=== PATIENT | female | born 1950 | race Caucasian/White ===

== ENCOUNTER 2019-08-14 10:44 | Emergency (ER) | payer MEDICARE ==
[2019-08-14 10:58] VITALS: RESP 18
--- NOTE | 2019-08-14 11:15 | ED ---
Extremity Problem HPI - General Chief complaint: Extremity Problem,Nontraumatic Stated complaint: Toe infection Time Seen by Provider: 08/14/19 11:00 Source: patient Mode of arrival: wheelchair Limitations: no limitations - History of Present Illness Initial comments: Patient is a 69-year-old female with chronic kidney failure and type 2 diabetes a presenting to emergency Department with a chief complaint of toe infection. Patient reports she has had a diabetic ulcer on her left third toe for several months which she had treated by a black top paver operator. Patient reports she would get occasional flareups over the toe which the black top paver operator was able to treat with antibiotics. Patient is scheduled to have partial removals and so and currently is undergoing medical clearance testing. Patient reports she has developed difficulty walking over the last 3 days. Patient denies any pain from the region. Her daughter, who does the dressings at home, states there has been improvement in the appearance of the toe. Patient denies any night sweats, fevers or chills. Patient denies increased foul odor from the toe. - Related Data Allergies Allergy/AdvReac Type Severity Reaction Status Date / Time No Known Allergies Allergy Verified 08/14/19 10:58 Review of Systems ROS Statement: Those systems with pertinent positive or pertinent negative responses have been documented in the HPI. ROS Other: All systems not noted in ROS Statement are negative. Past Medical History Past Medical History: CVA/TIA, Diabetes Mellitus, Hyperlipidemia, Hypertension, Thyroid Disorder Additional Past Medical History / Comment(s): chronic toe infection, stage 4 renal failure History of Any Multi-Drug Resistant Organisms: None Reported Past Surgical History: Section Past Psychological History: No Psychological Hx Reported Smoking Status: Never smoker Past Alcohol Use History: None Reported Past Drug Use History: None Reported General Exam Limitations: no limitations General appearance: alert, in no apparent distress Head exam: Present: atraumatic, normocephalic, normal inspection Eye exam: Present: normal appearance Pupils: Present: normal accommodation ENT exam: Present: normal exam, normal oropharynx, mucous membranes moist Neck exam: Present: normal inspection, full ROM Respiratory exam: Present: normal lung sounds bilaterally Cardiovascular Exam: Present: regular rate, normal rhythm, normal heart sounds Extremities exam: Present: full ROM, normal capillary refill. Absent: normal inspection (Left middle toe diabetic ulcer in the plantar aspect. Dried Betadine wrapped. No cellulitic changes noted. No drainage), tenderness, other (No foul smell. +2 dorsalis pedis and posterior tibialis) Back exam: Present: normal inspection, full ROM Neurological exam: Present: alert, oriented X3 Psychiatric exam: Present: normal affect, normal mood Skin exam: Present: warm, intact, normal color Course Vital Signs 08/14/19 10:53 Temperature 98.4 F Pulse Rate 67 Respiratory 18 Rate Blood Pressure 192/83 O2 Sat by Pulse 99 Oximetry Medical Decision Making - Medical Decision Making Patient is 69-year-old female with chronic kidney failure and type 2 diabetes presenting to emergency Department with a chief complaint of toe infection. Physical examination is indicative of a slightly erythematous toe that has been improving according to the daughter. The region is dry with no drainage on the diabetic ulcer which is located on the plantar aspect of the middle toe. Patient has no tenderness in the region. Patient has been complaining of difficulty walking. Patient is scheduled for partial limitation of toe and is currently undergoing medical clearance testing. Patient was concerned for possible infection. CBC shows no white blood count. Lactate is negative. Blood cultures obtained. CMP shows poor kidney function however that is the baseline according to the patient. X-rays indicative of vascular desiccation. Patient states that she does not want to have her toe amputated and is requesting a referral for new black top paver operator. No cellulitic changes noted at this time that would indicate an infection. Patient has no fevers or chills. Afebrile. Patient advised to follow-up with a black top paver operator. I gave the patient contact information for another black top paver operator. Strict return parameters were thoroughly discussed the patient was understanding and agreeable. Case discussed physician. - Lab Data Result diagrams: 08/14/19 11:51 08/14/19 11:51 Lab Results 08/14/19 08/14/19 08/14/19 Range/Units 11:51 11:51 11:51 WBC 4.1 (3.8-10.6) k/uL RBC 3.63 L (3.80-5.40) m/uL Hgb 10.1 L (11.4-16.0) gm/dL Hct 29.7 L (34.0-46.0) % MCV 81.7 (80.0-100.0) fL MCH 28.0 (25.0-35.0) pg MCHC 34.2 (31.0-37.0) g/dL RDW 13.9 (11.5-15.5) % Plt Count 238 (150-450) k/uL Poikilocytosis Slight Sodium 140 (137-145) mmol/L Potassium 4.6 (3.5-5.1) mmol/L Chloride 110 H (98-107) mmol/L Carbon Dioxide 23 (22-30) mmol/L Anion Gap 7 mmol/L BUN 33 H (7-17) mg/dL Creatinine 3.26 H (0.52-1.04) mg/dL Est GFR (CKD-EPI)AfAm 16 (>60 ml/min/1.73 sqM) Est GFR (CKD-EPI)NonAf 14 (>60 ml/min/1.73 sqM) Glucose 145 H (74-99) mg/dL Plasma Lactic Acid Freddy <0.5 L (0.7-2.0) mmol/L Calcium 8.9 (8.4-10.2) mg/dL Total Bilirubin 0.4 (0.2-1.3) mg/dL AST 17 (14-36) U/L ALT 16 (9-52) U/L Alkaline Phosphatase 85 (38-126) U/L Total Protein 7.0 (6.3-8.2) g/dL Albumin 3.4 L (3.5-5.0) g/dL Disposition Clinical Impression: Diabetic ulcer of toe associated with diabetes mellitus due to underlying condition Disposition: HOME SELF-CARE Condition: Stable Instructions (If sedation given, give patient instructions): Foot Care for People with Diabetes (ED) Additional Instructions: Please follow up with a black top paver operator. Please return to emergency department if symptoms worsen. Is patient prescribed a controlled substance at d/c from ED?: No Referrals: Kel Mayen MD [Primary Care Provider] - 1-2 days Time of Disposition: 12:45
--- NOTE | 2019-08-14 11:50 | XR ---
EXAMINATION TYPE: XR foot complete LT DATE OF EXAM: 08/14/2019 CLINICAL HISTORY: pain TECHNIQUE: Frontal, lateral and oblique images of the left foot are obtained. COMPARISON: None. FINDINGS: There is no acute fracture/dislocation evident. The joint spaces appear within normal britton its. Vascular desiccation is noted. IMPRESSION: There is no acute fracture or dislocation. ICD 10 NO FRACTURE, INITIAL EVALUATION
[2019-08-14 12:02] LABS: HCT 29.7 % (34.0-46.0); HGB 10.1 gm/dL (11.4-16.0); MCHC 34.2 g/dL (31.0-37.0); MCV 81.7 fL (80.0-100.0); Platelet Count 238 k/uL (150-450); Poikilocytosis Slight; RBC 3.63 m/uL (3.80-5.40); RDW 13.9 % (11.5-15.5); WBC 4.1 k/uL (3.8-10.6)
[2019-08-14 12:12] LABS: Albumin 3.4 g/dL (3.5-5.0); Calcium 8.9 mg/dL (8.4-10.2); Potassium 4.6 mmol/L (3.5-5.1); Total Bilirubin 0.4 mg/dL (0.2-1.3)
[2019-08-14 13:06] VITALS: BP 127/97; PULSE 64; TEMP 97.2
== END 2019-08-14 13:05 | disposition home or self-care (01) ==
LOC: EC 10:44
DX: E08.622 Diabetes mellitus due to underlying condition with other skin ulcer (principal); L98.499 Non-pressure chronic ulcer of skin of other sites with unspecified severity; I12.9 Hypertensive chronic kidney disease with stage 1 through stage 4 chronic kidney disease, or unspecified chronic kidney disease; E08.22 Diabetes mellitus due to underlying condition with diabetic chronic kidney disease; N18.4 Chronic kidney disease, stage 4 (severe)
CPT/HCPCS: 36415; 80053; 83605; 85027; 99283

== ENCOUNTER 2020-03-26 11:00 | Day surgery (SDC) | payer MEDICARE ==
[2020-03-24 13:40] VITALS: BMI 29.2
[~2020-03-26 11:00] MED LIST: DEXAMETHASONE SOD PHOSPHATE 10 MG/ML 1 ML VIAL IV ONE; LACTATED RINGERS 1,000 ML IV SCH; LIDOCAINE 1% (10MG/ML) FOR IV START INTRADERMA PRN; METOCLOPRAMIDE 5 MG/ML 2 ML VIAL IVP PRN; MORPHINE SULFATE 2 MG/ML SYRINGE IV PRN
[2020-03-26 11:13] LABS: Glucose,Whole Blood 147 mg/dL (75-99)
[2020-03-26] MEDS: ONDANSETRON 4 MG/2 ML VIAL IVP ONE ×2 (11:15→14:39)
[2020-03-26] MEDS ORDERED: MIDAZOLAM 2 MG/2 ML VIAL IV ONE ×2 (11:15)
[2020-03-26] MEDS ORDERED: ONDANSETRON 4 MG/2 ML VIAL ONE (11:18)
[2020-03-26] MEDS ORDERED: LIDOCAINE 1% INJ 10MG/ML (20 ML MDV) SQ ONE ×2 (11:33)
[2020-03-26] MEDS ORDERED: BUPIVACAINE (PF) 0.5% 30 ML VIAL SQ ONE ×2 (11:33)
[2020-03-26] MEDS ORDERED: LIDOCAINE 1% INJ 10MG/ML (20 ML MDV) ONE (11:41)
[2020-03-26] MEDS ORDERED: fentaNYL (PF) 50 MCG/ML 2 ML AMP ONE (11:41)
[2020-03-26] MEDS ORDERED: PHENYLEPHRINE-0.9% NACL SYG 1 MG/10 ML SYRINGE ONE (11:41)
[2020-03-26] MEDS ORDERED: ROPIVACAINE 5 MG/ML 30 ML VIAL ONE (11:41)
[2020-03-26] MEDS ORDERED: PROPOFOL 10 MG/ML 20 ML VIAL IV ONE (11:41)
[2020-03-26 11:49] LABS: Basophils % (A) 1 %; Eosinophils # (A) 0.2 k/uL (0-0.7); Eosinophils % (A) 5 %; HCT 33.1 % (34.0-46.0); HGB 10.8 gm/dL (11.4-16.0); Lymphocytes # (A) 0.9 k/uL (1.0-4.8); Lymphocytes % (A) 22 %; MCH 27.9 pg (25.0-35.0); MCHC 32.7 g/dL (31.0-37.0); MCV 85.4 fL (80.0-100.0); Mean Platelet Volume 7.6; Monocytes # (A) 0.2 k/uL (0-1.0); Monocytes % (A) 6 %; Neutrophils # (A) 2.7 k/uL (1.3-7.7); Neutrophils % (A) 65 %; Platelet Count 183 k/uL (150-450); RBC 3.87 m/uL (3.80-5.40); RDW 14.8 % (11.5-15.5); WBC 4.1 k/uL (3.8-10.6)
[2020-03-26 12:01] LABS: Calcium 8.9 mg/dL (8.4-10.2); Potassium 4.3 mmol/L (3.5-5.1)
--- NOTE | 2020-03-26 12:12 | P.ANPRN ---
Procedure Note - Anesthesia - Nerve Block Performed Left Supraclavicular Time Out Performed: Yes Date of Procedure: 03/26/20 Procedure Start Time: 11:36 Procedure Stop Time: 11:49 Location of Patient: PreOp Indication: Acute Post-Operative Pain, Requested by Surgeon (Dr Ruano) Sedation Type: Sedate with meaningful contact maintained Preparation: Sterile Prep Position: Supine Catheter: None Needle Types: Pajunk Needle Gauge: Other (see comment) (22g) Ultrasound used to visualize needle placement: Yes Ultrasound used to observe medication spread: Yes Injectate: 0.5% Ropivacaine (see comment for volume) (20cc) Blood Aspirated: No Pain Paresthesia on Injection Noted: No Resistance on Injection: Normal Image Stored and Saved: Yes Events: Uneventful and Well Tolerated
[2020-03-26] MEDS ORDERED: HEPARIN SODIUM,PORCINE 2,000 UNIT in SODIUM CHLORIDE 0.9% 500 ML 500 ML IRRIGATION ONE (12:14)
[2020-03-26] MEDS ORDERED: ceFAZolin 2 GM in SODIUM CHLORIDE 0.9% 500 ML 500 ML IRRIGATION ONE (12:14)
[2020-03-26] MEDS ORDERED: SODIUM CHLORIDE 0.9% 1,000 ML IV ONE (13:18)
[2020-03-26] MEDS ORDERED: THROMBIN (BOVINE) 5,000 UNIT VIAL TOPICAL ONE (13:40)
[2020-03-26] MEDS ORDERED: GELATIN SPONGE,ABSORB (LARGE) 1 EACH SPONGE TOPICAL ONE (13:40)
[2020-03-26 14:13] VITALS: TEMP 97
[2020-03-26 14:20] LABS: Glucose,Whole Blood 153 mg/dL (75-99)
--- NOTE | 2020-03-26 14:22 | P.OP ---
Date of Procedure: 03/26/20 Description of Procedure: Preoperative diagnosis: Chronic kidney disease, anticipated need for dialysis Postoperative diagnosis: Same Procedure: [Left upper extremity loop forearm graft] Surgeon: Bethany Ruano D.O. Anesthesia: Regional block with LMA EBL: [15 mL] IV fluids: [See operative records] Urine output: [Not measured] Drains: [None] Complications: [None immediately apparent] Condition: [Stable to PACU] Operative indication and findings: [The patient is a 69-year-old female with chronic kidney disease and an anticipated need for hemodialysis in the future. Requests by nephrology were made for a [facility] access site. Upon imaging in the office the patient was found to have small size veins with the left upper extremity basilic vein being marginally close therefore at this point a loop forearm graft was the intervention discussed and planned. The patient presents today for this. All questions are answered. Risks and benefits were discussed. At the time of the procedure, the median cubital vein was very small in size. The basilic vein was very close to the brachial therefore the anastomosis was from the brachial artery to the basilic vein] Procedure in detail: [The patient was taken to the operative suite and placed in supine position. The left upper extremity is prepped and draped in usual sterile fashion. A preprocedure timeout was performed, all parties were in agreement. The outcomes utilized in the brachial artery was identified. A transverse incision was made just distal to the antecubital fossa and carried down to the level of the brachial artery. It was dissected free circumferentially and proximal and distal Vesseloops were placed. Attention was then turned towards the venous outflow. There was no adequate size vessel at the median cubital space. The ultrasound was used and the basilic vein was identified. It seemed to be adequate in size therefore didn't was dissected free. It was dissected free circumvented proximal and distally and vessel loops were placed. The 4 x 7 propatent graft was then tunneled through a counter incision in the forearm and a subcutaneous tissues. The patient was then heparinized. Flow was occluded through the artery. An arteriotomy was performed and anastomosis to the graft was performed with 6-0 Prolene. The graft was then flushed and the anastomosis was tied. Flows T resumed through the brachial artery. Is a palpable pulse proximally and distally to the anastomosis. At the level of the risks are multiphasic signals at previous. Attention was then turned towards the venous anastomosis. Flow was occluded through the vein and a venotomy was performed. Anastomosis created with 6-0 Prolene. Prior to completion of the anastomosis the graft was flushed as well as the veins themselves. An acidosis completed and the flow was reinstituted. There remained a palpable pulse proximal and distal to the brachial anastomosis as well as multiphasic signals at the wrist. There was actually a thrill in the basilic vein also. Thrombin Gelfoam was used for hemostasis. The incision sites were copiously irrigated the subcutaneous tissues were approximately with 3-0 Vicryl in interrupted fashion and the skin was reapproximated with running 4-0 Monocryl. Skin glue was placed. The patient was allowed awaken from anesthesia and transferred to PACU in stable condition having tolerated the procedure well.] Plan - Discharge Summary Discharge Rx Participant: No New Discharge Prescriptions: New HYDROcodone/APAP 5-325MG [[place] 5-325] 1 tab PO Q6HR PRN 3 Days #12 tab PRN Reason: Pain No Action Allopurinol (Unk. Dose) 1 tab PO DAILY Calcitrol (Unkn.Dose) 1 tab PO DAILY Aspirin 325 mg PO DAILY Atorvastatin [Lipitor] 20 mg PO DAILY Cholecalciferol [Vitamin D3 (25 Mcg = 1000 Iu)] 5,000 unit PO Q7D Ferrous Sulfate [Feosol] 325 mg PO DAILY Levothyroxine Sodium [Synthroid] 125 mcg PO DAILY Metoprolol Tartrate [Lopressor] 50 mg PO BID NIFEdipine [Procardia XL] 30 mg PO BID sitaGLIPtin [Januvia] 50 mg PO DAILY Sodium Bicarbonate Tab 2 tab PO BID Discharge Medication List Allopurinol (Unk. Dose) 1 tab PO DAILY 03/24/20 [History] Aspirin 325 mg PO DAILY 03/24/20 [History] Atorvastatin [Lipitor] 20 mg PO DAILY 03/24/20 [History] Calcitrol (Unkn.Dose) 1 tab PO DAILY 03/24/20 [History] Cholecalciferol [Vitamin D3 (25 Mcg = 1000 Iu)] 5,000 unit PO Q7D 03/24/20 [History] Ferrous Sulfate [Feosol] 325 mg PO DAILY 03/24/20 [History] Levothyroxine Sodium [Synthroid] 125 mcg PO DAILY 03/24/20 [History] Metoprolol Tartrate [Lopressor] 50 mg PO BID 03/24/20 [History] NIFEdipine [Procardia XL] 30 mg PO BID 03/24/20 [History] Sodium Bicarbonate Tab 2 tab PO BID 03/24/20 [History] sitaGLIPtin [Januvia] 50 mg PO DAILY 03/24/20 [History] HYDROcodone/APAP 5-325MG [[place] 5-325] 1 tab PO Q6HR PRN 3 Days #12 tab 03/26/20 [Rx]
[2020-03-26 15:13] VITALS: RESP 20
[2020-03-26 15:41] VITALS: BP 152/69; PULSE 69
== END 2020-03-26 16:21 | disposition home or self-care (01) ==
LOC: OR 11:00
PROVIDERS: ATTEND Surgery
DX: I12.0 Hypertensive chronic kidney disease with stage 5 chronic kidney disease or end stage renal disease (principal); E11.22 Type 2 diabetes mellitus with diabetic chronic kidney disease; N18.5 Chronic kidney disease, stage 5; E78.5 Hyperlipidemia, unspecified; E03.9 Hypothyroidism, unspecified; I35.0 Nonrheumatic aortic (valve) stenosis; E61.1 Iron deficiency; E78.00 Pure hypercholesterolemia, unspecified; Z86.73 Personal history of transient ischemic attack (TIA), and cerebral infarction without residual deficits; E55.9 Vitamin D deficiency, unspecified; M10.9 Gout, unspecified; Z82.49 Family history of ischemic heart disease and other diseases of the circulatory system; Z83.3 Family history of diabetes mellitus; Z97.2 Presence of dental prosthetic device (complete) (partial); Z98.890 Other specified postprocedural states; Z79.84 Long term (current) use of oral hypoglycemic drugs; Z79.82 Long term (current) use of aspirin; Z79.890 Hormone replacement therapy; Z79.899 Other long term (current) drug therapy
CPT/HCPCS: 64415; 76942; 80048; 85025; 36821; J2250; J1644; J1100; J0690; J2405; J2001; J3010; J2795; J2370; J2704

== ENCOUNTER → 2020-06-11 | Outpatient (CLI) | payer MEDICARE ==
[2020-06-11 12:39] LABS: Basophils % (A) 1 %; Eosinophils # (A) 0.2 k/uL (0-0.7); Eosinophils % (A) 4 %; HCT 35.9 % (34.0-46.0); HGB 11.1 gm/dL (11.4-16.0); Lymphocytes # (A) 0.7 k/uL (1.0-4.8); Lymphocytes % (A) 18 %; MCH 27.3 pg (25.0-35.0); MCHC 30.9 g/dL (31.0-37.0); MCV 88.3 fL (80.0-100.0); Monocytes # (A) 0.3 k/uL (0-1.0); Monocytes % (A) 7 %; Neutrophils # (A) 2.7 k/uL (1.3-7.7); Neutrophils % (A) 69 %; Platelet Count 166 k/uL (150-450); RBC 4.06 m/uL (3.80-5.40); RDW 15.7 % (11.5-15.5); WBC 3.9 k/uL (3.8-10.6)
[2020-06-11 12:45] LABS: Appearance,Urine Cloudy (Clear); Bacteria,Urine Rare /hpf; Bilirubin,Urine Negative (Negative); Blood,Urine Small (Negative); Budding Yeast,Urine Occasional /hpf; Color,Urine Yellow; Glucose,Urine (UA) 2+ (Negative); Hyaline Casts,Urine 1 /lpf (0-2); Ketones,Urine Negative (Negative); Leukocyte Esterase,Urine Small (Negative); Mucus,Urine Rare /hpf; Nitrite,Urine Negative (Negative); Protein,Urine 3+ (Negative); RBC,Urine 11 /hpf (0-5); Specific Gravity,Urine 1.017 (1.001-1.035); Squamous Epithelial Cell,Urine 19 /hpf (0-4); Urobilinogen,Urine <2.0 mg/dL (<2.0); WBC,Urine 31 /hpf (0-5)
[2020-06-11 21:47] LABS: % Iron Saturation 36.63 (12.00-45.00); African American GFR (CKD) 15.3 (60.0-200.0); Albumin 3.8 g/dL (3.80-4.90); Albumin/Globulin Ratio 1.65 (1.60-3.17); Anion Gap 8.3 mmol/L (4.00-12.00); BUN/Creat Ratio 13.24 Ratio (12.00-20.00); Carbon Dioxide 22.7 mmol/L (21.6-31.8); Globulin 2.3 g/dL (1.6-3.3); Magnesium 2.2 mg/dL (1.5-2.4); Non-African American GFR(CKD) 13.2 (60.0-200.0); Phosphorus 4.2 mg/dL (2.4-5.1); Potassium 4.4 mmol/L (3.5-5.5); Total Bilirubin 0.3 mg/dL (0.2-1.2); Total Protein 6.1 g/dL (6.2-8.2); Uric Acid 6.4 mg/dL (2.9-7.7)
[2020-06-11 22:16] LABS: Ferritin 637.9 ng/mL (10.0-291.0)
== END | disposition home or self-care (01) ==
LOC: LABWHC1 11:32
PROVIDERS: ATTEND Nurse Practitioner Family
DX: N18.4 Chronic kidney disease, stage 4 (severe) (principal); D63.1 Anemia in chronic kidney disease; N39.0 Urinary tract infection, site not specified; R80.9 Proteinuria, unspecified; N25.81 Secondary hyperparathyroidism of renal origin; E55.9 Vitamin D deficiency, unspecified; M10.9 Gout, unspecified
CPT/HCPCS: 36415; 80053; 81001; 82570; 82728; 83540; 83550; 83735; 83970; 84100; 84156; 84550; 85025; 87086

== ENCOUNTER → 2020-07-27 | Outpatient (CLI) | payer MEDICARE ==
[2020-07-27 14:20] LABS: HCT 38.5 % (34.0-46.0); HGB 12.4 gm/dL (11.4-16.0); MCH 28.7 pg (25.0-35.0); MCHC 32.2 g/dL (31.0-37.0); Mean Platelet Volume 8.3; Platelet Count 180 k/uL (150-450); RBC 4.33 m/uL (3.80-5.40); RDW 14.3 % (11.5-15.5); WBC 4.6 k/uL (3.8-10.6)
[2020-07-27 14:27] LABS: Appearance,Urine Cloudy (Clear); Bacteria,Urine Many /hpf; Bilirubin,Urine Negative (Negative); Blood,Urine Trace (Negative); Color,Urine Light Yellow; Glucose,Urine (UA) 1+ (Negative); Hyaline Casts,Urine 1 /lpf (0-2); Ketones,Urine Negative (Negative); Leukocyte Esterase,Urine Negative (Negative); Mucus,Urine Rare /hpf; Nitrite,Urine Negative (Negative); Protein,Urine 2+ (Negative); RBC,Urine <1 /hpf (0-5); Specific Gravity,Urine 1.009 (1.001-1.035); Squamous Epithelial Cell,Urine 17 /hpf (0-4); Urobilinogen,Urine <2.0 mg/dL (<2.0); WBC,Urine 2 /hpf (0-5)
[2020-07-27 22:56] LABS: % Iron Saturation 30.37 (12.00-45.00); African American GFR (CKD) 12.9 (60.0-200.0); Albumin 3.9 g/dL (3.80-4.90); Albumin/Globulin Ratio 1.44 (1.60-3.17); Anion Gap 8.8 mmol/L (4.00-12.00); BUN/Creat Ratio 10.77 Ratio (12.00-20.00); Carbon Dioxide 25.2 mmol/L (21.6-31.8); Globulin 2.7 g/dL (1.6-3.3); Magnesium 2.3 mg/dL (1.5-2.4); Non-African American GFR(CKD) 11.2 (60.0-200.0); Phosphorus 4.9 mg/dL (2.4-5.1); Total Bilirubin 0.3 mg/dL (0.2-1.2); Total Protein 6.6 g/dL (6.2-8.2)
[2020-07-27 23:27] LABS: Ferritin 460.1 ng/mL (10.0-291.0)
== END | disposition home or self-care (01) ==
LOC: LABWHC1 12:22
PROVIDERS: ATTEND Internal Medicine
DX: N18.4 Chronic kidney disease, stage 4 (severe) (principal); D63.1 Anemia in chronic kidney disease; N39.0 Urinary tract infection, site not specified; N25.81 Secondary hyperparathyroidism of renal origin; E55.9 Vitamin D deficiency, unspecified; M10.9 Gout, unspecified
CPT/HCPCS: 36415; 80053; 81001; 82306; 82728; 83540; 83550; 83735; 83970; 84100; 84550; 85027

== ENCOUNTER → 2020-09-06 | Outpatient (CLI) | payer MEDICARE ==
[2020-09-06 15:17] LABS: Appearance,Urine Cloudy (Clear); Bacteria,Urine Rare /hpf; Bilirubin,Urine Negative (Negative); Blood,Urine Small (Negative); Color,Urine Light Yellow; Glucose,Urine (UA) 2+ (Negative); Hyaline Casts,Urine 11 /lpf (0-2); Ketones,Urine Negative (Negative); Leukocyte Esterase,Urine Negative (Negative); Mucus,Urine Rare /hpf; Nitrite,Urine Negative (Negative); PH, Urine 6.5 (5.0-8.0); Protein,Urine 3+ (Negative); RBC,Urine 1 /hpf (0-5); Specific Gravity,Urine 1.015 (1.001-1.035); Squamous Epithelial Cell,Urine 14 /hpf (0-4); Urobilinogen,Urine <2.0 mg/dL (<2.0); WBC,Urine 3 /hpf (0-5)
[2020-09-06 15:32] LABS: Basophils # (A) 0.1 k/uL (0-0.2); Basophils % (A) 1 %; Eosinophils # (A) 0.2 k/uL (0-0.7); Eosinophils % (A) 5 %; HCT 36.8 % (34.0-46.0); HGB 12.2 gm/dL (11.4-16.0); Lymphocytes # (A) 0.9 k/uL (1.0-4.8); Lymphocytes % (A) 25 %; MCH 29.6 pg (25.0-35.0); MCHC 33.2 g/dL (31.0-37.0); MCV 89.2 fL (80.0-100.0); Mean Platelet Volume 8.1; Monocytes # (A) 0.3 k/uL (0-1.0); Monocytes % (A) 8 %; Neutrophils # (A) 2.2 k/uL (1.3-7.7); Neutrophils % (A) 59 %; Platelet Count 154 k/uL (150-450); RBC 4.12 m/uL (3.80-5.40); WBC 3.8 k/uL (3.8-10.6)
[2020-09-07 02:28] LABS: % Iron Saturation 38.27 (12.00-45.00); African American GFR (CKD) 13.3 (60.0-200.0); Albumin/Globulin Ratio 1.48 (1.60-3.17); Anion Gap 7.9 mmol/L (4.00-12.00); BUN/Creat Ratio 9.74 Ratio (12.00-20.00); Calcium 9.3 mg/dL (8.7-10.3); Carbon Dioxide 26.1 mmol/L (21.6-31.8); Globulin 2.7 g/dL (1.6-3.3); Magnesium 2.3 mg/dL (1.5-2.4); Non-African American GFR(CKD) 11.4 (60.0-200.0); Phosphorus 4.3 mg/dL (2.4-5.1); Potassium 4.6 mmol/L (3.5-5.5); Total Bilirubin 0.3 mg/dL (0.2-1.2); Total Protein 6.7 g/dL (6.2-8.2); Uric Acid 5.7 mg/dL (2.9-7.7)
[2020-09-07 04:00] LABS: Ferritin 449.6 ng/mL (10.0-291.0)
== END | disposition home or self-care (01) ==
LOC: LABWHC1 14:19
PROVIDERS: ATTEND Nurse Practitioner Family
DX: N18.4 Chronic kidney disease, stage 4 (severe) (principal); D63.1 Anemia in chronic kidney disease; N39.0 Urinary tract infection, site not specified; E21.3 Hyperparathyroidism, unspecified; E55.9 Vitamin D deficiency, unspecified; M10.9 Gout, unspecified
CPT/HCPCS: 36415; 80053; 81001; 82306; 82728; 83540; 83550; 83735; 83970; 84100; 84550; 85025

== ENCOUNTER → 2020-10-08 | Outpatient (CLI) | payer MEDICARE ==
[2020-10-08 16:52] LABS: HCT 36.7 % (34.0-46.0); MCHC 32.8 g/dL (31.0-37.0); MCV 91.3 fL (80.0-100.0); Mean Platelet Volume 8.7; Platelet Count 141 k/uL (150-450); RBC 4.02 m/uL (3.80-5.40); WBC 3.7 k/uL (3.8-10.6)
[2020-10-08 19:03] LABS: Appearance,Urine Clear (Clear); Bilirubin,Urine Negative (Negative); Blood,Urine Small (Negative); Color,Urine Yellow; Glucose,Urine (UA) 2+ (Negative); Ketones,Urine Negative (Negative); Leukocyte Esterase,Urine Negative (Negative); Nitrite,Urine Negative (Negative); Protein,Urine 3+ (Negative); RBC,Urine <1 /hpf (0-5); Specific Gravity,Urine 1.019 (1.001-1.035); Squamous Epithelial Cell,Urine <1 /hpf (0-4); Urobilinogen,Urine <2.0 mg/dL (<2.0); WBC,Urine <1 /hpf (0-5)
[2020-10-09 02:36] LABS: % Iron Saturation 37.5 (12.00-45.00); African American GFR (CKD) 13.7 (60.0-200.0); Albumin 4.1 g/dL (3.80-4.90); Albumin/Globulin Ratio 1.41 (1.60-3.17); Anion Gap 9.4 mmol/L (4.00-12.00); BUN/Creat Ratio 13.24 Ratio (12.00-20.00); Carbon Dioxide 24.6 mmol/L (21.6-31.8); Globulin 2.9 g/dL (1.6-3.3); Magnesium 2.3 mg/dL (1.5-2.4); Non-African American GFR(CKD) 11.8 (60.0-200.0); Phosphorus 4.1 mg/dL (2.4-5.1); Potassium 4.6 mmol/L (3.5-5.5); Total Bilirubin 0.3 mg/dL (0.2-1.2); Uric Acid 5.7 mg/dL (2.9-7.7)
[2020-10-09 02:57] LABS: Ferritin 438.2 ng/mL (10.0-291.0)
== END | disposition home or self-care (01) ==
LOC: LABWHC1 15:08
PROVIDERS: ATTEND Nurse Practitioner Family
DX: N18.4 Chronic kidney disease, stage 4 (severe) (principal); D64.9 Anemia, unspecified; N39.0 Urinary tract infection, site not specified; N25.81 Secondary hyperparathyroidism of renal origin; E55.9 Vitamin D deficiency, unspecified; M10.9 Gout, unspecified
CPT/HCPCS: 36415; 80053; 81001; 82306; 82728; 83540; 83550; 83735; 83970; 84100; 84550; 85027

== ENCOUNTER → 2020-11-24 | Outpatient (CLI) | payer MEDICARE ==
[2020-11-24 12:27] LABS: Appearance,Urine Cloudy (Clear); Bacteria,Urine Occasional /hpf; Bilirubin,Urine Negative (Negative); Blood,Urine Small (Negative); Color,Urine Yellow; Glucose,Urine (UA) 1+ (Negative); Hyaline Casts,Urine 4 /lpf (0-2); Ketones,Urine Negative (Negative); Leukocyte Esterase,Urine Small (Negative); Mucus,Urine Rare /hpf; Nitrite,Urine Negative (Negative); PH, Urine 6.5 (5.0-8.0); Protein,Urine 3+ (Negative); RBC,Urine 1 /hpf (0-5); Specific Gravity,Urine 1.017 (1.001-1.035); Squamous Epithelial Cell,Urine 19 /hpf (0-4); Urobilinogen,Urine <2.0 mg/dL (<2.0); WBC,Urine 12 /hpf (0-5)
[2020-11-24 19:19] LABS: HCT 37.4 % (37.2-46.3); HGB 11.5 g/dL (12.0-15.0); MCH 29.5 pg (27.0-32.0); MCHC 30.7 g/dL (32.0-37.0); MCV 95.9 fL (80.0-97.0); Mean Platelet Volume 10.9 fL (9.5-12.2); Platelet Count 172 X 10*3/uL (140-440); RDW 14.2 % (11.5-14.5); WBC 5.22 X 10*3/uL (4.50-10.00)
[2020-11-24 21:04] LABS: % Iron Saturation 33.81 (12.00-45.00)
[2020-11-24 21:05] LABS: African American GFR (CKD) 11.4 (60.0-200.0); Albumin 4.2 g/dL (3.80-4.90); Albumin/Globulin Ratio 1.56 (1.60-3.17); Anion Gap 10.4 mmol/L (4.00-12.00); BUN/Creat Ratio 9.3 Ratio (12.00-20.00); Carbon Dioxide 23.6 mmol/L (21.6-31.8); Globulin 2.7 g/dL (1.6-3.3); Magnesium 2.4 mg/dL (1.5-2.4); Non-African American GFR(CKD) 9.8 (60.0-200.0); Phosphorus 4.7 mg/dL (2.4-5.1); Potassium 4.4 mmol/L (3.5-5.5); Total Bilirubin 0.3 mg/dL (0.2-1.2); Total Protein 6.9 g/dL (6.2-8.2); Uric Acid 5.3 mg/dL (2.9-7.7)
[2020-11-24 21:36] LABS: Ferritin 308.9 ng/mL (10.0-291.0)
== END | disposition home or self-care (01) ==
LOC: LABWHC1 11:09
PROVIDERS: ATTEND Internal Medicine
DX: E55.9 Vitamin D deficiency, unspecified (principal); D63.1 Anemia in chronic kidney disease; N18.4 Chronic kidney disease, stage 4 (severe); N39.0 Urinary tract infection, site not specified; N25.81 Secondary hyperparathyroidism of renal origin; M10.9 Gout, unspecified
CPT/HCPCS: 36415; 80053; 81001; 82306; 82728; 83540; 83550; 83735; 83970; 84100; 84550; 85027

== ENCOUNTER → 2021-01-03 | Outpatient (CLI) | payer MEDICARE ==
[2021-01-03 23:45] LABS: HCT 36.3 % (37.2-46.3); HGB 11.4 g/dL (12.0-15.0); MCH 29.7 pg (27.0-32.0); MCHC 31.4 g/dL (32.0-37.0); MCV 94.5 fL (80.0-97.0); Mean Platelet Volume 10.9 fL (9.5-12.2); Platelet Count 160 X 10*3/uL (140-440); RBC 3.84 X 10*6/uL (4.10-5.20); WBC 3.83 X 10*3/uL (4.50-10.00)
[2021-01-04 13:35] LABS: % Iron Saturation 26.32 (12.00-45.00); African American GFR (CKD) 11.4 (60.0-200.0); Albumin 4.3 g/dL (3.80-4.90); Albumin/Globulin Ratio 1.65 (1.60-3.17); Anion Gap 12.8 mmol/L (4.00-12.00); BUN/Creat Ratio 10.23 Ratio (12.00-20.00); Calcium 9.3 mg/dL (8.7-10.3); Carbon Dioxide 21.2 mmol/L (21.6-31.8); Globulin 2.6 g/dL (1.6-3.3); Magnesium 2.2 mg/dL (1.5-2.4); Non-African American GFR(CKD) 9.8 (60.0-200.0); Phosphorus 5.3 mg/dL (2.4-5.1); Potassium 4.1 mmol/L (3.5-5.5); Total Bilirubin 0.2 mg/dL (0.2-1.2); Total Protein 6.9 g/dL (6.2-8.2); Uric Acid 4.8 mg/dL (2.9-7.7)
[2021-01-04 13:38] LABS: Ferritin 370.8 ng/mL (10.0-291.0)
== END | disposition home or self-care (01) ==
LOC: LABWHC1 16:00
PROVIDERS: ATTEND Nurse Practitioner Family
DX: N18.4 Chronic kidney disease, stage 4 (severe) (principal)
CPT/HCPCS: 36415; 80053; 82306; 82728; 83540; 83550; 83735; 83970; 84100; 84550; 85027

== ENCOUNTER 2021-01-12 11:37 | Emergency (ER) | payer MEDICARE ==
[2021-01-12 12:01] VITALS: TEMP 97.3
[2021-01-12] MEDS ORDERED: SODIUM CHLORIDE 0.9% 500 ML 500 ML IV ONE (12:27)
--- NOTE | 2021-01-12 12:29 | ED ---
General Adult HPI - General Chief complaint: Fall Stated complaint: fall Time Seen by Provider: 01/12/21 12:00 Source: patient, family, RN notes reviewed, old records reviewed Mode of arrival: wheelchair Limitations: physical limitation - History of Present Illness Initial comments: This is a 70-year-old female who presents to the emergency department c omplaining of having passed out today. Patient states she got up to go to the front door and she was lightheaded and then no one was at the front torso she went to the bathroom and next thing she remembers is being on the floor. Patient states she did not hit her head she has no headache no head pain patient denies any neck pain or neck injury. Patient denies any extremity injury. Patient states that she doesn't appear to occur anything from the fall she just still occasionally feeling lightheaded per patient denies any recent fever chills or cough per patient denies chest pain patient difficulty breathing shortest breath per patient denies abdominal pain patient denies nausea vomiting diarrhea. Patient states she does have black stools but she's not sure if she takes any iron because she has been anemic before so is a possibility. - Related Data Home Medications Medication Instructions Recorded Confirmed Aspirin 325 mg PO DAILY 03/24/20 01/12/21 Ferrous Sulfate [Feosol] 325 mg PO BID 03/24/20 01/12/21 Levothyroxine Sodium [Synthroid] 125 mcg PO DAILY 03/24/20 01/12/21 Sodium Bicarbonate Tab 1,300 tab PO DAILY 03/24/20 01/12/21 sitaGLIPtin [Januvia] 50 mg PO DAILY 03/24/20 01/12/21 Allopurinol [Zyloprim] 100 mg PO DAILY 01/12/21 01/12/21 Atorvastatin Calcium [Lipitor] 10 mg PO HS 01/12/21 01/12/21 Cholecalciferol (Vitamin D3) 125 mcg PO Q14D 01/12/21 01/12/21 [Vitamin D3 (5000 Iu)] Magnesium Oxide [Magox 400] 400 mg PO Q48H 01/12/21 01/12/21 Metoprolol Tartrate [Lopressor] 100 mg PO BID 01/12/21 01/12/21 NIFEdipine [Procardia XL] 60 mg PO BID 01/12/21 01/12/21 Pioglitazone [Actos] 15 mg PO DAILY 01/12/21 01/12/21 calcitrioL [Calcitriol] 0.5 mcg PO MOWEFR 01/12/21 01/12/21 Allergies Allergy/AdvReac Type Severity Reaction Status Date / Time No Known Allergies Allergy Verified 01/12/21 13:10 Review of Systems ROS Statement: Those systems with pertinent positive or pertinent negative responses have been documented in the HPI. ROS Other: All systems not noted in ROS Statement are negative. Past Medical History Past Medical History: Chest Pain / Angina, CVA/TIA, Diabetes Mellitus, Hyperlipidemia, Hypertension, Memory Impairment, Renal Disease, Thyroid Disorder Additional Past Medical History / Comment(s): chronic toe infection, stage 4 renal failure,diabetic retinopathy, gout, mild aortic stenosis, neuropathy torsten feet, rt sided weakness since CVA History of Any Multi-Drug Resistant Organisms: None Reported Past Surgical History: Section Additional Past Surgical History / Comment(s): lt arm dialysis graft Past Anesthesia/Blood Transfusion Reactions: No Reported Reaction Past Psychological History: No Psychological Hx Reported Smoking Status: Never smoker Past Alcohol Use History: None Reported Past Drug Use History: None Reported - Past Family History Mother Family Medical History: No Reported History General Exam - General Exam Comments Initial Comments: GENERAL: Patient is well-developed and well-nourished. Patient is nontoxic and well- hydrated and is in mild distress. ENT: Neck is soft and supple. No significant lymphadenopathy is noted. Oropharynx is clear. Moist mucous membranes. Neck has full range of motion without eliciting any pain. EYES: The sclera were anicteric and conjunctiva were pink and moist. Extraocular movements were intact and pupils were equal round and reactive to light. Eyelids were unremarkable. PULMONARY: Unlabored respirations. Good breath sounds bilaterally. No audible rales rhonchi or wheezing was noted. CARDIOVASCULAR: There is a regular rate and rhythm without any murmurs gallops or rubs. ABDOMEN: Soft and nontender with normal bowel sounds. SKIN: Skin is pale NEUROLOGIC: Patient is alert and oriented x3. Cranial nerves II through XII are grossly intact. Motor and sensory are also intact. Normal speech, volume and content. Symmetrical smile. MUSCULOSKELETAL: Normal extremities with adequate strength and full range of motion. No lower extremity swelling or edema. No calf tenderness. LYMPHATICS: No significant lymphadenopathy is noted PSYCHIATRIC: Normal psychiatric evaluation. Limitations: physical limitation Course Vital Signs 01/12/21 01/12/21 01/12/21 11:57 12:58 13:00 Temperature 97.3 F L Pulse Rate 59 L 64 65 Respiratory 20 11 L 17 Rate Blood Pressure 124/71 136/73 O2 Sat by Pulse 99 100 98 Oximetry 01/12/21 01/12/21 01/12/21 13:10 13:20 13:30 Temperature Pulse Rate 63 64 62 Respiratory 9 L 0 L 5 L Rate Blood Pressure 138/67 138/67 138/67 O2 Sat by Pulse 98 97 98 Oximetry 01/12/21 01/12/21 01/12/21 13:40 14:00 15:00 Temperature Pulse Rate 64 61 62 Respiratory 8 L 16 16 Rate Blood Pressure 146/66 142/68 148/66 O2 Sat by Pulse 98 96 96 Oximetry 01/12/21 01/12/21 16:00 17:01 Temperature Pulse Rate 67 66 Respiratory 16 16 Rate Blood Pressure 143/60 145/67 O2 Sat by Pulse 96 97 Oximetry Medical Decision Making - Medical Decision Making EKG shows normal sinus rhythm at 65 bpm FL interval 246 QRS is 66 Q-T intervals 450 QTC is 468. Patient's EKG shows no ST segment elevation or depression. CT of the brain shows no acute abnormality. Chest shows no acute abnormality. I will back into the room patient had no complaints we try to get a hold of family but there was no response. Patient states she does not want to stay in the hospital the patient be discharged home. - Lab Data Result diagrams: 01/12/21 13:22 01/12/21 13:22 Lab Results 01/12/21 01/12/21 01/12/21 Range/Units 13:08 13:22 13:22 WBC 5.2 (3.8-10.6) k/uL RBC 3.68 L (3.80-5.40) m/uL Hgb 10.9 L (11.4-16.0) gm/dL Hct 33.1 L (34.0-46.0) % MCV 89.9 (80.0-100.0) fL MCH 29.7 (25.0-35.0) pg MCHC 33.0 (31.0-37.0) g/dL RDW 14.6 (11.5-15.5) % Plt Count 154 (150-450) k/uL MPV 8.1 Neutrophils % 63 % Lymphocytes % 23 % Monocytes % 7 % Eosinophils % 4 % Basophils % 1 % Neutrophils # 3.3 (1.3-7.7) k/uL Lymphocytes # 1.2 (1.0-4.8) k/uL Monocytes # 0.4 (0-1.0) k/uL Eosinophils # 0.2 (0-0.7) k/uL Basophils # 0.0 (0-0.2) k/uL PT 9.7 (9.0-12.0) sec INR 0.9 (<1.2) APTT 22.4 (22.0-30.0) sec Sodium (137-145) mmol/L Potassium (3.5-5.1) mmol/L Chloride (98-107) mmol/L Carbon Dioxide (22-30) mmol/L Anion Gap mmol/L BUN (7-17) mg/dL Creatinine (0.52-1.04) mg/dL Est GFR (CKD-EPI)AfAm (>60 ml/min/1.73 sqM) Est GFR (CKD-EPI)NonAf (>60 ml/min/1.73 sqM) Glucose (74-99) mg/dL Calcium (8.4-10.2) mg/dL Magnesium (1.6-2.3) mg/dL Total Bilirubin (0.2-1.3) mg/dL AST (14-36) U/L ALT (4-34) U/L Alkaline Phosphatase (38-126) U/L Troponin I (0.000-0.034) ng/mL Total Protein (6.3-8.2) g/dL Albumin (3.5-5.0) g/dL Urine Color Urine Appearance (Clear) Urine pH (5.0-8.0) Ur Specific Lueders (1.001-1.035) Urine Protein (Negative) Urine Glucose (UA) (Negative) Urine Ketones (Negative) Urine Blood (Negative) Urine Nitrite (Negative) Urine Bilirubin (Negative) Urine Urobilinogen (<2.0) mg/dL Ur Leukocyte Esterase (Negative) Urine WBC (0-5) /hpf Ur Squamous Epith Cells (0-4) /hpf Urine Bacteria (None) /hpf Urine Mucus (None) /hpf Blood Type A Positive Blood Type Confirm Blood Type Recheck No Previous Record Bld Type Recheck Status CABO Indicated Antibody Screen NEGATIVE Spec Expiration Date 01/15/2021 - 230701/12/21 01/12/21 01/12/21 Range/Units 13:22 13:22 13:36 WBC (3.8-10.6) k/uL RBC (3.80-5.40) m/uL Hgb (11.4-16.0) gm/dL Hct (34.0-46.0) % MCV (80.0-100.0) fL MCH (25.0-35.0) pg MCHC (31.0-37.0) g/dL RDW (11.5-15.5) % Plt Count (150-450) k/uL MPV Neutrophils % % Lymphocytes % % Monocytes % % Eosinophils % % Basophils % % Neutrophils # (1.3-7.7) k/uL Lymphocytes # (1.0-4.8) k/uL Monocytes # (0-1.0) k/uL Eosinophils # (0-0.7) k/uL Basophils # (0-0.2) k/uL PT (9.0-12.0) sec INR (<1.2) APTT (22.0-30.0) sec Sodium 138 (137-145) mmol/L Potassium 4.4 (3.5-5.1) mmol/L Chloride 104 (98-107) mmol/L Carbon Dioxide 26 (22-30) mmol/L Anion Gap 8 mmol/L BUN 46 H (7-17) mg/dL Creatinine 4.68 H (0.52-1.04) mg/dL Est GFR (CKD-EPI)AfAm 10 (>60 ml/min/1.73 sqM) Est GFR (CKD-EPI)NonAf 9 (>60 ml/min/1.73 sqM) Glucose 122 H (74-99) mg/dL Calcium 9.1 (8.4-10.2) mg/dL Magnesium 2.4 H (1.6-2.3) mg/dL Total Bilirubin 0.3 (0.2-1.3) mg/dL AST 22 (14-36) U/L ALT 10 (4-34) U/L Alkaline Phosphatase 62 (38-126) U/L Troponin I <0.012 (0.000-0.034) ng/mL Total Protein 6.6 (6.3-8.2) g/dL Albumin 3.7 (3.5-5.0) g/dL Urine Color Urine Appearance (Clear) Urine pH (5.0-8.0) Ur Specific Lueders (1.001-1.035) Urine Protein (Negative) Urine Glucose (UA) (Negative) Urine Ketones (Negative) Urine Blood (Negative) Urine Nitrite (Negative) Urine Bilirubin (Negative) Urine Urobilinogen (<2.0) mg/dL Ur Leukocyte Esterase (Negative) Urine WBC (0-5) /hpf Ur Squamous Epith Cells (0-4) /hpf Urine Bacteria (None) /hpf Urine Mucus (None) /hpf Blood Type Blood Type Confirm A Positive Blood Type Recheck Bld Type Recheck Status Antibody Screen Spec Expiration Date 01/12/21 Range/Units 15:20 WBC (3.8-10.6) k/uL RBC (3.80-5.40) m/uL Hgb (11.4-16.0) gm/dL Hct (34.0-46.0) % MCV (80.0-100.0) fL MCH (25.0-35.0) pg MCHC (31.0-37.0) g/dL RDW (11.5-15.5) % Plt Count (150-450) k/uL MPV Neutrophils % % Lymphocytes % % Monocytes % % Eosinophils % % Basophils % % Neutrophils # (1.3-7.7) k/uL Lymphocytes # (1.0-4.8) k/uL Monocytes # (0-1.0) k/uL Eosinophils # (0-0.7) k/uL Basophils # (0-0.2) k/uL PT (9.0-12.0) sec INR (<1.2) APTT (22.0-30.0) sec Sodium (137-145) mmol/L Potassium (3.5-5.1) mmol/L Chloride (98-107) mmol/L Carbon Dioxide (22-30) mmol/L Anion Gap mmol/L BUN (7-17) mg/dL Creatinine (0.52-1.04) mg/dL Est GFR (CKD-EPI)AfAm (>60 ml/min/1.73 sqM) Est GFR (CKD-EPI)NonAf (>60 ml/min/1.73 sqM) Glucose (74-99) mg/dL Calcium (8.4-10.2) mg/dL Magnesium (1.6-2.3) mg/dL Total Bilirubin (0.2-1.3) mg/dL AST (14-36) U/L ALT (4-34) U/L Alkaline Phosphatase (38-126) U/L Troponin I (0.000-0.034) ng/mL Total Protein (6.3-8.2) g/dL Albumin (3.5-5.0) g/dL Urine Color Light Yellow Urine Appearance Cloudy H (Clear) Urine pH 7.0 (5.0-8.0) Ur Specific Lueders 1.005 (1.001-1.035) Urine Protein 3+ H (Negative) Urine Glucose (UA) 1+ H (Negative) Urine Ketones Negative (Negative) Urine Blood Small H (Negative) Urine Nitrite Negative (Negative) Urine Bilirubin Negative (Negative) Urine Urobilinogen <2.0 (<2.0) mg/dL Ur Leukocyte Esterase Small H (Negative) Urine WBC 12 H (0-5) /hpf Ur Squamous Epith Cells 6 H (0-4) /hpf Urine Bacteria Occasional H (None) /hpf Urine Mucus Rare H (None) /hpf Blood Type Blood Type Confirm Blood Type Recheck Bld Type Recheck Status Antibody Screen Spec Expiration Date Disposition Clinical Impression: Syncope and collapse Disposition: HOME SELF-CARE Condition: Good Instructions (If sedation given, give patient instructions): Fall Prevention for Older Adults (ED), Syncope (ED) Is patient prescribed a controlled substance at d/c from ED?: No Referrals: Kel Mayen MD [Primary Care Provider] - 1-2 days Time of Disposition: 17:29
[2021-01-12 13:35] LABS: Basophils % (A) 1 %; Eosinophils # (A) 0.2 k/uL (0-0.7); Eosinophils % (A) 4 %; HCT 33.1 % (34.0-46.0); HGB 10.9 gm/dL (11.4-16.0); Lymphocytes # (A) 1.2 k/uL (1.0-4.8); Lymphocytes % (A) 23 %; MCH 29.7 pg (25.0-35.0); MCV 89.9 fL (80.0-100.0); Mean Platelet Volume 8.1; Monocytes # (A) 0.4 k/uL (0-1.0); Monocytes % (A) 7 %; Neutrophils # (A) 3.3 k/uL (1.3-7.7); Neutrophils % (A) 63 %; Platelet Count 154 k/uL (150-450); RBC 3.68 m/uL (3.80-5.40); RDW 14.6 % (11.5-15.5); WBC 5.2 k/uL (3.8-10.6)
[2021-01-12 13:49] LABS: INR 0.9 (<1.2); Partial Thromboplastin Time 22.4 sec (22.0-30.0); Prothrombin Time 9.7 sec (9.0-12.0)
[2021-01-12 13:52] LABS: Albumin 3.7 g/dL (3.5-5.0); Calcium 9.1 mg/dL (8.4-10.2); Magnesium 2.4 mg/dL (1.6-2.3); Potassium 4.4 mmol/L (3.5-5.1); Total Bilirubin 0.3 mg/dL (0.2-1.3); Total Protein 6.6 g/dL (6.3-8.2)
--- NOTE | 2021-01-12 14:08 | XR ---
EXAMINATION TYPE: XR chest 2V DATE OF EXAM: 01/12/2021 COMPARISON: None INDICATION: Chest pain, fall TECHNIQUE: Frontal and lateral views of the chest are obtained. FINDINGS: The heart size is normal. The pulmonary vasculature is normal. The lungs are clear. No displaced fractures are evident. No pneumothorax is evident. IMPRESSION: 1. No acute pulmonary process.
--- NOTE | 2021-01-12 15:23 | CT ---
EXAMINATION TYPE: CT brain wo con DATE OF EXAM: 01/12/2021 COMPARISON: None HISTORY: Hallucinations, altered mental status CT DLP: 1088.4 mGycm Automated exposure control for dose reduction was used. Helical imaging through the brain. FINDINGS: There is cortical atrophy present. Some scattered calcification present within the cerebellar hemisph eres is noted bilaterally. Low-attenuation present within the periventricular white matter is noted. Calvarium is intact. Symmetric basal ganglia calcifications are present. IMPRESSION: AGE-RELATED CHANGES OF ATROPHY AND CHRONIC SMALL VESSEL ISCHEMIA.
[2021-01-12 15:46] LABS: Appearance,Urine Cloudy (Clear); Bacteria,Urine Occasional /hpf; Bilirubin,Urine Negative (Negative); Blood,Urine Small (Negative); Color,Urine Light Yellow; Glucose,Urine (UA) 1+ (Negative); Ketones,Urine Negative (Negative); Leukocyte Esterase,Urine Small (Negative); Mucus,Urine Rare /hpf; Nitrite,Urine Negative (Negative); Protein,Urine 3+ (Negative); Specific Gravity,Urine 1.005 (1.001-1.035); Squamous Epithelial Cell,Urine 6 /hpf (0-4); Urobilinogen,Urine <2.0 mg/dL (<2.0); WBC,Urine 12 /hpf (0-5)
[2021-01-12] MEDS ORDERED: cefTRIAXone IN SWFI 1,000 MG/10 ML SYRINGE IVP STA (16:41)
[2021-01-12 16:59] VITALS: RESP 16
[2021-01-12 19:27] VITALS: BP 156/69; PULSE 64
== END 2021-01-12 19:20 | disposition home or self-care (01) ==
LOC: EC 11:37
DX: R55 Syncope and collapse (principal); I12.9 Hypertensive chronic kidney disease with stage 1 through stage 4 chronic kidney disease, or unspecified chronic kidney disease; E11.22 Type 2 diabetes mellitus with diabetic chronic kidney disease; E11.8 Type 2 diabetes mellitus with unspecified complications; N18.4 Chronic kidney disease, stage 4 (severe); E78.5 Hyperlipidemia, unspecified; Z86.73 Personal history of transient ischemic attack (TIA), and cerebral infarction without residual deficits
CPT/HCPCS: 36415; 93005; 86900; 86901; 80053; 83735; 84484; 85025; 85610; 85730; 86850; 81001; 87086; 71046; 70450; 99285; 96374; J0696

== ENCOUNTER → 2021-01-13 | Outpatient (CLI) | payer MEDICARE ==
[2021-01-13 22:56] LABS: Hepatitis A Antibody IgM Non-Reactive (Non-Reactive); Hepatitis B Core IgM Non-Reactive (Non-Reactive); Hepatitis B Surface AB- Quant 3.5 mIU/mL; Hepatitis B Surface Antibody Non-Reactive (Non-Reactive); Hepatitis B Surface Antigen Non-Reactive (Non-Reactive); Hepatitis C IgG Antibody Non-Reactive (Non-Reactive)
== END | disposition home or self-care (01) ==
LOC: LABWHC1 12:32
PROVIDERS: ATTEND Nurse Practitioner Family
DX: N18.4 Chronic kidney disease, stage 4 (severe) (principal)
CPT/HCPCS: 36415; 80074; 86706

== ENCOUNTER 2021-05-01 11:10 | Inpatient (IN) | payer MEDICARE, OTHER ==
[2021-05-01] MEDS ORDERED: SODIUM CHLORIDE 0.9% 500 ML 500 ML IV STA (11:41)
[2021-05-01 11:45] LABS: Glucose,Whole Blood 84 mg/dL (75-99)
[2021-05-01 12:13] LABS: Basophils % (A) 1 %; Eosinophils # (A) 0.1 k/uL (0-0.7); Eosinophils % (A) 2 %; HCT 31.8 % (34.0-46.0); HGB 11.2 gm/dL (11.4-16.0); Lymphocytes # (A) 1.1 k/uL (1.0-4.8); Lymphocytes % (A) 23 %; MCH 31.7 pg (25.0-35.0); MCHC 35.3 g/dL (31.0-37.0); MCV 89.8 fL (80.0-100.0); Mean Platelet Volume 8.1; Monocytes # (A) 0.4 k/uL (0-1.0); Monocytes % (A) 8 %; Neutrophils # (A) 3.1 k/uL (1.3-7.7); Neutrophils % (A) 67 %; Platelet Count 145 k/uL (150-450); RBC 3.53 m/uL (3.80-5.40); RDW 13.2 % (11.5-15.5); WBC 4.7 k/uL (3.8-10.6)
[2021-05-01 12:24] LABS: Albumin 3.9 g/dL (3.5-5.0); Calcium 9.5 mg/dL (8.4-10.2); INR 0.9 (<1.2); Partial Thromboplastin Time 22.2 sec (22.0-30.0); Potassium 3.5 mmol/L (3.5-5.1); Prothrombin Time 10.1 sec (9.0-12.0); Total Bilirubin 0.4 mg/dL (0.2-1.3); Total Protein 6.7 g/dL (6.3-8.2)
--- NOTE | 2021-05-01 12:26 | CT ---
EXAMINATION TYPE: CT brain wo con for TPA DATE OF EXAM: 05/01/2021 COMPARISON: 01/12/2021 HISTORY: Trauma. Pain. Fell off her porch yesterday, face first CT DLP: 1180.4 mGycm Automated exposure control for dose reduction was used. FINDINGS: There is cortical atrophy present. Some scattered calcification present within the cerebellar hemisph eres is noted bilaterally. Low-attenuation present within the periventricular white matter is noted. Calvarium is intact. Symmetric basal ganglia calcifications are present. IMPRESSION: DEGENERATIVE NONSPECIFIC WHITE MATTER CHANGES MOST TYPICAL REMOTE ISCHEMIA.
--- NOTE | 2021-05-01 12:26 | ED ---
General Adult HPI - General Chief complaint: Weakness Stated complaint: Falls Time Seen by Provider: 05/01/21 11:20 Source: patient, RN notes reviewed, old records reviewed Mode of arrival: wheelchair Limitations: no limitations - History of Present Illness Initial comments: This is a 70-year-old female who presents emergency Department complaining of o verall weakness for months but she believes that there is some left-sided leg weakness for the last couple of days and yesterday she was walking up some steps and fell patient states she did hit her head on the area of the right lateral orbit. Patient denies any headache patient denies any loss of consciousness. Patient denies any neck pain. Patient denies any numbness. Patient does state that the left leg is been weak and it makes more difficult to walk and it is been this way for at least 2 or 3 days. Patient denies any recent fever chills or cough per patient denies any near syncopal episode. Patient denies any chest pain difficulty breathing shortness of breath per patient denies any abdominal pain patient denies nausea vomiting diarrhea. - Related Data Home Medications Medication Instructions Recorded Confirmed Aspirin 325 mg PO DAILY 03/24/20 05/01/21 Ferrous Sulfate [Feosol] 325 mg PO BID 03/24/20 05/01/21 Levothyroxine Sodium [Synthroid] 125 mcg PO DAILY 03/24/20 05/01/21 Sodium Bicarbonate Tab 1,300 tab PO DAILY 03/24/20 05/01/21 sitaGLIPtin [Januvia] 50 mg PO DAILY 03/24/20 05/01/21 Allopurinol [Zyloprim] 100 mg PO DAILY 01/12/21 05/01/21 Atorvastatin Calcium [Lipitor] 10 mg PO HS 01/12/21 05/01/21 Cholecalciferol (Vitamin D3) 125 mcg PO Q14D 01/12/21 05/01/21 [Vitamin D3 (5000 Iu)] Magnesium Oxide [Magox 400] 400 mg PO Q48H 01/12/21 05/01/21 Metoprolol Tartrate [Lopressor] 100 mg PO BID 01/12/21 05/01/21 NIFEdipine [Procardia XL] 60 mg PO BID 01/12/21 05/01/21 Pioglitazone [Actos] 15 mg PO DAILY 01/12/21 05/01/21 calcitrioL [Calcitriol] 0.5 mcg PO MOWEFR 01/12/21 05/01/21 Silver Sulfadiazine 1 applic TOPICAL DAILY 05/01/21 05/01/21 Vit B Complx C/Folic Acid/Zinc 1 tab PO MOWEFR 05/01/21 05/01/21 [Renaplex Tablet] Allergies Allergy/AdvReac Type Severity Reaction Status Date / Time No Known Allergies Allergy Verified 05/01/21 12:42 Review of Systems ROS Statement: Those systems with pertinent positive or pertinent negative responses have been documented in the HPI. ROS Other: All systems not noted in ROS Statement are negative. Past Medical History Past Medical History: Chest Pain / Angina, CVA/TIA, Diabetes Mellitus, Hyperlipidemia, Hypertension, Memory Impairment, Renal Disease, Thyroid Disorder Additional Past Medical History / Comment(s): chronic toe infection, stage 4 renal failure,diabetic retinopathy, gout, mild aortic stenosis, neuropathy torsten feet, rt sided weakness since CVA , dialysis History of Any Multi-Drug Resistant Organisms: None Reported Past Surgical History: Section Additional Past Surgical History / Comment(s): lt arm dialysis graft Past Anesthesia/Blood Transfusion Reactions: No Reported Reaction Past Psychological History: No Psychological Hx Reported Smoking Status: Never smoker Past Alcohol Use History: None Reported Past Drug Use History: None Reported - Past Family History Mother Family Medical History: No Reported History General Exam - General Exam Comments Initial Comments: GENERAL: Patient is well-developed and well-nourished. Patient is nontoxic and well- hydrated and is in no acute distress. ENT: Neck is soft and supple. No significant lymphadenopathy is noted. Oropharynx is clear. Moist mucous membranes. Neck has full range of motion without eliciting any pain. EYES: The sclera were anicteric and conjunctiva were pink and moist. Extraocular movements were intact and pupils were equal round and reactive to light. Eyelids were unremarkable. PULMONARY: Unlabored respirations. Good breath sounds bilaterally. No audible rales rhonchi or wheezing was noted. CARDIOVASCULAR: There is a regular rate and rhythm without any murmurs gallops or rubs. ABDOMEN: Soft and nontender with normal bowel sounds. SKIN: Skin is clear with no lesions or rashes and otherwise unremarkable. NEUROLOGIC: Patient is alert and oriented x3. Cranial nerves II through XII are grossly intact. Motor and sensory are also intact. Normal speech, volume and content. Symmetrical smile. I had the patient ambulate and she seems to more difficulty bringing the left leg for than the right. Patient states that's exactly how it feels to her as well. MUSCULOSKELETAL: Normal extremities with adequate strength and full range of motion. No lower extremity swelling or edema. No calf tenderness. LYMPHATICS: No significant lymphadenopathy is noted PSYCHIATRIC: Normal psychiatric evaluation. Limitations: no limitations Course Vital Signs 05/01/21 05/01/21 05/01/21 11:19 11:46 12:00 Temperature 98.2 F 97.8 F 98.1 F Pulse Rate 57 L 56 L 64 Respiratory 16 16 18 Rate Blood Pressure 125/60 127/54 O2 Sat by Pulse 100 100 99 Oximetry 05/01/21 13:00 Temperature Pulse Rate 68 Respiratory 20 Rate Blood Pressure 125/54 O2 Sat by Pulse 98 Oximetry Medical Decision Making - Medical Decision Making EKG shows sinus bradycardia 50 bpm [place] interval 232 QRS is 80 QT interval 464 QTC is 450 patient's EKG shows no ST segment elevation or depression. CT head shows no acute abnormality Chest x-ray shows no acute abnormality. I spoke with Dr. Montoya he agreed to admit the patient admitted the patient remaining orders. - Lab Data Result diagrams: 05/01/21 12:04 05/01/21 12:04 Lab Results 05/01/21 05/01/21 05/01/21 Range/Units 11:43 12:04 12:04 WBC 4.7 (3.8-10.6) k/uL RBC 3.53 L (3.80-5.40) m/uL Hgb 11.2 L (11.4-16.0) gm/dL Hct 31.8 L (34.0-46.0) % MCV 89.8 (80.0-100.0) fL MCH 31.7 (25.0-35.0) pg MCHC 35.3 (31.0-37.0) g/dL RDW 13.2 (11.5-15.5) % Plt Count 145 L (150-450) k/uL MPV 8.1 Neutrophils % 67 % Lymphocytes % 23 % Monocytes % 8 % Eosinophils % 2 % Basophils % 1 % Neutrophils # 3.1 (1.3-7.7) k/uL Lymphocytes # 1.1 (1.0-4.8) k/uL Monocytes # 0.4 (0-1.0) k/uL Eosinophils # 0.1 (0-0.7) k/uL Basophils # 0.0 (0-0.2) k/uL PT 10.1 (9.0-12.0) sec INR 0.9 (<1.2) APTT 22.2 (22.0-30.0) sec Sodium (137-145) mmol/L Potassium (3.5-5.1) mmol/L Chloride (98-107) mmol/L Carbon Dioxide (22-30) mmol/L Anion Gap mmol/L BUN (7-17) mg/dL Creatinine (0.52-1.04) mg/dL Est GFR (CKD-EPI)AfAm (>60 ml/min/1.73 sqM) Est GFR (CKD-EPI)NonAf (>60 ml/min/1.73 sqM) Glucose (74-99) mg/dL POC Glucose (mg/dL) 84 (75-99) mg/dL POC Glu Animal Keeper Head ID Kaleb Strong Calcium (8.4-10.2) mg/dL Total Bilirubin (0.2-1.3) mg/dL AST (14-36) U/L ALT (4-34) U/L Alkaline Phosphatase (38-126) U/L Troponin I (0.000-0.034) ng/mL Total Protein (6.3-8.2) g/dL Albumin (3.5-5.0) g/dL 05/01/21 05/01/21 Range/Units 12:04 12:04 WBC (3.8-10.6) k/uL RBC (3.80-5.40) m/uL Hgb (11.4-16.0) gm/dL Hct (34.0-46.0) % MCV (80.0-100.0) fL MCH (25.0-35.0) pg MCHC (31.0-37.0) g/dL RDW (11.5-15.5) % Plt Count (150-450) k/uL MPV Neutrophils % % Lymphocytes % % Monocytes % % Eosinophils % % Basophils % % Neutrophils # (1.3-7.7) k/uL Lymphocytes # (1.0-4.8) k/uL Monocytes # (0-1.0) k/uL Eosinophils # (0-0.7) k/uL Basophils # (0-0.2) k/uL PT (9.0-12.0) sec INR (<1.2) APTT (22.0-30.0) sec Sodium 140 (137-145) mmol/L Potassium 3.5 (3.5-5.1) mmol/L Chloride 99 (98-107) mmol/L Carbon Dioxide 33 H (22-30) mmol/L Anion Gap 8 mmol/L BUN 24 H (7-17) mg/dL Creatinine 3.87 H (0.52-1.04) mg/dL Est GFR (CKD-EPI)AfAm 13 (>60 ml/min/1.73 sqM) Est GFR (CKD-EPI)NonAf 11 (>60 ml/min/1.73 sqM) Glucose 103 H (74-99) mg/dL POC Glucose (mg/dL) (75-99) mg/dL POC Glu Animal Keeper Head ID Calcium 9.5 (8.4-10.2) mg/dL Total Bilirubin 0.4 (0.2-1.3) mg/dL AST 28 (14-36) U/L ALT 14 (4-34) U/L Alkaline Phosphatase 75 (38-126) U/L Troponin I <0.012 (0.000-0.034) ng/mL Total Protein 6.7 (6.3-8.2) g/dL Albumin 3.9 (3.5-5.0) g/dL Disposition Clinical Impression: CVA (cerebral vascular accident) Disposition: ADMITTED IP TO THIS HOSP Referrals: Mehul Mayen MD [Primary Care Provider] - 1-2 days Time of Disposition: 14:07
--- NOTE | 2021-05-01 12:29 | CT ---
EXAMINATION TYPE: CT orbits wo con DATE OF EXAM: 05/01/2021 COMPARISON: None HISTORY: Pain CT DLP: 110.4 mGycm Automated exposure control for dose reduction was used. FINDINGS: Osseous structures are intact with no acute displaced fracture. Intracranial structures are symmetric. Intraorbital structures including the globes are intact and sy mmetric. Slight nasal septal deviation. Visualized parotid glands normal. Nasopharynx and oropharynx symmetric . IMPRESSION: NO ACUTE FRACTURE.
--- NOTE | 2021-05-01 14:06 | XR ---
EXAMINATION TYPE: XR chest 2V DATE OF EXAM: 05/01/2021 COMPARISON: 01/12/2021 TECHNIQUE: PA and lateral views submitted. HISTORY: Altered mental status FINDINGS: The lungs are clear and there is no pneumothorax, pleural effusion, or focal pneumonia. Hypertrophi c and degenerative change of the spine. Mild hyperinflation. IMPRESSION: 1. No acute process.
[2021-05-01] MEDS ORDERED: ASPIRIN 325 MG TAB PO STA (14:07)
[2021-05-01] MEDS ORDERED: ACETAMINOPHEN TAB 325 MG TAB PO PRN (15:29)
[2021-05-01] MEDS ORDERED: NALOXONE 0.4 MG/ML 1 ML VIAL IV PRN (15:29)
[2021-05-01] MEDS ORDERED: CHOLECALCIFEROL 25 MCG (1000 IU) TABLET PO SCH (16:00)
[2021-05-01] MEDS ORDERED: MAGNESIUM OXIDE 400 MG TAB PO SCH (16:00)
[2021-05-01 16:09] LABS: Glucose,Whole Blood 111 mg/dL (75-99)
[2021-05-01 16:21] LABS: Appearance,Urine Clear (Clear); Bilirubin,Urine Negative (Negative); Blood,Urine Negative (Negative); Color,Urine Light Yellow; Glucose,Urine (UA) Negative (Negative); Ketones,Urine Negative (Negative); Leukocyte Esterase,Urine Negative (Negative); Nitrite,Urine Negative (Negative); Protein,Urine 2+ (Negative); RBC,Urine <1 /hpf (0-5); Specific Gravity,Urine 1.006 (1.001-1.035); Squamous Epithelial Cell,Urine 2 /hpf (0-4); Urobilinogen,Urine <2.0 mg/dL (<2.0); WBC,Urine <1 /hpf (0-5)
--- NOTE | 2021-05-01 16:31 | P.HPIM ---
History of Present Illness H&P Date: 05/01/21 Chief Complaint: Syncope 70 year old woman with history of ESRD on iHD via RUE AVF, gout, HTN, HLD, DM, Hx of CVA/TIA presented after syncopal episode. She says that she felt like her legs gave out, specifically her left side, and that she fell down the stairs, hit her hand and her face. This is the 3rd or 4th episode in the last 2 months. Patient came to the ER at the request of her daughter who was concerned about increasing frequency of falls. Patient says that prior to the fall, she did not experience palps, sweats, dizziness, chest pain, dyspnea. She denies fevers, chills, nausea, vomiting, cough, abd pain, constipation, diarrhea, numbness of extremities. In the ER, she was noted to be afebrile, HDS. Lab work is at her baseline abnormalities and includes a Hgb of 11.2 and Cr of 3.9. EKG shows sinus carmen to 58. CTH shows degenerative non-specific white matter changes c/w remote ischemia. CT Orbits did not demonstrate a fracture. Review of Systems All Systems reviewed and pertinent positives and negatives noted in HPI, all other symptoms are negative Past Medical History Past Medical History: Chest Pain / Angina, CVA/TIA, Diabetes Mellitus, Hyperlipidemia, Hypertension, Memory Impairment, Renal Disease, Thyroid Disorder Additional Past Medical History / Comment(s): chronic toe infection, stage 4 renal failure,diabetic retinopathy, gout, mild aortic stenosis, neuropathy torsten feet, rt sided weakness since CVA , dialysis History of Any Multi-Drug Resistant Organisms: None Reported Past Surgical History: Section Additional Past Surgical History / Comment(s): lt arm dialysis graft Past Anesthesia/Blood Transfusion Reactions: No Reported Reaction Past Psychological History: No Psychological Hx Reported Smoking Status: Never smoker Past Alcohol Use History: None Reported Past Drug Use History: None Reported - Past Family History Mother Family Medical History: No Reported History Medications and Allergies Home Medications Medication Instructions Recorded Confirmed Type Aspirin 325 mg PO DAILY 03/24/20 05/01/21 History Ferrous Sulfate [Feosol] 325 mg PO BID 03/24/20 05/01/21 History Levothyroxine Sodium [Synthroid] 125 mcg PO DAILY 03/24/20 05/01/21 History Sodium Bicarbonate Tab 1,300 tab PO DAILY 03/24/20 05/01/21 History sitaGLIPtin [Januvia] 50 mg PO DAILY 03/24/20 05/01/21 History Allopurinol [Zyloprim] 100 mg PO DAILY 01/12/21 05/01/21 History Atorvastatin Calcium [Lipitor] 10 mg PO HS 01/12/21 05/01/21 History Cholecalciferol (Vitamin D3) 125 mcg PO Q14D 01/12/21 05/01/21 History [Vitamin D3 (5000 Iu)] Magnesium Oxide [Magox 400] 400 mg PO Q48H 01/12/21 05/01/21 History Metoprolol Tartrate [Lopressor] 100 mg PO BID 01/12/21 05/01/21 History NIFEdipine [Procardia XL] 60 mg PO BID 01/12/21 05/01/21 History Pioglitazone [Actos] 15 mg PO DAILY 01/12/21 05/01/21 History calcitrioL [Calcitriol] 0.5 mcg PO MOWEFR 01/12/21 05/01/21 History Silver Sulfadiazine 1 applic TOPICAL DAILY 05/01/21 05/01/21 History Vit B Complx C/Folic Acid/Zinc 1 tab PO MOWEFR 05/01/21 05/01/21 History [Renaplex Tablet] Allergies Allergy/AdvReac Type Severity Reaction Status Date / Time No Known Allergies Allergy Verified 05/01/21 12:42 Physical Exam Osteopathic Statement: *. No significant issues noted on an osteopathic structural exam other than those noted in the History and Physical/Consult. Vitals: Vital Signs Temp Pulse Pulse Resp BP BP Pulse Ox 05/01/21 15:13 97.8 F 66 16 138/61 99 05/01/21 14:00 98.2 F 65 18 147/69 99 05/01/21 13:00 68 20 125/54 98 05/01/21 12:00 98.1 F 64 18 127/54 99 05/01/21 11:46 97.8 F 56 L 16 100 05/01/21 11:19 98.2 F 57 L 16 125/60 100 Intake and Output 05/01/21 05/01/21 05/01/21 06:59 14:59 22:59 Other: Weight 63.049 kg Gen: awake, alert HEENT: normocephalic, atraumatic, good hearing acuity, moist mucous membranes Resp: good air exchange, breathing comfortably with no accessory muscle use, CTAB without wheezes or crackles CVS: good distal perfusion x 4, RRR, no murmurs GI: soft, NTTP, ND : no SPT, no CVAT, lim catheter not present MSK: no pitting edema, no clubbing Neuro: Left upper extremity pronator drift, 4+ out of 5 hand finisher fine diamond dies weakness on the left side, 4+ out of 5 dorsiflexion and plantar flexion in the left lower extremity, CN II-XII are intact, no sensory deficits Psych: cooperative, euthymic mood Results CBC & Chem 7: 05/01/21 12:04 05/01/21 12:04 Labs: Abnormal Lab Results - Last 24 Hours (Table) 05/01/21 05/01/21 05/01/21 Range/Units 12:04 12:04 16:06 RBC 3.53 L (3.80-5.40) m/uL Hgb 11.2 L (11.4-16.0) gm/dL Hct 31.8 L (34.0-46.0) % Plt Count 145 L (150-450) k/uL Carbon Dioxide 33 H (22-30) mmol/L BUN 24 H (7-17) mg/dL Creatinine 3.87 H (0.52-1.04) mg/dL Glucose 103 H (74-99) mg/dL POC Glucose (mg/dL) 111 H (75-99) mg/dL Assessment and Plan Assessment: Syncope Left-sided weakness History of CVA/TIA -Admit to inpatient, telemetry -Neurology consult -MRI of the brain -Echocardiogram -Carotid Doppler -Aspirin, atorvastatin -TSH, A1c, lipid panel -Neurochecks -Orthostatics twice a day End-stage renal disease Hypertension Hyperlipidemia Diabetes type 2 Hypothyroidism Gout without flare -Nephrology consult for dialysis -Continue home antihypertensive medications -Nifedipine 60 mg twice a day -Metoprolol 100 mg twice a day -Continue home statin as above -Hold home glucose medications -AC/HS sugar checks -Low-dose sliding scale insulin -Continue home levothyroxine -Continue home allopurinol Patient is a full code DVT prophylaxis with heparin 3 times a day
[2021-05-01] MEDS: INSULIN ASPART (NovoLOG) 100 UNIT/ML VIAL SQ SCH (16:55)
[2021-05-01] MEDS: HEPARIN SODIUM,PORCINE/PF 5,000 UNIT/0.5 ML SYRINGE SQ SCH ×2 (16:59→22:52)
--- NOTE | 2021-05-01 19:11 | US ---
EXAMINATION TYPE: US carotid duplex BILAT DATE OF EXAM: 05/01/2021 COMPARISON: NONE CLINICAL HISTORY: CVA. Patient passed out EXAM MEASUREMENTS: RIGHT: Peak Systolic Velocity (PSV) cm/sec ----- Right CCA: 83.2 ----- Right ICA: 118 ----- Right ECA: 106 ICA/CCA ratio: 1.4 RIGHT: End Diastole cm/sec ----- Right CCA: 12.3 ----- Right ICA: 22.7 ----- Right ECA: 0.0 LEFT: Peak Systolic Velocity (PSV) cm/sec ----- Left CCA: 89.6 ----- Left ICA: 118 ----- Left ECA: 100 ICA/CCA ratio: 1.2 LEFT: End Diastole cm/sec ----- Left CCA: 14.9 ----- Left ICA: 20.5 ----- Left ECA: 0.0 VERTEBRALS (direction of flow): Right Vertebral: Antegrade Left Vertebral: Antegrade Rhythm: Normal Moderate amount of plaque visualized bilateral bulbs. No elevated velocities, no significant stenosis IMPRESSION: Moderate atherosclerotic plaque of the bilateral carotid bulbs without hemodynamically s ignificant stenosis. NASCET criteria was used in interpretation of this exam? Criteria for Assigning % of Stenosis / Diameter reduction (Estimation based on the indirect measurements of the internal carotid artery velocities (ICA PSV). 1. Normal (no stenosis)=ICA PSV < 125 cm/s: ratio < 2.0: ICA EDV<40 cm/s. 2. Less than 50% stenosis=ICA PSV < 125 cm/s: ratio < 2.0: ICA EDV<40 cm/s. 3. 50 to 69% stenosis=ICA PSV of 125 to 230 cm/s: ration 2.0 ? 4.0: ICA EDV 40-100 cm/s. 4. Greater than 70% stenosis to near occlusion= ICA PSV > 230 cm/s: ratio > 4.0: ICA EDV > 100 cm/s. 5. Near occlusion= ICA PSV velocities may be low or undetectable: variable ratio and ICA EDV. 6. Total occlusion=unable to detect flow.
[2021-05-01] MEDS: METOPROLOL TARTRATE 50 MG TAB PO SCH (20:15)
[2021-05-01] MEDS: FERROUS SULFATE 325 MG TAB PO SCH (20:15)
[2021-05-01] MEDS ORDERED: ATORVASTATIN 10 MG TAB PO SCH (21:00)
[2021-05-01 21:04] LABS: Glucose,Whole Blood 125 mg/dL (75-99)
[2021-05-02 06:32] LABS: Glucose,Whole Blood 89 mg/dL (75-99)
[2021-05-02] MEDS: INSULIN ASPART (NovoLOG) 100 UNIT/ML VIAL SQ SCH ×3 (06:32→18:25)
[2021-05-02] MEDS: LEVOTHYROXINE 125 MCG TAB PO SCH (06:35)
[2021-05-02 07:59] LABS: Basophils % (A) 1 %; Eosinophils # (A) 0.1 k/uL (0-0.7); Eosinophils % (A) 3 %; HCT 30.7 % (34.0-46.0); HGB 10.6 gm/dL (11.4-16.0); Lymphocytes # (A) 0.9 k/uL (1.0-4.8); Lymphocytes % (A) 32 %; MCH 31.3 pg (25.0-35.0); MCHC 34.5 g/dL (31.0-37.0); MCV 90.8 fL (80.0-100.0); Mean Platelet Volume 8.7; Monocytes # (A) 0.2 k/uL (0-1.0); Monocytes % (A) 6 %; Neutrophils # (A) 1.5 k/uL (1.3-7.7); Neutrophils % (A) 57 %; Platelet Count 122 k/uL (150-450); RBC 3.39 m/uL (3.80-5.40); RDW 13.1 % (11.5-15.5); WBC 2.7 k/uL (3.8-10.6)
[2021-05-02 08:19] LABS: African American GFR (CKD) 10 (>60 ml/min/1.73 sqM); Anion Gap 6 mmol/L; Blood Urea Nitrogen 28 mg/dL (7-17); Calcium 9.1 mg/dL (8.4-10.2); Carbon Dioxide 30 mmol/L (22-30); Chloride 103 mmol/L (98-107); Glucose 92 mg/dL (74-99); Magnesium 2.4 mg/dL (1.6-2.3); Non-African American GFR(CKD) 9 (>60 ml/min/1.73 sqM); Potassium 3.5 mmol/L (3.5-5.1); Sodium 139 mmol/L (137-145)
[2021-05-02] MEDS: FERROUS SULFATE 325 MG TAB PO SCH ×2 (08:53→20:24)
[2021-05-02] MEDS: METOPROLOL TARTRATE 50 MG TAB PO SCH ×2 (08:53→20:23)
[2021-05-02] MEDS: HEPARIN SODIUM,PORCINE/PF 5,000 UNIT/0.5 ML SYRINGE SQ SCH ×3 (08:54→22:53)
[2021-05-02] MEDS: allopurinoL 100 MG TAB PO SCH (08:54)
[2021-05-02] MEDS: ASPIRIN 81 MG PO SCH (08:54)
[2021-05-02] MEDS ORDERED: SODIUM BICARBONATE TAB 650 MG TAB PO SCH (09:00)
[2021-05-02] MEDS ORDERED: FOLIC ACID-VIT B COMPLEX-VIT C 1 CAP PO SCH (09:00)
[2021-05-02] MEDS ORDERED: ASPIRIN 325 MG TAB PO SCH (09:00)
--- NOTE | 2021-05-02 09:18 | P.NPCON ---
History of Present Illness - Reason for Consult end stage renal disease - History of Present Illness Reason for consultation: End-stage renal disease History of present illness: Patient is a 70-year-old female seen in renal consultation for end-stage renal disease. She is maintained on hemodialysis on Sunday schedule via left upper extremity AV fistula. Patient presented to the hospital due to fall and possibly syncopal episode. Patient doesn't quite remember why she is in the hospital. She fell down the stairs been dictated her face and head on the floor. She's been having frequent episodes of falls recently. Hemodynamically she stable. No fever or chills. No vomiting or diarrhea. No chest pain or shortness of breath. Head and orbit CT revealed no evidence of acute fracture. Carotid ultrasound revealed moderate atherosclerotic plaque of the bilateral carotid bulbs. MRI of the brain is pending. Vital signs are stable. General: The patient appeared well nourished and normally developed. HEENT: Head exam is unremarkable. Neck is without jugular venous distension. LUNGS: Breath sounds decreased. HEART: Rate and Rhythm are regular. ABDOMEN: Soft, no distention. EXTREMITITES: No edema. Past Medical History Past Medical History: Chest Pain / Angina, CVA/TIA, Diabetes Mellitus, Hyperlipidemia, Hypertension, Memory Impairment, Renal Disease, Thyroid Disorder Additional Past Medical History / Comment(s): chronic toe infection, stage 4 renal failure,diabetic retinopathy, gout, mild aortic stenosis, neuropathy torsten feet, rt sided weakness since CVA , dialysis History of Any Multi-Drug Resistant Organisms: None Reported Past Surgical History: Section Additional Past Surgical History / Comment(s): lt arm dialysis graft Past Anesthesia/Blood Transfusion Reactions: No Reported Reaction Past Psychological History: No Psychological Hx Reported Smoking Status: Never smoker Past Alcohol Use History: None Reported Past Drug Use History: None Reported - Past Family History Mother Family Medical History: No Reported History Medications and Allergies Home Medications Medication Instructions Recorded Confirmed Type Aspirin 325 mg PO DAILY 03/24/20 05/01/21 History Ferrous Sulfate [Feosol] 325 mg PO BID 03/24/20 05/01/21 History Levothyroxine Sodium [Synthroid] 125 mcg PO DAILY 03/24/20 05/01/21 History Sodium Bicarbonate Tab 1,300 tab PO DAILY 03/24/20 05/01/21 History sitaGLIPtin [Januvia] 50 mg PO DAILY 03/24/20 05/01/21 History Allopurinol [Zyloprim] 100 mg PO DAILY 01/12/21 05/01/21 History Atorvastatin Calcium [Lipitor] 10 mg PO HS 01/12/21 05/01/21 History Cholecalciferol (Vitamin D3) 125 mcg PO Q14D 01/12/21 05/01/21 History [Vitamin D3 (5000 Iu)] Magnesium Oxide [Magox 400] 400 mg PO Q48H 01/12/21 05/01/21 History Metoprolol Tartrate [Lopressor] 100 mg PO BID 01/12/21 05/01/21 History NIFEdipine [Procardia XL] 60 mg PO BID 01/12/21 05/01/21 History Pioglitazone [Actos] 15 mg PO DAILY 01/12/21 05/01/21 History calcitrioL [Calcitriol] 0.5 mcg PO MOWEFR 01/12/21 05/01/21 History Silver Sulfadiazine 1 applic TOPICAL DAILY 05/01/21 05/01/21 History Vit B Complx C/Folic Acid/Zinc 1 tab PO MOWEFR 05/01/21 05/01/21 History [Renaplex Tablet] Allergies Allergy/AdvReac Type Severity Reaction Status Date / Time No Known Allergies Allergy Verified 05/01/21 12:42 Physical Exam Vitals: Vital Signs Temp Pulse Pulse Resp BP BP Pulse Ox 05/02/21 08:13 98 05/02/21 08:00 97.7 F 75 16 124/81 96 05/02/21 03:42 98.1 F 65 16 106/53 96 05/02/21 00:00 98.4 F 75 16 122/57 96 05/01/21 20:00 97.9 F 71 18 136/65 97 05/01/21 18:24 100 05/01/21 17:00 64 16 141/62 98 05/01/21 15:15 64 16 05/01/21 15:13 97.8 F 66 16 138/61 99 05/01/21 14:00 98.2 F 65 18 147/69 99 05/01/21 13:00 68 20 125/54 98 05/01/21 12:00 98.1 F 64 18 127/54 99 05/01/21 11:46 97.8 F 56 L 16 100 05/01/21 11:19 98.2 F 57 L 16 125/60 100 Intake and Output 05/01/21 05/02/21 05/02/21 22:59 06:59 14:59 Intake Total 480 240 Output Total 0 300 Balance 480 -60 Intake: Oral 480 240 Output: Urine 0 300 Other: Voiding Method Toilet Toilet Toilet # Voids 1 1 Weight 63.049 kg 64 kg Results - Lab Results Most recent lab results Calcium 9.1 mg/dL (8.4-10.2) 05/02/21 07:18 Magnesium 2.4 mg/dL (1.6-2.3) H 05/02/21 07:18 05/02/21 07:18 05/02/21 07:18 Assessment and Plan Plan: Assessment: 1. End-stage renal disease maintained on hemodialysis on Sunday schedule. 2. Status post fall. No acute fracture. 3. Hypertension with chronic kidney disease. Stable. 4. Chronic kidney disease mineral bone disease maintained on calcitriol. 5. Diabetes mellitus. Plan: Hemodialysis today. Follow-up echocardiogram. Discontinue oral bicarb. Will discuss with neurology if MRI can be done without contrast due to risk of NSF or if CT with IV contrast can be done instead. If MRI with IV contrast is absolutely necessary, patient will undergo hemodialysis today after the MRI and again the next 2 days. Thank you for the consultation I will continue to follow the patient with you during her hospital stay.
[2021-05-02 09:28] LABS: T4, Free (Free Thyroxine) 3.22 ng/dL (0.78-2.19)
--- NOTE | 2021-05-02 11:13 | MR ---
EXAMINATION TYPE: MR brain wo con DATE OF EXAM: 05/02/2021 COMPARISON: 05/01/2021 HISTORY: Patient having hallucinations, CVA TECHNIQUE: T1-weighted sagittal, T2, FLAIR, and diffusion axial, and T2 coronal coronal views of the brain are submitted. FINDINGS: There is no evidence of acute ischemia. There is mild generalized degenerative change. There are conf luent and numerous focal areas of abnormal signal seen scattered throughout the white matter which is nonspecific but most typical remote ischemic white matter change. Focal areas of abnormal signal involving the cerebellum, inferior margin of the charles and bilateral th alamus suggestive of remote infarct. Craniocervical junction maintained. Sella turcica has a normal appearance. Nasal septal deviation noted. Artifact obscures the anterior margin of the right orbit. Otherwise Orb its are symmetric. Changes of mild chronic sinusitis and left mastoiditis. IMPRESSION: 1. No acute intracranial process. 2. Degenerative and remote ischemic change as discussed above.
[2021-05-02 11:58] LABS: Glucose,Whole Blood 86 mg/dL (75-99)
--- NOTE | 2021-05-02 12:37 | ECHOF ---
Referral Reason:CVA MEASUREMENTS -------- HEIGHT: 157.5 cm WEIGHT: 64.0 kg BP: 106/53 RVIDd: 2.6 cm (< 3.3) IVSd: 1.2 cm (0.6 - 1.1) LVIDd: 3.7 cm (3.9 - 5.3) LVPWd: 1.1 cm (0.6 - 1.1) IVSs: 1.5 cm LVIDs: 2.4 cm LVPWs: 1.6 cm LA Diam: 3.4 cm (2.7 - 3.8) LAESV Index (A-L): 23.16 ml/m Ao Diam: 3.1 cm (2.0 - 3.7) AV Cusp: 1.3 cm (1.5 - 2.6) MV EXCURSION: 9.870 mm (> 18.000) MV EF SLOPE: 35 mm/s (70 - 150) EPSS: 0.9 cm MV E Warren: 1.28 m/s MV DecT: 256 ms MV A Warren: 1.52 m/s MV E/A Ratio: 0.84 AV maxP.08 mmHg AV meanP.00 mmHg RAP: 5.00 mmHg RVSP: 31.74 mmHg FINDINGS -------- Sinus rhythm. This was a technically adequate study. The left ventricular size is normal. There is borderline concentric left ventricular hypertrophy. Overall left ventricular systolic function is normal with, an EF between 55 - 60 %. The right ventricle is normal in size. Normal LA size by volume 22+/-6 ml/m2. The right atrial size is normal. Interatrial and interventricular septum intact. There is mild aortic valve sclerosis. There is mild aortic stenosis present. Peak/mean gradient a cross the Aortic Valve is 28.08mmHg / 16.00mmHg. Moderate mitral annular calcification present. Mild mitral regurgitation is present. The tricuspid valve appears structurally normal. Mild tricuspid regurgitation present. Right vent ricular systolic pressure is normal at < 35 mmHg. Trace/mild (physiologic) pulmonic regurgitation. The aortic root size is normal. Normal inferior vena cava with normal inspiratory collapse consistent with estimated right atrial pre ssure of 5 mmHg. There is no pericardial effusion. CONCLUSIONS -------- 1. There is borderline concentric left ventricular hypertrophy. 2. Overall left ventricular systolic function is normal with, an EF between 55 - 60 %. 3. Normal LA size by volume 22+/-6 ml/m2. 4. There is mild aortic valve sclerosis. 5. There is mild aortic stenosis present. 6. Peak/mean gradient across the Aortic Valve is 28.08mmHg / 16.00mmHg. 7. Mild mitral regurgitation is present. 8. Mild tricuspid regurgitation present. 9. Trace/mild (physiologic) pulmonic regurgitation. 10. There is no pericardial effusion. COSMETICS SUPERVISOR: Miguelina Smith RDCS
--- NOTE | 2021-05-02 13:48 | P.PN ---
Subjective Progress Note Date: 05/02/21 No new complaints today. MRI was negative for new stroke. Echo shows appropriate, EF, no WMA. Objective - Vital Signs Vital signs: Vital Signs Temp 97.5 F L 05/02/21 12:00 Pulse 64 05/02/21 12:00 Resp 16 05/02/21 12:00 BP 140/64 05/02/21 12:00 Pulse Ox 96 05/02/21 12:00 Intake & Output 05/01/21 05/02/21 05/02/21 18:59 06:59 18:59 Intake Total 240 480 Output Total 300 Balance 240 180 Weight 63.049 kg 64 kg Intake: Oral 240 480 Output: Urine 300 Other: Voiding Method Toilet Toilet # Voids 1 1 - Exam Gen: awake, alert HEENT: normocephalic, atraumatic, good hearing acuity, moist mucous membranes Resp: good air exchange, breathing comfortably with no accessory muscle use, CTAB without wheezes or crackles CVS: good distal perfusion x 4, RRR, no murmurs GI: soft, NTTP, ND : no SPT, no CVAT, lim catheter not present MSK: no pitting edema, no clubbing Neuro: Left upper extremity pronator drift, 4+ out of 5 hand sap hana architect weakness on the left side, 4+ out of 5 dorsiflexion and plantar flexion in the left lower extremity, CN II-XII are intact, no sensory deficits Psych: cooperative, euthymic mood - Labs CBC & Chem 7: 05/02/21 07:18 05/02/21 07:18 Labs: Abnormal Lab Results - Last 24 Hours (Table) 05/01/21 05/01/21 05/01/21 Range/Units 15:59 16:06 20:34 WBC (3.8-10.6) k/uL RBC (3.80-5.40) m/uL Hgb (11.4-16.0) gm/dL Hct (34.0-46.0) % Plt Count (150-450) k/uL Lymphocytes # (1.0-4.8) k/uL BUN (7-17) mg/dL Creatinine (0.52-1.04) mg/dL POC Glucose (mg/dL) 111 H 125 H (75-99) mg/dL Magnesium (1.6-2.3) mg/dL TSH (0.465-4.680) mIU/L Free T4 (0.78-2.19) ng/dL Urine Protein 2+ H (Negative) 05/02/21 05/02/21 Range/Units 07:18 07:18 WBC 2.7 L (3.8-10.6) k/uL RBC 3.39 L (3.80-5.40) m/uL Hgb 10.6 L (11.4-16.0) gm/dL Hct 30.7 L (34.0-46.0) % Plt Count 122 L (150-450) k/uL Lymphocytes # 0.9 L (1.0-4.8) k/uL BUN 28 H (7-17) mg/dL Creatinine 4.62 H (0.52-1.04) mg/dL POC Glucose (mg/dL) (75-99) mg/dL Magnesium 2.4 H (1.6-2.3) mg/dL TSH <0.015 L (0.465-4.680) mIU/L Free T4 3.22 H (0.78-2.19) ng/dL Urine Protein (Negative) Assessment and Plan Assessment: Syncope Left-sided weakness History of CVA/TIA -Admit to inpatient, telemetry -Neurology consult -MRI of the brain = no acute stroke -Echocardiogram = preserved EF, no WMA -Carotid Doppler = no HDS stenosis -Aspirin, atorvastatin -TSH, A1c, lipid panel -Neurochecks -Orthostatics twice a day End-stage renal disease Hypertension Hyperlipidemia Diabetes type 2 Hypothyroidism Gout without flare -Nephrology consult for dialysis -Continue home antihypertensive medications -Nifedipine 60 mg twice a day -Metoprolol 100 mg twice a day -Continue home statin as above -Hold home glucose medications -AC/HS sugar checks -Low-dose sliding scale insulin -Continue home levothyroxine -Continue home allopurinol Patient is a full code DVT prophylaxis with heparin 3 times a day
[2021-05-02 16:15] LABS: Cholesterol 143 mg/dL (0-200)
[2021-05-02 16:36] LABS: Hemoglobin A1C 4.8 % (4.0-6.0)
[2021-05-02 17:16] LABS: Glucose,Whole Blood 118 mg/dL (75-99)
[2021-05-02 18:15] LABS: Hepatitis B Surface AB- Quant <3.5 mIU/mL; Hepatitis B Surface Antibody Non-Reactive (Non-Reactive); Hepatitis B Surface Antigen Non-Reactive (Non-Reactive)
[2021-05-02 20:15] LABS: Glucose,Whole Blood 111 mg/dL (75-99)
--- NOTE | 2021-05-02 20:32 | P.CNNES ---
History of Present Illness Consult date: 05/02/21 Requesting physician: Sai Morales Reason for Consult: CVA History of Present Illness: This is a 70-year-old woman with medical history of remote "ministroke", peripheral neuropathy, diabetes mellitus, hypertension, end-stage renal disease on hemodialysis, hyperlipidemia who presented to the emergency department on 05/01/2021 after a fall. Patient stated she was at home yesterday and going up the stairs and her both legs were weak and as result she turn around and legs gave out and she fell down the stairs. She said that that she landed on her face. She denies of any loss of consciousness associated with this. Denied of any focal weakness as in feeling one leg is weaker than the other. She denies off any numbness. She denies of any lower back pain or bowel incontinence. She feels her strength is back to baseline. She denies of any headache, any weakness upper examining, any numbness or tingling in the upper or lower extremity, difficulty getting her words out or swallowing. She denies of any history of seizure. She stated that the she uses a walker but that she's not consistent on using it. Currently she denies of any headache. She denies of any fever. She denies of any dizziness. She notified the primary team that she had one leg was weaker another but the upon asking her she denied that. Of note patient stated that she had a mini stroke 1968 and that she was told she had a mini stroke but she does not remember what transpired and it was a happened around the time she got upset when the a lot of family member was at. Some of the patient's home medication consist of aspirin 81mg daily, Lipitor 10 mg daily at bedtime, nifedipine 60 mg 1 tablet twice a day, metoprolol 100 mg tablet twice a day, Synthroid, vitamin B complex, allopurinol, magnesium oxide, Januvia, Actos, Some of the workup in the hospital consisted of: Initial vital signs was blood pressure of 125/60, heart rate of 57, respiratory of 16, temperature of 98.2 Fahrenheit oral and pulse ox of 100% room air. CT of the head is reported as degenerative nonspecific white matter changes most typical remote ischemia. CT of the orbit is reported as no acute fracture. Carotid duplex is reported as moderate atherosclerotic plaque of the bilateral carotid bulbs without hemodynamic significant stenosis. Patient initial CBC with differential is the platelet is 1 45,000 and the repeat is 122 which is a low hemoglobin of 11.2 and hematocrit is 31.8 which is also low otherwise wbc is 4.7K (normal). Patient chemistry panel as the creatinine is 3.87 repeated 4.62 and it's elevated but she has known history of end-stage renal disease on dialysis. Initial serum glucose is 103 which is just above normal but that seems unremarkable otherwise the rest of the chemistry panel are unremarkable. AST is 28 and ALT of 14 which is considered within normal limits. Calcium is 9.5 which is considered within normal limits. Magnesium is 2.4 which is slightly elevated TSH is 0.015 which is low and the free T4 is 3.22 which is elevated Review of Systems Review of system: The 12 point system was reviewed and apparent positive and negative per HPI. Past Medical History Past Medical History: Chest Pain / Angina, CVA/TIA, Diabetes Mellitus, Hyperlipidemia, Hypertension, Memory Impairment, Renal Disease, Thyroid Disorder Additional Past Medical History / Comment(s): chronic toe infection, stage 4 r enal failure,diabetic retinopathy, gout, mild aortic stenosis, neuropathy torsten feet, rt sided weakness since CVA , dialysis History of Any Multi-Drug Resistant Organisms: None Reported Past Surgical History: Section Additional Past Surgical History / Comment(s): lt arm dialysis graft Past Anesthesia/Blood Transfusion Reactions: No Reported Reaction Past Psychological History: No Psychological Hx Reported Smoking Status: Never smoker Past Alcohol Use History: None Reported Past Drug Use History: None Reported - Past Family History Mother Family Medical History: No Reported History Medications and Allergies Home Medications Medication Instructions Recorded Confirmed Type Aspirin 325 mg PO DAILY 03/24/20 05/01/21 History Ferrous Sulfate [Feosol] 325 mg PO BID 03/24/20 05/01/21 History Levothyroxine Sodium [Synthroid] 125 mcg PO DAILY 03/24/20 05/01/21 History Sodium Bicarbonate Tab 1,300 tab PO DAILY 03/24/20 05/01/21 History sitaGLIPtin [Januvia] 50 mg PO DAILY 03/24/20 05/01/21 History Allopurinol [Zyloprim] 100 mg PO DAILY 01/12/21 05/01/21 History Atorvastatin Calcium [Lipitor] 10 mg PO HS 01/12/21 05/01/21 History Cholecalciferol (Vitamin D3) 125 mcg PO Q14D 01/12/21 05/01/21 History [Vitamin D3 (5000 Iu)] Magnesium Oxide [Magox 400] 400 mg PO Q48H 01/12/21 05/01/21 History Metoprolol Tartrate [Lopressor] 100 mg PO BID 01/12/21 05/01/21 History NIFEdipine [Procardia XL] 60 mg PO BID 01/12/21 05/01/21 History Pioglitazone [Actos] 15 mg PO DAILY 01/12/21 05/01/21 History calcitrioL [Calcitriol] 0.5 mcg PO MOWEFR 01/12/21 05/01/21 History Silver Sulfadiazine 1 applic TOPICAL DAILY 05/01/21 05/01/21 History Vit B Complx C/Folic Acid/Zinc 1 tab PO MOWEFR 05/01/21 05/01/21 History [Renaplex Tablet] Allergies Allergy/AdvReac Type Severity Reaction Status Date / Time No Known Allergies Allergy Verified 05/01/21 12:42 Physical Examination - Vital Signs Vital Signs: Vital Signs Temp Pulse Pulse Resp BP BP Pulse Ox 05/02/21 08:13 98 05/02/21 08:00 97.7 F 75 16 124/81 96 05/02/21 03:42 98.1 F 65 16 106/53 96 05/02/21 00:00 98.4 F 75 16 122/57 96 05/01/21 20:00 97.9 F 71 18 136/65 97 05/01/21 18:24 100 05/01/21 17:00 64 16 141/62 98 05/01/21 15:15 64 16 05/01/21 15:13 97.8 F 66 16 138/61 99 05/01/21 14:00 98.2 F 65 18 147/69 99 05/01/21 13:00 68 20 125/54 98 05/01/21 12:00 98.1 F 64 18 127/54 99 05/01/21 11:46 97.8 F 56 L 16 100 05/01/21 11:19 98.2 F 57 L 16 125/60 100 Intake and Output 05/01/21 05/02/21 05/02/21 22:59 06:59 14:59 Intake Total 480 240 Output Total 0 300 Balance 480 -60 Intake: Oral 480 240 Output: Urine 0 300 Other: Voiding Method Toilet Toilet Toilet # Voids 1 1 Weight 63.049 kg 64 kg GENERAL: The patient is lying in bed and is not in acute distress. Currently getting dialysis. CHEST: The heart rate is regular rate rhythm. No murmurs to auscultation. No carotid bruit bilaterally. LUNG: Clear to auscultation bilaterally no wheezing noted throughout. Not labored breathing. ABDOMEN/GI: Bowel sounds present in all 4 quadrants. No tenderness to palpation throughout. NEUROLOGICAL: Higher mental function: The patient is awake, alert, oriented to self, place and time. Patient is following commands. No aphasia and no neglect. Cranial nerves: The pupils are round, equal and reactive to light and accommodation. Visual ariza are full to confrontation throughout. Extraocular movement is intact no nystagmus is noted. Facial sensation is normal to touch throughout. The facial strength is normal throughout. Hearing is normal bilaterally to hand rub. Tongue is midline and moved [id number] without any difficulty. No dysarthria is noted. Shoulder shrug is normal bilaterally. Motor: Gait is deferred. The strength is 5 over 5 throughout. Normal tone and bulk. Cerebellum: Normal finger to nose heel to nevarez bilaterally. Sensation: Sensation is normal to touch throughout. Reflexes (right/left): 2+ throughout and lowers are 1-2+. Plantars are mute bilaterally. Results - Laboratory Findings CBC and BMP: 05/02/21 07:18 05/02/21 07:18 Abnormal Lab Findings: Abnormal Labs 05/01/21 05/01/21 05/01/21 12:04 12:04 15:59 WBC RBC 3.53 L Hgb 11.2 L Hct 31.8 L Plt Count 145 L Lymphocytes # Carbon Dioxide 33 H BUN 24 H Creatinine 3.87 H Glucose 103 H POC Glucose (mg/dL) Magnesium TSH Free T4 Urine Protein 2+ H 05/01/21 05/01/21 05/02/21 16:06 20:34 07:18 WBC RBC Hgb Hct Plt Count Lymphocytes # Carbon Dioxide BUN 28 H Creatinine 4.62 H Glucose POC Glucose (mg/dL) 111 H 125 H Magnesium 2.4 H TSH <0.015 L Free T4 3.22 H Urine Protein 05/02/21 07:18 WBC 2.7 L RBC 3.39 L Hgb 10.6 L Hct 30.7 L Plt Count 122 L Lymphocytes # 0.9 L Carbon Dioxide BUN Creatinine Glucose POC Glucose (mg/dL) Magnesium TSH Free T4 Urine Protein Assessment and Plan Assessment: Transient episode of lower extremity weakness. Unsure exactly reason (denies of focal weakness, lower back pain, bowel incontinence or other neurological deficits). Possibly TIA. History of stroke (on MRI Brain has remote infarct in cerebellum, inferior margin of the charles and bilateral thalamus suggestive of remote infarct) History of diabetes mellitus Diabetic peripheral neuropathy End-stage renal disease on dialysis History of hypertension Plan: * In the ED she received ASA 325mg once. She is currently on ASA 81mg daily (home dose). I will not start the patient on dual antiplatelets at this time because of history of falls which increases the risk of a bleed. If she continues to have followed recommend stopping aspirin and that placing the patient on Plavix She is also on Lipitor 10mg qhs and I increased it to 40mg qhs for secondary stroke prophylaxis. * The primary team ordered MRI Brain w/ and w/o but cannot get w/ since has ESRD. So i changed it to MRI Brain w/o. It is reported as no acute intracranial process. Degenerative and remote ischemic changes as described above. It is reported focal area of abnormal signal involving the cerebellum, inferior margin of the charles and bilateral thalamus suggestive of remote infarct. * 2D echo: Was reported as overall left ventricle systolic function is normal with ejection fraction 55-60%. Normal left atrial size. * Lipid panel, HbA1c are ordered by primary team and are pending. * PT, OT and CLINICAL QUALITY ASSURANCE ASSOCIATE are consulted. * Placed on Q4 hours neuro-checks and cardiac monitoring. * Ordered Vitamin B12 levels and folate level especially because of falls to see if component of neuropathy due to vitamin deficiency. * Will defer the rest of medical management to the primary team. * The patient was notified that she needs to use a walker more on a consistent basis to avoid any further falls. * Recommend getting MRI of the lumbar spine and that can be done as an outpatient. * Also upon discharge the patient needs to follow-up with a neurologist within 1-2 weeks. The plan is discussed with the patient's nurse. Thank you for the consultation. Herminio Bass MD Neuro-Hospitalist Time with Patient: Greater than 30
[2021-05-02] MEDS ORDERED: ATORVASTATIN 40 MG TAB PO SCH (21:00)
[2021-05-03 00:21] VITALS: RESP 16
[2021-05-03 06:12] LABS: Glucose,Whole Blood 89 mg/dL (75-99)
[2021-05-03] MEDS: INSULIN ASPART (NovoLOG) 100 UNIT/ML VIAL SQ SCH ×2 (06:18→11:49)
[2021-05-03] MEDS: LEVOTHYROXINE 125 MCG TAB PO SCH (06:23)
[2021-05-03] MEDS: FERROUS SULFATE 325 MG TAB PO SCH (08:39)
[2021-05-03] MEDS: ASPIRIN 81 MG PO SCH (08:39)
[2021-05-03] MEDS: METOPROLOL TARTRATE 50 MG TAB PO SCH (08:39)
[2021-05-03] MEDS: allopurinoL 100 MG TAB PO SCH (08:40)
[2021-05-03] MEDS: HEPARIN SODIUM,PORCINE/PF 5,000 UNIT/0.5 ML SYRINGE SQ SCH (08:40)
--- NOTE | 2021-05-03 08:49 | P.PN ---
Subjective Patient is seen in follow-up for end-stage renal disease. No problems with dialysis yesterday. Awake and alert. Wants to go home. No active complaints. Vital signs are stable. General: The patient appeared well nourished and normally developed. HEENT: Head exam is unremarkable. Neck is without jugular venous distension. LUNGS: Breath sounds decreased. HEART: Rate and Rhythm are regular. ABDOMEN: Soft, no distention. EXTREMITITES: No edema. Objective - Vital Signs Vital signs: Vital Signs Temp 98 F 05/03/21 03:37 Pulse 66 05/03/21 03:37 Resp 16 05/03/21 03:37 BP 124/59 05/03/21 03:37 Pulse Ox 98 05/03/21 07:53 Intake & Output 05/02/21 05/03/21 05/03/21 18:59 06:59 18:59 Intake Total 240 540 240 Output Total 1300 200 Balance -1060 340 240 Weight 62.4 kg Intake: Oral 240 540 240 Output: Urine 200 Hemodialysis 1000 Other 300 Other: Voiding Method Toilet Toilet # Voids 1 - Labs CBC & Chem 7: 05/02/21 07:18 05/02/21 07:18 Labs: Abnormal Lab Results - Last 24 Hours (Table) 05/02/21 05/02/21 05/02/21 Range/Units 07:18 16:49 20:13 BUN 28 H (7-17) mg/dL Creatinine 4.62 H (0.52-1.04) mg/dL POC Glucose (mg/dL) 118 H 111 H (75-99) mg/dL Magnesium 2.4 H (1.6-2.3) mg/dL TSH <0.015 L (0.465-4.680) mIU/L Free T4 3.22 H (0.78-2.19) ng/dL Assessment and Plan Plan: Assessment: 1. End-stage renal disease maintained on hemodialysis on Sunday schedule. 2. Status post fall. No acute fracture. 3. Hypertension with chronic kidney disease. Stable. 4. Chronic kidney disease mineral bone disease maintained on calcitriol. 5. Diabetes mellitus. Plan: Hemodialysis tomorrow. Stable for discharge home from nephrology standpoint.
[2021-05-03 10:53] VITALS: BP 140/62; TEMP 97.7
[2021-05-03 11:38] LABS: Glucose,Whole Blood 101 mg/dL (75-99)
--- NOTE | 2021-05-03 13:40 | P.DS ---
Providers Date of admission: 05/01/21 14:07 Expected date of discharge: 05/03/21 Attending physician: Alexandra Montoya MD Consults: 05/01/21 14:08 Consult Physician Routine Consulting Provider: Feliberto Liz Consult Reason/Comments: CVA Do you want consulting provider notified?: Yes 05/01/21 16:18 Consult Physician Routine Consulting Provider: Brittney Dutton Consult Reason/Comments: ESRD Do you want consulting provider notified?: Yes, Notify in am Primary care physician: [place] [facility] Course: Syncope Left-sided weakness History of CVA/TIA -Admitted to inpatient, telemetry. Neurology consulted and recommended MRI of the brain, which did not demonstrate stroke. She also had echo which showed preserved EF, no WMA, no thrombus. Carotid Doppler did not demonstrate HDS stenosis. Patient was treated with ASA, Atorvastatin. PT/OT consulted and determined patient was safe for home with home PT/OT. Given patients multiple falls in recent months, she was discharged on holter monitor, despite having had no events on telemetry. End-stage renal disease Hypertension Hyperlipidemia Diabetes type 2 Hypothyroidism with Iatrogenic Hyperthyroidism Gout without flare -Nephrology consult for dialysis; patient rec'd once in house. -Continue home antihypertensive medications -Nifedipine 60 mg twice a day -Metoprolol 100 mg twice a day -Continued home statin as above -Hold home glucose medications were resumed with no changes -Home levothyroxine was downtitrated to 100mcg given elevated FT4 and low TSH. -Continued home allopurinol I spent 32 minutes coordinating this complex discharge. Assessment: Gen: awake, alert HEENT: normocephalic, atraumatic, good hearing acuity, moist mucous membranes Resp: good air exchange, breathing comfortably with no accessory muscle use, CTAB without wheezes or crackles CVS: good distal perfusion x 4, RRR, no murmurs GI: soft, NTTP, ND : no SPT, no CVAT, lim catheter not present MSK: no pitting edema, no clubbing Neuro: Left upper extremity pronator drift, 4+ out of 5 hand emu farmer weakness on the left side, 4+ out of 5 dorsiflexion and plantar flexion in the left lower extremity, CN II-XII are intact, no sensory deficits Psych: cooperative, euthymic mood Patient Condition at Discharge: Good Plan - Discharge Summary New Discharge Prescriptions: New Aspirin 81 mg PO DAILY chew Levothyroxine Sodium [Synthroid] 100 mcg PO DAILY@0630 #30 tab Continue Ferrous Sulfate [Iron (65 MG Elemental)] 325 mg PO BID sitaGLIPtin [Januvia] 50 mg PO DAILY Sodium Bicarbonate Tab 1,300 tab PO DAILY Allopurinol [Zyloprim] 100 mg PO DAILY calcitrioL [Calcitriol] 0.5 mcg PO MOWEFR Metoprolol Tartrate [Lopressor] 100 mg PO BID Silver Sulfadiazine 1 applic TOPICAL DAILY Atorvastatin Calcium [Lipitor] 10 mg PO HS Magnesium Oxide [Magox 400] 400 mg PO Q48H NIFEdipine [Procardia XL] 60 mg PO BID Pioglitazone [Actos] 15 mg PO DAILY Cholecalciferol (Vitamin D3) [Vitamin D3 (5000 Iu)] 125 mcg PO Q14D Vit B Complx C/Folic Acid/Zinc [Renaplex Tablet] 1 tab PO MOWEFR Discontinued Aspirin 325 mg PO DAILY Levothyroxine Sodium [Synthroid] 125 mcg PO DAILY Discharge Medication List Ferrous Sulfate [Iron (65 MG Elemental)] 325 mg PO BID 03/24/20 [History] Sodium Bicarbonate Tab 1,300 tab PO DAILY 03/24/20 [History] sitaGLIPtin [Januvia] 50 mg PO DAILY 03/24/20 [History] Allopurinol [Zyloprim] 100 mg PO DAILY 01/12/21 [History] Atorvastatin Calcium [Lipitor] 10 mg PO HS 01/12/21 [History] Cholecalciferol (Vitamin D3) [Vitamin D3 (5000 Iu)] 125 mcg PO Q14D 01/12/21 [History] Magnesium Oxide [Magox 400] 400 mg PO Q48H 01/12/21 [History] Metoprolol Tartrate [Lopressor] 100 mg PO BID 01/12/21 [History] NIFEdipine [Procardia XL] 60 mg PO BID 01/12/21 [History] Pioglitazone [Actos] 15 mg PO DAILY 01/12/21 [History] calcitrioL [Calcitriol] 0.5 mcg PO MOWEFR 01/12/21 [History] Silver Sulfadiazine 1 applic TOPICAL DAILY 05/01/21 [History] Vit B Complx C/Folic Acid/Zinc [Renaplex Tablet] 1 tab PO MOWEFR 05/01/21 [History] Aspirin 81 mg PO DAILY chew 05/03/21 [Rx] Levothyroxine Sodium [Synthroid] 100 mcg PO DAILY@0630 #30 tab 05/03/21 [Rx] Follow up Appointment(s)/Referral(s): Mehul Mayen MD [Primary Care Provider] - 1-2 days [facility], [NON-STAFF] - Discharge Disposition: HOME WITH HOME HEALTH SERVICES
[2021-05-03 16:05] VITALS: PULSE 60
[2021-05-04] MEDS ORDERED: LEVOTHYROXINE 100 MCG TAB PO SCH (06:30)
== END 2021-05-03 16:10 | disposition home health service (06) | DRG 312 ==
LOC: EC 11:10 → 2SICU 13:20 → UNDOADMIN 13:20 → 3SCARD 14:07
PROVIDERS: ADMIT Internal Medicine; ATTEND Internal Medicine
PROC: 5A1D70Z Performance of Urinary Filtration, Intermittent, Less than 6 Hours Per Day (ICD-10-PCS; principal; 2021-05-02)
DX: R55 Syncope and collapse (principal); N18.6 End stage renal disease; I12.0 Hypertensive chronic kidney disease with stage 5 chronic kidney disease or end stage renal disease; E11.22 Type 2 diabetes mellitus with diabetic chronic kidney disease; E11.42 Type 2 diabetes mellitus with diabetic polyneuropathy; E11.319 Type 2 diabetes mellitus with unspecified diabetic retinopathy without macular edema; Z99.2 Dependence on renal dialysis; E83.9 Disorder of mineral metabolism, unspecified; E78.5 Hyperlipidemia, unspecified; I65.23 Occlusion and stenosis of bilateral carotid arteries; I35.0 Nonrheumatic aortic (valve) stenosis; E03.9 Hypothyroidism, unspecified; M10.9 Gout, unspecified; R53.1 Weakness; R00.1 Bradycardia, unspecified; R29.6 Repeated falls; W10.9XXA Fall (on) (from) unspecified stairs and steps, initial encounter; Z79.82 Long term (current) use of aspirin; Z79.890 Hormone replacement therapy; Z79.84 Long term (current) use of oral hypoglycemic drugs; Z79.899 Other long term (current) drug therapy; Z86.73 Personal history of transient ischemic attack (TIA), and cerebral infarction without residual deficits
CPT/HCPCS: 36415; 70450; 70480; 70551; 71046; 80048; 80053; 80061; 81001; 82607; 82746; 82747; 83036; 83735; 84439; 84443; 84484; 85025; 85610; 85730; 86706; 87340; 90935; 93005; 93270; 93306; 93880; 94760; 96360; 99285

== ENCOUNTER 2021-06-30 10:17 | Day surgery (SDC) | payer MEDICARE, OTHER ==
[2021-06-29 10:13] VITALS: BMI 25.4
[~2021-06-30 10:17] MED LIST changes: -DEXAMETHASONE SOD PHOSPHATE 10 MG/ML 1 ML VIAL IV ONE; -LACTATED RINGERS 1,000 ML IV SCH; -LIDOCAINE 1% (10MG/ML) FOR IV START INTRADERMA PRN; -METOCLOPRAMIDE 5 MG/ML 2 ML VIAL IVP PRN; -MORPHINE SULFATE 2 MG/ML SYRINGE IV PRN; +SODIUM CHLORIDE 0.9% 1,000 ML in EMPTY BAG 1 BAG IV ONE
[2021-06-30] MEDS ORDERED: SODIUM CHLORIDE 0.9% 1,000 ML IV ONE (10:33)
[2021-06-30 10:40] VITALS: RESP 16; TEMP 98
[2021-06-30 10:44] LABS: Glucose,Whole Blood 94 mg/dL (75-99)
[2021-06-30 10:54] LABS: Basophils % (A) 1 %; Eosinophils # (A) 0.1 k/uL (0-0.7); Eosinophils % (A) 2 %; HCT 37.4 % (34.0-46.0); HGB 12.3 gm/dL (11.4-16.0); Lymphocytes # (A) 1.3 k/uL (1.0-4.8); Lymphocytes % (A) 20 %; MCH 30.9 pg (25.0-35.0); MCV 93.7 fL (80.0-100.0); Mean Platelet Volume 8.8; Monocytes # (A) 0.5 k/uL (0-1.0); Monocytes % (A) 7 %; Neutrophils # (A) 4.7 k/uL (1.3-7.7); Neutrophils % (A) 70 %; Platelet Count 172 k/uL (150-450); RBC 3.99 m/uL (3.80-5.40); RDW 14.2 % (11.5-15.5); WBC 6.8 k/uL (3.8-10.6)
[2021-06-30 11:15] LABS: Calcium 9.4 mg/dL (8.4-10.2); Potassium 3.7 mmol/L (3.5-5.1)
[2021-06-30] MEDS ORDERED: LIDOCAINE 1% INJ 10MG/ML (20 ML MDV) ONE (11:55)
[2021-06-30] MEDS ORDERED: LIDOCAINE 1% INJ 10MG/ML (20 ML MDV) SQ ONE (12:15)
[2021-06-30] MEDS ORDERED: IOPAMIDOL-370 100ML BTL INJ ONE (12:39)
--- NOTE | 2021-06-30 12:59 | P.OP ---
Date of Procedure: 06/30/21 Description of Procedure: Preoperative diagnosis: [ESRD, malfunctioning AV graft] Postoperative diagnosis: Same Procedure: [fistulagram, PTB venouplasty of venous outflow with 5x40 balloon] Surgeon: Bethany Ruano D.O. EBL: [10cc] IV fluids: [see records] Urine output: [Not measured] Drains: [none] Complications: [none immediately apparent] Condition: [sthable to recovery] Operative indication and findings: [Pt is a 70-year-old female with end-stage renal disease utilizing a left upper extremity] AV loopforearm graftit was noted that they were having difficulty with access and prolonged bleeding therefore it was recommended she undergo fistulogram. Risks and benefits were discussed. She seemingly understood and was willing to proceed as such Procedure in detail: []the patient was taken to the special suite and placed in supine position. The left upper extremity is prepped and draped in usual sterile fashion. A preprocedure timeout was performed, all parties were in agreement. The graft was grasped and using a micropuncture needle a 6-[place] sheath was placed under Seldinger technique. An inflow angiogram was performed showing no evidence of severe stenosis or flow limitations. Flow was then allowed through the graft itself showing some degree of stenosis of the distal outflow tract. Another 6-[place]an sheath was placed in the outflow portion a wire was utilized to cross the area of the anastomosis and a 5 x 40 balloon was utilized for a venoplasty in this area with significant improvement of the area of the stenosis. There is good palpable thrill and good augmentation of the graft. Using [id number] 3-0 Prolene sutures, the sheath removed andhemostasis was achieved. The patient was allowed to transfer to recovery having tolerated her procedure well Plan - Discharge Summary Discharge Rx Participant: No New Discharge Prescriptions: No Action RX: Ferrous Sulfate [Iron (65 MG Elemental)] 325 mg PO BID RX: sitaGLIPtin [Januvia] 50 mg PO DAILY RX: Sodium Bicarbonate Tab 1,300 tab PO DAILY RX: Allopurinol [Zyloprim] 100 mg PO DAILY RX: Metoprolol Tartrate [Lopressor] 100 mg PO BID RX: Aspirin 81 mg PO DAILY chew RX: Atorvastatin Calcium [Lipitor] 10 mg PO HS RX: Magnesium Oxide [Magox 400] 400 mg PO Q48H RX: NIFEdipine [Procardia XL] 60 mg PO BID RX: Pioglitazone [Actos] 15 mg PO DAILY RX: Cholecalciferol (Vitamin D3) [Vitamin D3 (5000 Iu)] 125 mcg PO Q14D RX: Vit B Complx C/Folic Acid/Zinc [Renaplex Tablet] 1 tab PO MOWEFR RX: Levothyroxine Sodium [Synthroid] 100 mcg PO DAILY@0630 #30 tab Discharge Medication List RX: Ferrous Sulfate [Iron (65 MG Elemental)] 325 mg PO BID 03/24/20 [History] RX: Sodium Bicarbonate Tab 1,300 tab PO DAILY 03/24/20 [History] RX: sitaGLIPtin [Januvia] 50 mg PO DAILY 03/24/20 [History] RX: Allopurinol [Zyloprim] 100 mg PO DAILY 01/12/21 [History] RX: Atorvastatin Calcium [Lipitor] 10 mg PO HS 01/12/21 [History] RX: Cholecalciferol (Vitamin D3) [Vitamin D3 (5000 Iu)] 125 mcg PO Q14D 01/12/21 [History] RX: Magnesium Oxide [Magox 400] 400 mg PO Q48H 01/12/21 [History] RX: Metoprolol Tartrate [Lopressor] 100 mg PO BID 01/12/21 [History] RX: NIFEdipine [Procardia XL] 60 mg PO BID 01/12/21 [History] RX: Pioglitazone [Actos] 15 mg PO DAILY 01/12/21 [History] RX: Vit B Complx C/Folic Acid/Zinc [Renaplex Tablet] 1 tab PO MOWEFR 05/01/21 [History] RX: Aspirin 81 mg PO DAILY chew 05/03/21 [Rx] RX: Levothyroxine Sodium [Synthroid] 100 mcg PO DAILY@0630 #30 tab 05/03/21 [Rx] Follow up Appointment(s)/Referral(s): Bethany Ruano DO [STAFF PHYSICIAN] - As Needed (Pt should have previously scheduled ultrasound in the next few months. This can be her followup appointment) Discharge Disposition: HOME SELF-CARE
--- NOTE | 2021-06-30 13:01 | IR ---
EXAMINATION TYPE: IR fistula/abscess/sinus tract DATE OF EXAM: 06/30/2021 COMPARISON: NONE HISTORY: Dialysis fistula increased resistance Fluoroscopy support supplied to the referring clinician. See dictated report from vascular surgery, 216 intraoperative images, 1.4 minutes fluoroscopy time supplied
[2021-06-30 14:01] VITALS: BP 158/65; PULSE 72
== END 2021-06-30 14:38 | disposition home or self-care (01) ==
LOC: CATHCVL 10:17
PROVIDERS: ATTEND Surgery
DX: I12.0 Hypertensive chronic kidney disease with stage 5 chronic kidney disease or end stage renal disease (principal); E11.22 Type 2 diabetes mellitus with diabetic chronic kidney disease; N18.6 End stage renal disease; Z99.2 Dependence on renal dialysis; E78.00 Pure hypercholesterolemia, unspecified; Z79.82 Long term (current) use of aspirin; Z79.84 Long term (current) use of oral hypoglycemic drugs
CPT/HCPCS: 36901; 76080; 80048; 85025; 87635; J2001; Q9967

== ENCOUNTER 2021-09-09 16:46 | Inpatient (IN) | payer MEDICARE, OTHER ==
[2021-09-09] MEDS ORDERED: NALOXONE 0.4 MG/ML 1 ML VIAL IV PRN (20:08)
--- NOTE | 2021-09-09 20:11 | ED ---
General Adult HPI - General Chief complaint: Recheck/Abnormal Lab/Rx Stated complaint: dialysis found blood clots in arm Time Seen by Provider: 09/09/21 19:07 Source: patient Mode of arrival: ambulatory Limitations: no limitations - History of Present Illness Initial comments: Dictation was produced using [employer] dictation software. please excuse any grammatical, word or spelling errors. Chief Complaint: 71-year-old female sent in by vascular surgeon for malfunctioning hemodialysis access History of Present Illness: 71-year-old female sent in bibasilar surgeon for malfunctioning hemodialysis axis. Patient went to dialysis today they tried to do dialysis but did not feel that the dialysis access was working. Dialysis staff contacted vascular surgeon and patient was redirected to the emergency department. Dr. Ruano requested patient be admitted for procedure tomorrow to diagnose malfunctioning hemodialysis access. Chart review shows that patient had the initial procedure on March 2020. Her dialysis access site needed for trouble shooting in June of this year. Patient is now since Sunday. States she last time she had full dialysis was Sunday. Dialysis was attempted today. She has no other complaints. The ROS documented in this emergency department record has been reviewed and confirmed by me. Those systems with pertinent positive or negative responses have been documented in the HPI. All other systems are other negative and/or noncontributory. PHYSICAL EXAM: General Impression: Alert and oriented x3, not in acute distress HEENT: Normocephalic atraumatic, extra-ocular movements intact, pupils equal and reactive to light bilaterally, mucous membranes moist. Cardiovascular: Heart regular rate and rhythm Chest: Able to complete full sentences, no retractions, no tachypnea Abdomen: abdomen soft, non-tender, non-distended, no organomegaly Musculoskeletal: Pulses present and equal in all extremities, no peripheral edema Motor: no focal deficits noted Neurological: CN II-XII grossly intact, no focal motor or sensory deficits noted Skin: Intact with no visualized rashes Psych: Normal affect and mood ED course: 71-year-old female presents to the emergency department for malfunctioning hemodialysis access site. Vital signs upon arrival are within acceptable limits. Patient is in no acute distress. Physical examination is benign. Patient will be admitted to [facility]. Vascular surgery and nephrology on consult. Laboratory evaluation obtained. CBC unremarkable. Coag panel is negative. Metabolic panel is within except limits. Patient is not hyperkalemic. She is not showing any signs of respiratory distress. EKG interpretation: Ventricular rate 75, normal sinus rhythm, AK interval 120, QRS 66, QTC 480. No AK prolongation, no QTC prolongation, no ST or T-wave changes noted. Overall, this EKG is unremarkable - Related Data Home Medications Medication Instructions Recorded Confirmed Ferrous Sulfate [Iron (65 MG 325 mg PO BID 03/24/20 06/30/21 Elemental)] Sodium Bicarbonate Tab 1,300 tab PO DAILY 03/24/20 06/29/21 sitaGLIPtin [Januvia] 50 mg PO DAILY 03/24/20 06/30/21 Allopurinol [Zyloprim] 100 mg PO DAILY 01/12/21 06/30/21 Atorvastatin Calcium [Lipitor] 10 mg PO HS 01/12/21 06/30/21 Cholecalciferol (Vitamin D3) 125 mcg PO Q14D 01/12/21 06/29/21 [Vitamin D3 (5000 Iu)] Magnesium Oxide [Magox 400] 400 mg PO Q48H 01/12/21 06/30/21 Metoprolol Tartrate [Lopressor] 100 mg PO BID 01/12/21 06/30/21 NIFEdipine [Procardia XL] 60 mg PO BID 01/12/21 06/30/21 Pioglitazone [Actos] 15 mg PO DAILY 01/12/21 06/30/21 Vit B Complx C/Folic Acid/Zinc 1 tab PO MOWEFR 05/01/21 06/30/21 [Renaplex Tablet] Previous Rx's Medication Instructions Recorded Aspirin 81 mg PO DAILY chew 05/03/21 Levothyroxine Sodium [Synthroid] 100 mcg PO DAILY@0630 #30 tab 05/03/21 Allergies Allergy/AdvReac Type Severity Reaction Status Date / Time No Known Allergies Allergy Verified 09/09/21 17:41 Review of Systems ROS Statement: Those systems with pertinent positive or pertinent negative responses have been documented in the HPI. ROS Other: All systems not noted in ROS Statement are negative. Past Medical History Past Medical History: Chest Pain / Angina, CVA/TIA, Diabetes Mellitus, Hyperlip idemia, Hypertension, Memory Impairment, Renal Disease, Thyroid Disorder Additional Past Medical History / Comment(s): Chronic toe infection, Stage 4 Renal Failure, Diabetic Retinopathy, Gout, mild aortic stenosis, neuropathy bilateral feet, right sided weakness since CVA, dialysis MOWEFR. History of Any Multi-Drug Resistant Organisms: None Reported Past Surgical History: Section Additional Past Surgical History / Comment(s): Left arm dialysis graft. Past Anesthesia/Blood Transfusion Reactions: No Reported Reaction Past Psychological History: No Psychological Hx Reported Smoking Status: Never smoker Past Alcohol Use History: None Reported Past Drug Use History: None Reported - Past Family History Mother Family Medical History: No Reported History General Exam Limitations: no limitations Course Vital Signs 09/09/21 17:41 Temperature 98.4 F Pulse Rate 85 Respiratory 20 Rate Blood Pressure 188/96 O2 Sat by Pulse 100 Oximetry Medical Decision Making - Lab Data Result diagrams: 09/09/21 19:48 09/09/21 19:48 Lab Results 09/09/21 09/09/21 09/09/21 Range/Units 19:48 19:48 19:48 WBC 3.6 L (3.8-10.6) k/uL RBC 4.03 (3.80-5.40) m/uL Hgb 12.7 (11.4-16.0) gm/dL Hct 39.4 (34.0-46.0) % MCV 97.8 (80.0-100.0) fL MCH 31.6 (25.0-35.0) pg MCHC 32.3 (31.0-37.0) g/dL RDW 14.8 (11.5-15.5) % Plt Count 193 (150-450) k/uL MPV 7.9 Neutrophils % 60 % Lymphocytes % 25 % Monocytes % 7 % Eosinophils % 4 % Basophils % 1 % Neutrophils # 2.2 (1.3-7.7) k/uL Lymphocytes # 0.9 L (1.0-4.8) k/uL Monocytes # 0.3 (0-1.0) k/uL Eosinophils # 0.2 (0-0.7) k/uL Basophils # 0.0 (0-0.2) k/uL PT 9.7 (9.0-12.0) sec INR 0.9 (<1.2) APTT 22.8 (22.0-30.0) sec Sodium 140 (137-145) mmol/L Potassium 3.8 (3.5-5.1) mmol/L Chloride 98 (98-107) mmol/L Carbon Dioxide 27 (22-30) mmol/L Anion Gap 15 mmol/L BUN 37 H (7-17) mg/dL Creatinine 6.72 H (0.52-1.04) mg/dL Est GFR (CKD-EPI)AfAm 7 (>60 ml/min/1.73 sqM) Est GFR (CKD-EPI)NonAf 6 (>60 ml/min/1.73 sqM) Glucose 90 (74-99) mg/dL Calcium 9.9 (8.4-10.2) mg/dL Magnesium 2.8 H (1.6-2.3) mg/dL Disposition Clinical Impression: Dialysis complication Disposition: ADMITTED IP TO THIS HOSP Condition: Fair
[2021-09-09] MEDS ORDERED: SODIUM CHLORIDE 0.9% 1,000 ML IV SCH (20:15)
[2021-09-09 20:34] LABS: Basophils % (A) 1 %; Eosinophils # (A) 0.2 k/uL (0-0.7); Eosinophils % (A) 4 %; HCT 39.4 % (34.0-46.0); HGB 12.7 gm/dL (11.4-16.0); Lymphocytes # (A) 0.9 k/uL (1.0-4.8); Lymphocytes % (A) 25 %; MCH 31.6 pg (25.0-35.0); MCHC 32.3 g/dL (31.0-37.0); MCV 97.8 fL (80.0-100.0); Mean Platelet Volume 7.9; Monocytes # (A) 0.3 k/uL (0-1.0); Monocytes % (A) 7 %; Neutrophils # (A) 2.2 k/uL (1.3-7.7); Neutrophils % (A) 60 %; Platelet Count 193 k/uL (150-450); RBC 4.03 m/uL (3.80-5.40); RDW 14.8 % (11.5-15.5); WBC 3.6 k/uL (3.8-10.6)
[2021-09-09 20:35] LABS: Calcium 9.9 mg/dL (8.4-10.2); Magnesium 2.8 mg/dL (1.6-2.3); Potassium 3.8 mmol/L (3.5-5.1)
[2021-09-09 20:40] LABS: INR 0.9 (<1.2); Partial Thromboplastin Time 22.8 sec (22.0-30.0); Prothrombin Time 9.7 sec (9.0-12.0)
[2021-09-09 23:07] VITALS: RESP 16
--- NOTE | 2021-09-10 00:19 | P.HPIM ---
History of Present Illness H&P Date: 09/09/21 The patient is a 71 yo F with a PMH of ESRD and hemodialysis via left AV fistula, type II DM, hypertension, hyperlipidemia, hypothyroidism was sent to the emergency room from her dialysis center for malfunctioning graft. The patient went in for routine dialysis session today and the technicians were unable to access the site and contacted the patient's vascular surgeon Dr. Ruano, who subsequently advised the patient to come to the emergency room. The patient initially had her AV fistula placed in 03/2020 and previously had a malfunction in 06/2021 as per the chart review. The patient notes that she feels well and denied any active complaints at the time of interview. She denied arm pain, fever, chills. Denied chest discomfort, shortness of breath, nausea, vomiting, abdominal pain, diarrhea. Denied headaches, weakness, numbness, tingling. Laboratory evaluation was reviewed. EKG revealed normal sinus rhythm at 75 bpm with a prolonged QTc of 480 ms. Review of systems: Pertinent positives and negatives as discussed in HPI, a complete review of systems was performed and all other systems are negative. Physical examination: General: non toxic, no distress, appears at stated age, normal weight Derm: no unusual rashes/lesions no unusual ecchymoses, warm, dry Head: atraumatic, normocephalic, symmetric Eyes: EOMI, no lid lag, anicteric sclera, pupils equal round reactive to light ENT: Nose and ears atraumatic, no thrush, no pharyngeal erythema Neck: No thyromegaly, no cervical lymphadenopathy, trachea midline, supple Mouth: no lip lesion, mucus membranes moist Cardiovascular: S1S2 reg, no murmur, positive posterior tibial pulse bilateral, no edema, capillary refill less than 2 seconds Lungs: CTA bilateral, no rhonchi, no rales , no accessory muscle use Abdominal: soft, nontender to palpation, no guarding, no appreciable organomegaly, normal bowel sounds, left forearm fistula with no palpable thrill Ext: no gross muscle atrophy, muscle strength 5 out of 5 in all 4 extremities grossly, no contractures, Neuro: CN II-XI grossly intact, light touch intact all 4 extremities, finger to nose within normal limits, Psych: Alert, oriented, appropriate affect Assessment/plan Malfunctioning left AV fistula -Vascular surgery and nephrology consulted Leukopenia -No signs of active infection at this time -Monitor for now Chronic conditions: Type 2 DM, hypertension, hyperlipidemia, hypothyroidism -Continue with home meds DVT prophylaxis -Heparin subq The patient is admitted with an anticipated less than 2 midnight stay for evaluation of malfunctioning AV fistula CODE STATUS: Full code Discussed with: Patient Anticipated discharge date: in am Anticipated discharge place: Home Past Medical History Past Medical History: Chest Pain / Angina, CVA/TIA, Diabetes Mellitus, Hyperlipidemia, Hypertension, Memory Impairment, Renal Disease, Thyroid Disorder Additional Past Medical History / Comment(s): Chronic toe infection, Stage 4 Renal Failure, Diabetic Retinopathy, Gout, mild aortic stenosis, neuropathy bilateral feet, right sided weakness since CVA, dialysis MOWEFR. History of Any Multi-Drug Resistant Organisms: None Reported Past Surgical History: Section Additional Past Surgical History / Comment(s): Left arm dialysis graft. Past Anesthesia/Blood Transfusion Reactions: No Reported Reaction Past Psychological History: No Psychological Hx Reported Smoking Status: Never smoker Past Alcohol Use History: None Reported Past Drug Use History: None Reported - Past Family History Mother Family Medical History: Hyperlipidemia Medications and Allergies Home Medications Medication Instructions Recorded Confirmed Type Ferrous Sulfate [Iron (65 MG 325 mg PO DIRECTED 03/24/20 09/09/21 History Elemental)] sitaGLIPtin [Januvia] 50 mg PO DAILY 03/24/20 09/09/21 History Allopurinol [Zyloprim] 100 mg PO DAILY 01/12/21 09/09/21 History Atorvastatin Calcium [Lipitor] 10 mg PO HS 01/12/21 09/09/21 History Magnesium Oxide [Magox 400] 400 mg PO Q48H 01/12/21 09/09/21 History Metoprolol Tartrate [Lopressor] 100 mg PO BID 01/12/21 09/09/21 History NIFEdipine [Procardia XL] 60 mg PO BID 01/12/21 09/09/21 History Pioglitazone [Actos] 15 mg PO DAILY 01/12/21 09/09/21 History Vit B Complx C/Folic Acid/Zinc 1 tab PO MOWEFR 05/01/21 09/09/21 History [Renaplex Tablet] Aspirin 81 mg PO DAILY chew 05/03/21 09/09/21 Rx Calcitriol (Unknown Strength) 1 dose PO DIRECTED 09/09/21 09/09/21 History Ergocalciferol [Vitamin D2 (1250 1,250 mcg PO Q14D 09/09/21 09/09/21 History Mcg = 12985 Iu)] Levothyroxine Sodium [Synthroid] 88 mcg PO DAILY 09/09/21 09/09/21 History Allergies Allergy/AdvReac Type Severity Reaction Status Date / Time No Known Allergies Allergy Verified 09/09/21 20:53 Physical Exam Vitals: Vital Signs Temp Pulse Resp BP Pulse Ox 09/09/21 17:41 98.4 F 85 20 188/96 100 Intake and Output 09/09/21 09/09/21 09/09/21 06:59 14:59 22:59 Other: Weight 63.503 kg Results CBC & Chem 7: 09/09/21 19:48 09/09/21 19:48 Labs: Abnormal Lab Results - Last 24 Hours (Table) 09/09/21 09/09/21 Range/Units 19:48 19:48 WBC 3.6 L (3.8-10.6) k/uL Lymphocytes # 0.9 L (1.0-4.8) k/uL BUN 37 H (7-17) mg/dL Creatinine 6.72 H (0.52-1.04) mg/dL Magnesium 2.8 H (1.6-2.3) mg/dL
[2021-09-10] MEDS: LEVOTHYROXINE 88 MCG TAB PO SCH ×2 (05:59→07:48)
[2021-09-10] MEDS: INSULIN ASPART (NovoLOG) 100 UNIT/ML VIAL SQ SCH ×3 (07:36→17:41)
[2021-09-10] MEDS: HEPARIN SODIUM,PORCINE/PF 5,000 UNIT/0.5 ML SYRINGE SQ SCH ×2 (07:47→16:05)
[2021-09-10 07:50] LABS: Glucose,Whole Blood 82 mg/dL (75-99)
[2021-09-10] MEDS ORDERED: METOPROLOL TARTRATE 50 MG TAB PO SCH (09:00)
[2021-09-10] MEDS ORDERED: allopurinoL 100 MG TAB PO SCH (09:00)
[2021-09-10] MEDS ORDERED: ASPIRIN 81 MG PO SCH (09:00)
[2021-09-10] MEDS ORDERED: IV FLUID CONTINUATION 1,000 ML IV ONE (10:55)
[2021-09-10] MEDS: MIDAZOLAM 2 MG/2 ML VIAL IV ONE ×2 (11:32→12:40)
[2021-09-10] MEDS: fentaNYL (PF) 50 MCG/ML 5 ML AMP IV ONE ×2 (11:32→12:42)
[2021-09-10] MEDS ORDERED: LIDOCAINE 1% INJ 10MG/ML (20 ML MDV) SQ ONE (11:38)
--- NOTE | 2021-09-10 12:11 | P.PN ---
Subjective Progress Note Date: 09/10/21 No new complaints at this time, pending thrombectomy in the AV fistula, then dialysis. Objective - Vital Signs Vital signs: Vital Signs Temp 98.8 F 09/10/21 07:00 Pulse 66 09/10/21 07:00 Resp 16 09/10/21 08:00 BP 124/66 09/10/21 07:00 Pulse Ox 96 09/10/21 07:00 Intake & Output 09/09/21 09/10/21 09/10/21 18:59 06:59 18:59 Weight 63.503 kg 63.503 kg Other: Voiding Method Toilet Toilet # Voids 3 - Exam Gen: awake, alert HEENT: normocephalic, atraumatic, good hearing acuity, moist mucous membranes Resp: good air exchange, breathing comfortably with no accessory muscle use CVS: good distal perfusion x 4, GI: soft, NTTP, ND : no SPT, no CVAT, lim catheter not present MSK: no pitting edema, no clubbing Neuro: non-focal, moving all extremities Psych: cooperative, euthymic mood - Labs CBC & Chem 7: 09/09/21 19:48 09/09/21 19:48 Labs: Abnormal Lab Results - Last 24 Hours (Table) 09/09/21 09/09/21 Range/Units 19:48 19:48 WBC 3.6 L (3.8-10.6) k/uL Lymphocytes # 0.9 L (1.0-4.8) k/uL BUN 37 H (7-17) mg/dL Creatinine 6.72 H (0.52-1.04) mg/dL Magnesium 2.8 H (1.6-2.3) mg/dL Assessment and Plan Assessment: Malfunctioning left AV fistula -Vascular surgery and nephrology consulted Leukopenia -No signs of active infection at this time -Monitor for now Chronic conditions: Type 2 DM, hypertension, hyperlipidemia, hypothyroidism -Continue with home meds DVT prophylaxis -Heparin subq CODE STATUS: Full code Discussed with: Patient Anticipated discharge date: in am Anticipated discharge place: Home
[2021-09-10] MEDS ORDERED: IOPAMIDOL-250 100ML BTL INTRAARTER ONE (13:20)
--- NOTE | 2021-09-10 13:35 | P.GSCN ---
History of Present Illness Consult date: 09/10/21 History of present illness: Fernanda is a 71 year old female who presented from the dialysis center with a thrombosed graft. She says it has been functioning well without issues that she is aware of. Last interventions was in june with a balloon venoplasty. She denies any issues otherwise. Her labs last night were found to be in satisfactory condition at night emergent dialysis. She is here today for thrombectomy official gram Past Medical History Past Medical History: Chest Pain / Angina, CVA/TIA, Diabetes Mellitus, Hyperlipidemia, Hypertension, Memory Impairment, Renal Disease, Thyroid Disorder Additional Past Medical History / Comment(s): Chronic toe infection, Stage 4 Renal Failure, Diabetic Retinopathy, Gout, mild aortic stenosis, neuropathy bilateral feet, right sided weakness since CVA, dialysis MOWEFR. History of Any Multi-Drug Resistant Organisms: None Reported Past Surgical History: Section Additional Past Surgical History / Comment(s): Left arm dialysis graft. Past Anesthesia/Blood Transfusion Reactions: No Reported Reaction Past Psychological History: No Psychological Hx Reported Smoking Status: Never smoker Past Alcohol Use History: None Reported Past Drug Use History: None Reported - Past Family History Mother Family Medical History: Hyperlipidemia Medications and Allergies Home Medications Medication Instructions Recorded Confirmed Type RX: sitaGLIPtin [Januvia] 50 mg PO DAILY 03/24/20 09/09/21 History RX: Allopurinol [Zyloprim] 100 mg PO DAILY 01/12/21 09/09/21 History RX: Atorvastatin Calcium [Lipitor] 10 mg PO HS 01/12/21 09/09/21 History RX: Magnesium Oxide [Magox 400] 400 mg PO Q48H 01/12/21 09/09/21 History RX: Metoprolol Tartrate [Lopressor] 100 mg PO BID 01/12/21 09/09/21 History RX: NIFEdipine [Procardia XL] 60 mg PO BID 01/12/21 09/09/21 History RX: Pioglitazone [Actos] 15 mg PO DAILY 01/12/21 09/09/21 History RX: Vit B Complx C/Folic Acid/Zinc 1 tab PO MOWEFR 05/01/21 09/09/21 History [Renaplex Tablet] RX: Aspirin 81 mg PO DAILY chew 05/03/21 09/09/21 Rx Ergocalciferol [Vitamin D2 (1250 1,250 mcg PO Q14D 09/09/21 09/09/21 History Mcg = 33452 Iu)] RX: Levothyroxine Sodium 88 mcg PO DAILY 09/09/21 09/09/21 History [Synthroid] Allergies Allergy/AdvReac Type Severity Reaction Status Date / Time No Known Allergies Allergy Verified 09/09/21 20:53 Surgical - Exam Vital Signs Temp Pulse Resp BP Pulse Ox 98.4 F 85 20 188/96 100 09/09/21 17:41 09/09/21 17:41 09/09/21 17:41 09/09/21 17:41 09/09/21 17:41 Gen. is a pleasant cooperative female in no acute distress. Heart appears re gular at this time. Lungs are clear bilaterally. Abdomen is soft. Left upper extremity graft is thrombosed. Results - Labs 09/09/21 19:48 09/09/21 19:48 Abnormal Lab Results - Last 24 Hours (Table) 09/09/21 09/09/21 Range/Units 19:48 19:48 WBC 3.6 L (3.8-10.6) k/uL Lymphocytes # 0.9 L (1.0-4.8) k/uL BUN 37 H (7-17) mg/dL Creatinine 6.72 H (0.52-1.04) mg/dL Magnesium 2.8 H (1.6-2.3) mg/dL Diabetes panel 09/09/21 Range/Units 19:48 Sodium 140 (137-145) mmol/L Potassium 3.8 (3.5-5.1) mmol/L Chloride 98 (98-107) mmol/L Carbon Dioxide 27 (22-30) mmol/L BUN 37 H (7-17) mg/dL Creatinine 6.72 H (0.52-1.04) mg/dL Glucose 90 (74-99) mg/dL Calcium 9.9 (8.4-10.2) mg/dL Calcium panel 09/09/21 Range/Units 19:48 Calcium 9.9 (8.4-10.2) mg/dL Pituitary panel 09/09/21 Range/Units 19:48 Sodium 140 (137-145) mmol/L Potassium 3.8 (3.5-5.1) mmol/L Chloride 98 (98-107) mmol/L Carbon Dioxide 27 (22-30) mmol/L BUN 37 H (7-17) mg/dL Creatinine 6.72 H (0.52-1.04) mg/dL Glucose 90 (74-99) mg/dL Calcium 9.9 (8.4-10.2) mg/dL Adrenal panel 09/09/21 Range/Units 19:48 Sodium 140 (137-145) mmol/L Potassium 3.8 (3.5-5.1) mmol/L Chloride 98 (98-107) mmol/L Carbon Dioxide 27 (22-30) mmol/L BUN 37 H (7-17) mg/dL Creatinine 6.72 H (0.52-1.04) mg/dL Glucose 90 (74-99) mg/dL Calcium 9.9 (8.4-10.2) mg/dL Assessment and Plan Assessment: Thrombosed left upper extremity AV graft Plan: Plan for open thrombectomy and fistulogram
[2021-09-10 13:39] LABS: Glucose,Whole Blood 64 mg/dL (75-99)
--- NOTE | 2021-09-10 13:42 | P.OP ---
Date of Procedure: 09/10/21 Description of Procedure: Preoperative diagnosis: Thrombosed left upper extremity AV graft Postoperative diagnosis: Same, venous outflow stenosis, small vessels Procedure: [#1 open thrombectomy left upper extremity loop forearm graft #2 fistulogram #3 percutaneous transluminal balloon venoplasty 5 x 40, 6 x 80 loop AV graft, outflow vein #4 moderate conscious sedation 110 minutes] Surgeon: Bethany Ruano D.O. EBL: [75 mL] IV fluids: [See records] Urine output: [Not measured] Drains: [None] Complications: [None immediately apparent] Condition: [Stable to recovery] Operative indication and findings: [Patient is a 71-year-old female who presented with a thrombosed left upper extremity loop forearm graft. She presents today for intervention. Risks and benefits were discussed. She seemingly understood and was willing to proceed as such.] Procedure in detail: [The patient was taken to the radiology suite and placed in supine position. The left upper extremity was prepped and draped in usual sterile fashion. A preprocedure timeout was performed, all parties were in agreement. The apex of the graft was anesthetized and using a scalpel the skin was incised. Dissection was carried down to the level of graft and it was encircled. An arteriotomy was performed and a Liz catheter was passed in the lateral direction. This revealed significant thrombus burden and resolution after multiple passes with bright red pulsatile inflow. This was heparinized. This was then turned towards the other direction and the catheter was passed. There was obviously an area of stenosis therefore a sheath was placed guidewire was placed across lesion. A fistula gram was performed showing stenosis at the level of the anastomosis. A 5 x 40 balloon was inflated this area with good waist resolution. Given her still pulsatile flow at the inflow the graftotomy was sutured closed. At that time there was a good inflow however no great outflow therefore another fistula gram was performed via the separate puncture site more proximally. A 6-[place] sheath was placed and an image was obtained showing residual thrombus therefore the 6 x 80 was balloon again at the outflow anastomosis and tract of the basilic vein. That time a counter sheath was placed towards inflow and again further ballooning was performed. This caused resolution of flow. There is pulsatility throughout the graft all the way through at this point. The sheaths were both removed and sutured with interrupted [id number] sutures of 3-0 Prolene. Hemostasis at the incision site was achieved with thrombin and Gelfoam. The deep dermal tissues were reapproximated with interrupted sutures of 3-0 Vicryl. The skin was reapproximated with running 4-0 Monocryl. Glue and dressings were placed. She was transferred to recovery in stable condition having tolerated her procedure well Plan will be for the patient to undergo dialysis today via the newly opened loop forearm graft. If this is successful she may be discharged home with plans for follow-up in the next few weeks for evaluation with ultrasound. She seemingly understands and is willing to proceed as such.]
[2021-09-10 14:22] LABS: Glucose,Whole Blood 69 mg/dL (75-99)
--- NOTE | 2021-09-10 15:02 | IR ---
EXAMINATION TYPE: IR fistula/abscess/sinus tract DATE OF EXAM: 09/10/2021 COMPARISON: NONE HISTORY: Thrombectomy Fluoroscopy support supplied to the referring clinician. See dictated report from vascular surgery, 612 intraoperative images, 5.9 minutes fluoroscopy time supplied
[2021-09-10 17:33] LABS: Glucose,Whole Blood 111 mg/dL (75-99)
[2021-09-10 18:59] VITALS: BP 135/60; PULSE 58; TEMP 98.5
[2021-09-10] MEDS ORDERED: ATORVASTATIN 10 MG TAB PO SCH (21:00)
--- NOTE | 2021-09-11 14:40 | P.DS ---
Providers Date of admission: 09/10/21 13:04 Expected date of discharge: 09/10/21 Attending physician: Mojgan Arriaza MD Consults: 09/09/21 19:13 Consult Physician Routine Consulting Provider: Bethany Ruano Consult Reason/Comments: occluded HD graft Do you want consulting provider notified?: Already Contacted 09/09/21 20:09 Consult Physician Routine Consulting Provider: Too Richards Consult Reason/Comments: HD Do you want consulting provider notified?: Yes Primary care physician: [facility] Course: Malfunctioning left AV fistula -Vascular surgery and nephrology consulted, vascular surgery removed the thrombosis in the fistula, the nephrology had dialysis session. Following the dialysis session, patient was discharged home with routine follow-up. Patient Condition at Discharge: Good Plan - Discharge Summary Discharge Rx Participant: No New Discharge Prescriptions: Continue sitaGLIPtin [Januvia] 50 mg PO DAILY Allopurinol [Zyloprim] 100 mg PO DAILY Metoprolol Tartrate [Lopressor] 100 mg PO BID Aspirin 81 mg PO DAILY chew Levothyroxine Sodium [Synthroid] 88 mcg PO DAILY Atorvastatin Calcium [Lipitor] 10 mg PO HS Magnesium Oxide [Magox 400] 400 mg PO Q48H NIFEdipine [Procardia XL] 60 mg PO BID Pioglitazone [Actos] 15 mg PO DAILY Vit B Complx C/Folic Acid/Zinc [Renaplex Tablet] 1 tab PO MOWEFR Ergocalciferol [Vitamin D2 (1250 Mcg = 04545 Iu)] 1,250 mcg PO Q14D Discharge Medication List sitaGLIPtin [Januvia] 50 mg PO DAILY 03/24/20 [History] Allopurinol [Zyloprim] 100 mg PO DAILY 01/12/21 [History] Atorvastatin Calcium [Lipitor] 10 mg PO HS 01/12/21 [History] Magnesium Oxide [Magox 400] 400 mg PO Q48H 01/12/21 [History] Metoprolol Tartrate [Lopressor] 100 mg PO BID 01/12/21 [History] NIFEdipine [Procardia XL] 60 mg PO BID 01/12/21 [History] Pioglitazone [Actos] 15 mg PO DAILY 01/12/21 [History] Vit B Complx C/Folic Acid/Zinc [Renaplex Tablet] 1 tab PO MOWEFR 05/01/21 [History] Aspirin 81 mg PO DAILY chew 05/03/21 [Rx] Ergocalciferol [Vitamin D2 (1250 Mcg = 59490 Iu)] 1,250 mcg PO Q14D 09/09/21 [History] Levothyroxine Sodium [Synthroid] 88 mcg PO DAILY 09/09/21 [History] Follow up Appointment(s)/Referral(s): Mehul Mayen MD [Primary Care Provider] - 1-2 days Bethany Ruano DO [STAFF PHYSICIAN] - 2 Weeks Activity/Diet/Wound Care/Special Instructions: Keep dressing and sutures left arm clean and dry Report for Hemodialysis Sunday as usual
== END 2021-09-10 20:00 | disposition home or self-care (01) | DRG 252 ==
LOC: EC 16:46 → 6NMEDSUR 20:08 → OBSVTOIN 09-10 13:04
PROVIDERS: ADMIT Internal Medicine; ATTEND Internal Medicine
PROC: B51W1ZZ Fluoroscopy of Dialysis Shunt/Fistula using Low Osmolar Contrast (ICD-10-PCS; 2021-09-10)
PROC: 5A1D70Z Performance of Urinary Filtration, Intermittent, Less than 6 Hours Per Day (ICD-10-PCS; 2021-09-10)
PROC: 03CY0ZZ Extirpation of Matter from Upper Artery, Open Approach (ICD-10-PCS; principal; 2021-09-10 11:00)
PROC: 057C0ZZ Dilation of Left Basilic Vein, Open Approach (ICD-10-PCS; principal; 2021-09-10 11:00)
DX: T82.868A Thrombosis due to vascular prosthetic devices, implants and grafts, initial encounter (principal); N18.6 End stage renal disease; T82.510A Breakdown (mechanical) of surgically created arteriovenous fistula, initial encounter; I12.0 Hypertensive chronic kidney disease with stage 5 chronic kidney disease or end stage renal disease; I69.351 Hemiplegia and hemiparesis following cerebral infarction affecting right dominant side; E78.5 Hyperlipidemia, unspecified; E11.319 Type 2 diabetes mellitus with unspecified diabetic retinopathy without macular edema; E03.9 Hypothyroidism, unspecified; Y71.2 Prosthetic and other implants, materials and accessory cardiovascular devices associated with adverse incidents; Z79.82 Long term (current) use of aspirin; Z79.84 Long term (current) use of oral hypoglycemic drugs; Z79.890 Hormone replacement therapy; Z79.899 Other long term (current) drug therapy; Z99.2 Dependence on renal dialysis; M10.9 Gout, unspecified; E11.22 Type 2 diabetes mellitus with diabetic chronic kidney disease; D72.819 Decreased white blood cell count, unspecified
CPT/HCPCS: 36415; 80048; 83735; 85025; 85610; 85730; 86850; 86900; 86901; 90935; 93005; 99284

== ENCOUNTER 2021-12-15 15:43 | Observation (INO) | payer MEDICARE, OTHER ==
--- NOTE | 2021-12-15 16:54 | ED ---
General Adult HPI - General Chief complaint: Extremity Problem,Nontraumatic Stated complaint: Needs ultrasound, sent by Dr Ruano Time Seen by Provider: 12/15/21 16:26 Source: patient Mode of arrival: ambulatory Limitations: no limitations - History of Present Illness Initial comments: Dictation was produced using [employer] dictation software. please excuse any grammatical, word or spelling errors. Chief Complaint: 71-year-old female presents to the emergency department for malfunction of her dialysis access History of Present Illness: Patient is a 71-year-old female she gets hemodialysis Sunday. Patient was told yesterday that her dialysis access was not working. She went and saw basilar surgeon where she spoke with one of the vascular surgery staff who told her to come to the emergency room to be evaluated. She has had complications with her AV graft in the past. To her left forearm. Other complaints at this time. The ROS documented in this emergency department record has been reviewed and confirmed by me. Those systems with pertinent positive or negative responses have been documented in the HPI. All other systems are other negative and/or noncontributory. PHYSICAL EXAM: General Impression: Alert and oriented x3, not in acute distress HEENT: Normocephalic atraumatic, extra-ocular movements intact, pupils equal and reactive to light bilaterally, mucous membranes moist. Cardiovascular: Heart regular rate and rhythm Chest: Able to complete full sentences, no retractions, no tachypnea Abdomen: abdomen soft, non-tender, non-distended, no organomegaly Musculoskeletal: Pulses present and equal in all extremities, no peripheral edema Motor: no focal deficits noted Neurological: CN II-XII grossly intact, no focal motor or sensory deficits noted Left arm: No palpable thrill or audible bruit to her dialysis access of her left forearm Skin: Intact with no visualized rashes Psych: Normal affect and mood ED course: 71-year-old female presents to the emergency department for malfunctioning left forearm AV graft. Vital signs upon arrival are within acceptable limits. Patient missed dialysis yesterday. Relation obtained. CBC, coag panel, metabolic panel was obtained found to be wi thin acceptable limits. Creatinine is 8.79 likely due to patient not getting dialysis any signs of fluid overload. Potassium is low. Patient be admitted to [facility] with consultation to vascular surgery and nephrology. Patient admitted to [facility]. EKG interpretation: Ventricular rate 63, sinus rhythm, CT interval 45, care is 89, QTc 454. No CT prolongation, no QTC prolongation, no ST or T-wave changes noted. Overall, this EKG is unremarkable - Related Data Home Medications Medication Instructions Recorded Confirmed sitaGLIPtin [Januvia] 50 mg PO DAILY 03/24/20 09/09/21 Allopurinol [Zyloprim] 100 mg PO DAILY 01/12/21 09/09/21 Metoprolol Tartrate [Lopressor] 100 mg PO BID 01/12/21 09/09/21 NIFEdipine [Procardia XL] 60 mg PO BID 01/12/21 09/09/21 Pioglitazone [Actos] 15 mg PO DAILY 01/12/21 09/09/21 Vit B Complx C/Folic Acid/Zinc 1 tab PO MOWEFR 05/01/21 09/09/21 [Renaplex Tablet] Levothyroxine Sodium [Synthroid] 88 mcg PO DAILY 09/09/21 09/09/21 Lidocaine-Prilocaine Cream [Emla 1 applic TOPICAL DIRECTED PRN 12/15/21 12/15/21 Cream 2.5%/2.5%] Sevelamer [Renvela] 800 mg PO BID-W/MEALS 12/15/21 12/15/21 Allergies Allergy/AdvReac Type Severity Reaction Status Date / Time No Known Allergies Allergy Verified 12/15/21 18:32 Review of Systems ROS Statement: Those systems with pertinent positive or pertinent negative responses have been documented in the HPI. ROS Other: All systems not noted in ROS Statement are negative. Past Medical History Past Medical History: Chest Pain / Angina, CVA/TIA, Diabetes Mellitus, Hyperlipidemia, Hypertension, Memory Impairment, Renal Disease, Thyroid Disorder Additional Past Medical History / Comment(s): Chronic toe infection, Stage 4 Renal Failure, Diabetic Retinopathy, Gout, mild aortic stenosis, neuropathy bilateral feet, right sided weakness since CVA, dialysis MOWEFR. History of Any Multi-Drug Resistant Organisms: None Reported Past Surgical History: Section Additional Past Surgical History / Comment(s): Left arm dialysis graft. Past Anesthesia/Blood Transfusion Reactions: No Reported Reaction Past Psychological History: No Psychological Hx Reported Smoking Status: Never smoker Past Alcohol Use History: None Reported Past Drug Use History: None Reported - Past Family History Mother Family Medical History: Hyperlipidemia General Exam Limitations: no limitations Course Vital Signs 12/15/21 15:51 Temperature 98 F Pulse Rate 63 Respiratory 16 Rate Blood Pressure 154/64 O2 Sat by Pulse 100 Oximetry Medical Decision Making - Lab Data Result diagrams: 12/15/21 16:56 12/15/21 16:56 Lab Results 12/15/21 12/15/21 12/15/21 Range/Units 16:56 16:56 16:56 WBC 4.6 (3.8-10.6) k/uL RBC 3.43 L (3.80-5.40) m/uL Hgb 10.8 L (11.4-16.0) gm/dL Hct 32.1 L (34.0-46.0) % MCV 93.6 (80.0-100.0) fL MCH 31.4 (25.0-35.0) pg MCHC 33.5 (31.0-37.0) g/dL RDW 15.4 (11.5-15.5) % Plt Count 185 (150-450) k/uL MPV 8.1 Neutrophils % 70 % Lymphocytes % 19 % Monocytes % 6 % Eosinophils % 3 % Basophils % 1 % Neutrophils # 3.2 (1.3-7.7) k/uL Lymphocytes # 0.9 L (1.0-4.8) k/uL Monocytes # 0.3 (0-1.0) k/uL Eosinophils # 0.2 (0-0.7) k/uL Basophils # 0.0 (0-0.2) k/uL PT 10.0 (9.0-12.0) sec INR 0.9 (<1.2) APTT 22.3 (22.0-30.0) sec Sodium 137 (137-145) mmol/L Potassium 3.6 (3.5-5.1) mmol/L Chloride 96 L (98-107) mmol/L Carbon Dioxide 30 (22-30) mmol/L Anion Gap 11 mmol/L BUN 37 H (7-17) mg/dL Creatinine 8.79 H* (0.52-1.04) mg/dL Est GFR (CKD-EPI)AfAm 5 (>60 ml/min/1.73 sqM) Est GFR (CKD-EPI)NonAf 4 (>60 ml/min/1.73 sqM) Glucose 96 (74-99) mg/dL Calcium 8.6 (8.4-10.2) mg/dL Disposition Clinical Impression: AV graft malfunction Disposition: ADMITTED IP TO THIS HOSP Condition: Fair Referrals: Kel Mayen MD [Primary Care Provider] - 1-2 days
[2021-12-15 17:04] LABS: Basophils % (A) 1 %; Eosinophils # (A) 0.2 k/uL (0-0.7); Eosinophils % (A) 3 %; HCT 32.1 % (34.0-46.0); HGB 10.8 gm/dL (11.4-16.0); Lymphocytes # (A) 0.9 k/uL (1.0-4.8); Lymphocytes % (A) 19 %; MCH 31.4 pg (25.0-35.0); MCHC 33.5 g/dL (31.0-37.0); MCV 93.6 fL (80.0-100.0); Mean Platelet Volume 8.1; Monocytes # (A) 0.3 k/uL (0-1.0); Monocytes % (A) 6 %; Neutrophils # (A) 3.2 k/uL (1.3-7.7); Neutrophils % (A) 70 %; Platelet Count 185 k/uL (150-450); RBC 3.43 m/uL (3.80-5.40); RDW 15.4 % (11.5-15.5); WBC 4.6 k/uL (3.8-10.6)
[2021-12-15 17:16] LABS: Calcium 8.6 mg/dL (8.4-10.2); Potassium 3.6 mmol/L (3.5-5.1)
[2021-12-15 17:18] LABS: INR 0.9 (<1.2); Partial Thromboplastin Time 22.3 sec (22.0-30.0)
[2021-12-15] MEDS ORDERED: NALOXONE 0.4 MG/ML 1 ML VIAL IV PRN (18:33)
--- NOTE | 2021-12-15 18:44 | P.PN ---
Progress Note - Text Progress Note Date: 12/15/21 Called for evaluation of patients thrombosed loop graft. patient had dialysis Sunday and attempted Sunday but were unable to complete dialysis. Patient underwent ultrasound in the office which demonstrated thrombosed graft. Labs reviewed. Await Nephrology evaluation for urgency of need for dialysis and if no need for emergent dialysis will board for open thrombectomy tomorrow or Sunday.
--- NOTE | 2021-12-15 20:58 | P.HPIM ---
History of Present Illness H&P Date: 12/15/21 Chief Complaint: occluded LUE forearm graft 71 year old female with ESRD on HD MWF through a LUE forearm graft patient had full session on SundayDecember 12, however, the graft did not work on Sunday , so she missed that session , and today she had some testing done and US showed occlusion of the graft. patient never had this problem before, she had the graft over a month ago. she denies any trouble breathing, chest pain , fever, chills, nausea or vomiting, denies any GI symptoms . vascular surgery was notified , and planning on thrombectomy tomorrow or Sunday patient reports upper respiratory symptoms of 1-2 days duration , she is having sore throat and raspy voice. no cough , no SOB, no fever, no chills, no muscle aches, no runny nose or congestion Review of Systems Pertinent positives as noted in HPI. All other systems were reviewed and are negative Past Medical History Past Medical History: Chest Pain / Angina, CVA/TIA, Diabetes Mellitus, Hyperlipidemia, Hypertension, Memory Impairment, Renal Disease, Thyroid Disorder Additional Past Medical History / Comment(s): Chronic toe infection, Stage 4 Renal Failure, Diabetic Retinopathy, Gout, mild aortic stenosis, neuropathy bilateral feet, right sided weakness since CVA, dialysis MOWEFR. History of Any Multi-Drug Resistant Organisms: None Reported Past Surgical History: Section Additional Past Surgical History / Comment(s): Left arm dialysis graft. Past Anesthesia/Blood Transfusion Reactions: No Reported Reaction Past Psychological History: No Psychological Hx Reported Smoking Status: Never smoker Past Alcohol Use History: None Reported Past Drug Use History: None Reported - Past Family History Mother Family Medical History: Hyperlipidemia Medications and Allergies Home Medications Medication Instructions Recorded Confirmed Type sitaGLIPtin [Januvia] 50 mg PO DAILY 03/24/20 12/15/21 History Allopurinol [Zyloprim] 100 mg PO DAILY 01/12/21 12/15/21 History Metoprolol Tartrate [Lopressor] 100 mg PO BID@1000,2200 01/12/21 12/15/21 History NIFEdipine [Procardia XL] 60 mg PO BID 01/12/21 12/15/21 History Pioglitazone [Actos] 15 mg PO DAILY 01/12/21 12/15/21 History Vit B Complx C/Folic Acid/Zinc 1 tab PO MOWEFR 05/01/21 12/15/21 History [Renaplex Tablet] Levothyroxine Sodium [Synthroid] 88 mcg PO DAILY 09/09/21 12/15/21 History Aspirin EC [Ecotrin Low Dose] 81 mg PO DAILY 12/15/21 12/15/21 History Atorvastatin [Lipitor] 10 mg PO HS 12/15/21 12/15/21 History Ergocalciferol (Vitamin D2) 1,250 mcg PO Q14D 12/15/21 12/15/21 History [Drisdol (50,000 Iu)] Ferrous Sulfate [Feosol] 325 mg PO DIRECTED 12/15/21 12/15/21 History Magnesium Oxide 400 mg PO Q48H 12/15/21 12/15/21 History Sevelamer [Renvela] 800 mg PO BID-W/MEALS 12/15/21 12/15/21 History Allergies Allergy/AdvReac Type Severity Reaction Status Date / Time No Known Allergies Allergy Verified 12/15/21 18:32 Physical Exam Vitals: Vital Signs Temp Pulse Resp BP Pulse Ox 12/15/21 15:51 98 F 63 16 154/64 100 Intake and Output 12/15/21 12/15/21 12/15/21 06:59 14:59 22:59 Other: Weight 63.049 kg Constitutional: No acute distress, conversant, pleasant Eyes: Anicteric sclerae, moist conjunctiva, Pupils equal round reactive to light ENMT: NC/AT Oropharynx clear, no erythema, or exudates Neck: Supple, no masses, or JVD No carotid bruits No thyromegaly Lungs: Clear to auscultation Clear to percussion Normal respiratory effort, no accessory muscle use Cardiovascular: Heart regular in rate and rhythm, systolic murmurs, no gallops, or rubs No peripheral edema Abdominal: Soft Nontender, no guarding, rebound or rigidity Abdomen moving with respiration Normoactive bowel sounds No hepatomegaly, No splenomegaly No palpable mass No abdominal wall hernia noted Skin: left forearm graft area, looks clean intact and dry , no skin changes, no warmth to the touch, no palpable thrill Extremities: No digital cyanosis No clubbing Pedal pulses intact and symmetrical Radial pulses intact and symmetrical No calf tenderness Psychiatric: Alert and oriented to person, place and time Appropriate affect fair judgement Neuro Muscles Strength -4/5 in all 4 extremities right side weaker than left Sensation to light touch grossly present throughout Cranial nerves II-XII grossly intact No focal sensory deficits Lymphatics: no palpable cervical or supraclavicular , or inguinal lymph nodes Results CBC & Chem 7: 12/15/21 16:56 12/15/21 16:56 Labs: Abnormal Lab Results - Last 24 Hours (Table) 12/15/21 12/15/21 Range/Units 16:56 16:56 RBC 3.43 L (3.80-5.40) m/uL Hgb 10.8 L (11.4-16.0) gm/dL Hct 32.1 L (34.0-46.0) % Lymphocytes # 0.9 L (1.0-4.8) k/uL Chloride 96 L (98-107) mmol/L BUN 37 H (7-17) mg/dL Creatinine 8.79 H* (0.52-1.04) mg/dL Assessment and Plan Assessment: thrombosed left forearm graft vascular surgery recommendations ESRD on HD follow up with nephrology recommendations chronic conditions chronic anemia of chronic disease. stable , denies any bleeding , continue to monitor hypertension , controlled, continue home BP meds DM ,insulin sliding scale URI symptoms symptomatic control check COVID full code DVT PPX heparin sc tid anticipated length of stay < 2 midnights
[2021-12-15] MEDS ORDERED: BENZOCAINE/MENTHOL LOZENG 1 EACH LOZENGE MUCOUS MEM PRN (21:03)
[2021-12-15] MEDS: ATORVASTATIN 10 MG TAB PO SCH (21:40)
[2021-12-15] MEDS: METOPROLOL TARTRATE 50 MG TAB PO SCH (21:41)
[2021-12-16] MEDS: HEPARIN SODIUM,PORCINE/PF 5,000 UNIT/0.5 ML SYRINGE SQ SCH ×3 (00:12→16:52)
[2021-12-16] MEDS: LEVOTHYROXINE 88 MCG TAB PO SCH ×2 (05:51→09:01)
--- NOTE | 2021-12-16 07:35 | P.GSCN ---
History of Present Illness Consult date: 12/16/21 Reason for Consult: Malfunctioning AV graft Requesting physician: Dominique Delgado History of present illness: This is a 71-year-old female with a history of end-stage renal disease on hemodialysis, diabetes mellitus, CVA, hypertension, memory impairment and thyroid disease who presented to the emergency department for nonfunctioning AV graft. Apparently the patient underwent hemodialysis on Sunday and when she was at dialysis on Sunday and they were unable to palpate thrill and no audible bruit. he presents to the emergency room for further evaluation of AV graft. Awaiting recommendations from nephrology if patient is need of dialysis today. She denies any shortness of breath or chest pain. No pain in her left arm. Admitting blood work WBC 4.6 hemoglobin 10.8, platelet count 185,000 INR 0.9 sodium 137 potassium 3.6 BUN 37 creatinine 8.79 Past Medical History Past Medical History: Chest Pain / Angina, CVA/TIA, Diabetes Mellitus, Dialysis, Hyperlipidemia, Hypertension, Memory Impairment, Renal Disease, Thyroid Disorder Additional Past Medical History / Comment(s): Chronic toe infection, Stage 4 Renal Failure, Diabetic Retinopathy, Gout, mild aortic stenosis, neuropathy bilateral feet, left sided weakness since CVA, dialysis MOWEFR. History of Any Multi-Drug Resistant Organisms: None Reported Past Surgical History: Section Additional Past Surgical History / Comment(s): Left arm dialysis graft. Past Anesthesia/Blood Transfusion Reactions: No Reported Reaction Past Psychological History: No Psychological Hx Reported Smoking Status: Former smoker Past Alcohol Use History: None Reported Past Drug Use History: None Reported - Past Family History Mother Family Medical History: Hyperlipidemia Medications and Allergies Home Medications Medication Instructions Recorded Confirmed Type sitaGLIPtin [Januvia] 50 mg PO DAILY 03/24/20 12/15/21 History Allopurinol [Zyloprim] 100 mg PO DAILY 01/12/21 12/15/21 History Metoprolol Tartrate [Lopressor] 100 mg PO BID@1000,2200 01/12/21 12/15/21 History NIFEdipine [Procardia XL] 60 mg PO BID 01/12/21 12/15/21 History Pioglitazone [Actos] 15 mg PO DAILY 01/12/21 12/15/21 History Vit B Complx C/Folic Acid/Zinc 1 tab PO MOWEFR 05/01/21 12/15/21 History [Renaplex Tablet] Levothyroxine Sodium [Synthroid] 88 mcg PO DAILY 09/09/21 12/15/21 History Aspirin EC [Ecotrin Low Dose] 81 mg PO DAILY 12/15/21 12/15/21 History Atorvastatin [Lipitor] 10 mg PO HS 12/15/21 12/15/21 History Ergocalciferol (Vitamin D2) 1,250 mcg PO Q14D 12/15/21 12/15/21 History [Drisdol (50,000 Iu)] Ferrous Sulfate [Feosol] 325 mg PO DIRECTED 12/15/21 12/15/21 History Magnesium Oxide 400 mg PO Q48H 12/15/21 12/15/21 History Sevelamer [Renvela] 800 mg PO BID-W/MEALS 12/15/21 12/15/21 History Allergies Allergy/AdvReac Type Severity Reaction Status Date / Time No Known Allergies Allergy Verified 12/15/21 18:32 Surgical - Exam Vital Signs Temp Pulse Resp BP Pulse Ox 98 F 63 16 154/64 100 12/15/21 15:51 12/15/21 15:51 12/15/21 15:51 12/15/21 15:51 12/15/21 15:51 General appearance: The patient is alert, oriented, appears in no acute distress. HET: Head is normocephalic and atraumatic. Neck: Supple without lymphadenopathy. Trachea midline. Heart: S1 S2. Regular rate and rhythm. Lungs: Clear to auscultation bilaterally. Abdomen: Soft, nontender, nondistended. Extremities: Normal skin color and turgor. Left upper extremity with loop graft in forearm with nonpalpable thrill and no audible bruit. Palpable +2 radial pulse bilaterally Neurological: No focal deficits. Strength and sensation are grossly intact. Results - Labs 12/15/21 16:56 12/16/21 10:07 Abnormal Lab Results - Last 24 Hours (Table) 12/15/21 12/15/21 Range/Units 16:56 16:56 RBC 3.43 L (3.80-5.40) m/uL Hgb 10.8 L (11.4-16.0) gm/dL Hct 32.1 L (34.0-46.0) % Lymphocytes # 0.9 L (1.0-4.8) k/uL Chloride 96 L (98-107) mmol/L BUN 37 H (7-17) mg/dL Creatinine 8.79 H* (0.52-1.04) mg/dL Diabetes panel 12/15/21 Range/Units 16:56 Sodium 137 (137-145) mmol/L Potassium 3.6 (3.5-5.1) mmol/L Chloride 96 L (98-107) mmol/L Carbon Dioxide 30 (22-30) mmol/L BUN 37 H (7-17) mg/dL Creatinine 8.79 H* (0.52-1.04) mg/dL Glucose 96 (74-99) mg/dL Calcium 8.6 (8.4-10.2) mg/dL Calcium panel 12/15/21 Range/Units 16:56 Calcium 8.6 (8.4-10.2) mg/dL Pituitary panel 12/15/21 Range/Units 16:56 Sodium 137 (137-145) mmol/L Potassium 3.6 (3.5-5.1) mmol/L Chloride 96 L (98-107) mmol/L Carbon Dioxide 30 (22-30) mmol/L BUN 37 H (7-17) mg/dL Creatinine 8.79 H* (0.52-1.04) mg/dL Glucose 96 (74-99) mg/dL Calcium 8.6 (8.4-10.2) mg/dL Adrenal panel 12/15/21 Range/Units 16:56 Sodium 137 (137-145) mmol/L Potassium 3.6 (3.5-5.1) mmol/L Chloride 96 L (98-107) mmol/L Carbon Dioxide 30 (22-30) mmol/L BUN 37 H (7-17) mg/dL Creatinine 8.79 H* (0.52-1.04) mg/dL Glucose 96 (74-99) mg/dL Calcium 8.6 (8.4-10.2) mg/dL Assessment and Plan Assessment: 1. End-stage renal disease on hemodialysis 2. Malfunctioning AV graft Plan: 1. Repeat BMP 2. Hold morning dose of heparin 3. Await recommendations from nephrology 4. We'll plan on open thrombectomy timing based on recommendations from nephrology 5. Repeat potassium 4.3, patient scheduled for left upper extremity graft open thrombectomy with possible balloon angioplasty, possible stenting Thank you for this consultation, we will continue to follow. The impression and plan of care has been dictated as directed. Dr Wall I performed a history and examination of this patient, discussed the same with the dictator. I agree with the dictator's note ,documented as a scribe. Any additional findings or plans will be noted.
[2021-12-16 08:08] LABS: Glucose,Whole Blood 80 mg/dL (75-99)
--- NOTE | 2021-12-16 08:11 | P.NPCON ---
History of Present Illness - Reason for Consult end stage renal disease - History of Present Illness Reason for consultation: End-stage renal disease History of present illness: Patient is a 71-year-old female seen in consultation for end-stage renal disease. She is maintained on hemodialysis on Sunday schedule. Patient states she went to hemodialysis yesterday and was sent to the hospital as it was no thrill present on the graft. She saw the vascular surgeon yesterday and was noted to have a thrombosed graft. She was advised to come to the hospital. She is scheduled to undergo thrombectomy either today or tomorrow. Patient says she has good urine output. No vomiting or diarrhea. No fever or chills. No chest pain or shortness of breath. No edema. Oral intake is good. Patient has no active complaints. Vital signs are stable. General: The patient appeared well nourished and normally developed. HEENT: Head exam is unremarkable. LUNGS: Breath sounds decreased. HEART: Rate and Rhythm are regular. ABDOMEN: Soft, no distention. EXTREMITITES: No edema. Past Medical History Past Medical History: Chest Pain / Angina, CVA/TIA, Diabetes Mellitus, Dialysis, Hyperlipidemia, Hypertension, Memory Impairment, Renal Disease, Thyroid Disorder Additional Past Medical History / Comment(s): Chronic toe infection, Stage 4 Renal Failure, Diabetic Retinopathy, Gout, mild aortic stenosis, neuropathy bilateral feet, left sided weakness since CVA, dialysis MOWEFR. History of Any Multi-Drug Resistant Organisms: None Reported Past Surgical History: Section Additional Past Surgical History / Comment(s): Left arm dialysis graft. Past Anesthesia/Blood Transfusion Reactions: No Reported Reaction Past Psychological History: No Psychological Hx Reported Smoking Status: Former smoker Past Alcohol Use History: None Reported Past Drug Use History: None Reported - Past Family History Mother Family Medical History: Hyperlipidemia Medications and Allergies Home Medications Medication Instructions Recorded Confirmed Type sitaGLIPtin [Januvia] 50 mg PO DAILY 03/24/20 12/15/21 History Allopurinol [Zyloprim] 100 mg PO DAILY 01/12/21 12/15/21 History Metoprolol Tartrate [Lopressor] 100 mg PO BID@1000,2200 01/12/21 12/15/21 History NIFEdipine [Procardia XL] 60 mg PO BID 01/12/21 12/15/21 History Pioglitazone [Actos] 15 mg PO DAILY 01/12/21 12/15/21 History Vit B Complx C/Folic Acid/Zinc 1 tab PO MOWEFR 05/01/21 12/15/21 History [Renaplex Tablet] Levothyroxine Sodium [Synthroid] 88 mcg PO DAILY 09/09/21 12/15/21 History Aspirin EC [Ecotrin Low Dose] 81 mg PO DAILY 12/15/21 12/15/21 History Atorvastatin [Lipitor] 10 mg PO HS 12/15/21 12/15/21 History Ergocalciferol (Vitamin D2) 1,250 mcg PO Q14D 12/15/21 12/15/21 History [Drisdol (50,000 Iu)] Ferrous Sulfate [Feosol] 325 mg PO DIRECTED 12/15/21 12/15/21 History Magnesium Oxide 400 mg PO Q48H 12/15/21 12/15/21 History Sevelamer [Renvela] 800 mg PO BID-W/MEALS 12/15/21 12/15/21 History Allergies Allergy/AdvReac Type Severity Reaction Status Date / Time No Known Allergies Allergy Verified 12/15/21 18:32 Physical Exam Vitals: Vital Signs Temp Pulse Pulse Resp BP BP Pulse Ox 12/16/21 02:00 60 17 12/16/21 00:26 98.1 F 60 17 146/80 98 12/15/21 23:38 18 12/15/21 21:53 80 18 143/76 95 12/15/21 15:51 98 F 63 16 154/64 100 Intake and Output 12/15/21 12/16/21 12/16/21 22:59 06:59 14:59 Intake Total 0 Balance 0 Intake: Oral 0 Other: Voiding Method Toilet # Voids 1 Weight 63.049 kg 63.049 kg Results - Lab Results Most recent lab results Calcium 8.6 mg/dL (8.4-10.2) 12/15/21 16:56 12/15/21 16:56 12/15/21 16:56 Assessment and Plan Plan: Assessment: 1. End-stage renal disease maintained on hemodialysis on Sunday schedule the AV graft. 2. Thrombosed AV graft. Vascular surgery following. 3. Hypertension with chronic kidney disease. Stable. 4. Chronic kidney disease mineral bone disease maintained on Renvela. 5. Diabetes mellitus. Plan: Check potassium level today. If normal, can wait till tomorrow for dialysis. Otherwise if vascular surgery can do to thrombectomy today, then I will dialyze her today. Thank you for the consultation. I will continue to follow the patient with you during her hospital stay.
[2021-12-16] MEDS ORDERED: PIOGLITAZONE 15 MG TAB PO SCH (09:00)
[2021-12-16] MEDS ORDERED: FERROUS SULFATE 325 MG TAB PO SCH ×2 (09:00→21:00)
[2021-12-16] MEDS ORDERED: LINAGLIPTIN 5 MG TABLET PO SCH (09:00)
[2021-12-16] MEDS: SEVELAMER 800 MG TAB PO SCH ×2 (09:01→18:37)
[2021-12-16] MEDS: allopurinoL 100 MG TAB PO SCH (09:04)
[2021-12-16] MEDS: MAGNESIUM OXIDE 400 MG TAB PO SCH (09:04)
[2021-12-16] MEDS: ASPIRIN 81 MG PO SCH (09:05)
[2021-12-16] MEDS: INSULIN ASPART (NovoLOG) 100 UNIT/ML VIAL SQ SCH ×4 (09:06→21:38)
[2021-12-16] MEDS: METOPROLOL TARTRATE 50 MG TAB PO SCH ×2 (10:10→21:31)
[2021-12-16 11:03] LABS: African American GFR (CKD) 5 (>60 ml/min/1.73 sqM); Anion Gap 13 mmol/L; Blood Urea Nitrogen 43 mg/dL (7-17); Calcium 8.8 mg/dL (8.4-10.2); Carbon Dioxide 25 mmol/L (22-30); Chloride 99 mmol/L (98-107); Glucose 98 mg/dL (74-99); Non-African American GFR(CKD) 4 (>60 ml/min/1.73 sqM); Sodium 137 mmol/L (137-145)
[2021-12-16 11:21] LABS: Potassium 4.3 mmol/L (3.5-5.1)
[2021-12-16 12:09] LABS: Glucose,Whole Blood 80 mg/dL (75-99)
--- NOTE | 2021-12-16 12:44 | P.PN ---
Subjective Progress Note Date: 12/16/21 Patient has no new complaints today. Thrombectomy of the AV fistula is pending, likely will take place tomorrow due to scheduling concerns today. Gen: awake, alert HEENT: normocephalic, atraumatic, good hearing acuity, moist mucous membranes Resp: good air exchange, breathing comfortably with no accessory muscle use CVS: good distal perfusion x 4, GI: soft, NTTP, ND : no SPT, no CVAT, lim catheter not present MSK: no pitting edema, no clubbing, AV fistula without thrill or bruit Neuro: non-focal, moving all extremities Psych: cooperative, euthymic mood Assessment/plan: Thrombosed left forearm graft vascular surgery recommendations ESRD on HD follow up with nephrology recommendations chronic conditions chronic anemia of chronic disease. stable , denies any bleeding , continue to monitor hypertension , controlled, continue home BP meds DM ,insulin sliding scale URI symptoms symptomatic control check COVID full code DVT PPX heparin sc tid anticipated length of stay < 2 midnights Objective - Vital Signs Vital signs: Vital Signs Temp 98.2 F 12/16/21 07:00 Pulse 55 L 12/16/21 07:00 Resp 16 12/16/21 09:21 BP 94/52 12/16/21 07:00 Pulse Ox 92 L 12/16/21 07:00 Intake & Output 12/15/21 12/16/21 12/16/21 18:59 06:59 18:59 Intake Total 0 60 Balance 0 60 Weight 63.049 kg 63.049 kg Intake: Oral 0 60 Other: Voiding Method Toilet Toilet # Voids 1 - Labs CBC & Chem 7: 12/15/21 16:56 12/16/21 10:07 Labs: Abnormal Lab Results - Last 24 Hours (Table) 12/15/21 12/15/21 12/16/21 Range/Units 16:56 16:56 10:07 RBC 3.43 L (3.80-5.40) m/uL Hgb 10.8 L (11.4-16.0) gm/dL Hct 32.1 L (34.0-46.0) % Lymphocytes # 0.9 L (1.0-4.8) k/uL Chloride 96 L (98-107) mmol/L BUN 37 H 43 H (7-17) mg/dL Creatinine 8.79 H* 9.15 H* (0.52-1.04) mg/dL
[2021-12-16 17:19] LABS: Glucose,Whole Blood 100 mg/dL (75-99)
[2021-12-16 19:13] LABS: Hepatitis B Surface Antibody Reactive (Nonreactive); Hepatitis B Surface Antigen Nonreactive (Nonreactive)
[2021-12-16] MEDS ORDERED: NON FORMULARY DRUG (Vit B Complx C/Folic Acid/Zinc [Renaplex Tablet] 1 EACH Tablet) PO SCH (20:42)
[2021-12-16 21:31] LABS: Glucose,Whole Blood 152 mg/dL (75-99)
[2021-12-16] MEDS: ATORVASTATIN 10 MG TAB PO SCH (21:31)
[2021-12-17] MEDS: HEPARIN SODIUM,PORCINE/PF 5,000 UNIT/0.5 ML SYRINGE SQ SCH ×4 (00:13→22:59)
[2021-12-17] MEDS: LEVOTHYROXINE 88 MCG TAB PO SCH (05:35)
[2021-12-17 07:31] LABS: Glucose,Whole Blood 81 mg/dL (75-99)
[2021-12-17] MEDS: INSULIN ASPART (NovoLOG) 100 UNIT/ML VIAL SQ SCH ×4 (07:41→21:00)
[2021-12-17] MEDS: SEVELAMER 800 MG TAB PO SCH ×2 (07:42→18:21)
[2021-12-17] MEDS: ASPIRIN 81 MG PO SCH (07:51)
[2021-12-17] MEDS: allopurinoL 100 MG TAB PO SCH (07:53)
[2021-12-17] MEDS: METOPROLOL TARTRATE 50 MG TAB PO SCH ×2 (11:49→23:30)
[2021-12-17 12:11] LABS: Glucose,Whole Blood 75 mg/dL (75-99)
[2021-12-17] MEDS ORDERED: PHENYLEPHRINE-0.9% NACL SYG 1,000 MCG/10 ML SYRINGE ONE (13:29)
[2021-12-17] MEDS ORDERED: ceFAZolin 1,000 MG VIAL IVPB ONE (13:29)
[2021-12-17] MEDS ORDERED: IOPAMIDOL-300 50ML BTL IV ONE (13:29)
[2021-12-17] MEDS ORDERED: LACTATED RINGERS 1,000 ML IV ONE (13:29)
[2021-12-17] MEDS ORDERED: HEPARIN SODIUM,PORCINE 10,000 UNIT in SODIUM CHLORIDE 0.9% 1,000 ML IRRIGATION ONE (13:29)
[2021-12-17] MEDS ORDERED: ceFAZolin 1,000 MG in SODIUM CHLORIDE 0.9% 1,000 ML IRRIGATION ONE (13:29)
[2021-12-17] MEDS ORDERED: PROPOFOL 10 MG/ML 20 ML VIAL IV ONE (13:29)
[2021-12-17] MEDS ORDERED: THROMBIN (RECOMBINANT) 5,000 UNIT VIAL TOPICAL ONE (13:29)
[2021-12-17] MEDS ORDERED: HEPARIN SODIUM,PORCINE 5,000 UNIT/ML 1 ML VIAL ONE (13:29)
[2021-12-17] MEDS ORDERED: LIDOCAINE 1% (PF) 10 MG/ML (30 ML SDV) SQ ONE (13:29)
[2021-12-17] MEDS ORDERED: fentaNYL (PF) 50 MCG/ML 2 ML AMP ONE (13:29)
[2021-12-17] MEDS ORDERED: ePHEDrine 50 MG/ML 1 ML VIAL ONE (13:29)
[2021-12-17] MEDS ORDERED: GELATIN SPONGE,ABSORB (SMALL) 1 EACH SPONGE TOPICAL ONE (13:29)
[2021-12-17] MEDS ORDERED: LIDOCAINE 1% INJ 10MG/ML (20 ML MDV) ONE (13:29)
[2021-12-17 15:30] LABS: Glucose,Whole Blood 81 mg/dL (75-99)
--- NOTE | 2021-12-17 15:43 | P.OP ---
Date of Procedure: 12/17/21 Preoperative Diagnosis: thrombosed left upper extremity loop forearm graft ESRD Postoperative Diagnosis: ESRD Thrombosed left upper extremity loop forearm graft Outflow anastomotic stenosis >80% Inflow anastomotic stenosis >90% Procedure(s) Performed: Open thrombectomy of the left upper extremity loop forearm graft Balloon angioplasty of the outflow and inflow stenosis Left upper extremity fistulagram Anesthesia: EMETERIO Surgeon: Paul Reynoso Estimated Blood Loss (ml): 20 Pathology: none sent Condition: stable Disposition: PACU Indications for Procedure: 71 year old female with history of ESRD on HD via left upper extremity loop forearm graft presents to the hospital secondary to thrombosed graft noted at hemodialysis. She underwent outpatient ultrasound demonstrating occluded graft and was sent to the hospital. She presents today for open thrombectomy and p ossible balloon angioplasty and stenting. Description of Procedure: After written informed consent was obtained the patient all risks benefits competitions were described the patient is brought to the operative suite and laid in a supine position with their left arm outstretched on an armboard. The area of the arm was prepped and draped in usual sterile fashion. Local a nesthetic was infused overlying the apex of the loop graft and a small vertical incision was created with a 15 blade scalpel and dissection was carried down electrocautery to the graft. The graft was then dissected free in a circumferential manner and controlled proximally and distally. Graftotomy was then completed with an 11 blade scalpel and extended with Pott Grewal scissors. Utilizing a 4 Liz thrombectomy was performed of the venous aspect of the graft with large amounts of thrombus removed. Multiple passes were performed with backbleeding noted to be minimal. A 10-Bulgarian sheath was then placed and venogram was obtained demonstrating significant stenosis of the outflow at the anastomosis greater than 70%. 035 Glidewire was then placed across this area and utilizing a 6 x 40 mm impact balloon balloon angioplasty was performed. Once completed good brisk outflow was noted with almost complete resolution of the stenosis. There was a residual 10% stenosis after the angioplasty. The area was then flushed with heparinized saline and attention was placed to the inflow. Utilizing a 4 and 5 Liz thrombectomy was performed of the inflow aspect of the graft to the anastomosis. It was difficult to place the Liz across the anastomosis due to the angle as well as stenosis. The 10-Bulgarian sheath was placed and retrograde angiogram was obtained demonstrating greater th an 90% stenosis of the inflow at the anastomosis. Guidewire was then placed across the lesion and utilizing a 5 x 40 mm balloon balloon angioplasty was performed. Good improvement of the inflow was noted with brisk flow to the hand after angioplasty. The area was injected with heparinized saline. All guidewires and catheters were removed sheath was removed and the graftotomy was closed with 6-0 Prolene suture in interrupted fashion. Prior to last sutures being placed the graft was de-aired. Last suture was placed and there was good pulsatile flow through the graft with good palpable thrill at the venous anastomosis. There was good augmentation and utilizing a Doppler a bruit was noted. The area was then irrigated and incision was then closed with 3-0 Vicryl suture and the skin was closed with glue. Patient tied procedure well had palpable radial pulse at the conclusion of the procedure as well as a palpable thrill in the edie. She was sent to her room for recovery and hemodialysis and then can be discharged per medicine.
--- NOTE | 2021-12-17 16:32 | P.PN ---
Subjective Progress Note Date: 12/17/21 Patient has no new complaints today. Thrombectomy of the AV fistula is completed, however, unfortunately dialysis cannot do a session until 9 PM later tonight due to scheduling, therefore, patient will be held overnight and discharged first thing in the morning. Gen: awake, alert HEENT: normocephalic, atraumatic, good hearing acuity, moist mucous membranes Resp: good air exchange, breathing comfortably with no accessory muscle use CVS: good distal perfusion x 4, GI: soft, NTTP, ND : no SPT, no CVAT, lim catheter not present MSK: no pitting edema, no clubbing, AV fistula without thrill or bruit Neuro: non-focal, moving all extremities Psych: cooperative, euthymic mood Assessment/plan: Thrombosed left forearm graft vascular surgery recommendations ESRD on HD follow up with nephrology recommendations chronic conditions chronic anemia of chronic disease. stable , denies any bleeding , continue to monitor hypertension , controlled, continue home BP meds DM ,insulin sliding scale URI symptoms symptomatic control check COVID full code DVT PPX heparin sc tid anticipated length of stay < 2 midnights Objective - Vital Signs Vital signs: Vital Signs Temp 96.8 F L 12/17/21 15:12 Pulse 67 12/17/21 15:58 Resp 17 12/17/21 15:58 BP 110/59 12/17/21 15:58 Pulse Ox 99 12/17/21 15:58 Intake & Output 12/16/21 12/17/21 12/17/21 18:59 06:59 18:59 Intake Total 278 0 222 Output Total 20 Balance 278 0 202 Intake: IV 222 Oral 278 0 Output: Estimated Blood Loss 20 Other: Voiding Method Toilet Toilet Toilet # Voids 1 1 - Labs CBC & Chem 7: 12/15/21 16:56 12/16/21 10:07 Labs: Abnormal Lab Results - Last 24 Hours (Table) 12/16/21 12/16/21 12/16/21 Range/Units 10:07 17:18 21:30 POC Glucose (mg/dL) 100 H 152 H (75-99) mg/dL Hep Bs Antibody Reactive A (Nonreactive)
--- NOTE | 2021-12-17 16:48 | FL ---
EXAMINATION TYPE: FL guidance operating room DATE OF EXAM: 12/17/2021 CLINICAL HISTORY: Failed dialysis. TECHNIQUE: Fluoroscopy. COMPARISON: None. FINDINGS: Fluoroscopic guidance was provided during left upper extremity fistulogram with thrombecto my procedure performed by Dr. Reynoso. A total of 5 minutes 37 seconds of fluoroscopic time was util ized during the procedure and 131 spot images was acquired. Please refer to procedure note for furthe r details as I was not present nor performed procedure. IMPRESSION: As Above.
[2021-12-17 17:14] LABS: Glucose,Whole Blood 65 mg/dL (75-99)
[2021-12-17 17:27] LABS: Glucose,Whole Blood 68 mg/dL (75-99)
[2021-12-17 17:46] LABS: Glucose,Whole Blood 73 mg/dL (75-99)
--- NOTE | 2021-12-17 17:48 | P.PN ---
Subjective Patient is seen for follow-up for end-stage renal disease. She has a did AV graft in the left forearm. Patient is scheduled for surgery for thrombectomy today. She is also scheduled for cystoscopy today. Patient is normally maintained on a Sunday schedule. No complaints of fever chills nausea vomiting or diarrhea. No shortness of breath. Potassium was 4.3 Objective - Vital Signs Vital signs: Vital Signs Temp 96.8 F L 12/17/21 15:12 Pulse 67 12/17/21 15:58 Resp 17 12/17/21 16:55 BP 110/59 12/17/21 15:58 Pulse Ox 99 12/17/21 15:58 Intake & Output 12/16/21 12/17/21 12/17/21 18:59 06:59 18:59 Intake Total 278 0 222 Output Total 20 Balance 278 0 202 Intake: IV 222 Oral 278 0 Output: Estimated Blood Loss 20 Other: Voiding Method Toilet Toilet Toilet # Voids 1 1 - Exam Patient is comfortable awake. Not in any acute distress. She appears euvolemic with no evidence of edema in the lower extremities. Abdomen is soft nontender. Left forearm AV graft with no bruit or thrill. No edema in the lower extremities [employer] exam grossly intact - Labs CBC & Chem 7: 12/15/21 16:56 12/16/21 10:07 Labs: Abnormal Lab Results - Last 24 Hours (Table) 12/16/21 12/16/21 12/17/21 Range/Units 10:07 21:30 17:08 POC Glucose (mg/dL) 152 H 65 L (75-99) mg/dL Hep Bs Antibody Reactive A (Nonreactive) 12/17/21 Range/Units 17:26 POC Glucose (mg/dL) 68 L (75-99) mg/dL Hep Bs Antibody (Nonreactive) Assessment and Plan Assessment: 1. ESRD, on HD . MWF 2. Thrombosed AVG 3. CKD mineral bone disorder 4. HTN with CKD Plan: HD today after intervention on AVG.
[2021-12-17 20:55] LABS: Glucose,Whole Blood 92 mg/dL (75-99)
[2021-12-17] MEDS: ATORVASTATIN 10 MG TAB PO SCH (22:59)
[2021-12-18] MEDS: LEVOTHYROXINE 88 MCG TAB PO SCH (06:20)
[2021-12-18 07:42] LABS: Glucose,Whole Blood 80 mg/dL (75-99)
[2021-12-18 08:02] VITALS: BP 107/61; RESP 18; TEMP 97.6
[2021-12-18] MEDS: SEVELAMER 800 MG TAB PO SCH (08:04)
[2021-12-18] MEDS: METOPROLOL TARTRATE 50 MG TAB PO SCH (08:04)
[2021-12-18] MEDS: HEPARIN SODIUM,PORCINE/PF 5,000 UNIT/0.5 ML SYRINGE SQ SCH (08:04)
[2021-12-18] MEDS: allopurinoL 100 MG TAB PO SCH (08:04)
[2021-12-18] MEDS: INSULIN ASPART (NovoLOG) 100 UNIT/ML VIAL SQ SCH (08:04)
[2021-12-18] MEDS: ASPIRIN 81 MG PO SCH (08:05)
[2021-12-18] MEDS: MAGNESIUM OXIDE 400 MG TAB PO SCH (08:05)
[2021-12-18 10:16] VITALS: PULSE 65
[2021-12-18 11:31] LABS: Glucose,Whole Blood 135 mg/dL (75-99)
--- NOTE | 2021-12-18 13:18 | P.DS ---
Providers Date of admission: 12/15/21 18:33 Expected date of discharge: 12/18/21 Attending physician: Dominique Delgado DO Consults: 12/15/21 17:21 Consult Physician Routine Consulting Provider: Paul Reynoso Consult Reason/Comments: av graft malfunction Do you want consulting provider notified?: Already Contacted 12/15/21 18:33 Consult Physician Routine Consulting Provider: Gene Gilbert Consult Reason/Comments: esrd Do you want consulting provider notified?: Yes Primary care physician: Kel Bruno [facility] Course: 71 year old female with ESRD on HD MWF through a LUE forearm graft who had a full session on SundayDecember 12, however, the graft did not work on Sunday, so she missed that session , and subsequently presented after an US showed occlusion of the graft. In the hospital, vascular surgery was notified , and performed thrombectomy on Sunday, and she had her dialysis session on Sunday night. Only other imaging was EKG which showed NSR without ischemia or peaked T waves. Thrombosed left forearm graft vascular surgery recommendations were followed. ESRD on HD Nephrology recommendations were followed. Chronic anemia of chronic disease. hypertension DM No changes to home medications URI symptomatic control checked COVID and it was negative Gen: awake, alert HEENT: normocephalic, atraumatic, good hearing acuity, moist mucous membranes Resp: good air exchange, breathing comfortably with no accessory muscle use CVS: good distal perfusion x 4, GI: soft, NTTP, ND : no SPT, no CVAT, lim catheter not present MSK: no pitting edema, no clubbing Neuro: non-focal, moving all extremities Psych: cooperative, euthymic mood Patient Condition at Discharge: Good Plan - Discharge Summary New Discharge Prescriptions: Continue sitaGLIPtin [Januvia] 50 mg PO DAILY Allopurinol [Zyloprim] 100 mg PO DAILY Metoprolol Tartrate [Lopressor] 100 mg PO BID@1000,2200 Levothyroxine Sodium [Synthroid] 88 mcg PO DAILY Sevelamer [Renvela] 800 mg PO BID-W/MEALS NIFEdipine [Procardia XL] 60 mg PO BID Pioglitazone [Actos] 15 mg PO DAILY Vit B Complx C/Folic Acid/Zinc [Renaplex Tablet] 1 tab PO MOWEFR Ferrous Sulfate [Iron (65 MG Elemental)] 325 mg PO DIRECTED Ergocalciferol (Vitamin D2) [Drisdol (50,000 Iu)] 1,250 mcg PO Q14D Atorvastatin [Lipitor] 10 mg PO HS Aspirin EC [Ecotrin Low Dose] 81 mg PO DAILY Magnesium Oxide 400 mg PO Q48H Discharge Medication List sitaGLIPtin [Januvia] 50 mg PO DAILY 03/24/20 [History] Allopurinol [Zyloprim] 100 mg PO DAILY 01/12/21 [History] Metoprolol Tartrate [Lopressor] 100 mg PO BID@1000,2200 01/12/21 [History] NIFEdipine [Procardia XL] 60 mg PO BID 01/12/21 [History] Pioglitazone [Actos] 15 mg PO DAILY 01/12/21 [History] Vit B Complx C/Folic Acid/Zinc [Renaplex Tablet] 1 tab PO MOWEFR 05/01/21 [History] Levothyroxine Sodium [Synthroid] 88 mcg PO DAILY 09/09/21 [History] Aspirin EC [Ecotrin Low Dose] 81 mg PO DAILY 12/15/21 [History] Atorvastatin [Lipitor] 10 mg PO HS 12/15/21 [History] Ergocalciferol (Vitamin D2) [Drisdol (50,000 Iu)] 1,250 mcg PO Q14D 12/15/21 [History] Ferrous Sulfate [Iron (65 MG Elemental)] 325 mg PO DIRECTED 12/15/21 [His tory] Magnesium Oxide 400 mg PO Q48H 12/15/21 [History] Sevelamer [Renvela] 800 mg PO BID-W/MEALS 12/15/21 [History] Follow up Appointment(s)/Referral(s): Kel Mayen MD [Primary Care Provider] - 1-2 days Patient Instructions/Handouts: Hemodialysis (DC) Activity/Diet/Wound Care/Special Instructions: activity limited until seen by Dr. Delgado as tolerated Dialysis Scheduled for Sunday
--- NOTE | 2021-12-18 14:10 | P.PN ---
Subjective Patient is seen for follow-up for end-stage renal disease. She has a did AV graft in the left forearm. Patient is s/p thrombectomy yesterday. S/p HD yesterday. Patient is normally maintained on a Sunday schedule. No complaints of fever chills nausea vomiting or diarrhea. No shortness of breath. Potassium was 4.3 Objective - Vital Signs Vital signs: Vital Signs Temp 97.6 F 12/18/21 07:00 Pulse 65 12/18/21 08:00 Resp 18 12/18/21 08:00 BP 107/61 12/18/21 07:00 Pulse Ox 97 12/18/21 07:00 Intake & Output 12/17/21 12/18/21 12/18/21 18:59 06:59 18:59 Intake Total 222 300 118 Output Total 20 2300 Balance -1999 118 Intake: IV 222 Oral 118 Hemodialysis 300 Output: Hemodialysis 2300 Estimated Blood Loss 20 Other: Voiding Method Toilet Toilet Toilet # Voids 2 - Exam Patient is comfortable awake. Not in any acute distress. She appears euvolemic with no evidence of edema in the lower extremities. Left forearm AV graft patent - Labs CBC & Chem 7: 12/15/21 16:56 12/16/21 10:07 Labs: Abnormal Lab Results - Last 24 Hours (Table) 12/17/21 12/17/21 12/17/21 Range/Units 17:08 17:26 17:44 POC Glucose (mg/dL) 65 L 68 L 73 L (75-99) mg/dL 12/18/21 Range/Units 11:30 POC Glucose (mg/dL) 135 H (75-99) mg/dL Assessment and Plan Assessment: 1. ESRD, on HD . MWF 2. Thrombosed AVG s/p thrombctomy yesterday. 3. CKD mineral bone disorder 4. HTN with CKD Plan: Next HD tomorrow as op.
[2021-12-22] MEDS ORDERED: ERGOCALCIFEROL 1,250 MCG (50,000 IU) CAPSULE PO SCH (09:00)
== END 2021-12-18 12:40 | disposition home or self-care (01) ==
LOC: EC 15:43 → 6NMEDSUR 18:33
PROVIDERS: ADMIT Internal Medicine; ATTEND Internal Medicine
DX: T82.868A Thrombosis due to vascular prosthetic devices, implants and grafts, initial encounter (principal); I12.0 Hypertensive chronic kidney disease with stage 5 chronic kidney disease or end stage renal disease; N18.6 End stage renal disease; E11.22 Type 2 diabetes mellitus with diabetic chronic kidney disease; E78.5 Hyperlipidemia, unspecified; R41.3 Other amnesia; E11.319 Type 2 diabetes mellitus with unspecified diabetic retinopathy without macular edema; E11.40 Type 2 diabetes mellitus with diabetic neuropathy, unspecified; I69.351 Hemiplegia and hemiparesis following cerebral infarction affecting right dominant side; D63.8 Anemia in other chronic diseases classified elsewhere; M10.9 Gout, unspecified; L08.9 Local infection of the skin and subcutaneous tissue, unspecified; J06.9 Acute upper respiratory infection, unspecified; M89.8X9 Other specified disorders of bone, unspecified site; Z20.822 Contact with and (suspected) exposure to COVID-19; Z99.2 Dependence on renal dialysis; E07.9 Disorder of thyroid, unspecified; Z87.891 Personal history of nicotine dependence; Z79.84 Long term (current) use of oral hypoglycemic drugs; Z79.899 Other long term (current) drug therapy; Z79.82 Long term (current) use of aspirin; Z79.890 Hormone replacement therapy; Y83.2 Surgical operation with anastomosis, bypass or graft as the cause of abnormal reaction of the patient, or of later complication, without mention of misadventure at the time of the procedure; Z83.438 Family history of other disorder of lipoprotein metabolism and other lipidemia
CPT/HCPCS: 36831; 36907; 96372; 99285; 36415; 93005; 80048 ×2; 85025; 85610; 85730; 86706; 87340; 87635; G0257 ×2; G0378 ×4; C1757 ×2; C1894; C1769 ×2; C1725; C2623; J1644 ×5; J0690; J2001 ×2; J3010; J2370; J2704; Q9967; 90935

== ENCOUNTER 2022-02-22 11:03 | Emergency (ER) | payer MEDICARE, OTHER ==
--- NOTE | 2022-02-22 12:16 | ED ---
General Adult HPI - General Chief complaint: Fall Stated complaint: Fall, cough Time Seen by Provider: 02/22/22 12:06 Source: patient, RN notes reviewed, old records reviewed Mode of arrival: ambulatory Limitations: no limitations - History of Present Illness Initial comments: 71 yo female is post fall with right lateral rib pain. Patient denies any head or neck trauma. Denies extremity injury. She states that her legs gave out causing her fall. She states this happens every once in a while. She denies loss consciousness. Denies anticoagulation. Denies central chest pain or abdominal pain. Patient is on hemodialysis and did miss her session today. - Related Data Home Medications Medication Instructions Recorded Confirmed sitaGLIPtin [Januvia] 50 mg PO DAILY 03/24/20 12/15/21 Allopurinol [Zyloprim] 100 mg PO DAILY 01/12/21 12/15/21 Metoprolol Tartrate [Lopressor] 100 mg PO BID@1000,2200 01/12/21 12/15/21 NIFEdipine [Procardia XL] 60 mg PO BID 01/12/21 12/15/21 Pioglitazone [Actos] 15 mg PO DAILY 01/12/21 12/15/21 Vit B Complx C/Folic Acid/Zinc 1 tab PO MOWEFR 05/01/21 12/15/21 [Renaplex Tablet] Levothyroxine Sodium [Synthroid] 88 mcg PO DAILY 09/09/21 12/15/21 Aspirin EC [Ecotrin Low Dose] 81 mg PO DAILY 12/15/21 12/15/21 Atorvastatin [Lipitor] 10 mg PO HS 12/15/21 12/15/21 Ergocalciferol (Vitamin D2) 1,250 mcg PO Q14D 12/15/21 12/15/21 [Drisdol (50,000 Iu)] Ferrous Sulfate [Iron (65 MG 325 mg PO DIRECTED 12/15/21 12/15/21 Elemental)] Magnesium Oxide 400 mg PO Q48H 12/15/21 12/15/21 Sevelamer [Renvela] 800 mg PO BID-W/MEALS 12/15/21 12/15/21 Allergies Allergy/AdvReac Type Severity Reaction Status Date / Time No Known Allergies Allergy Verified 02/22/22 11:56 Review of Systems ROS Statement: Those systems with pertinent positive or pertinent negative responses have been documented in the HPI. ROS Other: All systems not noted in ROS Statement are negative. Past Medical History Past Medical History: Chest Pain / Angina, CVA/TIA, Diabetes Mellitus, Dialysis, Hyperlipidemia, Hypertension, Memory Impairment, Renal Disease, Thyroid Disorder Additional Past Medical History / Comment(s): Chronic toe infection, Stage 4 Renal Failure, Diabetic Retinopathy, Gout, mild aortic stenosis, neuropathy bilateral feet, left sided weakness since CVA, dialysis MOWEFR. History of Any Multi-Drug Resistant Organisms: None Reported Past Surgical History: Section Additional Past Surgical History / Comment(s): Left arm dialysis graft. Past Anesthesia/Blood Transfusion Reactions: No Reported Reaction Past Psychological History: No Psychological Hx Reported Smoking Status: Former smoker Past Alcohol Use History: None Reported Past Drug Use History: None Reported - Past Family History Mother Family Medical History: Hyperlipidemia General Exam Limitations: no limitations General appearance: alert, in no apparent distress Head exam: Present: atraumatic, normocephalic Eye exam: Present: normal appearance, PERRL ENT exam: Present: normal exam Neck exam: Present: normal inspection. Absent: tenderness, meningismus Respiratory exam: Present: normal lung sounds bilaterally, chest wall tenderness (Right anterior lateral). Absent: respiratory distress, wheezes Cardiovascular Exam: Present: regular rate, normal rhythm GI/Abdominal exam: Present: soft. Absent: distended, tenderness, guarding Extremities exam: Present: normal inspection, normal capillary refill. Absent: pedal edema Neurological exam: Present: alert, oriented X3, CN II-XII intact. Absent: motor sensory deficit (Strength in the bilateral lower extremities is 5 out of 5, no ataxia) Psychiatric exam: Present: normal affect, normal mood Skin exam: Present: warm, dry, intact. Absent: cyanosis, diaphoretic Course Vital Signs 02/22/22 02/22/22 11:51 12:13 Temperature 99.3 F Pulse Rate 81 75 Respiratory 20 18 Rate Blood Pressure 95/55 107/72 O2 Sat by Pulse 97 95 Oximetry Medical Decision Making - Medical Decision Making 71-year-old female with fall, right-sided rib pain. X-ray performed negative for displaced rib fracture. No pneumothorax, no focal pneumonia or acute findings. Patient does not require pain medication and was quite comfortable on exam. I did discuss case with her daughter who had indicated that she does not use her walker as regularly as she should. I urged the patient to use her walker. She will follow-up with the primary care physician. She does not appear fluid overloaded at this time and should arrange for hemodialysis tomorrow. The daughter will assist with this. Disposition Clinical Impression: Fall, Contusion of ribs Disposition: HOME SELF-CARE Condition: Fair Instructions (If sedation given, give patient instructions): Fall Prevention for Older Adults (ED), Rib Contusion (ED) Is patient prescribed a controlled substance at d/c from ED?: No Referrals: Kel Mayen MD [Primary Care Provider] - 1-2 days Time of Disposition: 13:27
[2022-02-22 12:17] VITALS: RESP 18
--- NOTE | 2022-02-22 13:04 | XR ---
EXAMINATION TYPE: XR ribs RT w pa chest xray DATE OF EXAM: 02/22/2022 CLINICAL HISTORY: Chest and right-sided rib pain after fall injury. TECHNIQUE: Single frontal view of the chest is obtained. A frontal and oblique images right-sided rib s. COMPARISON: Chest x-ray May 01, 2021 FINDINGS: There is no suspicious focal air space opacity, pleural effusion, or pneumothorax seen. T he cardiac silhouette size is stable and within normal limits. The osseous structures are demineral ized. Dedicated images of the right-sided ribs show no acute displaced fractures. Overlying soft tissue is unremarkable. IMPRESSION: 1. Chronic changes without acute pulmonary process. 2. No acute displaced right-sided rib fractures.
[2022-02-22 14:51] VITALS: BP 150/65; PULSE 67; TEMP 98.1
== END 2022-02-22 15:08 | disposition home or self-care (01) ==
LOC: EC 11:03
DX: S20.20XA Contusion of thorax, unspecified, initial encounter (principal); E11.22 Type 2 diabetes mellitus with diabetic chronic kidney disease; E11.40 Type 2 diabetes mellitus with diabetic neuropathy, unspecified; E11.319 Type 2 diabetes mellitus with unspecified diabetic retinopathy without macular edema; I12.9 Hypertensive chronic kidney disease with stage 1 through stage 4 chronic kidney disease, or unspecified chronic kidney disease; N18.4 Chronic kidney disease, stage 4 (severe); E78.5 Hyperlipidemia, unspecified; M10.9 Gout, unspecified; E07.9 Disorder of thyroid, unspecified; Z99.2 Dependence on renal dialysis; Z86.73 Personal history of transient ischemic attack (TIA), and cerebral infarction without residual deficits; Z79.84 Long term (current) use of oral hypoglycemic drugs; Z79.82 Long term (current) use of aspirin; Z87.891 Personal history of nicotine dependence; Z79.890 Hormone replacement therapy; Z79.899 Other long term (current) drug therapy; W18.30XA Fall on same level, unspecified, initial encounter
CPT/HCPCS: 99284

== ENCOUNTER 2022-06-28 11:24 | Day surgery (SDC) | payer MEDICARE, OTHER ==
[2022-06-28 11:56] VITALS: RESP 18; TEMP 97.5
[2022-06-28 11:59] LABS: Glucose,Whole Blood 104 mg/dL (70-110)
[2022-06-28 12:07] LABS: Basophils % (A) 1 %; Eosinophils # (A) 0.2 k/uL (0-0.7); Eosinophils % (A) 4 %; HCT 34.7 % (34.0-46.0); HGB 11.1 gm/dL (11.4-16.0); Lymphocytes % (A) 25 %; MCH 30.6 pg (25.0-35.0); MCV 95.6 fL (80.0-100.0); Mean Platelet Volume 8.6; Monocytes # (A) 0.2 k/uL (0-1.0); Monocytes % (A) 6 %; Neutrophils # (A) 2.5 k/uL (1.3-7.7); Neutrophils % (A) 63 %; Platelet Count 151 k/uL (150-450); RBC 3.63 m/uL (3.80-5.40); RDW 14.9 % (11.5-15.5)
[2022-06-28 12:10] LABS: Calcium 9.3 mg/dL (8.4-10.2)
[2022-06-28] MEDS ORDERED: MIDAZOLAM 2 MG/2 ML VIAL IV ONE (12:59)
[2022-06-28] MEDS ORDERED: LIDOCAINE 1% INJ 10MG/ML (30 ML VIAL-PF) SQ ONE (12:59)
[2022-06-28] MEDS ORDERED: IOPAMIDOL-250 100ML BTL INTRAARTER ONE (13:26)
--- NOTE | 2022-06-28 13:38 | P.OP ---
Date of Procedure: 06/28/22 Description of Procedure: Preoperative diagnosis: [End-stage renal disease, abnormal ultrasound with high velocity anastomosis] Postoperative diagnosis: Same Procedure: [#1 left upper extremity fistulogram Percutaneous transluminal balloon venoplasty of venous anastomosis 25 minutes moderate conscious sedation] Surgeon: Bethany Ruano D.O. EBL: [Less than 10 mL] IV fluids: [Not measured] Urine output: [Not measured] Drains: [None] Complications: [None immediately apparent] Condition: [Stable to recovery] Operative indication and findings: [Patient is a 71-year-old female who recently underwent an ultrasound which showed high grade narrowing of her outflow anastomosis with elevated velocities. Since then she did have an open thrombectomy for graft occlusion. At that time there was note of a outflow stenosis that apparently was ballooned. This time she presents for repeat imaging. Risks and benefits were discussed. She seemingly understood and was willing to proceed.] Procedure in detail: [Patient was taken to the special suite and placed in supine position. Left upper extremity is prepped and draped in usual sterile fashion. A preprocedure timeout was performed, all parties were in agreement. Initially directed with the outflow, a micro-rectocele was used and Seldinger technique was used to place a 5-Portuguese sheath. A venogram performed showing outflow stenosis to the anastomosis at the basilic vein therefore wires were utilized to cross the area and a 6 x 40 balloon was insufflated. There was improvement of the anastomosis stenosis. There is also visualized area of narrowing at the apex of the graft which was angioplastied as well. A 5-Portuguese sheath was placed in the retrograde direction towards the arterial anastomosis. The balloon was insufflated to occlude outflow in that angiogram was performed. There did not appear to be any significant narrowing or areas of stenosis. Catheters and wires were then removed. Sutures of 4-0 nylon were placed and the sheaths were removed and pressure was held until hemostasis was adequate.] Patient tolerated procedure well. Plan - Discharge Summary New Discharge Prescriptions: No Action sitaGLIPtin [Januvia] 50 mg PO DAILY allopurinoL [Zyloprim] 100 mg PO DAILY Metoprolol Tartrate [Lopressor] 100 mg PO BID@1000,2200 Levothyroxine Sodium [Synthroid] 88 mcg PO DAILY Sevelamer [Renvela] 800 mg PO BID-W/MEALS NIFEdipine [Procardia XL] 60 mg PO BID Pioglitazone [Actos] 15 mg PO DAILY Vit B Complx C/Folic Acid/Zinc [Renaplex Tablet] 1 tab PO MOWEFR Ferrous Sulfate [Iron (65 MG Elemental)] 325 mg PO DIRECTED Ergocalciferol (Vitamin D2) [Drisdol (50,000 Iu)] 1,250 mcg PO Q14D Atorvastatin [Lipitor] 10 mg PO HS Aspirin EC [Ecotrin Low Dose] 81 mg PO DAILY Magnesium Oxide 400 mg PO Q48H Discharge Medication List sitaGLIPtin [Januvia] 50 mg PO DAILY 03/24/20 [History] Metoprolol Tartrate [Lopressor] 100 mg PO BID@1000,2200 01/12/21 [History] NIFEdipine [Procardia XL] 60 mg PO BID 01/12/21 [History] Pioglitazone [Actos] 15 mg PO DAILY 01/12/21 [History] allopurinoL [Zyloprim] 100 mg PO DAILY 01/12/21 [History] Vit B Complx C/Folic Acid/Zinc [Renaplex Tablet] 1 tab PO MOWEFR 05/01/21 [History] Levothyroxine Sodium [Synthroid] 88 mcg PO DAILY 09/09/21 [History] Aspirin EC [Ecotrin Low Dose] 81 mg PO DAILY 12/15/21 [History] Atorvastatin [Lipitor] 10 mg PO HS 12/15/21 [History] Ergocalciferol (Vitamin D2) [Drisdol (50,000 Iu)] 1,250 mcg PO Q14D 12/15/21 [History] Ferrous Sulfate [Iron (65 MG Elemental)] 325 mg PO DIRECTED 12/15/21 [History] Magnesium Oxide 400 mg PO Q48H 12/15/21 [History] Sevelamer [Renvela] 800 mg PO BID-W/MEALS 12/15/21 [History] Follow up Appointment(s)/Referral(s): Bethany Ruano DO [STAFF PHYSICIAN] - 4 Weeks Activity/Diet/Wound Care/Special Instructions: Resume regular medications. Resume regular diet. Resume regular activity. May remove sutures from arm at next dialysis session Discharge Disposition: HOME SELF-CARE
--- NOTE | 2022-06-28 13:47 | IR ---
EXAMINATION TYPE: IR fistula/abscess/sinus tract DATE OF EXAM: 06/28/2022 CLINICAL HISTORY: Failed dialysis. TECHNIQUE: Fluoroscopy. COMPARISON: None. FINDINGS: Fluoroscopic guidance was provided during upper extremity fistulogram procedure performed by Dr. Ruano. A total of 180 seconds of fluoroscopic time was utilized during the procedure and 183 spot images was acquired. Please refer to procedure note for further details. IMPRESSION: As Above.
[2022-06-28] MEDS ORDERED: METOPROLOL TARTRATE 50 MG TAB PO STA (13:52)
[2022-06-28 15:25] VITALS: BP 166/76; PULSE 74
== END 2022-06-28 15:57 | disposition home or self-care (01) ==
LOC: CATHCVL 11:24
PROVIDERS: ATTEND Surgery
DX: T82.590A Other mechanical complication of surgically created arteriovenous fistula, initial encounter (principal); I12.0 Hypertensive chronic kidney disease with stage 5 chronic kidney disease or end stage renal disease; E11.22 Type 2 diabetes mellitus with diabetic chronic kidney disease; N18.6 End stage renal disease; E78.5 Hyperlipidemia, unspecified; E03.9 Hypothyroidism, unspecified; E61.1 Iron deficiency; Z86.73 Personal history of transient ischemic attack (TIA), and cerebral infarction without residual deficits; E55.9 Vitamin D deficiency, unspecified; Z98.890 Other specified postprocedural states; Z82.49 Family history of ischemic heart disease and other diseases of the circulatory system; Z83.3 Family history of diabetes mellitus; Z79.84 Long term (current) use of oral hypoglycemic drugs; Z79.82 Long term (current) use of aspirin; Z79.890 Hormone replacement therapy; Z79.899 Other long term (current) drug therapy
CPT/HCPCS: 36902; 80048; 85025; C1894; C1769 ×4; C1725; J2250; J2001; Q9966

== ENCOUNTER 2022-12-19 07:38 | Observation (INO) | payer MEDICARE, OTHER ==
--- NOTE | 2022-12-19 07:56 | ED ---
General Adult HPI - General Chief complaint: Recheck/Abnormal Lab/Rx Stated complaint: Abn labs Time Seen by Provider: 12/19/22 07:49 Source: patient, RN notes reviewed Mode of arrival: ambulatory Limitations: no limitations - History of Present Illness Initial comments: Patient is a pleasant 72-year-old female presenting to the emergency department with concerns with having her labs checked. Patient was unable to have dialysis and there was concern for thrombosis in her graft. Patient was to have this removed in surgery today however she ate a small piece of orange. Patient was sent here to have labs checked. Patient feels fine and has no complaints. - Related Data Home Medications Medication Instructions Recorded Confirmed Metoprolol Tartrate [Lopressor] 100 mg PO BID@1000,2200 01/12/21 12/19/22 NIFEdipine [Procardia XL] 60 mg PO BID 01/12/21 12/19/22 allopurinoL [Zyloprim] 100 mg PO QAM 01/12/21 12/19/22 Vit B Complx C/Folic Acid/Zinc 1 tab PO DAILY 05/01/21 12/19/22 [Renaplex Tablet] Levothyroxine Sodium [Synthroid] 88 mcg PO QAM 09/09/21 12/19/22 Aspirin EC [Ecotrin Low Dose] 81 mg PO DAILY 12/15/21 12/19/22 Atorvastatin [Lipitor] 10 mg PO HS 12/15/21 12/19/22 Ergocalciferol (Vitamin D2) 1,250 mcg PO Q14D 12/15/21 12/19/22 [Drisdol (50,000 Iu)] Sevelamer [Renvela] 800 - 1,600 mg PO DIRECTED MDD 12/15/21 12/19/22 5 tablets Fluticasone Nasal [place] [Flonase 2 spr EA NOSTRIL DAILY 12/18/22 12/19/22 Nasal [place]] sitaGLIPtin [Januvia] 25 mg PO QAM 12/18/22 12/19/22 Allergies Allergy/AdvReac Type Severity Reaction Status Date / Time No Known Allergies Allergy Verified 12/19/22 08:27 Review of Systems ROS Statement: Those systems with pertinent positive or pertinent negative responses have been documented in the HPI. ROS Other: All systems not noted in ROS Statement are negative. Constitutional: Denies: fever Eyes: Denies: eye pain ENT: Denies: ear pain Respiratory: Denies: cough Cardiovascular: Denies: chest pain Endocrine: Denies: fatigue Gastrointestinal: Denies: abdominal pain Genitourinary: Denies: dysuria Musculoskeletal: Denies: back pain Skin: Denies: rash Neurological: Denies: weakness Past Medical History Past Medical History: Chest Pain / Angina, CVA/TIA, Diabetes Mellitus, Dialysis, Hyperlipidemia, Hypertension, Memory Impairment, Renal Disease, Thyroid Disorder Additional Past Medical History / Comment(s): HEMODIALYSIS, MWF. Chronic toe infection, Stage 4 Renal Failure, Diabetic Retinopathy, Gout, mild aortic stenosis, neuropathy bilateral feet, left sided weakness since CVA, dialysis MOWEFR. History of Any Multi-Drug Resistant Organisms: None Reported Past Surgical History: Section Additional Past Surgical History / Comment(s): Left arm dialysis graft. Past Anesthesia/Blood Transfusion Reactions: No Reported Reaction Past Psychological History: No Psychological Hx Reported Smoking Status: Former smoker Past Alcohol Use History: None Reported Past Drug Use History: None Reported - Past Family History Mother Family Medical History: Hyperlipidemia General Exam Limitations: no limitations General appearance: alert, in no apparent distress Head exam: Present: normocephalic Eye exam: Present: normal appearance Neck exam: Present: normal inspection Respiratory exam: Present: normal lung sounds bilaterally Cardiovascular Exam: Present: regular rate, normal rhythm GI/Abdominal exam: Present: soft. Absent: tenderness Extremities exam: Present: other (Forearm on the left :Dialysis graft without thrill) Neurological exam: Present: alert. Absent: motor sensory deficit Psychiatric exam: Present: normal affect, normal mood Skin exam: Present: normal color Course Vital Signs 12/19/22 12/19/22 07:41 10:32 Temperature 98 F Pulse Rate 56 L 65 Respiratory 18 Rate Blood Pressure 191/75 164/68 O2 Sat by Pulse 100 100 Oximetry EKG Findings - EKG Results: EKG: interpreted by ERMD, sinus rhythm, normal axis, normal QRS, normal ST/T EKG shows: bradycardia Medical Decision Making - Medical Decision Making Was pt. sent in by a medical professional or institution (, PA, CHILDREN'S MINISTRIES DIRECTOR, urgent care, hospital, or penitentiary...) When possible be specific @ -Patient was sent from operating room Did you speak to anyone other than the patient for history (EMS, parent, family, police, friend...)? What history was obtained from this source @ -No Did you review nursing and triage notes (agree or disagree)? Why? @ -I reviewed and agree with nursing and triage notes Were old charts reviewed (outside hosp., previous admission, EMS record, old EKG, old radiological studies, urgent care reports/EKG's, penitentiary records)? Report findings @ -No old charts were reviewed Differential Diagnosis (chest pain, altered mental status, abdominal pain women, abdominal pain men, vaginal bleeding, weakness, fever, dyspnea, syncope, headache, dizziness, GI bleed, back pain, seizure, CVA, palpatations, mental health)? @ -not applicable EKG interpreted by me (3pts min.). @ -As above X-rays interpreted by me (1pt min.). @ -None done CT interpreted by me (1pt min.). @ -None done U/S interpreted by me (1pt. min.). @ -None done What testing was considered but not performed or refused? (CT, X-rays, U/S, labs)? Why? @ -None What meds were considered but not given or refused? Why? @ -None Did you discuss the management of the patient with other professionals (professionals i.e. DrLui, PA, CHILDREN'S MINISTRIES DIRECTOR, lab, RT, psych nurse, director of social services, silk presser, teacher, air force senior officer, case finishing machine adjuster)? Give summary @ -Case was discussed with Dr. Ruano who will admit a nevarez. She did have her practitioner come and write orders] Was smoking cessation discussed for >3mins.? @ -No Was critical care preformed (if so, how long)? @ -No Were there social determinants of health that impacted care today? How? (Homelessness, low income, unemployed, alcoholism, drug addiction, transportation, low edu. Level, literacy, decrease access to med. care, senior living, rehab)? @ -No Was there de-escalation of care discussed even if they declined (Discuss DNR or withdrawal of care, Hospice)? DNR status @ -No What co-morbidities impacted this encounter? (DM, HTN, Smoking, COPD, CAD, Cancer, CVA, ARF, Chemo, Hep., AIDS, mental health diagnosis, sleep apnea, morbid obesity)? @ -None Was patient admitted / discharged? Hospital course, mention meds given and route, prescriptions, significant lab abnormalities, going to OR and other pertinent info. @ -[Patient will be admitted for him. After midnight for dialysis graft revision/thrombectomy Undiagnosed new problem with uncertain prognosis? @ -No Drug Therapy requiring intensive monitoring for toxicity (Heparin, Nitro, Insulin, Cardizem)? @ -No Were any procedures done? @ -No Diagnosis/symptom? @ -Dialysis graft thrombosis Acute, or Chronic, or Acute on Chronic? @ -Acute Uncomplicated (without systemic symptoms) or Complicated (systemic symptoms)? @ -default Side effects of treatment? @ -No Exacerbation, Progression, or Severe Exacerbation? @ -No Poses a threat to life or bodily function? How? (Chest pain, USA, CT, pneumonia, PE, COPD, DKA, ARF, appy, cholecystitis, CVA, Diverticulitis, Homicidal, Suicidal, threat to staff... and all critical care pts) @ -No - Lab Data Result diagrams: 12/19/22 08:47 12/19/22 08:47 Lab Results 12/19/22 12/19/22 12/19/22 Range/Units 08:47 08:47 08:47 WBC 3.7 L (3.8-10.6) k/uL RBC 3.12 L (3.80-5.40) m/uL Hgb 10.3 L (11.4-16.0) gm/dL Hct 30.0 L (34.0-46.0) % MCV 96.2 (80.0-100.0) fL MCH 33.0 (25.0-35.0) pg MCHC 34.3 (31.0-37.0) g/dL RDW 15.3 (11.5-15.5) % Plt Count 132 L (150-450) k/uL MPV 8.8 Neutrophils % 70 % Lymphocytes % 19 % Monocytes % 5 % Eosinophils % 4 % Basophils % 0 % Neutrophils # 2.6 (1.3-7.7) k/uL Lymphocytes # 0.7 L (1.0-4.8) k/uL Monocytes # 0.2 (0-1.0) k/uL Eosinophils # 0.2 (0-0.7) k/uL Basophils # 0.0 (0-0.2) k/uL PT 9.8 (9.0-12.0) sec INR 0.9 (<1.2) APTT 22.4 (22.0-30.0) sec Sodium 139 (137-145) mmol/L Potassium 5.4 H (3.5-5.1) mmol/L Chloride 106 (98-107) mmol/L Carbon Dioxide 20 L (22-30) mmol/L Anion Gap 13 mmol/L BUN 78 H (7-17) mg/dL Creatinine 10.34 H* (0.52-1.04) mg/dL Est GFR (CKD-EPI)AfAm 4 (>60 ml/min/1.73 sqM) Est GFR (CKD-EPI)NonAf 3 (>60 ml/min/1.73 sqM) Glucose 91 (74-99) mg/dL Calcium 9.2 (8.4-10.2) mg/dL Phosphorus 7.2 H (2.5-4.5) mg/dL Magnesium 2.6 H (1.6-2.3) mg/dL Total Bilirubin 0.5 (0.2-1.3) mg/dL AST 26 (14-36) U/L ALT 16 (4-34) U/L Alkaline Phosphatase 103 (38-126) U/L Total Protein 7.1 (6.3-8.2) g/dL Albumin 4.1 (3.5-5.0) g/dL Disposition Clinical Impression: Thrombosis of renal dialysis arteriovenous graft Disposition: ADMITTED IP TO THIS HOSP Is patient prescribed a controlled substance at d/c from ED?: No Referrals: Kel Mayen MD [Primary Care Provider] - 1-2 days Time of Disposition: 11:09
[2022-12-19 09:33] LABS: Basophils % (A) 0 %; Eosinophils # (A) 0.2 k/uL (0-0.7); Eosinophils % (A) 4 %; HGB 10.3 gm/dL (11.4-16.0); Lymphocytes # (A) 0.7 k/uL (1.0-4.8); Lymphocytes % (A) 19 %; MCHC 34.3 g/dL (31.0-37.0); MCV 96.2 fL (80.0-100.0); Mean Platelet Volume 8.8; Monocytes # (A) 0.2 k/uL (0-1.0); Monocytes % (A) 5 %; Neutrophils # (A) 2.6 k/uL (1.3-7.7); Neutrophils % (A) 70 %; Platelet Count 132 k/uL (150-450); RBC 3.12 m/uL (3.80-5.40); RDW 15.3 % (11.5-15.5); WBC 3.7 k/uL (3.8-10.6)
[2022-12-19 10:00] LABS: INR 0.9 (<1.2); Partial Thromboplastin Time 22.4 sec (22.0-30.0); Prothrombin Time 9.8 sec (9.0-12.0)
[2022-12-19 10:10] LABS: Albumin 4.1 g/dL (3.5-5.0); Calcium 9.2 mg/dL (8.4-10.2); Magnesium 2.6 mg/dL (1.6-2.3); Phosphorus 7.2 mg/dL (2.5-4.5); Potassium 5.4 mmol/L (3.5-5.1); Total Bilirubin 0.5 mg/dL (0.2-1.3); Total Protein 7.1 g/dL (6.3-8.2)
--- NOTE | 2022-12-19 11:43 | P.GSHP ---
History of Present Illness H&P Date: 12/19/22 Chief Complaint: Nonfunctioning fistula (72-year-old female with a history of end-stage renal disease requiring hemodialysis with nonfunctioning left fistula with Loop graft with history of previous graft occlusion. Patient has past medical history including CVA/TIA, diabetes mellitus, end-stage renal disease on dialysis, hyperlipidemia, hypertension, memory impairment and thyroid disorder. Patient gets hemodialysis on a Sunday schedule. Last dialysis treatment was on Sunday. Yesterday she went to dialysis but they were unable to access the fistula with treatment. Patient was scheduled for outpatient left upper extremity thrombectomy with possible tunneled catheter this morning however patient had eaten this morning and anesthesia canceled procedure. Plan is for admission to observation with scheduled tunneled dialysis catheter tomorrow, possible fistulogram. Patient currently denies any shortness of breath or chest pain, no abdominal pain, nausea vomiting. No pain in the left upper extremity. We'll consult with nephrology and primary medicine. Admitting labs WBC 3.7 hemoglobin 10.3 platelet count 132,000 INR 0.9 sodium 139 potassium 5.4 BUN 78 creatinine 10.34 glucose 91 calcium 9.2 phosphorus 7.2 magnesium 2.6 - Review of Systems Comment: A 14 point review systems was completed all pertinent positives and negatives as stated in the HPI. Past Medical History Past Medical History: Chest Pain / Angina, CVA/TIA, Diabetes Mellitus, Dialysis, Hyperlipidemia, Hypertension, Memory Impairment, Renal Disease, Thyroid Disorder Additional Past Medical History / Comment(s): HEMODIALYSIS, MWF. Chronic toe infection, Stage 4 Renal Failure, Diabetic Retinopathy, Gout, mild aortic stenosis, neuropathy bilateral feet, left sided weakness since CVA, dialysis MOWEFR. History of Any Multi-Drug Resistant Organisms: None Reported Past Surgical History: Section Additional Past Surgical History / Comment(s): Left arm dialysis graft. Past Anesthesia/Blood Transfusion Reactions: No Reported Reaction Past Psychological History: No Psychological Hx Reported Smoking Status: Former smoker Past Alcohol Use History: None Reported Past Drug Use History: None Reported - Past Family History Mother Family Medical History: Hyperlipidemia Medications and Allergies Home Medications Medication Instructions Recorded Confirmed Type Metoprolol Tartrate [Lopressor] 100 mg PO BID@1000,2200 01/12/21 12/19/22 History NIFEdipine [Procardia XL] 60 mg PO BID 01/12/21 12/19/22 History allopurinoL [Zyloprim] 100 mg PO QAM 01/12/21 12/19/22 History Vit B Complx C/Folic Acid/Zinc 1 tab PO DAILY 05/01/21 12/19/22 History [Renaplex Tablet] Levothyroxine Sodium [Synthroid] 88 mcg PO QAM 09/09/21 12/19/22 History Aspirin EC [Ecotrin Low Dose] 81 mg PO DAILY 12/15/21 12/19/22 History Atorvastatin [Lipitor] 10 mg PO HS 12/15/21 12/19/22 History Ergocalciferol (Vitamin D2) 1,250 mcg PO Q14D 12/15/21 12/19/22 History [Drisdol (50,000 Iu)] Sevelamer [Renvela] 800 - 1,600 mg PO DIRECTED MDD 12/15/21 12/19/22 History 5 tablets Fluticasone Nasal [place] [Flonase 2 spr EA NOSTRIL DAILY 12/18/22 12/19/22 History Nasal [place]] sitaGLIPtin [Januvia] 25 mg PO QAM 12/18/22 12/19/22 History Allergies Allergy/AdvReac Type Severity Reaction Status Date / Time No Known Allergies Allergy Verified 12/19/22 08:27 Surgical - Exam Vital Signs Temp Pulse Resp BP Pulse Ox 98 F 56 L 18 191/75 100 12/19/22 07:41 12/19/22 07:41 12/19/22 07:41 12/19/22 07:41 12/19/22 07:41 General appearance: The patient is alert, oriented, appears in no acute distress. HET: Head is normocephalic and atraumatic. Pupils are equal and reactive. Neck: Supple. Trachea midline. Heart: Regular. Lungs: Equal expansion, normal respiratory effort. Abdomen: Soft, nontender, nondistended. Extremities: Normal skin color and turgor. No cyanosis, rash, ulceration, clubbing, or edema. Left upper extremity loop graft with nonpalpable thrill and no audible bruit. Neurological: No focal deficits. Results - Labs 12/19/22 08:47 12/19/22 08:47 Assessment and Plan Assessment: 1. End-stage renal disease requiring dialysis 2. Nonfunctioning left upper extremity fistula, likely thrombosed graft 3. Diabetes mellitus 4. Hypertension 5. Hyperlipidemia 6. History of CVA Plan: 1. Admit patient to observation unit 2. Patient scheduled for tunneled dialysis catheter placement, possible fistulogram tomorrow morning 3. Consult nephrology for dialysis recommendations/orders 4. Consult medical team for medical management 5. Patient may have renal diet 6. Nothing by mouth after midnight Anticipate discharge in the next 24-48 hours. The impression and plan of care has been dictated as directed. I performed a history and examination of this patient, discussed the same with the dictator. I agree with the dictator's note ,documented as a scribe. Any additional findings or plans will be noted.
[2022-12-19] MEDS ORDERED: DEXTROSE 50% SYRINGE 50 ML IVP PRN ×2 (12:10)
--- NOTE | 2022-12-19 12:14 | P.CONS ---
History of Present Illness - Reason for Consult Consult date: 12/19/22 DM Requesting physician: Bethany Ruano - Chief Complaint unable to have HD - History of Present Illness Patient is a 72-year-old female with diabetes mellitus, end-stage renal disease on hemodialysis Sunday/Sunday/Sunday, hypertension, dyslipidemia, and multipl e other comorbid conditions who initially presented to the hospital for placement of dialysis catheter as they were unable to perform dialysis to possible clot in her graft on 12/18/22, however she had eaten and the procedure needed to be aborted. She was sent to the ER for laboratory analysis.. We were asked to consult for medical management. Patient seen and examined at bedside. Patient was supposed to have dialysis done on 12/18. There were unable but healthy a thrill or here bruit and the refore could not accept her for dialysis. She was then supposed to have a dialysis catheter placed however she had eaten breakfast. She denies any current lightheadedness, dizziness, chest pain, shortness of breath Patient reports that she has been hoarse for the last year. She has not seen anybody about this and thought it was due to "old age". She reports that she had a bad cough at the beginning of [place]. But then states it was 2 weeks ago and resolved. Vital signs reviewed General: nontoxic, no distress, appears at stated age Derm: warm, dry Eyes: EOMI, no lid lag, anicteric sclera, pupils equal round reactive to light ENT: Nose and ears atraumatic, no thrush, no pharyngeal erythema Cardiovascular: S1S2 irreg, no murmur, positive posterior tibial pulse bilateral, no edema, capillary refill less than 2 seconds Lungs: clear to auscultation bilateral, no rhonchi, no rales, no wheeze, no accessory muscle use Abdominal: soft, nontender to palpation, no guarding, no appreciable o rganomegaly, normal bowel sounds Ext: no gross muscle atrophy, no contractures Neuro: CN II-XII grossly intact, light touch intact all 4 extremities, finger to nose within normal limits, Psych: Alert, oriented, but seems to have struggles remembering, appropriate affect Assessment: Hyperkalemia, anion gap metabolic acidosis, hyperphosphatemia, hypermagnesemia Non functioning dialysis graft left arm ESRD on HD M/W/F Anemia of chronic renal disease, at baseline Thrombocytopenia- mild DM HTN HLD Imaging: EKG is reviewed by myself reveals normal sinus rhythm, normal access, normal intervals, and no significant ST-T wave changes Data Review: Vital signs on arrival showed hypertension with a blood pressure of 191/75 Laboratory analysis reviewed and white blood cell count 3.7 (at baseline), hemoglobin 10.3 (Baseline), platelets 132 (baseline 150), potassium 5.4, carbon dioxide 20, anion gap 13, BUN 78, creatinine 10.34 Plan: - Case discussed with vascular SEWING MACHINE TESTER and peterson is for HD cath placement tomorrow. - Consult nephrology for HD. - Lokalemia X 1, Calcium gluconate - Tele - resume home Januvia 25 mg daily, allopurinol 100 mg daily, Procardia 60 mg twice daily, metoprolol 100 mg twice daily, Synthroid 88 g daily, Lipitor 10 mg daily, aspirin 81 mg daily -Start sliding scale insulin -Nothing by mouth after midnight - check BMP in AM given hyperkalemia, repeat CBC in a.m. regarding thrombocytopenia Thank you for allowing us to participate in the care of this pleasant patient. Do not hesitate to contact us with questions. Someone can be reached from the [facility] hospitalist group all hours of the day at [phone] or via Quvium. This dictation was prepared using Linekong voice recognition software. Though every attempt is made to correct errors during during dictation some may still exist. Past Medical History Past Medical History: Chest Pain / Angina, CVA/TIA, Diabetes Mellitus, Dialysis, Hyperlipidemia, Hypertension, Memory Impairment, Renal Disease, Thyroid Disorder Additional Past Medical History / Comment(s): HEMODIALYSIS, MWF. Chronic toe infection, Stage 4 Renal Failure, Diabetic Retinopathy, Gout, mild aortic stenosis, neuropathy bilateral feet, left sided weakness since CVA, dialysis MOWEFR. History of Any Multi-Drug Resistant Organisms: None Reported Past Surgical History: Section Additional Past Surgical History / Comment(s): Left arm dialysis graft. Past Anesthesia/Blood Transfusion Reactions: No Reported Reaction Past Psychological History: No Psychological Hx Reported Smoking Status: Former smoker Past Alcohol Use History: None Reported Past Drug Use History: None Reported - Past Family History Mother Family Medical History: Hyperlipidemia Medications and Allergies Home Medications Medication Instructions Recorded Confirmed Type Metoprolol Tartrate [Lopressor] 100 mg PO BID@1000,2200 04/14/21 03/21/23 History NIFEdipine [Procardia XL] 60 mg PO BID 01/12/21 12/19/22 History allopurinoL [Zyloprim] 100 mg PO QAM 01/12/21 12/19/22 History Vit B Complx C/Folic Acid/Zinc 1 tab PO DAILY 05/01/21 12/19/22 History [Renaplex Tablet] Levothyroxine Sodium [Synthroid] 88 mcg PO QAM 09/09/21 12/19/22 History Aspirin EC [Ecotrin Low Dose] 81 mg PO DAILY 12/15/21 12/19/22 History Atorvastatin [Lipitor] 10 mg PO HS 12/15/21 12/19/22 History Ergocalciferol (Vitamin D2) 1,250 mcg PO Q14D 12/15/21 12/19/22 History [Drisdol (50,000 Iu)] Sevelamer [Renvela] 800 - 1,600 mg PO DIRECTED MDD 12/15/21 12/19/22 History 5 tablets Fluticasone Nasal [place] [Flonase 2 spr EA NOSTRIL DAILY 12/18/22 12/19/22 History Nasal [place]] sitaGLIPtin [Januvia] 25 mg PO QAM 12/18/22 12/19/22 History Allergies Allergy/AdvReac Type Severity Reaction Status Date / Time No Known Allergies Allergy Verified 12/19/22 08:27 Physical Exam Osteopathic Statement: *. No significant issues noted on an osteopathic structural exam other than those noted in the History and Physical/Consult. Vitals: Vital Signs Temp Pulse Resp BP Pulse Ox 12/19/22 10:32 65 164/68 100 12/19/22 07:41 98 F 56 L 18 191/75 100 Intake and Output 12/18/22 12/19/22 12/19/22 22:59 06:59 14:59 Other: Weight 62.142 kg Results CBC & Chem 7: 12/19/22 08:47 12/19/22 08:47 Labs: Abnormal Lab Results - Last 24 Hours (Table) 12/19/22 12/19/22 Range/Units 08:47 08:47 WBC 3.7 L (3.8-10.6) k/uL RBC 3.12 L (3.80-5.40) m/uL Hgb 10.3 L (11.4-16.0) gm/dL Hct 30.0 L (34.0-46.0) % Plt Count 132 L (150-450) k/uL Lymphocytes # 0.7 L (1.0-4.8) k/uL Potassium 5.4 H (3.5-5.1) mmol/L Carbon Dioxide 20 L (22-30) mmol/L BUN 78 H (7-17) mg/dL Creatinine 10.34 H* (0.52-1.04) mg/dL Phosphorus 7.2 H (2.5-4.5) mg/dL Magnesium 2.6 H (1.6-2.3) mg/dL
[2022-12-19] MEDS ORDERED: SODIUM ZIRCONIUM CYCLOSILICATE 10 GM PACKET PO ONE ×2 (12:30→17:49)
[2022-12-19] MEDS ORDERED: CALCIUM GLUCONATE IN NACL 1 GM in SALINE 1 100ML.BAG IVPB ONE ×2 (12:30→17:49)
[2022-12-19 13:48] LABS: Glucose,Whole Blood 127 mg/dL (70-110)
[2022-12-19] MEDS: INSULIN ASPART (NovoLOG) 100 UNIT/ML VIAL SQ SCH ×3 (13:54→22:14)
[2022-12-19] MEDS: allopurinoL 100 MG TAB PO SCH ×2 (13:55→13:58)
[2022-12-19] MEDS: LINAGLIPTIN 5 MG TABLET PO SCH (14:00)
[2022-12-19 17:35] LABS: African American GFR (CKD) 4 (>60 ml/min/1.73 sqM); Anion Gap 10 mmol/L; Blood Urea Nitrogen 79 mg/dL (7-17); Calcium 8.8 mg/dL (8.4-10.2); Carbon Dioxide 22 mmol/L (22-30); Chloride 107 mmol/L (98-107); Glucose 121 mg/dL (74-99); Non-African American GFR(CKD) 3 (>60 ml/min/1.73 sqM); Potassium 5.7 mmol/L (3.5-5.1); Sodium 139 mmol/L (137-145)
[2022-12-19] MEDS ORDERED: INSULIN REGULAR 100 UNIT/ML VIAL (IV) IV ONE (17:46)
[2022-12-19] MEDS ORDERED: DEXTROSE 50% SYRINGE 50 ML IVP STA (17:46)
[2022-12-19 17:55] LABS: Glucose,Whole Blood 118 mg/dL (70-110)
[2022-12-19 20:17] LABS: Glucose,Whole Blood 53 mg/dL (70-110)
[2022-12-19 20:17] LABS: Glucose,Whole Blood 57 mg/dL (70-110)
[2022-12-19 20:44] LABS: Glucose,Whole Blood 139 mg/dL (70-110)
[2022-12-19] MEDS ORDERED: ATORVASTATIN 10 MG TAB PO SCH (21:00)
[2022-12-19 21:16] LABS: African American GFR (CKD) 4 (>60 ml/min/1.73 sqM); Anion Gap 13 mmol/L; Blood Urea Nitrogen 78 mg/dL (7-17); Calcium 8.8 mg/dL (8.4-10.2); Carbon Dioxide 19 mmol/L (22-30); Chloride 106 mmol/L (98-107); Glucose 108 mg/dL (74-99); Non-African American GFR(CKD) 3 (>60 ml/min/1.73 sqM); Potassium 4.9 mmol/L (3.5-5.1); Sodium 138 mmol/L (137-145)
[2022-12-19] MEDS: METOPROLOL TARTRATE 50 MG TAB PO SCH (22:17)
[2022-12-20 05:55] LABS: Glucose,Whole Blood 93 mg/dL (70-110)
[2022-12-20] MEDS: INSULIN ASPART (NovoLOG) 100 UNIT/ML VIAL SQ SCH ×3 (05:55→17:36)
[2022-12-20] MEDS ORDERED: LEVOTHYROXINE 88 MCG TAB PO SCH (06:30)
[2022-12-20] MEDS ORDERED: IV FLUID CONTINUATION 1,000 ML IV ONE (07:30)
[2022-12-20] MEDS ORDERED: MIDAZOLAM 2 MG/2 ML VIAL IV ONE (07:41)
[2022-12-20] MEDS: LIDOCAINE 1% INJ 10MG/ML (20 ML MDV) SQ ONE ×2 (07:43→07:49)
[2022-12-20] MEDS ORDERED: HEPARIN SODIUM 1,000 UN/ML (10ML VL) MISCELLANE ONE (07:57)
[2022-12-20] MEDS ORDERED: TOPICAL SKIN ADHESIVE 1 EACH AMP TOPICAL ONE (08:02)
--- NOTE | 2022-12-20 08:10 | P.OP ---
Date of Procedure: 12/20/22 Description of Procedure: DATE OF PROCEDURE: 12/20/2021 PREOPERATIVE DIAGNOSIS: Need for dialysis, thrombosed left upper extremity loop forearm graft PROCEDURE: 1. Ultrasound-guided right internal jugular vein access. 2. Placement of a 19 cm tunneled dialysis catheter with fluoroscopic assistanc e. 3. Moderate conscious sedation times 22 minutes with direct monitoring of certified RN administration, direct hemodynamic monitoring PROCEDURE: The patient was brought to the [employer] placed in supine position. The bilateral necks were prepped and draped in usual sterile fashion. A preprocedure timeout was performed, all parties were in agreement. Using ultrasound the right internal jugular was identified it was patent and compressible. Permanent images were stored. The site overlying the vein was anesthetized with 1% lidocaine plain and an access needle was used to gain access to the internal jugular vein with return of dark venous, nonpulsatile blood. Seldinger technique was used and a micro-access sheath was placed. Attention was then turned towards the tunnel. The chest wall was anesthetized with 1% lidocaine plain. A small brooklynn and the skin was made and the previously flushed catheter was tunneled through the anticipated location. Using Seldinger technique and fluoroscopic assistance, the 35 Glidewire was placed and the tract was serially dilated under fluoroscopic imaging. The final tear-away sheath was left in place. The inner cannula and wire were removed. The catheter was placed in the tear-away sheath was removed in standard fashion. The catheter showed good positioning was final resting place in the cavoatrial junction. The catheter aspirated and flushed freely. The incision at the neck was reapproximated with interrupted sutures of 4-0 Vicryl. The catheter was sutured in place with 3-0 nylon. Dressings were placed. The patient was allowed to awaken from anesthesia and transferred to recovery in stable condition having tolerated the procedure well. A post procedure chest x-ray is pending
--- NOTE | 2022-12-20 08:31 | IR ---
EXAMINATION TYPE: IR cvc insert central tunneled DATE OF EXAM: 12/20/2022 COMPARISON: NONE HISTORY: Fluoroscopy time. Fluoroscopy was provided to the referring clinician.
[2022-12-20] MEDS ORDERED: FLUTICASONE 50MCG/SPRAY NASAL 16GM EA NOSTRIL SCH (09:00)
[2022-12-20] MEDS ORDERED: FOLIC ACID-VIT B COMPLEX-VIT C 1 CAP PO SCH (09:00)
[2022-12-20] MEDS ORDERED: ASPIRIN 81 MG PO SCH (09:00)
[2022-12-20 09:02] LABS: HCT 26.9 % (37.2-46.3); HGB 8.7 g/dL (12.0-15.0); MCH 31.3 pg (27.0-32.0); MCHC 32.3 g/dL (32.0-37.0); MCV 96.8 fL (80.0-97.0); Mean Platelet Volume 10.7 fL (9.5-12.2); NRBC Per 100 WBC 0 /100 WBCS (0.0-0.0); Platelet Count 126 X 10*3/uL (140-440); RBC 2.78 X 10*6/uL (4.10-5.20); RDW 14.8 % (11.5-14.5); WBC 5.06 X 10*3/uL (4.50-10.00)
[2022-12-20] MEDS: allopurinoL 100 MG TAB PO SCH (09:06)
[2022-12-20] MEDS: LINAGLIPTIN 5 MG TABLET PO SCH (09:06)
--- NOTE | 2022-12-20 09:07 | XR ---
EXAMINATION TYPE: XR chest 1V portable DATE OF EXAM: 12/20/2022 HISTORY: Shortness of breath. COMPARISON: 02/22/2022 TECHNIQUE: Single view of the chest is submitted. FINDINGS: Large bore right-sided central venous line with its distal tip overlying the SVC is noted. No evidenc e for pneumothorax. There is no evidence for focal infiltrate. The heart is stable. Hilar and mediastinal structures are within normal limits. Degenerative changes are seen of the dorsal spine. IMPRESSION: 1. Chronic changes without evidence for acute pulmonary disease.
--- NOTE | 2022-12-20 11:03 | P.DS ---
Providers Date of admission: 12/19/22 12:03 Expected date of discharge: 12/20/22 Attending physician: Bethany Ruano DO Consults: 12/19/22 10:10 Consult Physician Routine Consulting Provider: Dominique Delgado Consult Reason/Comments: Medical management Do you want consulting provider notified?: Yes Consult Physician Urgent Consulting Provider: Gene Gilbert Consult Reason/Comments: ESRD, dialysis Do you want consulting provider notified?: Yes Primary care physician: Kel Bruno [facility] Course: 72-year-old female with history of end-stage renal disease requiring hemodialysis who presented for outpatient dialysis on Sunday and was unable to access left upper extremity loop graft. Patient does have a previous history of graft occlusion. She was scheduled for outpatient left upper extremity thrombectomy with possible tunneled catheter placement yesterday, however patient had eaten the morning of surgery. Patient was admitted to the hospital for labs and underwent tunneled catheter placement this morning. Awaiting hemodialysis treatment today and then will be discharged to follow. Tunneled catheter placed right IJ, x-ray confirms location. Patient denies any pain at site, no shortness of breath or chest pain. Exam General appearance: The patient is alert, oriented, appears in no acute distress. HET: Head is normocephalic and atraumatic. Pupils are equal and reactive. Neck: Supple. Right IJ cath in place secured with dressing clean dry and intact. Heart: Regular. Lungs: Equal expansion, normal respiratory effort. Abdomen: Soft, nontender, nondistended. Extremities: Normal skin color and turgor. Left forearm loop graft without palpable thrill. Neurological: Alert and oriented 3. Assessment: 1. End-stage renal disease requiring dialysis 2. Thrombosed left upper extremity loop forearm graft 3. Diabetes mellitus 4. Hypertension 5. Hyperlipidemia 6. History of CVA Plan Patient is status post tunneled catheter placement. Patient is scheduled for hemodialysis today as ordered by nephrology, and plan is for discharge home once cleared by nephrology and medical team. The impression and plan of care has been dictated as directed. Dr. Ruano I performed a history and examination of this patient, discussed the same with the dictator. I agree with the dictator's note ,documented as a scribe. Any additional findings or plans will be noted. Procedures: PROCEDURE: 1. Ultrasound-guided right internal jugular vein access. 2. Placement of a 19 cm tunneled dialysis catheter with fluoroscopic assistance. 3. Moderate conscious sedation times 22 minutes with direct monitoring of certified RN administration, direct hemodynamic monitoring Patient Condition at Discharge: Stable Plan - Discharge Summary Discharge Rx Participant: No New Discharge Prescriptions: Continue allopurinoL [Zyloprim] 100 mg PO QAM Metoprolol Tartrate [Lopressor] 100 mg PO BID@1000,2200 Levothyroxine Sodium [Synthroid] 88 mcg PO QAM Sevelamer [Renvela] 800 - 1,600 mg PO DIRECTED MDD 5 tablets NIFEdipine [Procardia XL] 60 mg PO BID Vit B Complx C/Folic Acid/Zinc [Renaplex Tablet] 1 tab PO DAILY Ergocalciferol (Vitamin D2) [Drisdol (50,000 Iu)] 1,250 mcg PO Q14D Atorvastatin [Lipitor] 10 mg PO HS Aspirin EC [Ecotrin Low Dose] 81 mg PO DAILY sitaGLIPtin [Januvia] 25 mg PO QAM Fluticasone Nasal [place] [Flonase Nasal [place]] 2 spr EA NOSTRIL DAILY Discharge Medication List Metoprolol Tartrate [Lopressor] 100 mg PO BID@1000,2200 01/12/21 [History] NIFEdipine [Procardia XL] 60 mg PO BID 01/12/21 [History] allopurinoL [Zyloprim] 100 mg PO QAM 01/12/21 [History] Vit B Complx C/Folic Acid/Zinc [Renaplex Tablet] 1 tab PO DAILY 05/01/21 [History] Levothyroxine Sodium [Synthroid] 88 mcg PO QAM 09/09/21 [History] Aspirin EC [Ecotrin Low Dose] 81 mg PO DAILY 12/15/21 [History] Atorvastatin [Lipitor] 10 mg PO HS 12/15/21 [History] Ergocalciferol (Vitamin D2) [Drisdol (50,000 Iu)] 1,250 mcg PO Q14D 12/15/21 [History] Sevelamer [Renvela] 800 - 1,600 mg PO DIRECTED MDD 5 tablets 12/15/21 [History] Fluticasone Nasal [place] [Flonase Nasal [place]] 2 spr EA NOSTRIL DAILY 12/18/22 [History] sitaGLIPtin [Januvia] 25 mg PO QAM 12/18/22 [History] Follow up Appointment(s)/Referral(s): Kel Mayen MD [Primary Care Provider] - 1-2 days Bethany Ruano DO [STAFF PHYSICIAN] - 2 Weeks Patient Instructions/Handouts: Tunneled Central Lines (DC), Perma-cath Placement (DC) Activity/Diet/Wound Care/Special Instructions: May shower, no bathing, hot tubs or soaking. Monitor catheter site for bleeding, infection. Discharge Disposition: HOME SELF-CARE
[2022-12-20] MEDS: METOPROLOL TARTRATE 50 MG TAB PO SCH (11:15)
--- NOTE | 2022-12-20 11:34 | P.PN ---
Subjective Progress Note Date: 12/20/22 Patient is a 72-year-old female with diabetes mellitus, end-stage renal disease on hemodialysis Sunday/Sunday/Sunday, hypertension, dyslipidemia, and multiple other comorbid conditions who initially presented to the hospital for placement of dialysis catheter as they were unable to perform dialysis to possible clot in her graft on 12/18/22, however she had eaten and the procedure needed to be aborted. She was sent to the ER for laboratory analysis.. We were asked to consult for medical management. Patient seen and examined at bedside. Denies any chest pain, shortness of breat h. No pain at insertion site. She is agreeable to go home after hemodialysis. Vital signs reviewed General: nontoxic, no distress, appears at stated age Cardiovascular: S1S2 reg, no murmur, positive posterior tibial pulse bilateral, Lungs: CTA bilateral, no rhonchi, no rales , no accessory muscle use Neuro: CN II-XI grossly intact, no focal neuro deficits Psych: Alert, oriented, appropriate affect Resting in place over right chest wall Assessment: Hyperkalemia- resolved anion gap metabolic acidosis, hyperphosphatemia, hypermagnesemia Non functioning dialysis graft left arm ESRD on HD M/W/F Anemia of chronic renal disease, at baseline Thrombocytopenia- mild DM HTN HLD Imaging: None reviewed Data Review: Laboratory analysis reviewed, hemoglobin 8.7 (down slightly from 10.3) sees, platelets 126. Plan: -Patient is status post placement of right-sided hemodialysis catheter. She is doing well postop. She is medically optimized for discharge after she completes dialysis. - Agree with home medications resumed on discharge by admitting service. Thank you for allowing us to participate in the care of this pleasant patient. Do not hesitate to contact us with questions. Someone can be reached from the [facility] hospitalist group all hours of the day at [phone] or via CarZumer. This dictation was prepared using [employer] voice recognition software. Though every attempt is made to correct errors during during dictation some may still exist. Objective - Vital Signs Vital signs: Vital Signs Temp 97 F L 12/20/22 10:20 Pulse 63 12/20/22 11:20 Resp 18 12/20/22 11:20 BP 106/58 12/20/22 11:20 Pulse Ox 99 03/22/23 11:20 FiO2 Intake & Output 12/19/22 12/20/22 12/20/22 18:59 06:59 18:59 Intake Total 50 Balance 50 Weight 62.142 kg 62.142 kg Intake: IV 50 Other: # Voids 0 - Labs CBC & Chem 7: 12/20/22 06:44 12/19/22 20:47 Labs: Abnormal Lab Results - Last 24 Hours (Table) 12/19/22 12/19/22 12/19/22 Range/Units 13:46 16:58 17:53 RBC (4.10-5.20) X 10*6/uL Hgb (12.0-15.0) g/dL Hct (37.2-46.3) % RDW (11.5-14.5) % Plt Count (140-440) X 10*3/uL Potassium 5.7 H (3.5-5.1) mmol/L Carbon Dioxide (22-30) mmol/L BUN 79 H (7-17) mg/dL Creatinine 10.72 H* (0.52-1.04) mg/dL Glucose 121 H (74-99) mg/dL POC Glucose (mg/dL) 127 H 118 H (70-110) mg/dL 12/19/22 12/19/22 12/19/22 Range/Units 19:54 20:15 20:43 RBC (4.10-5.20) X 10*6/uL Hgb (12.0-15.0) g/dL Hct (37.2-46.3) % RDW (11.5-14.5) % Plt Count (140-440) X 10*3/uL Potassium (3.5-5.1) mmol/L Carbon Dioxide (22-30) mmol/L BUN (7-17) mg/dL Creatinine (0.52-1.04) mg/dL Glucose (74-99) mg/dL POC Glucose (mg/dL) 53 L 57 L 139 H (70-110) mg/dL 12/19/22 12/20/22 Range/Units 20:47 06:44 RBC 2.78 L (4.10-5.20) X 10*6/uL Hgb 8.7 L (12.0-15.0) g/dL Hct 26.9 L (37.2-46.3) % RDW 14.8 H (11.5-14.5) % Plt Count 126 L (140-440) X 10*3/uL Potassium (3.5-5.1) mmol/L Carbon Dioxide 19 L (22-30) mmol/L BUN 78 H (7-17) mg/dL Creatinine 10.61 H* (0.52-1.04) mg/dL Glucose 108 H (74-99) mg/dL POC Glucose (mg/dL) (70-110) mg/dL
[2022-12-20 11:49] LABS: Glucose,Whole Blood 172 mg/dL (70-110)
--- NOTE | 2022-12-20 15:04 | P.NPCON ---
History of Present Illness - Reason for Consult end stage renal disease - History of Present Illness reason for consultation: End-stage renal disease History of present illness: Patient is a 72-year-old female seen in renal consultation for end-stage renal disease. She is maintained on hemodialysis on Sunday schedule via left upper extremity AV graft. Patient went to hemodialysis and was noted to have clotted AV graft and underwent a permacath placement this morning. Patient denies chest pain or shortness of breath. Potassium was high yesterday and was medically treated. Normal last night. Hemodynamically stable. On room air. Denies chest pain or shortness of breath. Patient does have history of diabetes. No vomiting or diarrhea. No active complaints. Tolerating dialysis well. Vital signs are stable. General: No acute distress. HEENT: Head exam is unremarkable. LUNGS: No audible rhonchi or wheezes. HEART: Rate and Rhythm are regular. ABDOMEN: Nontender. EXTREMITITES: No edema. Past Medical History Past Medical History: Chest Pain / Angina, CVA/TIA, Diabetes Mellitus, Dialysis, Hyperlipidemia, Hypertension, Memory Impairment, Renal Disease, Thyroid Disorder Additional Past Medical History / Comment(s): HEMODIALYSIS, MWF. Chronic toe infection, Stage 4 Renal Failure, Diabetic Retinopathy, Gout, mild aortic stenosis, neuropathy bilateral feet, left sided weakness since CVA, dialysis MOWEFR. History of Any Multi-Drug Resistant Organisms: None Reported Past Surgical History: Section Additional Past Surgical History / Comment(s): Left arm dialysis graft. Past Anesthesia/Blood Transfusion Reactions: No Reported Reaction Past Psychological History: No Psychological Hx Reported Smoking Status: Former smoker Past Alcohol Use History: None Reported Past Drug Use History: None Reported - Past Family History Mother Family Medical History: Hyperlipidemia Medications and Allergies Home Medications Medication Instructions Recorded Confirmed Type Metoprolol Tartrate [Lopressor] 100 mg PO BID@1000,2200 01/12/21 12/19/22 History NIFEdipine [Procardia XL] 60 mg PO BID 01/12/21 12/19/22 History allopurinoL [Zyloprim] 100 mg PO QAM 01/12/21 12/19/22 History Vit B Complx C/Folic Acid/Zinc 1 tab PO DAILY 05/01/21 12/19/22 History [Renaplex Tablet] Levothyroxine Sodium [Synthroid] 88 mcg PO QAM 09/09/21 12/19/22 History Aspirin EC [Ecotrin Low Dose] 81 mg PO DAILY 12/15/21 12/19/22 History Atorvastatin [Lipitor] 10 mg PO HS 12/15/21 12/19/22 History Ergocalciferol (Vitamin D2) 1,250 mcg PO Q14D 12/15/21 12/19/22 History [Drisdol (50,000 Iu)] Sevelamer [Renvela] 800 - 1,600 mg PO DIRECTED MDD 12/15/21 12/19/22 History 5 tablets Fluticasone Nasal [place] [Flonase 2 spr EA NOSTRIL DAILY 12/18/22 12/19/22 History Nasal [place]] sitaGLIPtin [Januvia] 25 mg PO QAM 12/18/22 12/19/22 History Allergies Allergy/AdvReac Type Severity Reaction Status Date / Time No Known Allergies Allergy Verified 12/19/22 08:27 Physical Exam Vitals: Vital Signs Temp Pulse Pulse Pulse Resp BP BP 12/20/22 13:37 62 18 113/54 12/20/22 12:43 65 18 127/51 12/20/22 11:20 63 18 106/58 12/20/22 10:20 97 F L 70 18 90/49 12/20/22 09:52 63 18 102/45 12/20/22 09:25 58 L 18 108/65 12/20/22 09:00 63 18 109/45 12/20/22 08:42 58 L 18 136/64 12/20/22 07:00 97.4 F L 60 18 119/63 12/20/22 04:30 98.0 F 67 18 93/49 12/20/22 01:16 67 17 12/19/22 20:56 97.7 F 67 17 111/59 12/19/22 20:00 67 17 12/19/22 19:55 74 18 130/99 Pulse Ox 12/20/22 13:37 12/20/22 12:43 98 12/20/22 11:20 99 12/20/22 10:20 97 12/20/22 09:52 98 12/20/22 09:25 90 L 12/20/22 09:00 93 L 12/20/22 08:42 99 12/20/22 07:00 97 12/20/22 04:30 100 12/20/22 01:16 12/19/22 20:56 99 12/19/22 20:00 12/19/22 19:55 98 Intake and Output 12/19/22 12/20/22 12/20/22 22:59 06:59 14:59 Intake Total 170 Output Total 0 Balance 170 Intake: IV 50 Oral 120 Output: Urine 0 Other: # Voids 0 Weight 62.142 kg Results - Lab Results Most recent lab results Calcium 8.8 mg/dL (8.4-10.2) 12/19/22 20:47 Phosphorus 7.2 mg/dL (2.5-4.5) H 12/19/22 08:47 Magnesium 2.6 mg/dL (1.6-2.3) H 12/19/22 08:47 12/20/22 06:44 12/19/22 20:47 Assessment and Plan Plan: Assessment: 1. End-stage renal disease maintained on hemodialysis on Sunday schedule via permacath. 2. Thrombosed AV graft. 3. Diabetes mellitus. 4. Hypertension with chronic kidney disease. Controlled. 5. Metabolic acidosis secondary to chronic kidney disease. Expect improvement postdialysis. 6. Chronic kidney disease mineral bone disease maintained on Renvela outpatient. 7. Anemia of chronic kidney disease. Plan: Currently seen while undergoing hemodialysis. Next treatment tomorrow per her outpatient schedule. JOSE to be resumed at the dialysis unit. Plan for discharge after dialysis today. Thank you for the consultation. I will continue to follow the patient with you during her hospital stay.
[2022-12-20 15:35] VITALS: BP 104/54; PULSE 60; RESP 16; TEMP 98.3
[2022-12-20 16:56] LABS: African American GFR (CKD) 3.4 (60.0-200.0); Anion Gap 16.6 mmol/L (10.00-18.00); BUN/Creat Ratio 7.63 Ratio (12.00-20.00); Blood Urea Nitrogen 87.8 mg/dL (9.0-27.0); Calcium 8.7 mg/dL (8.7-10.3); Carbon Dioxide 16.2 mmol/L (20.0-27.5); Potassium 5.7 mmol/L (3.5-5.5)
[2022-12-20 17:29] LABS: Hepatitis B Surface Antibody Reactive (Nonreactive)
[2022-12-20 17:36] LABS: Glucose,Whole Blood 93 mg/dL (70-110)
== END 2022-12-20 18:09 | disposition home or self-care (01) ==
LOC: EC 07:38 → 6NMEDSUR 12:03
PROVIDERS: ADMIT Surgery; ATTEND Surgery
DX: T82.868A Thrombosis due to vascular prosthetic devices, implants and grafts, initial encounter (principal); I12.0 Hypertensive chronic kidney disease with stage 5 chronic kidney disease or end stage renal disease; N18.6 End stage renal disease; Z99.2 Dependence on renal dialysis; E11.22 Type 2 diabetes mellitus with diabetic chronic kidney disease; E11.40 Type 2 diabetes mellitus with diabetic neuropathy, unspecified; E11.319 Type 2 diabetes mellitus with unspecified diabetic retinopathy without macular edema; D69.6 Thrombocytopenia, unspecified; D63.1 Anemia in chronic kidney disease; E78.5 Hyperlipidemia, unspecified; R41.3 Other amnesia; E87.5 Hyperkalemia; E87.20 Acidosis, unspecified; E83.39 Other disorders of phosphorus metabolism; E83.41 Hypermagnesemia; E07.9 Disorder of thyroid, unspecified; M10.9 Gout, unspecified; I35.0 Nonrheumatic aortic (valve) stenosis; I69.354 Hemiplegia and hemiparesis following cerebral infarction affecting left non-dominant side; Z98.891 History of uterine scar from previous surgery; Z87.891 Personal history of nicotine dependence; Z83.438 Family history of other disorder of lipoprotein metabolism and other lipidemia; Z79.84 Long term (current) use of oral hypoglycemic drugs; Z79.82 Long term (current) use of aspirin; Z79.890 Hormone replacement therapy; Z79.899 Other long term (current) drug therapy
CPT/HCPCS: 99285; 36415; 93005; 36558; 76937; 77001; 80053; 80048 ×2; 83735; 84100; 85025; 85027; 85610; 85730; 86706; 87340; 83036; 71045; G0378 ×2; C1769; C1750; J2250; J2001; J1644; J0611; 90935

== ENCOUNTER → 2022-12-19 | Day surgery (SDC) | payer MEDICARE, OTHER ==
[~2022-12-19] MED LIST changes: +LACTATED RINGERS 1,000 ML IV SCH; -SODIUM CHLORIDE 0.9% 1,000 ML in EMPTY BAG 1 BAG IV ONE
== END ==
LOC: OR 06:03
PROVIDERS: ATTEND Surgery
DX: Z53.9 Procedure and treatment not carried out, unspecified reason (principal); N18.6 End stage renal disease

== ENCOUNTER 2023-03-02 07:15 | Day surgery (SDC) | payer MEDICARE, OTHER ==
[~2023-03-02 07:15] MED LIST changes: +DEXAMETHASONE SOD PHOSPHATE 4 MG/ML 1 ML VIAL IV ONE; +HYDROmorphone 0.5 MG/0.5 ML SYRINGE IVP PRN; -LACTATED RINGERS 1,000 ML IV SCH; +ONDANSETRON 4 MG/2 ML VIAL IVP ONE
[2023-03-02] MEDS ORDERED: SODIUM CHLORIDE 0.9% 500 ML 500 ML IV ONE (08:05)
[2023-03-02] MEDS: LACTATED RINGERS 1,000 ML IV SCH ×2 (08:05→08:31)
[2023-03-02 08:17] LABS: Glucose,Whole Blood 92 mg/dL (70-110)
[2023-03-02 08:24] VITALS: TEMP 97
[2023-03-02 08:26] LABS: Basophils % (A) 0 %; Eosinophils # (A) 0.1 k/uL (0-0.7); Eosinophils % (A) 3 %; HCT 36.4 % (34.0-46.0); HGB 11.9 gm/dL (11.4-16.0); Lymphocytes % (A) 23 %; MCH 29.9 pg (25.0-35.0); MCHC 32.7 g/dL (31.0-37.0); MCV 91.2 fL (80.0-100.0); Mean Platelet Volume 8.6; Monocytes # (A) 0.3 k/uL (0-1.0); Monocytes % (A) 6 %; Neutrophils # (A) 2.9 k/uL (1.3-7.7); Neutrophils % (A) 66 %; Platelet Count 168 k/uL (150-450); RBC 3.99 m/uL (3.80-5.40); RDW 14.6 % (11.5-15.5); WBC 4.4 k/uL (3.8-10.6)
[2023-03-02 08:39] LABS: Albumin 4.3 g/dL (3.5-5.0); Calcium 9.2 mg/dL (8.4-10.2); Total Bilirubin 0.6 mg/dL (0.2-1.3); Total Protein 7.6 g/dL (6.3-8.2)
[2023-03-02 08:47] LABS: Potassium 4.5 mmol/L (3.5-5.1)
[2023-03-02] MEDS ORDERED: MIDAZOLAM 2 MG/2 ML VIAL IVP ONE (08:56)
--- NOTE | 2023-03-02 09:34 | P.ANPRN ---
Procedure Note - Anesthesia - Nerve Block Performed Left Infraclavicular Single Time Out Performed: Yes ([id number]) Date of Procedure: 03/02/23 Procedure Start Time: 08:55 Procedure Stop Time: 09:05 Location of Patient: PreOp Indication: Analgesia (For intraop use), Dx/Pain Location (Left wrist), Requested by Surgeon Specifically requested for management of pain by DrLui: Bethany Ruano Sedation Type: Sedate with meaningful contact maintained Preparation: Sterile Prep Position: Supine Catheter: None Needle Types: Pajunk Needle Gauge: 21 Ultrasound used to visualize needle placement: Yes Ultrasound used to observe medication spread: Yes Injectate: 0.5% Ropivacaine (see comment for volume) (30 cc + 10cc of lidcaine 1% for T2 block) Narrative: Also 10cc of 1% lidcoaine ifiltrated for T2 block Blood Aspirated: No Pain Paresthesia on Injection Noted: No Resistance on Injection: Normal Image Stored and Saved: Yes Events: Uneventful and Well Tolerated
[2023-03-02] MEDS ORDERED: KETAMINE 10 MG/ML 20 ML VIAL ONE (09:44)
[2023-03-02] MEDS ORDERED: HEPARIN SODIUM,PORCINE 5,000 UNIT/ML 1 ML VIAL ONE (09:44)
[2023-03-02] MEDS ORDERED: PROPOFOL 10 MG/ML 20 ML VIAL IV ONE (09:44)
[2023-03-02] MEDS ORDERED: LIDOCAINE 1%-EPI 1:100,000 20 ML VIAL ONE (09:44)
[2023-03-02] MEDS ORDERED: fentaNYL (PF) 50 MCG/ML 2 ML AMP ONE (09:44)
[2023-03-02] MEDS ORDERED: MIDAZOLAM 2 MG/2 ML VIAL ONE (09:44)
[2023-03-02] MEDS ORDERED: ROPIVACAINE 5 MG/ML 30 ML VIAL ONE (09:44)
[2023-03-02] MEDS ORDERED: HEPARIN SODIUM,PORCINE 10,000 UNIT in SODIUM CHLORIDE 0.9% 1,000 ML IRRIGATION ONE (10:21)
[2023-03-02] MEDS ORDERED: ceFAZolin 2,000 MG in SODIUM CHLORIDE 0.9% 1,000 ML IRRIGATION ONE (10:22)
[2023-03-02] MEDS ORDERED: GELATIN SPONGE,ABSORB (LARGE) 1 EACH SPONGE TOPICAL ONE (11:15)
[2023-03-02] MEDS ORDERED: THROMBIN (BOVINE) 5,000 UNIT VIAL TOPICAL ONE (11:15)
--- NOTE | 2023-03-02 12:03 | P.OP ---
Date of Procedure: 03/02/23 Description of Procedure: Preoperative diagnosis: End-stage renal disease Postoperative diagnosis: Same Procedure: Left brachial artery to axillary vein AV graft Surgeon: Bethany Ruano D.O. EBL: 10 mL IV fluids: See records Urine output: Not measured Drains: None Complications: None immediately apparent Condition: Stable Operative indication and findings: Patient is a 72-year-old female with end- stage renal disease who has been getting dialysis via left loop forearm graft area it has recently thrombosed multiple times and is subsequently no longer able to be opened or utilized. She is currently getting dialysis via chest wall catheter. She is here today for new access. Procedure in detail: Patient was taken to the operative suite and placed in supine position. Left upper extremity is prepped and draped in usual sterile fashion. A preprocedure timeout was performed, all parties are in agreement. The antecubital fossa, a longitudinal incision was made over the radial pulse and carried down through subcutaneous tissue to the level of the brachial artery. It was encircled proximally and distally. It was then turned towards the axilla. Also was utilized and the vein was identified. An incision was made and carried down through subcu tissue the left cautery. The vein was identified and dissected free to allow for a Satinsky clamp to be placed. At that point the graft was then tunneled and the patient was heparinized. The brachial loops were drawn to close and anastomosis was created with 6-0 Prolene. Prior to completion of the anastomosis the graft was flushed. Thrombin and Gelfoam was placed. Attention was turned towards the outflow, the graft was cut to size and a venotomy was performed. Montoya's grade of 6-0 Prolene. The flow was then released through the graft, the flow was patent but relatively soft pressured. There was a multiphasic signal proximally and distally to both the anastomoses as well as at the level of the radial artery. At this point no further revisions seem necessary. The areas were irrigated with antibiotic irrigation. The incisions were closed in a multilayer fashion with 3-0 Vicryl interrupted sutures and the subcuticular fat and 4-0 running Monocryl for skin. Wound dressings were placed. The patient was awakened from anesthesia and transferred to recovery in stable condition and tolerated the procedure well. Plan - Discharge Summary Discharge Rx Participant: No New Discharge Prescriptions: No Action allopurinoL [Zyloprim] 100 mg PO QAM Metoprolol Tartrate [Lopressor] 100 mg PO BID@1000,2200 Levothyroxine Sodium [Synthroid] 88 mcg PO QAM Sevelamer [Renvela] 800 - 1,600 mg PO DIRECTED MDD 5 tablets NIFEdipine [Procardia XL] 60 mg PO BID Vit B Complx C/Folic Acid/Zinc [Renaplex Tablet] 1 tab PO DAILY Ergocalciferol (Vitamin D2) [Drisdol (50,000 Iu)] 1,250 mcg PO Q14D Atorvastatin [Lipitor] 10 mg PO HS Aspirin EC [Ecotrin Low Dose] 81 mg PO DAILY sitaGLIPtin [Januvia] 25 mg PO QAM Discharge Medication List Metoprolol Tartrate [Lopressor] 100 mg PO BID@1000,2200 01/12/21 [History] NIFEdipine [Procardia XL] 60 mg PO BID 01/12/21 [History] allopurinoL [Zyloprim] 100 mg PO QAM 01/12/21 [History] Vit B Complx C/Folic Acid/Zinc [Renaplex Tablet] 1 tab PO DAILY 05/01/21 [History] Levothyroxine Sodium [Synthroid] 88 mcg PO QAM 09/09/21 [History] Aspirin EC [Ecotrin Low Dose] 81 mg PO DAILY 12/15/21 [History] Atorvastatin [Lipitor] 10 mg PO HS 12/15/21 [History] Ergocalciferol (Vitamin D2) [Drisdol (50,000 Iu)] 1,250 mcg PO Q14D 12/15/21 [History] Sevelamer [Renvela] 800 - 1,600 mg PO DIRECTED MDD 5 tablets 12/15/21 [History] sitaGLIPtin [Januvia] 25 mg PO QAM 12/18/22 [History] Follow up Appointment(s)/Referral(s): Bethany Ruano DO [STAFF PHYSICIAN] - 2 Weeks Activity/Diet/Wound Care/Special Instructions: May be that as previous. Utilized sling for next 24 hours due to block. Use [id number] medications for pain control. May use ice. No heavy lifting for 2 weeks. Discharge Disposition: HOME SELF-CARE
[2023-03-02 12:12] VITALS: RESP 20
[2023-03-02 13:00] VITALS: PULSE 74
[2023-03-02 13:01] LABS: Glucose,Whole Blood 116 mg/dL (70-110)
[2023-03-02] MEDS ORDERED: ONDANSETRON ODT 4 MG TAB PO ONE (13:04)
[2023-03-02 13:13] VITALS: BP 128/69
== END 2023-03-02 13:00 | disposition home or self-care (01) ==
LOC: OR 07:15
PROVIDERS: ATTEND Surgery
DX: I12.0 Hypertensive chronic kidney disease with stage 5 chronic kidney disease or end stage renal disease (principal); N18.6 End stage renal disease; Z99.2 Dependence on renal dialysis; G89.18 Other acute postprocedural pain; E11.22 Type 2 diabetes mellitus with diabetic chronic kidney disease; E78.5 Hyperlipidemia, unspecified; E03.9 Hypothyroidism, unspecified; E11.41 Type 2 diabetes mellitus with diabetic mononeuropathy; E11.319 Type 2 diabetes mellitus with unspecified diabetic retinopathy without macular edema; Z79.82 Long term (current) use of aspirin; Z79.84 Long term (current) use of oral hypoglycemic drugs; Z79.890 Hormone replacement therapy; Z79.899 Other long term (current) drug therapy; Z86.73 Personal history of transient ischemic attack (TIA), and cerebral infarction without residual deficits; Z98.890 Other specified postprocedural states
CPT/HCPCS: 36830; 64415; 80053; 85025; L8670; J2250; J1644 ×2; J1100; J0690 ×2; J2405; J3010; J2795; J2704

== ENCOUNTER 2023-03-20 12:02 | Emergency (ER) | payer MEDICARE, OTHER ==
[2023-03-20 12:18] VITALS: TEMP 97.8
--- NOTE | 2023-03-20 12:41 | ED ---
General Adult HPI - General Chief complaint: Fall Stated complaint: fall Time Seen by Provider: 03/20/23 12:30 Source: patient, RN notes reviewed, old records reviewed Mode of arrival: ambulatory Limitations: no limitations - History of Present Illness Initial comments: 72-year-old female presenting for evaluation of fall with head injury. Patient states she was getting out of bed wearing socks and slipped with minor head injury. No loss consciousness. Patient has end-stage renal disease and states she has an appointment today to see her vascular surgeon and receive an ultrasound of her new left upper extremity AV access. She is currently receiving hemodialysis through a right chest wall permacath. No chest pain, no dyspnea, no fever - Related Data Home Medications Medication Instructions Recorded Confirmed Metoprolol Tartrate [Lopressor] 100 mg PO BID@1000,2200 01/12/21 03/01/23 NIFEdipine [Procardia XL] 60 mg PO BID 01/12/21 03/02/23 allopurinoL [Zyloprim] 100 mg PO QAM 01/12/21 03/01/23 Vit B Complx C/Folic Acid/Zinc 1 tab PO DAILY 05/01/21 03/01/23 [Renaplex Tablet] Levothyroxine Sodium [Synthroid] 88 mcg PO QAM 09/09/21 03/01/23 Aspirin EC [Ecotrin Low Dose] 81 mg PO DAILY 12/15/21 03/01/23 Atorvastatin [Lipitor] 10 mg PO HS 12/15/21 03/01/23 Ergocalciferol (Vitamin D2) 1,250 mcg PO Q14D 12/15/21 03/01/23 [Drisdol (50,000 Iu)] Sevelamer [Renvela] 800 - 1,600 mg PO DIRECTED MDD 12/15/21 03/01/23 5 tablets sitaGLIPtin [Januvia] 25 mg PO QAM 12/18/22 03/01/23 Allergies Allergy/AdvReac Type Severity Reaction Status Date / Time No Known Allergies Allergy Verified 03/02/23 07:46 Review of Systems ROS Statement: Those systems with pertinent positive or pertinent negative responses have been documented in the HPI. ROS Other: All systems not noted in ROS Statement are negative. Past Medical History Past Medical History: Chest Pain / Angina, CVA/TIA, Diabetes Mellitus, Dialysis, Hyperlipidemia, Hypertension, Memory Impairment, Renal Disease, Thyroid Disorder Additional Past Medical History / Comment(s): HEMODIALYSIS, MWF. Chronic toe infection resolved, Stage 4 Renal Failure, Diabetic Retinopathy, Gout, mild aortic stenosis, neuropathy bilateral feet, left sided weakness since CVA, dialysis MOWEFR. History of Any Multi-Drug Resistant Organisms: None Reported Past Surgical History: Section Additional Past Surgical History / Comment(s): Left arm dialysis graft. hemodyalsis catheter rt side Past Anesthesia/Blood Transfusion Reactions: No Reported Reaction Past Psychological History: No Psychological Hx Reported Smoking Status: Former smoker Past Alcohol Use History: None Reported Past Drug Use History: None Reported - Past Family History Mother Family Medical History: Hyperlipidemia General Exam Limitations: no limitations General appearance: alert, in no apparent distress Head exam: Present: atraumatic, normocephalic Eye exam: Present: normal appearance, PERRL Cardiovascular Exam: Present: regular rate, normal rhythm Extremities exam: Present: other (Incision is clean and dry. Extremity is warm. The distal AV fistula has no thrill or bruit.) Neurological exam: Present: alert, oriented X3 Psychiatric exam: Present: normal affect, normal mood Course Vital Signs 03/20/23 12:14 Temperature 97.8 F Pulse Rate 64 Respiratory 18 Rate Blood Pressure 126/62 O2 Sat by Pulse 100 Oximetry Medical Decision Making - Medical Decision Making Was pt. sent in by a medical professional or institution (KARIME Purcell, [employer], urgent care, hospital, or skilled nursing...) When possible be specific @ -No Did you speak to anyone other than the patient for history (EMS, parent, family, police, friend...)? What history was obtained from this source @ -No Did you review nursing and triage notes (agree or disagree)? Why? @ -I reviewed and agree with nursing and triage notes Were old charts reviewed (outside hosp., previous admission, EMS record, old EKG, old radiological studies, urgent care reports/EKG's, skilled nursing records)? Report findings @ -No old charts were reviewed Differential Diagnosis (chest pain, altered mental status, abdominal pain women, abdominal pain men, vaginal bleeding, weakness, fever, dyspnea, syncope, headache, dizziness, GI bleed, back pain, seizure, CVA, palpatations, mental health, musculoskeletal)? @ -[Intracranial hemorrhage EKG interpreted by me (3pts min.). @ -As above X-rays interpreted by me (1pt min.). @ -None done CT interpreted by me (1pt min.). @ -[Negative for intracranial hemorrhage or mass effect U/S interpreted by me (1pt. min.). @ -None done What testing was considered but not performed or refused? (CT, X-rays, U/S, labs)? Why? @ -None What meds were considered but not given or refused? Why? @ -None Did you discuss the management of the patient with other professionals (professionals i.e. , PA, [employer], lab, RT, psych nurse, 7th grade social studies teacher, strip roller, teacher, customs and border protection officer, caseworker)? Give summary @ -No Was smoking cessation discussed for >3mins.? @ -No Was critical care preformed (if so, how long)? @ -No Were there social determinants of health that impacted care today? How? (Homelessness, low income, unemployed, alcoholism, drug addiction, transportation, low edu. Level, literacy, decrease access to med. care, detention, rehab)? @ -No Was there de-escalation of care discussed even if they declined (Discuss DNR or withdrawal of care, Hospice)? DNR status @ -No What co-morbidities impacted this encounter? (DM, HTN, Smoking, COPD, CAD, Cancer, CVA, ARF, Chemo, Hep., AIDS, mental health diagnosis, sleep apnea, morbid obesity)? @ -[Previous CVA, end-stage renal disease Was patient admitted / discharged? Hospital course, mention meds given and rou te, prescriptions, significant lab abnormalities, going to OR and other pertinent info. @ -[72-year-old female presenting for mechanical fall and head injury. Head CT is obtained and is negative for intracranial hemorrhage or mass effect. Patient should maintain her appointment with her vascular surgeon today regarding the left upper extremity fistula. Undiagnosed new problem with uncertain prognosis? @ -No Drug Therapy requiring intensive monitoring for toxicity (Heparin, Nitro, Insulin, Cardizem)? @ -No Were any procedures done? @ -No Diagnosis/symptom? @ -[Closed head injury Acute, or Chronic, or Acute on Chronic? @ -[Acute Uncomplicated (without systemic symptoms) or Complicated (systemic symptoms)? @ -default Side effects of treatment? @ -No Exacerbation, Progression, or Severe Exacerbation? @ -No Poses a threat to life or bodily function? How? (Chest pain, [place], [place], pneumonia, PE, COPD, DKA, ARF, appy, cholecystitis, CVA, Diverticulitis, Homicidal, Suicidal, threat to staff... and all critical care pts) @ -[Low risk Disposition Clinical Impression: Fall, Closed head injury Disposition: HOME SELF-CARE Condition: Fair Instructions (If sedation given, give patient instructions): Fall Prevention for Older Adults (ED), Concussion (ED) Is patient prescribed a controlled substance at d/c from ED?: No Referrals: Kel Mayen MD [Primary Care Provider] - 1-2 days Time of Disposition: 13:51
--- NOTE | 2023-03-20 13:39 | CT ---
EXAMINATION TYPE: CT brain wo con DATE OF EXAM: 03/20/2023 COMPARISON: 05/01/2021 HISTORY: fall with pain CT DLP: 1080.2 mGycm Automated exposure control for dose reduction was used. FINDINGS: Moderate generalized degenerative change. Low-attenuation within the left basal ganglia compatible wi th remote lacunar infarct. Stable bilateral basal ganglia calcifications. There is a calcification wi thin the bilateral cerebellar hemisphere is stable. No midline shift or mass effect. No acute intracranial hemorrhage. Low attenuation white matter is no nspecific but most of old remote microvascular ischemia. Calvarium is intact. Craniocervical junction is maintained. Atherosclerotic change of the aorta. IMPRESSION: DEGENERATIVE AND REMOTE ISCHEMIC WHITE MATTER CHANGE WITH NO EVIDENCE OF ACUTE HEMORRHAGE OR MASS EFF ECT.
[2023-03-20 14:09] VITALS: BP 155/67; PULSE 59; RESP 16
== END 2023-03-20 14:15 | disposition home or self-care (01) ==
LOC: EC 12:02
DX: S09.90XA Unspecified injury of head, initial encounter (principal); I67.82 Cerebral ischemia; E11.22 Type 2 diabetes mellitus with diabetic chronic kidney disease; I12.0 Hypertensive chronic kidney disease with stage 5 chronic kidney disease or end stage renal disease; N18.6 End stage renal disease; E78.5 Hyperlipidemia, unspecified; I10 Essential (primary) hypertension; E07.9 Disorder of thyroid, unspecified; Z87.891 Personal history of nicotine dependence; Z86.73 Personal history of transient ischemic attack (TIA), and cerebral infarction without residual deficits; Z79.84 Long term (current) use of oral hypoglycemic drugs; Z79.82 Long term (current) use of aspirin; Z79.890 Hormone replacement therapy; Z99.2 Dependence on renal dialysis; W01.0XXA Fall on same level from slipping, tripping and stumbling without subsequent striking against object, initial encounter
CPT/HCPCS: 70450; 99284

== ENCOUNTER 2023-05-15 11:02 | Emergency (ER) | payer MEDICARE, OTHER ==
[2023-05-15 11:29] VITALS: PULSE 64; RESP 18
--- NOTE | 2023-05-15 11:50 | ED ---
Upper Extremity HPI - General Chief Complaint: Extremity Injury, Upper Stated Complaint: lt hand wound Time Seen by Provider: 05/15/23 11:39 Source: patient, family, RN notes reviewed Mode of arrival: ambulatory Limitations: no limitations - History of Present Illness Initial Comments: This is a 72-year-old female who presents to the emergency department for left hand pain. Patient slipped and fell getting out of bed about a week ago. She had been doing okay, however over the last couple of days she developed increasing pain to the left hand. She does have some wounds to the left hand that have started to develop surrounding redness, and she is worried about infection. She is having difficulty moving the hand and opening and closing her fingers because of the pain. Denies any fevers or chills. She is supposed to have surgery with Dr. Ruano this Sunday related to the poor blood flow in the left upper extremity, and is worried about an infection interfering with this as well. Denies any fevers, chills, sore throat, cough, dyspnea, chest pain, palpitations, abdominal pain, nausea, vomiting, diarrhea, back pain, or headaches. MD Complaint: Injury to:: left, hand - Related Data Home Medications Medication Instructions Recorded Confirmed Metoprolol Tartrate [Lopressor] 100 mg PO BID@1000,2200 PRN 01/12/21 05/11/23 NIFEdipine [Procardia XL] 60 mg PO BID PRN 01/12/21 05/11/23 allopurinoL [Zyloprim] 100 mg PO QAM 01/12/21 05/11/23 Vit B Complx C/Folic Acid/Zinc 1 tab PO DAILY 05/01/21 05/11/23 [Renaplex Tablet] Levothyroxine Sodium [Synthroid] 88 mcg PO QAM 09/09/21 05/11/23 Aspirin EC [Ecotrin Low Dose] 81 mg PO DAILY 12/15/21 05/11/23 Atorvastatin [Lipitor] 10 mg PO HS 12/15/21 05/11/23 Sevelamer [Renvela] 800 mg PO DIRECTED 12/15/21 05/11/23 sitaGLIPtin [Januvia] 25 mg PO QAM 12/18/22 05/11/23 Sevelamer [Renvela] 1,600 mg PO W/SUPPER MDD 6 tablets 05/11/23 05/11/23 Previous Rx's Medication Instructions Recorded Cephalexin [Keflex] 500 mg PO Q6HR 7 Days #28 cap 05/15/23 Allergies Allergy/AdvReac Type Severity Reaction Status Date / Time No Known Allergies Allergy Verified 05/15/23 11:29 Review of Systems ROS Statement: Those systems with pertinent positive or pertinent negative responses have been documented in the HPI. ROS Other: All systems not noted in ROS Statement are negative. Past Medical History Past Medical History: Chest Pain / Angina, CVA/TIA, Diabetes Mellitus, Dialysis, Hearing Disorder / Deafness, Hyperlipidemia, Hypertension, Memory Impairment, Renal Disease, Thyroid Disorder Additional Past Medical History / Comment(s): Recent fall 03/20/23, hit head, got checked out in ER, everything ok. Trouble grasping with left hand. Hard of hearing. HEMODIALYSIS, MWF. Chronic toe infection resolved, Stage 4 Renal Failure, Diabetic Retinopathy, Gout, mild aortic stenosis, neuropathy bilateral feet, left sided weakness since CVA, dialysis MOWEFR. History of Any Multi-Drug Resistant Organisms: None Reported Past Surgical History: Section Additional Past Surgical History / Comment(s): Left arm dialysis graft, hemodyalsis catheter right side, graft upper and lower left arm. Past Anesthesia/Blood Transfusion Reactions: No Reported Reaction Past Psychological History: No Psychological Hx Reported Smoking Status: Former smoker Past Alcohol Use History: None Reported Past Drug Use History: None Reported - Past Family History Mother Family Medical History: Hyperlipidemia General Exam Limitations: no limitations General appearance: alert, in no apparent distress Head exam: Present: atraumatic, normocephalic, normal inspection Respiratory exam: Present: normal lung sounds bilaterally. Absent: respiratory distress, wheezes, rales, rhonchi, stridor Cardiovascular Exam: Present: regular rate, normal rhythm, normal heart sounds. Absent: systolic murmur, diastolic murmur, rubs, gallop, clicks Extremities exam: Present: other (Scattered abrasions to the left upper extremity with surrounding erythema and tenderness. Range of motion limited by pain. 2+ radial pulses. Capillary refill less than 1 second.) Neurological exam: Present: alert, oriented X3, CN II-XII intact Psychiatric exam: Present: normal affect, normal mood Course Vital Signs 05/15/23 05/15/23 11:26 12:58 Temperature 98 F 98.1 F Pulse Rate 64 64 Respiratory 18 18 Rate Blood Pressure 129/78 135/81 O2 Sat by Pulse 100 100 Oximetry Medical Decision Making - Medical Decision Making This is a 72-year-old female who presents to the emergency department for left hand pain. Was pt. sent in by a medical professional or institution? @ -No Did you speak to anyone other than the patient for history? @ -No Did you review nursing and triage notes? @ -Yes, and I agree, it is accurate with regards to the patient's symptoms. Were old charts reviewed? @ -No Differential Diagnosis? @ -Differential Hand Pain: Fracture, dislocation, contusion, cellulitis, gout, this is not meant to be an all-inclusive list. EKG interpreted by me (3pts min.)? @ -Not obtained X-rays interpreted by me (1pt min.)? @ -X-ray of the left hand obtained. My interpretation identifies no acute fractures. CT interpreted by me (1pt min.)? @ -Not obtained U/S interpreted by me (1pt. min.)? @ -Not obtained What testing was considered but not performed? (CT, X-rays, U/S, labs)? Why? @ -None What meds were considered but not given? Why? @ -None Did you discuss the management of the patient with other professionals? @ -No Did you reconcile home meds? @ -No Was smoking cessation discussed for >3mins.? @ -No Was critical care preformed (if so, how long)? @ -No Were there social determinants of health that impacted care today? How? (Homeles sness, low income, unemployed, alcoholism, drug addiction, transportation, low edu. Level, literacy, decrease access to med. care, intermediate, rehab)? @ -No Was there de-escalation of care discussed even if they declined? (Discuss DNR or withdrawal of care, Hospice)? @ -No What co-morbidities impacted this encounter? (DM, HTN, Smoking, COPD, CAD, Cancer, CVA, Hep., AIDS, mental health diagnosis, sleep apnea, morbid obesity)? @ -PVD, DM Was patient admitted / discharged? @ -Discharged. X-ray of the left hand obtained revealing no acute process, including no evidence of any fractures, soft tissue swelling, or subcutaneous gas formation. Given that she does have wounds with surrounding erythema associated with the increasing pain, we'll treat the patient for a developing cellulitis. Prescription for Keflex provided with dosing instructions reviewed. Otherwise advised Tylenol as needed for pain relief. Undiagnosed new problem with uncertain prognosis? @ -None Drug Therapy requiring intensive monitoring for toxicity (Heparin, Nitro, Insulin, Cardizem)? @ -None Were any procedures done? @ -None Diagnosis/symptom? @ -Cellulitis, left hand pain Acute, or Chronic, or Acute on Chronic? @ -Acute Uncomplicated (without systemic symptoms) or Complicated (systemic symptoms)? @ -Uncomplicated Side effects of treatment? @ -None Exacerbation, Progression, or Severe Exacerbation] @ -Not applicable Poses a threat to life or bodily function? @ -No Return precautions reviewed in depth, the patient is instructed to return to the emergency department with any new, worsening, or concerning symptoms. Patient verbalized understanding. This case was discussed in detail with the attending ED physician, Dr. Morales. Presentation, findings, and treatment plan discussed in detail as well. - Radiology Data Radiology results: report reviewed, image reviewed Disposition Clinical Impression: Cellulitis of left hand Disposition: HOME SELF-CARE Instructions (If sedation given, give patient instructions): Cellulitis (ED) Additional Instructions: Return to the emergency department with any new, worsening, or concerning symptoms. Take the antibiotic as prescribed for 7 days. Take Tylenol as needed for pain relief. Follow up with your primary care provider in 1-2 days. Prescriptions: Cephalexin [Keflex] 500 mg PO Q6HR 7 Days #28 cap Is patient prescribed a controlled substance at d/c from ED?: No Referrals: Kel Mayen MD [Primary Care Provider] - 1-2 days
--- NOTE | 2023-05-15 12:06 | XR ---
EXAMINATION TYPE: XR hand complete LT DATE OF EXAM: 05/15/2023 12:01 PM INDICATION: Patient age:Female; 72 years old; Reason for study: Fall injury; [facility]. COMPARISON: None TECHNIQUE: Frontal, lateral and oblique views of the left hand were obtained. FINDINGS: Diffuse bone demineralization. Normal alignment of the visualized joints. Diffuse degenerat tracie changes. No acute osseous pathology is identified. No evidence of soft tissue swelling. Vascular sclerosis. IMPRESSION: No acute osseous pathology.
[2023-05-15] MEDS ORDERED: ACET/COD 300 MG/30 MG STARTER PACK 6 TAB BTL PO STA (12:35)
[2023-05-15 13:00] VITALS: BP 135/81; TEMP 98.1
== END 2023-05-15 13:00 | disposition home or self-care (01) ==
LOC: EC 11:02
DX: S40.812A Abrasion of left upper arm, initial encounter (principal); E11.319 Type 2 diabetes mellitus with unspecified diabetic retinopathy without macular edema; E78.5 Hyperlipidemia, unspecified; E07.9 Disorder of thyroid, unspecified; E11.22 Type 2 diabetes mellitus with diabetic chronic kidney disease; I12.9 Hypertensive chronic kidney disease with stage 1 through stage 4 chronic kidney disease, or unspecified chronic kidney disease; N18.4 Chronic kidney disease, stage 4 (severe); Z86.73 Personal history of transient ischemic attack (TIA), and cerebral infarction without residual deficits; Z87.891 Personal history of nicotine dependence; Z79.82 Long term (current) use of aspirin; Z79.890 Hormone replacement therapy; Z79.899 Other long term (current) drug therapy; Z99.2 Dependence on renal dialysis; W01.0XXA Fall on same level from slipping, tripping and stumbling without subsequent striking against object, initial encounter
CPT/HCPCS: 99283

== ENCOUNTER 2023-05-29 12:56 | Inpatient (IN) | payer MEDICARE, OTHER ==
--- NOTE | 2023-05-29 13:12 | ED ---
Extremity Problem HPI - General Source: patient, RN notes reviewed Mode of arrival: ambulatory Limitations: physical limitation <Gadiel Pennington - Last Filed: 05/29/23 13:11> - History of Present Illness MD Complaint: cold extremity Onset/Timin -: days(s) Location: left, upper extremity History of Same: Yes Radiation: distal Severity scale (1-10): 2 Quality: dull Consistency: constant Improves with: nothing Worsens with: nothing Associated Symptoms: denies other symptoms <Paul Das - Last Filed: 06/05/23 04:15> - General Chief complaint: Extremity Problem,Nontraumatic Stated complaint: LEFT HAND Time Seen by Provider: 05/29/23 13:11 - History of Present Illness Initial comments: 72-year-old female presents emergency department with chief complaint of left hand infection. Patient states that she had some issues 2 weeks ago and was seen here and then admitted at [facility] for cellulitis. Patient states she was discharged on oral antibiotics. She states symptoms are getting worse. Patient states she is also scheduled for surgery performed Dr. Ruano for her graft of her left arm. She is on dialysis. (Gadiel Pennington) This patient is a 72-year-old woman who presents with complaint that she was experiencing left hand weakness and numbness. The patient had been seen at [facility] where it was felt there was concern of possible cellulitis. The patient was treated there and discharged home. 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 The patient also states she has history of left forearm dialysis graft. She was told this was clotted. They did place a temporary dialysis catheter that she has been using. Patient denies any systemic symptoms. No fever or chills. No chest pain, cough, dyspnea, palpitations. (Paul Das) - Related Data Home Medications Medication Instructions Recorded Confirmed NIFEdipine [Procardia XL] 60 mg PO BID PRN 01/12/21 05/30/23 allopurinoL [Zyloprim] 100 mg PO QAM 01/12/21 05/30/23 Vit B Complx C/Folic Acid/Zinc 1 tab PO DAILY 05/01/21 05/30/23 [Renaplex Tablet] Levothyroxine Sodium [Synthroid] 88 mcg PO QAM 09/09/21 05/30/23 Atorvastatin [Lipitor] 10 mg PO HS 12/15/21 05/30/23 Sevelamer [Renvela] 800 - 1,600 mg PO DIRECTED MDD 12/15/21 05/30/23 5 tabs sitaGLIPtin [Januvia] 25 mg PO QAM 12/18/22 05/30/23 Previous Rx's Medication Instructions Recorded Acetaminophen Tab [Tylenol] 650 mg PO Q6HR PRN tab 06/01/23 Aspirin 81 mg PO BID tab 06/01/23 Famotidine [Pepcid] 20 mg PO DAILY tab 06/01/23 HYDROcodone/APAP 10-325MG [[place] 1 each PO Q6H PRN #7 tab 06/01/23 10-325] Multivitamins, Thera [Multivitamin 1 each PO DAILY@1200 tab 06/01/23 (formulary)] Sennosides-Docusate Sodium 2 each PO HS tab 06/01/23 [Senokot-S] bisacodyL [Dulcolax] 10 mg RECTAL DAILY PRN suppositor 06/01/23 Allergies Allergy/AdvReac Type Severity Reaction Status Date / Time No Known Allergies Allergy Verified 05/31/23 09:11 Review of Systems ROS Other: All systems not noted in ROS Statement are negative. <Gadiel Pennington - Last Filed: 05/29/23 13:11> ROS Other: All systems not noted in ROS Statement are negative. Constitutional: Denies: fever, chills, weakness Respiratory: Denies: cough, dyspnea, wheezes Cardiovascular: Denies: chest pain, palpitations, edema, syncope Gastrointestinal: Denies: abdominal pain, vomiting, diarrhea Musculoskeletal: Denies: back pain Skin: Reports: change in color (She notes her hand is pale in comparison with the right) Neurological: Reports: as per HPI, weakness, numbness <Paul Das - Last Filed: 06/05/23 04:15> ROS Statement: Those systems with pertinent positive or pertinent negative responses have been documented in the HPI. Past Medical History Past Medical History: Chest Pain / Angina, CVA/TIA, Diabetes Mellitus, Dialysis, Hearing Disorder / Deafness, Hyperlipidemia, Hypertension, Memory Impairment, Renal Disease, Skin Disorder, Thyroid Disorder Additional Past Medical History / Comment(s): LEFT HAND WOUND PER DAUGHTER, CELINE (LEFT HAND MIDDLE FINGER HAS INCREASED WITH DARKENED SKIN TO HALF WAY UP, OPEN BLISTER ON LEFT PINKY FINGER AND TOP OF HAND) PATIENT HAD BEEN [facility] AND DISCHARGED AND THEN WENT TO @ [facility] AND WAS ADMITTED FOR 4 DAYS AND HAD A REGIME OF ANTIBIOTICS). DAUGHTER STATES PATIENT DID NOT FALL....Recent fall 03/20/23, hit head, got checked out in ER, everything ok. Trouble grasping with left hand. Hard of hearing. HEMODIALYSIS, MWF. Chronic toe infection r esolved, Stage 4 Renal Failure, Diabetic Retinopathy, Gout, mild aortic stenosis, neuropathy bilateral feet, left sided weakness since CVA, dialysis MOWEFR. History of Any Multi-Drug Resistant Organisms: None Reported Past Surgical History: Section Additional Past Surgical History / Comment(s): 03/14/23Left arm dialysis graft, hemodyalsis catheter right side, graft upper and lower left arm. Past Anesthesia/Blood Transfusion Reactions: No Reported Reaction Past Psychological History: No Psychological Hx Reported Smoking Status: Former smoker Past Alcohol Use History: None Reported Past Drug Use History: None Reported - Past Family History Mother Family Medical History: Hyperlipidemia <Gadiel Pennington M - Last Filed: 05/29/23 13:11> General Exam Limitations: physical limitation <Gadiel Pennington M - Last Filed: 05/29/23 13:11> General appearance: alert, in no apparent distress Head exam: Present: atraumatic, normocephalic Eye exam: Present: normal appearance. Absent: scleral icterus, conjunctival injection Neck exam: Present: normal inspection Respiratory exam: Present: normal lung sounds bilaterally. Absent: respiratory distress, wheezes, rales, rhonchi, stridor Cardiovascular Exam: Present: regular rate, normal rhythm, normal heart sounds. Absent: systolic murmur, diastolic murmur, rubs, gallop GI/Abdominal exam: Present: soft. Absent: distended, tenderness, guarding, rebound, rigid, mass Extremities exam: Present: normal capillary refill, other (The patient's left forearm/hand does appear to be mildly cyanotic versus the right. The hand is cool to the touch. There is very weak radial pulse. The patient does have area of eschar to the dorsal aspect of left third digit.). Absent: pedal edema, calf tenderness Back exam: Present: normal inspection Neurological exam: Present: alert, oriented X3, CN II-XII intact, motor sensory deficit (Left hand microstrategy architect developer strength is 4-5 but noticeably weaker than left) Skin exam: Present: warm, dry, intact, pallor (Left hand, delayed cap refill), other (See above). Absent: rash <Paul Das - Last Filed: 06/05/23 04:15> - General Exam Comments Initial Comments: Visual Physical Exam Vital signs reviewed General: Well-appearing, nontoxic, no acute distress. Head: Normocephalic, atraumatic Eyes: PERRLA, EOMI ENT: Airway patent Chest: Nonlabored breathing Skin: No visual rash, normal skin tone Neuro: Alert and oriented 3 Musculoskeletal: No gross abnormalities (Gadiel Pennington) Course <Paul Das - Last Filed: 06/05/23 04:15> Vital Signs 05/29/23 05/29/23 05/29/23 13:03 19:14 21:34 Temperature 97.9 F Pulse Rate 65 64 65 Respiratory 18 16 16 Rate Blood Pressure 124/77 180/69 168/82 O2 Sat by Pulse 100 96 97 Oximetry - Reevaluation(s) Reevaluation #1: 05/29/23 17:03 I was called to the bedside and told that the patient had a fall when she got up to use the bathroom. The patient does on the exam have pain with any range of motion of the right hip. Suspect that there may be fracture, additional studies ordered. Patient declining analgesia at this time. Patient is given the call button and told to activate if she changes her mind and would like analgesia. (Paul Das) Medical Decision Making <Gadiel Pennington - Last Filed: 05/29/23 13:11> - Lab Data Result diagrams: 06/01/23 06:14 06/01/23 06:14 <Paul Das - Last Filed: 06/05/23 04:15> - Medical Decision Making I performed a quick note portion of this chart signed Gadiel Pennington PA-C (Gadiel Pennington) This patient is 72-year-old woman who was here with concerns about weakness and numbness of her left hand. It does appear that there is some moderate arterial insufficiency. Studies ordered to verify arterial pulses in the left arm. The patient did have detectable flow using ultrasound. The patient following the study did have a fall resulting in left hip intertrochanteric fracture. The patient is admitted to have orthopedic consultation and will also have vascular surgery consultation related to the arterial insufficiency in the hand. The patient had hip x-ray which I interpreted to show acute intertrochanteric hip fracture Was pt. sent in by a medical professional or institution (, PA, [employer], urgent care, hospital, or snf...) When possible be specific @ -[No] Did you speak to anyone other than the patient for history (EMS, parent, family, police, friend...)? What history was obtained from this source @ -[No] Did you review nursing and triage notes (agree or disagree)? Why? @ -[I reviewed and agree with nursing and triage notes] Were old charts reviewed (outside hosp., previous admission, EMS record, old EKG, old radiological studies, urgent care reports/EKG's, snf records)? Report findings @ -[No old charts were reviewed] Differential Diagnosis (chest pain, altered mental status, abdominal pain women, abdominal pain men, vaginal bleeding, weakness, fever, dyspnea, syncope, headache, dizziness, GI bleed, back pain, seizure, CVA, palpatations, mental health, musculoskeletal)? @ -[Differential Musculoskeletal Muscular strain, contusion, ligament sprain, fracture, arthritis, septic art hritis, bursitis, cellulitis, muscle spasm, nerve compression, DVT, arterial occlusion, herpes zoster, electrolyte abnormality, tumor.... This is not meant to be in all inclusive list EKG interpreted by me (3pts min.). @ -[As above] X-rays interpreted by me (1pt min.). @ -[I interpreted as above CT interpreted by me (1pt min.). @ -[None done] U/S interpreted by me (1pt. min.). @ -[None done] What testing was considered but not performed or refused? (CT, X-rays, U/S, labs)? Why? @ -[None] What meds were considered but not given or refused? Why? @ -[None] Did you discuss the management of the patient with other professionals (professionals i.e. , KARIME, [employer], lab, RT, psych nurse, manager social media, computer technology instructor, teacher, army officer, pillowcase folder)? Give summary @ -[I did discuss the patient's case with the orthopedic surgeon on-call, with the vascular surgeon on-call, and admitting physician Was smoking cessation discussed for >3mins.? @ -[No] Was critical care preformed (if so, how long)? @ -[No] Were there social determinants of health that impacted care today? How? (Homelessness, low income, unemployed, alcoholism, drug addiction, transportation, low edu. Level, literacy, decrease access to med. care, [facility], rehab)? @ -[No] Was there de-escalation of care discussed even if they declined (Discuss DNR or withdrawal of care, Hospice)? DNR status @ -[No] What co-morbidities impacted this encounter? (DM, HTN, Smoking, COPD, CAD, Cancer, CVA, ARF, Chemo, Hep., AIDS, mental health diagnosis, sleep apnea, morbid obesity)? @ -[Renal failure. Was patient admitted / discharged? Hospital course, mention meds given and route, prescriptions, significant lab abnormalities, going to OR and other pertinent info. @ -[Patient is admitted, see above Undiagnosed new problem with uncertain prognosis? @ -[No] Drug Therapy requiring intensive monitoring for toxicity (Heparin, Nitro, Insulin, Cardizem)? @ -[No] Were any procedures done? @ -[No] Diagnosis/symptom? @ -[Acute intertrochanteric hip fracture Left hand arterial insufficiency, acute Acute, or Chronic, or Acute on Chronic? @ -[default] Uncomplicated (without systemic symptoms) or Complicated (systemic symptoms)? @ -[Uncomplicated Side effects of treatment? @ -[No] Exacerbation, Progression, or Severe Exacerbation? @ -[No] Poses a threat to life or bodily function? How? (Chest pain, USA, PR, pneumonia, PE, COPD, DKA, ARF, appy, cholecystitis, CVA, Diverticulitis, Homicidal, Suicidal, threat to staff... and all critical care pts) @ -[Both of the above conditions are limb function threatening if not properly addressed (Paul Das) - Lab Data Lab Results 05/29/23 05/29/23 05/29/23 Range/Units 13:48 13:48 13:48 WBC 6.7 (3.8-10.6) k/uL RBC 3.68 L (3.80-5.40) m/uL Hgb 11.4 (11.4-16.0) gm/dL Hct 34.7 (34.0-46.0) % MCV 94.5 (80.0-100.0) fL MCH 31.0 (25.0-35.0) pg MCHC 32.8 (31.0-37.0) g/dL RDW 14.4 (11.5-15.5) % Plt Count 217 (150-450) k/uL MPV 7.8 Neutrophils % 74 % Lymphocytes % 16 % Monocytes % 6 % Eosinophils % 3 % Basophils % 0 % Neutrophils # 5.0 (1.3-7.7) k/uL Lymphocytes # 1.1 (1.0-4.8) k/uL Monocytes # 0.4 (0-1.0) k/uL Eosinophils # 0.2 (0-0.7) k/uL Basophils # 0.0 (0-0.2) k/uL ESR 69 H (0-20) mm/hr Sodium 138 (137-145) mmol/L Potassium 4.3 (3.5-5.1) mmol/L Chloride 96 L (98-107) mmol/L Carbon Dioxide 32 H (22-30) mmol/L Anion Gap 10 mmol/L BUN 22 H (7-17) mg/dL Creatinine 4.28 H (0.52-1.04) mg/dL Est GFR (CKD-EPI)AfAm 11 (>60 ml/min/1.73 sqM) Est GFR (CKD-EPI)NonAf 10 (>60 ml/min/1.73 sqM) Glucose 134 H (74-99) mg/dL Lactic Ac Sepsis Rflx Plasma Lactic Acid Freddy 2.3 H* (0.7-2.0) mmol/L Calcium 9.4 (8.4-10.2) mg/dL Total Bilirubin 0.6 (0.2-1.3) mg/dL AST 39 H (14-36) U/L ALT 18 (4-34) U/L Alkaline Phosphatase 116 (38-126) U/L C-Reactive Protein 2.0 H (<1.0) mg/dL Total Protein 7.5 (6.3-8.2) g/dL Albumin 4.0 (3.5-5.0) g/dL 05/29/23 05/29/23 05/29/23 Range/Units 14:23 15:55 15:55 WBC 5.7 (3.8-10.6) k/uL RBC 3.54 L (3.80-5.40) m/uL Hgb 11.1 L (11.4-16.0) gm/dL Hct 33.3 L (34.0-46.0) % MCV 94.1 (80.0-100.0) fL MCH 31.5 (25.0-35.0) pg MCHC 33.4 (31.0-37.0) g/dL RDW 14.4 (11.5-15.5) % Plt Count 209 (150-450) k/uL MPV 8.0 Neutrophils % 71 % Lymphocytes % 19 % Monocytes % 5 % Eosinophils % 3 % Basophils % 0 % Neutrophils # 4.0 (1.3-7.7) k/uL Lymphocytes # 1.1 (1.0-4.8) k/uL Monocytes # 0.3 (0-1.0) k/uL Eosinophils # 0.2 (0-0.7) k/uL Basophils # 0.0 (0-0.2) k/uL ESR (0-20) mm/hr Sodium 136 L (137-145) mmol/L Potassium 3.6 (3.5-5.1) mmol/L Chloride 96 L (98-107) mmol/L Carbon Dioxide 32 H (22-30) mmol/L Anion Gap 8 mmol/L BUN 23 H (7-17) mg/dL Creatinine 4.70 H (0.52-1.04) mg/dL Est GFR (CKD-EPI)AfAm 10 (>60 ml/min/1.73 sqM) Est GFR (CKD-EPI)NonAf 9 (>60 ml/min/1.73 sqM) Glucose 103 H (74-99) mg/dL Lactic Ac Sepsis Rflx Y Plasma Lactic Acid Freddy (0.7-2.0) mmol/L Calcium 9.1 (8.4-10.2) mg/dL Total Bilirubin 0.4 (0.2-1.3) mg/dL AST 26 (14-36) U/L ALT 16 (4-34) U/L Alkaline Phosphatase 127 H (38-126) U/L C-Reactive Protein (<1.0) mg/dL Total Protein 6.9 (6.3-8.2) g/dL Albumin 3.6 (3.5-5.0) g/dL 05/29/23 Range/Units 15:55 WBC (3.8-10.6) k/uL RBC (3.80-5.40) m/uL Hgb (11.4-16.0) gm/dL Hct (34.0-46.0) % MCV (80.0-100.0) fL MCH (25.0-35.0) pg MCHC (31.0-37.0) g/dL RDW (11.5-15.5) % Plt Count (150-450) k/uL MPV Neutrophils % % Lymphocytes % % Monocytes % % Eosinophils % % Basophils % % Neutrophils # (1.3-7.7) k/uL Lymphocytes # (1.0-4.8) k/uL Monocytes # (0-1.0) k/uL Eosinophils # (0-0.7) k/uL Basophils # (0-0.2) k/uL ESR (0-20) mm/hr Sodium (137-145) mmol/L Potassium (3.5-5.1) mmol/L Chloride (98-107) mmol/L Carbon Dioxide (22-30) mmol/L Anion Gap mmol/L BUN (7-17) mg/dL Creatinine (0.52-1.04) mg/dL Est GFR (CKD-EPI)AfAm (>60 ml/min/1.73 sqM) Est GFR (CKD-EPI)NonAf (>60 ml/min/1.73 sqM) Glucose (74-99) mg/dL Lactic Ac Sepsis Rflx Plasma Lactic Acid Freddy 1.2 (0.7-2.0) mmol/L Calcium (8.4-10.2) mg/dL Total Bilirubin (0.2-1.3) mg/dL AST (14-36) U/L ALT (4-34) U/L Alkaline Phosphatase (38-126) U/L C-Reactive Protein (<1.0) mg/dL Total Protein (6.3-8.2) g/dL Albumin (3.5-5.0) g/dL Disposition <Gadiel Pennington - Last Filed: 05/29/23 13:11> <Paul Das - Last Filed: 06/05/23 04:15> Clinical Impression: Intertrochanteric fracture, Thrombosis of renal dialysis arteriovenous graft Disposition: ADMITTED IP TO THIS HOSP Condition: Stable
[2023-05-29 14:00] LABS: Basophils % (A) 0 %; Eosinophils # (A) 0.2 k/uL (0-0.7); Eosinophils % (A) 3 %; HCT 34.7 % (34.0-46.0); HGB 11.4 gm/dL (11.4-16.0); Lymphocytes # (A) 1.1 k/uL (1.0-4.8); Lymphocytes % (A) 16 %; MCHC 32.8 g/dL (31.0-37.0); MCV 94.5 fL (80.0-100.0); Mean Platelet Volume 7.8; Monocytes # (A) 0.4 k/uL (0-1.0); Monocytes % (A) 6 %; Neutrophils % (A) 74 %; Platelet Count 217 k/uL (150-450); RBC 3.68 m/uL (3.80-5.40); RDW 14.4 % (11.5-15.5); WBC 6.7 k/uL (3.8-10.6)
--- NOTE | 2023-05-29 14:07 | XR ---
EXAMINATION TYPE: XR hand complete LT DATE OF EXAM: 05/29/2023 CLINICAL HISTORY: pain TECHNIQUE: Frontal, lateral and oblique images of the left hand are obtained. COMPARISON: 05/15/2023 FINDINGS: There is no acute fracture/dislocation evident. There is diffuse bony demineralization. Va scular calcifications are seen. The joint spaces appear within normal limits. The overlying soft tis ricardo appears unremarkable. IMPRESSION: There is no acute fracture or dislocation. ICD 10 NO FRACTURE, INITIAL EVALUATION
[2023-05-29 14:12] LABS: ALT 18 U/L (4-34); AST 39 U/L (14-36); African American GFR (CKD) 11 (>60 ml/min/1.73 sqM); Alkaline Phosphatase 116 U/L (38-126); Anion Gap 10 mmol/L; Blood Urea Nitrogen 22 mg/dL (7-17); Calcium 9.4 mg/dL (8.4-10.2); Carbon Dioxide 32 mmol/L (22-30); Chloride 96 mmol/L (98-107); Glucose 134 mg/dL (74-99); Non-African American GFR(CKD) 10 (>60 ml/min/1.73 sqM); Sodium 138 mmol/L (137-145); Total Bilirubin 0.6 mg/dL (0.2-1.3); Total Protein 7.5 g/dL (6.3-8.2)
[2023-05-29 14:20] LABS: Potassium 4.3 mmol/L (3.5-5.1)
[2023-05-29 14:52] LABS: Erythrocyte Sedimentation Rate 69 mm/hr (0-20)
[2023-05-29 16:13] LABS: Basophils % (A) 0 %; Eosinophils # (A) 0.2 k/uL (0-0.7); Eosinophils % (A) 3 %; HCT 33.3 % (34.0-46.0); HGB 11.1 gm/dL (11.4-16.0); Lymphocytes # (A) 1.1 k/uL (1.0-4.8); Lymphocytes % (A) 19 %; MCH 31.5 pg (25.0-35.0); MCHC 33.4 g/dL (31.0-37.0); MCV 94.1 fL (80.0-100.0); Monocytes # (A) 0.3 k/uL (0-1.0); Monocytes % (A) 5 %; Neutrophils % (A) 71 %; Platelet Count 209 k/uL (150-450); RBC 3.54 m/uL (3.80-5.40); RDW 14.4 % (11.5-15.5); WBC 5.7 k/uL (3.8-10.6)
[2023-05-29 16:35] LABS: ALT 16 U/L (4-34); AST 26 U/L (14-36); African American GFR (CKD) 10 (>60 ml/min/1.73 sqM); Albumin 3.6 g/dL (3.5-5.0); Alkaline Phosphatase 127 U/L (38-126); Anion Gap 8 mmol/L; Blood Urea Nitrogen 23 mg/dL (7-17); Calcium 9.1 mg/dL (8.4-10.2); Carbon Dioxide 32 mmol/L (22-30); Chloride 96 mmol/L (98-107); Glucose 103 mg/dL (74-99); Non-African American GFR(CKD) 9 (>60 ml/min/1.73 sqM); Potassium 3.6 mmol/L (3.5-5.1); Sodium 136 mmol/L (137-145); Total Bilirubin 0.4 mg/dL (0.2-1.3); Total Protein 6.9 g/dL (6.3-8.2)
--- NOTE | 2023-05-29 17:18 | XR ---
EXAMINATION TYPE: XR femur RT DATE OF EXAM: 05/29/2023 CLINICAL HISTORY: pain TECHNIQUE: Two views of the right femur are obtained. COMPARISON: None. FINDINGS: There is lucency in the region of the right intertrochanteric region as well as the femoral neck is l ikely external to the patient or related to skin folds however I cannot exclude fracture. Consider CT of the right hip. The hip and knee joints appear within normal limits. The overlying soft tissue ap pears unremarkable. IMPRESSION: There is lucency in the region of the right intertrochanteric region as well as the femoral neck is l ikely external to the patient or related to skin folds however I cannot exclude fracture. Consider CT of the right hip.
[2023-05-29] MEDS ORDERED: MORPHINE SULFATE 4 MG/ML SYRINGE IV STA (18:11)
[2023-05-29] MEDS ORDERED: NALOXONE 0.4 MG/ML 1 ML VIAL IV PRN (18:17)
[2023-05-29] MEDS ORDERED: ONDANSETRON 4 MG/2 ML VIAL IVP PRN (18:17)
[2023-05-29] MEDS ORDERED: SODIUM CHLORIDE 0.9% 1,000 ML IV SCH (18:30)
--- NOTE | 2023-05-29 18:51 | P.PN ---
Progress Note - Text Progress Note Date: 05/29/23 Received a phone call from the ER requesting admission for this patient. Apparently they presented to the ER with left hand weakness and pain. She had a reported fall resulting in a left hip fracture. Triage report was received from ED provider. Patient will be seen by our bus matron.
--- NOTE | 2023-05-29 19:48 | US ---
EXAMINATION TYPE: US extremity nonvasc complt LT DATE OF EXAM: 05/29/2023 COMPARISON: arterial today CLINICAL INDICATION: Female, 72 years old with history of l hand pain; left hand wound after falling 2 days ago. ER doctor spoke to vascular surgeon who wanted imaging of the forearm with doppler. Pt in renal failure, unable to do CTA. Dialysis graft clotted in lt forearm. TECHNIQUE: Scanned radial and ulna arteries. FINDINGS: The vessels appeared to be tortuous. There is flow seen. Dialysis graft does not appear to have any flow. IMPRESSION: Low identified within the radial and ulnar arteries. Dialysis graft does not demonstrate flow at this time.
--- NOTE | 2023-05-29 22:10 | US ---
EXAMINATION TYPE: US arterial UE single level DATE OF EXAM: 05/29/2023 5:26 PM CLINICAL INDICATION: Female, 72 years old with history of Left arm cold and pulseless; History of: Smoker: No Hypertension: Yes Diabetic: Yes Hyperlipidemia: No TIA/CVA: Yes Previous Vascular Surgery: Yes CAD: IA: No Vascular Ulcers: Claudication: Gangrene: Doppler Waveforms: Right: Axillary: Brachial: Monophasic Radial: Biphasic Ulnar: Monophasic to biphasic Left: Axillary: Brachial: Monophasic Radial: Monophasic Ulnar: Monophasic Wrist Brachial Indices: Right: Left: IMPRESSION: Nondiagnostic.
[2023-05-29] MEDS: FAMOTIDINE 20 MG TAB PO SCH (22:21)
[2023-05-29] MEDS: MORPHINE SULFATE 4 MG/ML SYRINGE IV PRN (22:26)
--- NOTE | 2023-05-29 22:56 | P.CONS ---
History of Present Illness - Reason for Consult Consult date: 05/29/23 - History of Present Illness Patient is a 72-year-old female with a PMH of ESRD on hemodialysis MWF via right-sided hemodialysis catheter, history of CVA with residual left-sided weakness, type II DM, hypertension, hyperlipidemia, nonfunctioning left arm AV graft, who presented to the emergency room with complaints of left hand and forearm numbness. The patient states that she suffered trauma to the left hand after she slipped and fell out of bed roughly 3 weeks ago. She was seen in the emergency room here and was discharged home on a course of Keflex. She reports that over the past 1 week, she has noticed mild numbness of the left hand and forearm which she attributes to her malfunctioning AV graft. She reports being scheduled for surgery by Dr. Ruano. Denies any new weakness of the left hand. Reports mild left hand pain since her trauma. While in the emergency room however, the patient walked to the bathroom and subsequently slipped as she was wearing her home socks. She fell on her right side and had immediate severe pain and was unable to bear weight. She reports the pain has improved somewhat but continues to be a 5 out of 10 at the time of interview in her right hip. She is not expressing dizziness or syncope. Also denied head trauma. In the emergency room, a Right femur x-ray revealed findings suspicious for femoral neck fracture. Left hand x-ray revealed no abnormalities. Left upper extremity ultrasound revealed no flow in the dialysis with flow identified within the radial and ulnar arteries. Laboratory evaluation was remarkable for sodium 138, lactic acid 2.3, hemoglobin 11.4, WBC count 6.7, BUN 22, creatinine 4.28. ED documentation reviewed and case discussed with ED provider. Review of systems: Pertinent positives and negatives as discussed in HPI, a complete review of systems was performed and all other systems are negative. Physical examination: Vital signs reviewed General: non toxic, no distress, appears at stated age, normal weight Derm: L hand dorsum and middle finger with purple discoloration noted, warm Head: atraumatic, normocephalic, symmetric Eyes: EOMI, no lid lag, anicteric sclera, pupils equal round reactive to light ENT: Nose and ears atraumatic Neck: No cervical lymphadenopathy, trachea midline, supple Mouth: no lip lesion, mucus membranes moist Cardiovascular: S1S2 reg, no murmur, positive dorsalis pedis pulse bilateral, no edema Lungs: CTA bilateral, no rhonchi, no rales, no accessory muscle use Abdominal: soft, nontender to palpation, no guarding Ext: muscle strength 4 out of 5 of left upper and lower extremities, exam limited on RLE since patient experiencing severe pain with any range of motion, strength 5 out of 5 in the right upper extremity, no gross muscle atrophy, no contractures, left AV graft without palpable thrill, L radial pulse difficult to palpate Neuro: CN II-XI grossly intact, no gross focal neuro deficits Psych: Alert, oriented, appropriate affect Assessment: Traumatic right hip fracture Left hand trauma, 3 weeks ago Left hand numbness Lactic acidosis Chronic conditions: ESRD on hemodialysis, type II DM, hypertension, hyperlipidemia Imaging: In the emergency room, a Right femur x-ray revealed findings suspicious for femoral neck fracture. Left hand x-ray revealed no abnormalities. Left upper extremity ultrasound revealed no flow in the dialysis with flow identified within the radial and ulnar arteries. Data Review: Laboratory evaluation was remarkable for sodium 138, lactic acid 2.3, hemoglobin 11.4, WBC count 6.7, BUN 22, creatinine 4.28. Plan: Orthopedic surgery consulted for management of right hip fracture Nephrology consulted for resumption of hemodialysis Vascular surgery consult for left hand cyanosis and weakness Continue pain control with morphine 4 mg IV every 4 hours when necessary Monitor lactate levels for resolution DVT prophylaxis: Lovenox subcu The patient is admitted with an anticipated greater than 2 midnight stay for evaluation of R hip fracture CODE STATUS: Full Code Discussed with: Patient Anticipated discharge place: Home Past Medical History Past Medical History: Chest Pain / Angina, CVA/TIA, Diabetes Mellitus, Dialysis, Hearing Disorder / Deafness, Hyperlipidemia, Hypertension, Memory Impairment, Renal Disease, Skin Disorder, Thyroid Disorder Additional Past Medical History / Comment(s): LEFT HAND WOUND PER DAUGHTER, CLA UDIA (LEFT HAND MIDDLE FINGER HAS INCREASED WITH DARKENED SKIN TO HALF WAY UP, OPEN BLISTER ON LEFT PINKY FINGER AND TOP OF HAND) PATIENT HAD BEEN [facility] AND DISCHARGED AND THEN WENT TO @ [facility] AND WAS ADMITTED FOR 4 DAYS AND HAD A REGIME OF ANTIBIOTICS). DAUGHTER STATES PATIENT DID NOT FALL....Recent fall 03/20/23, hit head, got checked out in ER, everything ok. Trouble grasping with left hand. Hard of hearing. HEMODIALYSIS, MWF. Chronic toe infection resolved, Stage 4 Renal Failure, Diabetic Retinopathy, Gout, mild aortic stenosis, neuropathy bilateral feet, left sided weakness since CVA, dialysis MOWEFR. History of Any Multi-Drug Resistant Organisms: None Reported Past Surgical History: Section Additional Past Surgical History / Comment(s): 03/14/23Left arm dialysis graft, hemodyalsis catheter right side, graft upper and lower left arm. Past Anesthesia/Blood Transfusion Reactions: No Reported Reaction Past Psychological History: No Psychological Hx Reported Smoking Status: Former smoker Past Alcohol Use History: None Reported Past Drug Use History: None Reported - Past Family History Mother Family Medical History: Hyperlipidemia Medications and Allergies Home Medications Medication Instructions Recorded Confirmed Type Metoprolol Tartrate [Lopressor] 100 mg PO BID@1000,2200 PRN 01/12/21 05/28/23 History NIFEdipine [Procardia XL] 60 mg PO BID PRN 01/12/21 05/28/23 History allopurinoL [Zyloprim] 100 mg PO QAM 01/12/21 05/28/23 History Vit B Complx C/Folic Acid/Zinc 1 tab PO DAILY 05/01/21 05/28/23 History [Renaplex Tablet] Levothyroxine Sodium [Synthroid] 88 mcg PO QAM 09/09/21 05/28/23 History Aspirin EC [Ecotrin Low Dose] 81 mg PO DAILY 12/15/21 05/28/23 History Atorvastatin [Lipitor] 10 mg PO HS 12/15/21 05/28/23 History Sevelamer [Renvela] 800 mg PO DIRECTED 12/15/21 05/28/23 History sitaGLIPtin [Januvia] 25 mg PO QAM 12/18/22 05/28/23 History Sevelamer [Renvela] 1,600 mg PO W/SUPPER MDD 6 tablets 05/11/23 05/28/23 History Allergies Allergy/AdvReac Type Severity Reaction Status Date / Time No Known Allergies Allergy Verified 05/29/23 13:06 Physical Exam Vitals: Vital Signs Temp Pulse Resp BP Pulse Ox 05/29/23 21:34 65 16 168/82 97 05/29/23 19:14 64 16 180/69 96 05/29/23 13:03 97.9 F 65 18 124/77 100 Intake and Output 05/29/23 05/29/23 05/29/23 06:59 14:59 22:59 Other: Weight 61.689 kg Results CBC & Chem 7: 05/29/23 15:55 05/29/23 15:55 Labs: Abnormal Lab Results - Last 24 Hours (Table) 05/29/23 05/29/23 05/29/23 Range/Units 13:48 13:48 13:48 RBC 3.68 L (3.80-5.40) m/uL Hgb (11.4-16.0) gm/dL Hct (34.0-46.0) % ESR 69 H (0-20) mm/hr Sodium (137-145) mmol/L Chloride 96 L (98-107) mmol/L Carbon Dioxide 32 H (22-30) mmol/L BUN 22 H (7-17) mg/dL Creatinine 4.28 H (0.52-1.04) mg/dL Glucose 134 H (74-99) mg/dL Plasma Lactic Acid Freddy 2.3 H* (0.7-2.0) mmol/L AST 39 H (14-36) U/L Alkaline Phosphatase (38-126) U/L C-Reactive Protein 2.0 H (<1.0) mg/dL 05/29/23 05/29/23 Range/Units 15:55 15:55 RBC 3.54 L (3.80-5.40) m/uL Hgb 11.1 L (11.4-16.0) gm/dL Hct 33.3 L (34.0-46.0) % ESR (0-20) mm/hr Sodium 136 L (137-145) mmol/L Chloride 96 L (98-107) mmol/L Carbon Dioxide 32 H (22-30) mmol/L BUN 23 H (7-17) mg/dL Creatinine 4.70 H (0.52-1.04) mg/dL Glucose 103 H (74-99) mg/dL Plasma Lactic Acid Freddy (0.7-2.0) mmol/L AST (14-36) U/L Alkaline Phosphatase 127 H (38-126) U/L C-Reactive Protein (<1.0) mg/dL
[2023-05-30] MEDS: FAMOTIDINE 20 MG TAB PO SCH (07:43)
[2023-05-30] MEDS: MORPHINE SULFATE 4 MG/ML SYRINGE IV PRN ×2 (07:43→23:04)
[2023-05-30 07:45] LABS: Glucose,Whole Blood 91 mg/dL (70-110)
[2023-05-30] MEDS ORDERED: ENOXAPARIN 40 MG/0.4 ML SYRINGE SQ SCH (09:00)
--- NOTE | 2023-05-30 09:47 | CT ---
EXAMINATION TYPE: CT hip RT wo con CT DLP: 413 mGycm, Automated exposure control for dose reduction was used. DATE OF EXAM: 05/30/2023 9:40 AM COMPARISON: Right femur radiograph 05/29/2023 CLINICAL INDICATION:Female, 72 years old with history of S/P fall, possible IT fracture; [facility], TECHNIQUE: Axial images were obtained of the right hip without the use of IV contrast. Additional co cody and sagittal reformatted images and soft tissue and bone window were obtained for review. 3-D r econstruction was created on a separate workstation. FINDINGS: Acute comminuted right proximal femur intratrochanteric fracture with mild displacement of the fracture fragments. There is approximately 1.8 cm of displacement of the lesser trochanter medial ly and inferiorly. No dislocation. No significant surrounding soft tissue edema. No joint effusion. Fibroid changes of the uterus with anterior fundal fibroid measuring up to 2.3 cm. Dystrophic calcifi ed fibroid identified. Atherosclerotic calcification of the visualized chest are clear. IMPRESSION: Acute comminuted mildly displaced right proximal femur intratrochanteric fracture.
--- NOTE | 2023-05-30 11:54 | P.NPCON ---
History of Present Illness - Reason for Consult end stage renal disease - History of Present Illness Patient is a 72-year-old female with end-stage renal disease on hemodialysis on a Sunday schedule. Patient is admitted to the hospital with complaints of left hand numbness. Patient has had recent left hand cellulitis after a fall. She is status post antibiotics. Patient also has an AV graft in her left arm. The left middle finger is noted to have discoloration around the middle of the finger which has worsened from about 2 weeks ago. While in the ER patient fell in the bathroom and sustained a right femoral neck fracture. Patient will be going to the OR for hip surgery later this evening and is also scheduled for vascular intervention for ischemia to the left hand by Dr. Ruano. No recent fever or chills. No nausea vomiting or diarrhea. Review of Systems As per HPI Past Medical History Past Medical History: Chest Pain / Angina, CVA/TIA, Diabetes Mellitus, Dialysis, Hearing Disorder / Deafness, Hyperlipidemia, Hypertension, Memory Impairment, Renal Disease, Skin Disorder, Thyroid Disorder Additional Past Medical History / Comment(s): LEFT HAND WOUND PER DAUGHTER, CELINE (LEFT HAND MIDDLE FINGER HAS INCREASED WITH DARKENED SKIN TO HALF WAY UP, OPEN BLISTER ON LEFT PINKY FINGER AND TOP OF HAND) PATIENT HAD BEEN [facility] AND DISCHARGED AND THEN WENT TO @ [facility] AND WAS ADMITTED FOR 4 DAYS AND HAD A REGIME OF ANTIBIOTICS). DAUGHTER STATES PATIENT DID NOT FALL....Recent fall 03/20/23, hit head, got checked out in ER, everything ok. Trouble grasping with left hand. Hard of hearing. HEMODIALYSIS, MWF. Chronic toe infection resolved, Stage 4 Renal Failure, Diabetic Retinopathy, Gout, mild aortic stenosis, neuropathy bilateral feet, left sided weakness since CVA, dialysis MOWEFR. History of Any Multi-Drug Resistant Organisms: None Reported Past Surgical History: Section Additional Past Surgical History / Comment(s): 03/14/23Left arm dialysis graft, hemodyalsis catheter right side, graft upper and lower left arm. Past Anesthesia/Blood Transfusion Reactions: No Reported Reaction Past Psychological History: No Psychological Hx Reported Smoking Status: Former smoker Past Alcohol Use History: None Reported Past Drug Use History: None Reported - Past Family History Mother Family Medical History: Hyperlipidemia Medications and Allergies Home Medications Medication Instructions Recorded Confirmed Type NIFEdipine [Procardia XL] 60 mg PO BID PRN 01/12/21 05/30/23 History allopurinoL [Zyloprim] 100 mg PO QAM 01/12/21 05/30/23 History Vit B Complx C/Folic Acid/Zinc 1 tab PO DAILY 05/01/21 05/30/23 History [Renaplex Tablet] Levothyroxine Sodium [Synthroid] 88 mcg PO QAM 09/09/21 05/30/23 History Aspirin EC [Ecotrin Low Dose] 81 mg PO DAILY 12/15/21 05/30/23 History Atorvastatin [Lipitor] 10 mg PO HS 12/15/21 05/30/23 History Sevelamer [Renvela] 800 - 1,600 mg PO DIRECTED MDD 12/15/21 05/30/23 History 5 tabs sitaGLIPtin [Januvia] 25 mg PO QAM 12/18/22 05/30/23 History Allergies Allergy/AdvReac Type Severity Reaction Status Date / Time No Known Allergies Allergy Verified 05/29/23 13:06 Physical Exam Vitals: Vital Signs Temp Pulse Pulse Resp BP BP Pulse Ox 05/30/23 07:30 98.8 F 75 16 112/64 94 L 05/30/23 01:12 98.4 F 76 18 159/58 94 L 05/30/23 00:25 16 05/29/23 21:34 65 16 168/82 97 05/29/23 19:14 64 16 180/69 96 05/29/23 13:03 97.9 F 65 18 124/77 100 Intake and Output 05/29/23 05/30/23 05/30/23 22:59 06:59 14:59 Intake Total 0 Balance 0 Intake: Oral 0 Other: Voiding Method Diaper Incontinent # Voids 1 Weight 61.689 kg Patient is awake, comfortable, no acute distress Examination of the heart S1 and S2 Examination of the lungs bilateral breath sounds are heard Examination of the lower extremities shows no significant edema Discoloration noted in the middle of the right middle finger Abdomen is soft nontender FILENET P8 DEVELOPER exam grossly intact Results - Lab Results Most recent lab results Calcium 9.1 mg/dL (8.4-10.2) 05/29/23 15:55 05/29/23 15:55 05/29/23 15:55 Assessment and Plan Assessment: 1. End-stage renal disease on hemodialysis on a Sunday schedule 2. Status post fall and fracture right femoral neck. Scheduled for surgery later today 3. Ischemia to the left hand scheduled for vascular intervention today by Dr. Ruano. Patient has an AV graft in the left arm 4. History of recent left hand cellulitis status post antibiotics 5. CK D mineral bone disorder Plan: Hemodialysis today Resume home medication Resume phosphate binders Thank you for the consultation. We will continue to follow the patient with you during her hospitalization.
[2023-05-30] MEDS ORDERED: SODIUM CHLORIDE 0.9% 1,000 ML IV ONE (13:04)
[2023-05-30 13:11] LABS: Glucose,Whole Blood 96 mg/dL (70-110)
[2023-05-30] MEDS ORDERED: PROPOFOL 10 MG/ML 20 ML VIAL IV ONE (13:42)
[2023-05-30] MEDS ORDERED: ONDANSETRON 4 MG/2 ML VIAL IVP ONE (13:42)
[2023-05-30] MEDS ORDERED: KETAMINE 10 MG/ML 20 ML VIAL ONE (13:42)
[2023-05-30] MEDS ORDERED: fentaNYL (PF) 50 MCG/ML 2 ML AMP ONE (13:42)
[2023-05-30] MEDS ORDERED: MIDAZOLAM 2 MG/2 ML VIAL ONE (13:42)
--- NOTE | 2023-05-30 13:44 | P.GSCN ---
History of Present Illness Consult date: 05/30/23 History of present illness: Fernanda is a 72-year-old female who was initially supposed to be an outpatient procedure today however she was sent into the ER for color changes of her finger and subsequently sustained a fall in the bathroom resulting in a hip fracture. In the recent past she has had a fall which resulted in some redness to her left hand and treatment of cellulitis. Her daughter states concern over the phone due to some blackened discoloration of her finger and was told presented to the ER for this. The patient denies any significant pain at this time. She has no issues other than the middle finger. Past Medical History Past Medical History: Chest Pain / Angina, CVA/TIA, Diabetes Mellitus, Dialysis, Hearing Disorder / Deafness, Hyperlipidemia, Hypertension, Memory Impairment, Renal Disease, Skin Disorder, Thyroid Disorder Additional Past Medical History / Comment(s): LEFT HAND WOUND PER DAUGHTER, CELINE (LEFT HAND MIDDLE FINGER HAS INCREASED WITH DARKENED SKIN TO HALF WAY UP, OPEN BLISTER ON LEFT PINKY FINGER AND TOP OF HAND) PATIENT HAD BEEN [facility] AND DISCHARGED AND THEN WENT TO @ [facility] AND WAS ADMITTED FOR 4 DAYS AND HAD A REGIME OF ANTIBIOTICS). DAUGHTER STATES PATIENT DID NOT FALL....Recent fall 03/20/23, hit head, got checked out in ER, everything ok. Trouble grasping with left hand. Hard of hearing. HEMODIALYSIS, MWF. Chronic toe infection resolved, Stage 4 Renal Failure, Diabetic Retinopathy, Gout, mild aortic stenosis, neuropathy bilateral feet, left sided weakness since CVA, dialysis MOWEFR. History of Any Multi-Drug Resistant Organisms: None Reported Past Surgical History: Section Additional Past Surgical History / Comment(s): 03/14/23Left arm dialysis graft, hemodyalsis catheter right side, graft upper and lower left arm. Past Anesthesia/Blood Transfusion Reactions: No Reported Reaction Past Psychological History: No Psychological Hx Reported Smoking Status: Former smoker Past Alcohol Use History: None Reported Past Drug Use History: None Reported - Past Family History Mother Family Medical History: Hyperlipidemia Medications and Allergies Home Medications Medication Instructions Recorded Confirmed Type NIFEdipine [Procardia XL] 60 mg PO BID PRN 01/12/21 05/30/23 History allopurinoL [Zyloprim] 100 mg PO QAM 01/12/21 05/30/23 History Vit B Complx C/Folic Acid/Zinc 1 tab PO DAILY 05/01/21 05/30/23 History [Renaplex Tablet] Levothyroxine Sodium [Synthroid] 88 mcg PO QAM 09/09/21 05/30/23 History Aspirin EC [Ecotrin Low Dose] 81 mg PO DAILY 12/15/21 05/30/23 History Atorvastatin [Lipitor] 10 mg PO HS 12/15/21 05/30/23 History Sevelamer [Renvela] 800 - 1,600 mg PO DIRECTED MDD 12/15/21 05/30/23 History 5 tabs sitaGLIPtin [Januvia] 25 mg PO QAM 12/18/22 05/30/23 History Allergies Allergy/AdvReac Type Severity Reaction Status Date / Time No Known Allergies Allergy Verified 05/29/23 13:06 Surgical - Exam Vital Signs Temp Pulse Resp BP Pulse Ox 97.9 F 65 18 124/77 100 05/29/23 13:03 05/29/23 13:03 05/29/23 13:03 05/29/23 13:03 05/29/23 13:03 Gen. is a pleasant, confused female in no acute distress. HEENT is normocephalic. Heart appears regular at this time. Lungs are clear although diminished. Abdomen is soft. Extremities are flexed at the hip for comfort. The left upper extremity has a weakly palpable thrill in the brachial to axillary AV graft. Diminished motor of the hand relatively similar to previous to the graft due to patient's stroke. Middle finger with some eschar at the proximal dorsal portion of the hand. No distal tip ischemia Results - Labs 05/29/23 15:55 05/29/23 15:55 Abnormal Lab Results - Last 24 Hours (Table) 05/29/23 05/29/23 05/29/23 Range/Units 13:48 13:48 13:48 RBC 3.68 L (3.80-5.40) m/uL Hgb (11.4-16.0) gm/dL Hct (34.0-46.0) % ESR 69 H (0-20) mm/hr Sodium (137-145) mmol/L Chloride 96 L (98-107) mmol/L Carbon Dioxide 32 H (22-30) mmol/L BUN 22 H (7-17) mg/dL Creatinine 4.28 H (0.52-1.04) mg/dL Glucose 134 H (74-99) mg/dL Plasma Lactic Acid Freddy 2.3 H* (0.7-2.0) mmol/L AST 39 H (14-36) U/L Alkaline Phosphatase (38-126) U/L C-Reactive Protein 2.0 H (<1.0) mg/dL 05/29/23 05/29/23 Range/Units 15:55 15:55 RBC 3.54 L (3.80-5.40) m/uL Hgb 11.1 L (11.4-16.0) gm/dL Hct 33.3 L (34.0-46.0) % ESR (0-20) mm/hr Sodium 136 L (137-145) mmol/L Chloride 96 L (98-107) mmol/L Carbon Dioxide 32 H (22-30) mmol/L BUN 23 H (7-17) mg/dL Creatinine 4.70 H (0.52-1.04) mg/dL Glucose 103 H (74-99) mg/dL Plasma Lactic Acid Freddy (0.7-2.0) mmol/L AST (14-36) U/L Alkaline Phosphatase 127 H (38-126) U/L C-Reactive Protein (<1.0) mg/dL Diabetes panel 05/29/23 05/29/23 Range/Units 13:48 15:55 Sodium 138 136 L (137-145) mmol/L Potassium 4.3 3.6 (3.5-5.1) mmol/L Chloride 96 L 96 L (98-107) mmol/L Carbon Dioxide 32 H 32 H (22-30) mmol/L BUN 22 H 23 H (7-17) mg/dL Creatinine 4.28 H 4.70 H (0.52-1.04) mg/dL Glucose 134 H 103 H (74-99) mg/dL Calcium 9.4 9.1 (8.4-10.2) mg/dL AST 39 H 26 (14-36) U/L ALT 18 16 (4-34) U/L Alkaline Phosphatase 116 127 H (38-126) U/L Total Protein 7.5 6.9 (6.3-8.2) g/dL Albumin 4.0 3.6 (3.5-5.0) g/dL Calcium panel 05/29/23 05/29/23 Range/Units 13:48 15:55 Calcium 9.4 9.1 (8.4-10.2) mg/dL Albumin 4.0 3.6 (3.5-5.0) g/dL Pituitary panel 05/29/23 05/29/23 Range/Units 13:48 15:55 Sodium 138 136 L (137-145) mmol/L Potassium 4.3 3.6 (3.5-5.1) mmol/L Chloride 96 L 96 L (98-107) mmol/L Carbon Dioxide 32 H 32 H (22-30) mmol/L BUN 22 H 23 H (7-17) mg/dL Creatinine 4.28 H 4.70 H (0.52-1.04) mg/dL Glucose 134 H 103 H (74-99) mg/dL Calcium 9.4 9.1 (8.4-10.2) mg/dL Adrenal panel 05/29/23 05/29/23 Range/Units 13:48 15:55 Sodium 138 136 L (137-145) mmol/L Potassium 4.3 3.6 (3.5-5.1) mmol/L Chloride 96 L 96 L (98-107) mmol/L Carbon Dioxide 32 H 32 H (22-30) mmol/L BUN 22 H 23 H (7-17) mg/dL Creatinine 4.28 H 4.70 H (0.52-1.04) mg/dL Glucose 134 H 103 H (74-99) mg/dL Calcium 9.4 9.1 (8.4-10.2) mg/dL Total Bilirubin 0.6 0.4 (0.2-1.3) mg/dL AST 39 H 26 (14-36) U/L ALT 18 16 (4-34) U/L Alkaline Phosphatase 116 127 H (38-126) U/L Total Protein 7.5 6.9 (6.3-8.2) g/dL Albumin 4.0 3.6 (3.5-5.0) g/dL Assessment and Plan Assessment: Left upper extremity eschar Diminished left upper extremity motor sensory End-stage renal disease with left upper extremity AV graft Plan: Given the patient's presentation previously it was decided to ligate the graft in order to allow for appropriate perfusion to the hand in the event that there is some degree of steal syndrome occurring. We will plan to do this today even in light of her recent hip fracture due to the portion of eschar on the hand to allow for proper healing. At this time there does not appear to be any significant distal tip ischemia and I do believe this is more of a superficial type wound but again given the issue she has had long discussion was had with the patient and mostly the daughter in regards to options and it appears that t his is the least risk to the patient at this time. We will plan further wound debridement and/or revascularization should it become necessary.
[2023-05-30] MEDS ORDERED: LIDOCAINE 1% INJ 10MG/ML (10 ML MDV) SQ ONE (13:59)
[2023-05-30] MEDS ORDERED: ceFAZolin 2 GM in SODIUM CHLORIDE 0.9% 500 ML 500 ML IRRIGATION ONE (14:05)
[2023-05-30] MEDS ORDERED: HEPARIN SODIUM,PORCINE (1 ML) 2,000 UNIT in SODIUM CHLORIDE 0.9% 500 ML 500 ML IRRIGATION ONE (14:05)
--- NOTE | 2023-05-30 14:05 | P.CNOR ---
History of Present Illness - HPI Consult date: 05/30/23 Consult reason: fracture History of present illness: Patient is 72 yo female seen at bedside today in consultation for right hip pain and possible fracture. She initially presented to the ED on 05/29/23 with chief c lars of left hand infection where she had some issues 2 weeks ago and was seen here and then admitted at [facility] for cellulitis. Patient states she was discharged on oral antibiotics. She states symptoms were getting worse and returned. Patient states she is also scheduled for surgery performed Dr. Ruano for her graft of her left arm as she is on dialysis. While in the ED she went to go to the bathroom and suffered a fall resulting in the right hip injury. She continues to have pain at the right hip as expected. She denies numbness or other current complaints Review of Systems All systems: negative Constitutional: Denies chills, Denies fever Eyes: denies blurred vision, denies pain Ears, nose, mouth and throat: Denies headache, Denies sore throat Cardiovascular: Denies chest pain, Denies shortness of breath Respiratory: Denies cough Gastrointestinal: Denies abdominal pain, Denies diarrhea, Denies nausea, Denies vomiting Genitourinary: Denies dysuria, Denies hematuria Musculoskeletal: Denies myalgias Integumentary: Denies pruritus, Denies rash Neurological: Denies numbness, Denies weakness Psychiatric: Denies anxiety, Denies depression Endocrine: Denies fatigue, Denies weight change Past Medical History Past Medical History: Chest Pain / Angina, CVA/TIA, Diabetes Mellitus, Dialysis, Hearing Disorder / Deafness, Hyperlipidemia, Hypertension, Memory Impairment, Renal Disease, Skin Disorder, Thyroid Disorder Additional Past Medical History / Comment(s): LEFT HAND WOUND PER DAUGHTER, CELINE (LEFT HAND MIDDLE FINGER HAS INCREASED WITH DARKENED SKIN TO HALF WAY UP, OPEN BLISTER ON LEFT PINKY FINGER AND TOP OF HAND) PATIENT HAD BEEN [facility] AND DISCHARGED AND THEN WENT TO @ [facility] AND WAS ADMITTED FOR 4 DAYS AND HAD A REGIME OF ANTIBIOTICS). DAUGHTER STATES PATIENT DID NOT FALL....Recent fall 03/20/23, hit head, got checked out in ER, everything ok. Trouble grasping with left hand. Hard of hearing. HEMODIALYSIS, MWF. Chronic toe infection resolved, Stage 4 Renal Failure, Diabetic Retinopathy, Gout, mild aortic stenosis, neuropathy bilateral feet, left sided weakness since CVA, dialysis MOWEFR. History of Any Multi-Drug Resistant Organisms: None Reported Past Surgical History: Section Additional Past Surgical History / Comment(s): 03/14/23Left arm dialysis graft, hemodyalsis catheter right side, graft upper and lower left arm. Past Anesthesia/Blood Transfusion Reactions: No Reported Reaction Past Psychological History: No Psychological Hx Reported Smoking Status: Former smoker Past Alcohol Use History: None Reported Past Drug Use History: None Reported - Past Family History Mother Family Medical History: Hyperlipidemia Medications and Allergies Home Medications Medication Instructions Recorded Confirmed Type NIFEdipine [Procardia XL] 60 mg PO BID PRN 01/12/21 05/30/23 History allopurinoL [Zyloprim] 100 mg PO QAM 01/12/21 05/30/23 History Vit B Complx C/Folic Acid/Zinc 1 tab PO DAILY 05/01/21 05/30/23 History [Renaplex Tablet] Levothyroxine Sodium [Synthroid] 88 mcg PO QAM 09/09/21 05/30/23 History Aspirin EC [Ecotrin Low Dose] 81 mg PO DAILY 12/15/21 05/30/23 History Atorvastatin [Lipitor] 10 mg PO HS 12/15/21 05/30/23 History Sevelamer [Renvela] 800 - 1,600 mg PO DIRECTED MDD 12/15/21 05/30/23 History 5 tabs sitaGLIPtin [Januvia] 25 mg PO QAM 12/18/22 05/30/23 History Allergies Allergy/AdvReac Type Severity Reaction Status Date / Time No Known Allergies Allergy Verified 05/29/23 13:06 Physical Examination Inspection of the right lower extremity shows a shortened externally rotated right lower extremity. There are no wounds, erythema or ecchymoses. The knee is nontender without effusion. She has painless range of motion of the knee, ankle foot and toes. Range of motion of the right hip is not tested due to fracture. Neurovascular status is intact throughout the lower extremity with m otor and sensation fully intact. Calf is soft and nontender. 2+ dorsalis pedis pulse and less than 2 second cap refill is present. Results CT of the right hip shows an IT femoral neck fracture - Labs Labs: Abnormal Lab Results - Last 24 Hours (Table) 0805/29/23 05/29/23 Range/Units 13:48 13:48 13:48 RBC 3.68 L (3.80-5.40) m/uL Hgb (11.4-16.0) gm/dL Hct (34.0-46.0) % ESR 69 H (0-20) mm/hr Sodium (137-145) mmol/L Chloride 96 L (98-107) mmol/L Carbon Dioxide 32 H (22-30) mmol/L BUN 22 H (7-17) mg/dL Creatinine 4.28 H (0.52-1.04) mg/dL Glucose 134 H (74-99) mg/dL Plasma Lactic Acid Freddy 2.3 H* (0.7-2.0) mmol/L AST 39 H (14-36) U/L Alkaline Phosphatase (38-126) U/L C-Reactive Protein 2.0 H (<1.0) mg/dL 05/29/23 05/29/23 Range/Units 15:55 15:55 RBC 3.54 L (3.80-5.40) m/uL Hgb 11.1 L (11.4-16.0) gm/dL Hct 33.3 L (34.0-46.0) % ESR (0-20) mm/hr Sodium 136 L (137-145) mmol/L Chloride 96 L (98-107) mmol/L Carbon Dioxide 32 H (22-30) mmol/L BUN 23 H (7-17) mg/dL Creatinine 4.70 H (0.52-1.04) mg/dL Glucose 103 H (74-99) mg/dL Plasma Lactic Acid Freddy (0.7-2.0) mmol/L AST (14-36) U/L Alkaline Phosphatase 127 H (38-126) U/L C-Reactive Protein (<1.0) mg/dL H & H 05/29/23 05/29/23 Range/Units 13:48 15:55 Hgb 11.4 11.1 L (11.4-16.0) gm/dL Hct 34.7 33.3 L (34.0-46.0) % Result Diagrams: 05/29/23 15:55 05/29/23 15:55 - Diagnostic results Hip x-ray: report reviewed, image reviewed Hip CT: report reviewed, image reviewed Assessment and Plan (1) Intertrochanteric fracture Narrative/Plan: The patient and studies have been reviewed with Dr. Stone. Plan is to proceed with Gamma nail fixation of her right IT femur fracture tomorrow morning 05/31/23. The procedure, benefits, possible risks and possible complications have been reviewed the patient and her daughter. They desire to proceed with surgical intervention. She is NPO after MN. Procedure and consent have been ordered. She will likely need ECF placement post op. Current Visit: Yes Status: Acute Priority: Medium Code(s): S72.143A - DISPLACED INTERTROCHANTERIC FRACTURE OF UNSP FEMUR, INIT SNOMED Code(s): 825254110 Time with Patient: Less than 30
--- NOTE | 2023-05-30 14:27 | P.PN ---
Subjective Progress Note Date: 05/30/23 Hospital Course: 72-year-old female with a PMH of ESRD on hemodialysis MWF via right-sided hemodialysis catheter, history of CVA with residual left-sided weakness, type II DM, hypertension, hyperlipidemia, nonfunctioning left arm AV graft, who presented to the emergency room with complaints of left hand and forearm numbness. In the emergency room, a Right femur x-ray revealed findings suspicious for femoral neck fracture. Left hand x-ray revealed no abnormalities. Left upper extremity ultrasound revealed no flow in the dialysis with flow identified within the radial and ulnar arteries. Laboratory evaluation was remarkable for sodium 138, lactic acid 2.3, hemoglobin 11.4, WBC count 6.7, BUN 22, creatinine 4.28. Orthopedic surgery, vascular surgery, and nephrology consulted. Subjective: Seen and examined at bedside. No acute events overnight. Pertinent positives and negatives as discussed above, a complete review of systems was performed and all other systems are negative. Vitals Signs Reviewed. General: non toxic, no distress, appears at stated age, normal weight Derm: L hand dorsum and middle finger with purple discoloration noted, warm Head: atraumatic, normocephalic, symmetric Eyes: EOMI, no lid lag, anicteric sclera, pupils equal round reactive to light ENT: Nose and ears atraumatic Neck: No cervical lymphadenopathy, trachea midline, supple Mouth: no lip lesion, mucus membranes moist Cardiovascular: S1S2 reg, no murmur, positive dorsalis pedis pulse bilateral, no edema Lungs: CTA bilateral, no rhonchi, no rales, no accessory muscle use Abdominal: soft, nontender to palpation, no guarding Ext: muscle strength 4 out of 5 of left upper and lower extremities, exam limited on RLE since patient experiencing severe pain with any range of motion, strength 5 out of 5 in the right upper extremity, no gross muscle atrophy, no contractures, left AV graft without palpable thrill, L radial pulse difficult to palpate Neuro: CN II-XI grossly intact, no gross focal neuro deficits Psych: Alert, oriented, appropriate affect Data Reviewed Today: Pertinent Labs: Hemoglobin 11.1, sodium 136, bicarb 32, creatinine 4.7, potassium 3.6, lactate 1.2, blood sugars ranging between 91-103 Imaging: Right hip CT also shows acute comminuted mildly displaced right femoral proximal intratrochanteric fracture Assessment and Plan: Active: Traumatic right hip fracture Left hand trauma, 3 weeks ago Left hand numbness Type 2 diabetes -Orthopedic surgery noted reviewed, plan for surgery tomorrow -Vascular surgery note reviewed, plan for ligation of graft today -Nephrology note reviewed, hemodialysis today -Per NSQIP, patient has 17.9% risk of serious complication, 19.8% risk of any complication, 7% risk of cardiac complication, 10.3% risk of , 77.8% risk of discharge from rehab facility -Patient was medically optimized for surgical procedure tomorrow Resolved: Lactic acidosis Chronic: Hypertension ESRD on hemodialysis Dyslipidemia -Home medications reviewed and reconciled DVT ppx: SCDs Code status: Full code Anticipated discharge place: Likely rehab Anticipated discharge time: Pending clinical course Objective - Vital Signs Vital signs: Vital Signs Temp 96.9 F L 05/30/23 12:45 Pulse 85 05/30/23 12:45 Resp 18 05/30/23 12:45 BP 158/67 05/30/23 12:45 Pulse Ox 93 L 05/30/23 12:45 FiO2 Intake & Output 05/29/23 05/30/23 05/30/23 18:59 06:59 18:59 Intake Total 0 152 Output Total 2 Balance 0 150 Weight 61.689 kg 61.689 kg Intake: IV 152 Oral 0 Output: Estimated Blood Loss 2 Other: Voiding Method Diaper Incontinent # Voids 1 - Labs CBC & Chem 7: 05/29/23 15:55 05/29/23 15:55 Labs: Abnormal Lab Results - Last 24 Hours (Table) 05/29/23 05/29/23 05/29/23 Range/Units 13:48 15:55 15:55 RBC 3.54 L (3.80-5.40) m/uL Hgb 11.1 L (11.4-16.0) gm/dL Hct 33.3 L (34.0-46.0) % ESR 69 H (0-20) mm/hr Sodium 136 L (137-145) mmol/L Chloride 96 L (98-107) mmol/L Carbon Dioxide 32 H (22-30) mmol/L BUN 23 H (7-17) mg/dL Creatinine 4.70 H (0.52-1.04) mg/dL Glucose 103 H (74-99) mg/dL Alkaline Phosphatase 127 H (38-126) U/L
--- NOTE | 2023-05-30 14:34 | P.OP ---
Date of Procedure: 05/30/23 Description of Procedure: Preoperative diagnosis: End-stage renal disease, possible left upper extremity ischemic changes, nonhealing left upper extremity wound Postoperative diagnosis: Same Procedure: Ligation of left upper extremity AV graft Surgeon: Bethany Ruano D.O. EBL: 2 mL IV fluids: See records Urine output: Not measured Drains: None Complications: None immediately apparent Condition: Stable Operative indication and findings: Patient is a 72-year-old female with end- stage renal disease who previously had a brachial artery to axillary vein AV graft placed. She does have a history of stroke with sensory and muscular deficits to her left upper extremity however she began having some worsening yard jacker strength and was initially scheduled for revision and possible ligation of the AV graft due to this possible steal syndrome. Options including drill were discussed however given the patient's overall comorbidities it was thought that ligation of the graft would be best first major. Initially she was scheduled and then was seen at another hospital after sustaining a fall. There was conc micheal of possible cellulitis to her hand on that left side, she was seen by the vascular surgeon at that hospital lab personally discussed her case with and my concern for possible ischemic changes and at that time he stated that in his best opinion the issue at hand was more so related to the trauma and possible overlying cellulitis rather than ischemic changes. The patient was scheduled for outpatient surgery today however yesterday came into the ER due to the worsening discolorationdespite being on antibiotic therapy after discharge from the other hospital, while in the ER she sustained a fall and constantly now has a hip fracture requiring intervention by orthopedics schedule for tomorrow. Due to the area of concern on her fingers I felt it was prudent to continue ahead with her ligation of her AV graft in order to improve perfusion to the hand. This is all discussed with the patient and her daughter who seemingly understood and were willing to proceed. Procedure in detail: [Patient was taken the operative suite and placed in supine position. The left upper extremity is prepped and draped in usual sterile fashion. A preprocedure timeout was performed, all parties were in agreement. In the upper arm as part of the graft is easily palpable the skin overlying was anesthetized and a transverse incision was made and carried down to the graft itself. The graft was encircled and 2 sutures of 0 silk were tied for ligation of the graft. It appeared successful as there was no further augmentation or pulse beyond in the graft. There is easily palpable pulse in the brachial arterybeyond the anastomosis with significant improvement of the capillary refill the level of the hand. At this time the area was irrigated. The incision was reapproximated with interrupted sutures of 3-0 Vicryl and a 4-0 Monocryl at the skin level with skin glue. The patient tolerated the procedure well.
[2023-05-30 17:26] LABS: Glucose,Whole Blood 96 mg/dL (70-110)
[2023-05-30] MEDS: ATORVASTATIN 10 MG TAB PO SCH (20:19)
[2023-05-30] MEDS: SEVELAMER 800 MG TAB PO SCH ×2 (20:20)
[2023-05-30 20:41] LABS: Glucose,Whole Blood 109 mg/dL (70-110)
[2023-05-31] MEDS: MORPHINE SULFATE 4 MG/ML SYRINGE IV PRN (05:35)
[2023-05-31 06:30] LABS: Basophils % (A) 0 %; Eosinophils # (A) 0.2 k/uL (0-0.7); Eosinophils % (A) 3 %; HCT 30.5 % (34.0-46.0); HGB 9.9 gm/dL (11.4-16.0); Lymphocytes # (A) 0.9 k/uL (1.0-4.8); Lymphocytes % (A) 11 %; MCH 31.1 pg (25.0-35.0); MCHC 32.5 g/dL (31.0-37.0); MCV 95.4 fL (80.0-100.0); Monocytes # (A) 0.3 k/uL (0-1.0); Monocytes % (A) 4 %; Neutrophils # (A) 6.7 k/uL (1.3-7.7); Neutrophils % (A) 82 %; Platelet Count 185 k/uL (150-450); RDW 14.7 % (11.5-15.5); WBC 8.2 k/uL (3.8-10.6)
[2023-05-31 07:07] LABS: African American GFR (CKD) 14 (>60 ml/min/1.73 sqM); Anion Gap 9 mmol/L; Blood Urea Nitrogen 18 mg/dL (7-17); Calcium 8.8 mg/dL (8.4-10.2); Carbon Dioxide 27 mmol/L (22-30); Chloride 98 mmol/L (98-107); Glucose 94 mg/dL (74-99); Non-African American GFR(CKD) 12 (>60 ml/min/1.73 sqM); Potassium 4.3 mmol/L (3.5-5.1); Sodium 134 mmol/L (137-145)
[2023-05-31 07:12] LABS: Glucose,Whole Blood 88 mg/dL (70-110)
[2023-05-31] MEDS: FOLIC ACID-VIT B COMPLEX-VIT C 1 CAP PO SCH (08:37)
[2023-05-31] MEDS: FAMOTIDINE 20 MG TAB PO SCH (08:37)
[2023-05-31] MEDS: allopurinoL 100 MG TAB PO SCH (08:37)
[2023-05-31] MEDS: SEVELAMER 800 MG TAB PO SCH ×4 (08:37→20:30)
[2023-05-31] MEDS ORDERED: SODIUM CHLORIDE 0.9% 1,000 ML IV ONE (08:57)
[2023-05-31] MEDS ORDERED: ENOXAPARIN 30 MG/0.3 ML SYRINGE SQ SCH (09:00)
[2023-05-31 09:14] LABS: Glucose,Whole Blood 76 mg/dL (70-110)
[2023-05-31] MEDS ORDERED: ONDANSETRON 4 MG/2 ML VIAL IVP ONE (09:29)
[2023-05-31] MEDS ORDERED: DEXAMETHASONE SOD PHOSPHATE 4 MG/ML 1 ML VIAL IVP ONE (09:29)
[2023-05-31 09:50] LABS: Partial Thromboplastin Time 23.9 sec (22.0-30.0); Prothrombin Time 10.3 sec (9.0-12.0)
[2023-05-31] MEDS ORDERED: TRANEXAMIC 1,000 MG/100ML-NACL 1,000 MG in SALINE 1 100ML.BAG IVPB ONE (10:00)
[2023-05-31] MEDS ORDERED: HYDROcodone/APAP 5-325MG 1 EACH TAB PO PRN (10:19)
[2023-05-31] MEDS ORDERED: NA PHOS,M-B/NA PHOS,DI-BA 133 ML ENEMA RECTAL PRN (10:19)
[2023-05-31] MEDS ORDERED: MAGNESIUM HYDROXIDE 2,400 MG/30 ML CUP PO PRN (10:19)
[2023-05-31] MEDS ORDERED: traMADol 50 MG TAB PO PRN (10:19)
[2023-05-31] MEDS ORDERED: ACETAMINOPHEN TAB 325 MG TAB PO PRN (10:19)
[2023-05-31] MEDS ORDERED: HYDROmorphone 0.5 MG/0.5 ML SYRINGE IVP PRN ×3 (10:19)
[2023-05-31] MEDS ORDERED: bisacodyL 10 MG SUPP RECTAL PRN (10:19)
[2023-05-31] MEDS ORDERED: TRANEXAMIC 1,000 MG/100ML-NACL PREMIX BAG ONE (10:42)
[2023-05-31] MEDS ORDERED: fentaNYL (PF) 50 MCG/ML 2 ML AMP ONE (10:42)
[2023-05-31] MEDS ORDERED: KETAMINE 10 MG/ML 20 ML VIAL ONE (10:42)
[2023-05-31] MEDS ORDERED: MIDAZOLAM 2 MG/2 ML VIAL ONE (10:42)
[2023-05-31] MEDS ORDERED: PHENYLEPHRINE-0.9% NACL SYG 1,000 MCG/10 ML SYRINGE ONE (10:42)
[2023-05-31] MEDS ORDERED: ceFAZolin 1,000 MG in SODIUM CHLORIDE 0.9% 1,000 ML IRRIGATION ONE (11:20)
--- NOTE | 2023-05-31 11:55 | XR ---
Intraoperative/procedural fluoroscopic services were provided for right hip IT nail. Total fluoroscop y time is 54.5 seconds with a total of 2 submitted images to PACS. Total DAP 2.9182 Gycm2. Please se e the operative note for further details.
--- NOTE | 2023-05-31 12:36 | OP ---
OPERATIVE REPORT DATE OF SERVICE : 05/31/2023 PREOPERATIVE DIAGNOSIS: Right hip intertrochanteric fracture. POSTOPERATIVE DIAGNOSIS: Right hip intertrochanteric fracture. PROCEDURE PERFORMED: Right closed reduction with intramedullary hip screw fixation for right intertrochanteric hip fracture. ANESTHESIA: Spinal with sedation. ESTIMATED BLOOD LOSS: 25 mL. TOURNIQUET: None. DRAINS: None. COMPLICATIONS: None apparent. DISPOSITION: Postanesthesia care unit. INDICATIONS FOR PROCEDURE: Fernanda is a very pleasant 72-year-old female, who unfortunately fell in the hospital in the evening of 08/29, while going to the bathroom onto her right hip. Workup including x-rays and a CT scan revealed a minimally-displaced intertrochanteric fracture of her right hip. She was admitted to the Medical Service for her significant medical comorbidities. She was cleared for surgery by the Medical Service. The recommendation was for intramedullary hip screw fixation for her right intertrochanteric hip fracture. The risks of procedure were discussed with Fernanda in detail. These risks included, but were not limited to risk of infection, nerve damage, bleeding, pain, and a small risk of deep vein thrombosis which could lead to fatal pulmonary embolism. Further risks include failure of the fracture to heal and hardware irritation. All of her questions with regard to the risks of procedure were answered to her satisfaction. An appropriate informed consent was obtained. DESCRIPTION OF PROCEDURE: The patient was identified in the preoperative holding area. Surgical site was marked by both the patient and myself. She was given 2 g of Ancef IV for prophylactic purposes. She was then transported to the operative suite. She was placed supine on the operating room table. A spinal anesthetic was then administered and dosed per the Anesthesia Department without apparent complication. She was then transferred to the fracture table and well-padded in preparation for surgery. The fracture was then reduced utilizing traction and rotation. The fracture reduction was confirmed with fluoroscopic imaging. The patient's right lower extremity was then prepped and draped in usual sterile fashion. Standard surgical pause was undertaken to ensure that we were operating the correct site and that appropriate preoperative antibiotics had been given. All staff in the room were in agreement, and we proceeded. Fluoroscopy was brought in to identify the tip of the greater trochanter. Approximately 2 to 3 cm incision starting at the tip of the greater trochanter and extending proximally in line with the shaft of the femur was then made with a 10-blade scalpel. Dissection was carried down sharply to the tensor fascia. The tensor fascia was then incised in line with the incision. The curved awl was then placed on the medial aspect of the tip of the greater trochanter. The threaded guide pin was then advanced from the medial aspect of the tip of the greater trochanter down the intramedullary canal of the femur. Again, its placement was confirmed with fluoroscopic imaging. I then began with a starting reamer. The starting reamer was taken just superior to the level of the lesser trochanter. This allowed for good entrance into the proximal femur. The threaded guide pin was removed, and a ball-tipped guidewire was then placed down the shaft of the femur. I then reamed the femoral shaft starting with a 9 mm reamer and incrementally increasing up to a 13 mm reamer. I then had the BindHQ open 180 mm x 11 mm x 125-degree gamma nail. This was placed onto the emissions technician on the back table by the certified surgical technician. The nail was then inserted over the ball-tipped guidewire. The ball-tipped guidewire was removed. I then proceeded with placement of the hip screw. A second small incision was made on the lateral thigh. The threaded guide pin was then advanced through the nail into the center of the femoral head on both AP and lateral views. The tip-apex distance was appropriate. I then measured for length and measured for 90 mm. The reamer was then set to 90 mm. The threaded guide pin was then over-reamed under fluoroscopic guidance to 90 mm. I then had the AnaReSnap open a 10 mm x 90 mm partially-threaded cannulated hip screw. This was then inserted over the threaded guide pin deep into the center of the femoral head. Her bone quality was fairly good. I had a fairly good bite with the hip screw. It was placed deep. The tip-apex distance was appropriate. It was in the center of the femoral head on both AP and lateral views. I then placed the set screw. This was locked down fully and then backed off one-quarter turn to allow for compression at the fracture site. I then proceeded with placement of the distal locking screw. A third small stab incision was then made. A 5 mm x 32.5 mm screw was then placed through the static aspect of the distal nail. Again, this was done under fluoroscopic imaging. At this point in time, no further work was deemed necessary. Final fluoroscopic images were taken. The nail was placed intramedullary. The hip screw was deep into the center of the femoral head on both AP and lateral views. The tip-apex distance was appropriate. The distal locking screw was through the nail and was of appropriate length. At this point, no further work was deemed necessary. The emissions technician jig was removed. The wounds were then thoroughly irrigated with sterile saline solution with antibiotic added via pulsed lavage. The tensor fascia was closed with 0 Vicryl interrupted suture. The subcutaneous tissue was closed with 2-0 Vicryl interrupted suture. The skin was closed with stainless steel henrietta. Sterile dressing was then applied. All sponge and needle counts were deemed correct prior to closure. The patient tolerated the procedure without apparent complication. She was transferred to recovery room in stable condition. ISIDROL / LOPEZN: [id number] /
[2023-05-31] MEDS: LACTATED RINGERS 1,000 ML IV SCH ×2 (13:25→19:24)
[2023-05-31] MEDS: LEVOTHYROXINE 88 MCG TAB PO SCH (15:18)
--- NOTE | 2023-05-31 16:40 | P.PN ---
Subjective Progress Note Date: 05/31/23 Hospital Course: 72-year-old female with a PMH of ESRD on hemodialysis MWF via right-sided hemodialysis catheter, history of CVA with residual left-sided weakness, type II DM, hypertension, hyperlipidemia, nonfunctioning left arm AV graft, who presented to the emergency room with complaints of left hand and forearm numbness. In the emergency room, a Right femur x-ray revealed findings suspicious for femoral neck fracture. Left hand x-ray revealed no abnormalities. Left upper extremity ultrasound revealed no flow in the dialysis with flow identified within the radial and ulnar arteries. Laboratory evaluation was remarkable for sodium 138, lactic acid 2.3, hemoglobin 11.4, WBC count 6.7, BUN 22, creatinine 4.28. Orthopedic surgery, vascular surgery, and nephrology consulted. Patient underwent ligation of left upper extremity AV graft on 05/30. Pending right hip surgery today. Subjective: Seen and examined at bedside. No acute events overnight. Pertinent positives and negatives as discussed above, a complete review of systems was performed and all other systems are negative. Vitals Signs Reviewed. General: non toxic, no distress, appears at stated age, normal weight Derm: L hand dorsum and middle finger with purple discoloration noted, warm Head: atraumatic, normocephalic, symmetric Eyes: EOMI, no lid lag, anicteric sclera, pupils equal round reactive to light ENT: Nose and ears atraumatic Neck: No cervical lymphadenopathy, trachea midline, supple Mouth: no lip lesion, mucus membranes moist Cardiovascular: S1S2 reg, no murmur, positive dorsalis pedis pulse bilateral, no edema Lungs: CTA bilateral, no rhonchi, no rales, no accessory muscle use Abdominal: soft, nontender to palpation, no guarding Ext: muscle strength 4 out of 5 of left upper and lower extremities, exam limited on RLE since patient experiencing severe pain with any range of motion, strength 5 out of 5 in the right upper extremity, no gross muscle atrophy, no contractures, left AV graft without palpable thrill, L radial pulse difficult to palpate Neuro: CN II-XI grossly intact, no gross focal neuro deficits Psych: Alert, oriented, appropriate affect Data Reviewed Today: Pertinent Labs: Hemoglobin 9.9, sodium 134, creatinine 3.69, blood sugars range between 76-109 Imaging: No new imaging Assessment and Plan: Active: Traumatic right hip fracture Left hand trauma, 3 weeks ago Left hand numbness Type 2 diabetes -Orthopedic surgery following, plan for surgery today -Vascular surgery following, ligation of graft yesterday -Nephrology nephrology following, hemodialysis per the recommendations Resolved: Lactic acidosis Chronic: Hypertension ESRD on hemodialysis Dyslipidemia -Home medications reviewed and reconciled DVT ppx: SCDs Code status: Full code Anticipated discharge place: Likely rehab Anticipated discharge time: Pending clinical course Objective - Vital Signs Vital signs: Vital Signs Temp 98.5 F 05/31/23 13:20 Pulse 64 05/31/23 13:50 Resp 18 05/31/23 13:33 BP 125/66 05/31/23 13:50 Pulse Ox 100 05/31/23 13:50 FiO2 Intake & Output 05/30/23 05/31/23 05/31/23 18:59 06:59 18:59 Intake Total 272 500 201 Output Total 2 1000 25 Balance 270 -500 176 Weight 61.689 kg Intake: IV 152 201 Oral 120 100 Hemodialysis 400 Output: Hemodialysis 1000 Estimated Blood Loss 2 25 Other: Voiding Method Diaper Diaper Diaper # Voids 0 - Labs CBC & Chem 7: 05/31/23 06:11 05/31/23 06:11 Labs: Abnormal Lab Results - Last 24 Hours (Table) 05/31/23 05/31/23 Range/Units 06:11 06:11 RBC 3.20 L (3.80-5.40) m/uL Hgb 9.9 L (11.4-16.0) gm/dL Hct 30.5 L (34.0-46.0) % Lymphocytes # 0.9 L (1.0-4.8) k/uL Sodium 134 L (137-145) mmol/L BUN 18 H (7-17) mg/dL Creatinine 3.69 H (0.52-1.04) mg/dL
[2023-05-31 17:28] LABS: Glucose,Whole Blood 123 mg/dL (70-110)
[2023-05-31] MEDS: ASPIRIN 81 MG PO SCH (19:44)
[2023-05-31] MEDS: ATORVASTATIN 10 MG TAB PO SCH (19:44)
[2023-05-31 20:01] LABS: Glucose,Whole Blood 281 mg/dL (70-110)
[2023-05-31] MEDS: HYDROcodone/APAP 10-325MG 1 EACH TAB PO PRN (20:43)
[2023-05-31] MEDS ORDERED: SENNOSIDES-DOCUSATE SODIUM 1 EACH TAB PO SCH (21:00)
[2023-06-01] MEDS: LACTATED RINGERS 1,000 ML IV SCH (04:18)
[2023-06-01] MEDS: LEVOTHYROXINE 88 MCG TAB PO SCH (05:46)
[2023-06-01 05:48] VITALS: RESP 16
[2023-06-01 07:42] LABS: Glucose,Whole Blood 134 mg/dL (70-110)
[2023-06-01] MEDS: FAMOTIDINE 20 MG TAB PO SCH (08:59)
[2023-06-01] MEDS: allopurinoL 100 MG TAB PO SCH (08:59)
[2023-06-01] MEDS: ASPIRIN 81 MG PO SCH (08:59)
[2023-06-01] MEDS: SEVELAMER 800 MG TAB PO SCH ×2 (08:59→15:09)
[2023-06-01] MEDS: FOLIC ACID-VIT B COMPLEX-VIT C 1 CAP PO SCH (08:59)
[2023-06-01] MEDS: HYDROcodone/APAP 10-325MG 1 EACH TAB PO PRN (09:00)
--- NOTE | 2023-06-01 11:19 | P.PN ---
Subjective Patient is seen for follow-up for end-stage renal disease. Status post right hip closed reduction with intramedullary screw for right hip intertrochanteric fracture post fall on 05/31/2023 Status post ligation of left upper extremity AV graft for ischemic changes in the left hand and middle finger on 05/30/2023 No significant complaints today. Objective - Vital Signs Vital signs: Vital Signs Temp 98.2 F 06/01/23 07:30 Pulse 61 06/01/23 07:30 Resp 16 06/01/23 07:30 BP 133/52 06/01/23 07:30 Pulse Ox 100 06/01/23 07:30 FiO2 Intake & Output 05/31/23 06/01/23 06/01/23 18:59 06:59 18:59 Intake Total 851 450 Output Total 25 Balance 826 450 Intake: IV 201 Intake, IV Titration 650 50 Amount Lactated Ringers 1,000 ml 600 @ 100 mls/hr IV .Q10H ROLANDO Rx#:[id number] ceFAZolin 2 gm In Sodium 50 50 Chloride 0.9% 50 ml @ 100 mls/hr IVPB Q8H ROLANDO Rx#: [id number] Oral 400 Output: Estimated Blood Loss 25 Other: Voiding Method Diaper Diaper Diaper # Voids 0 - Exam Patient is awake, comfortable, no acute distress Examination of the heart S1 and S2 Examination of the lungs bilateral breath sounds are heard Abdomen is soft nontender Examination lower extremities shows no evidence of edema Discoloration noted on the left middle finger. - Labs CBC & Chem 7: 05/31/23 06:11 05/31/23 06:11 Labs: Abnormal Lab Results - Last 24 Hours (Table) 05/31/23 05/31/23 06/01/23 Range/Units 17:26 19:59 07:39 POC Glucose (mg/dL) 123 H 281 H 134 H (70-110) mg/dL Assessment and Plan Assessment: 1. End-stage renal disease on hemodialysis on a Sunday schedule 2. Status post fall and fracture right femoral neck. Status post right closed reduction with intramedullary hip screw on 05/31/2023 3. Ischemia to the left hand status post ligation of left arm AV graft 4. History of recent left hand cellulitis status post antibiotics 5. CK D mineral bone disorder Plan: Hemodialysis in a.m. via permacath Antibiotics discontinued Continue with phosphate binders.
[2023-06-01] MEDS ORDERED: MULTIVITAMINS, THERA 1 EACH TAB PO SCH (12:00)
[2023-06-01 12:05] LABS: Glucose,Whole Blood 110 mg/dL (70-110)
--- NOTE | 2023-06-01 12:36 | P.PN ---
Subjective Progress Note Date: 06/01/23 Principal diagnosis: Right IT fracture Patient is seen at bedside this morning. She is postop day #1 from gamma nail for right IT fracture. She has pain at the surgical site as expected but denies any new complaints. She denies new numbness, tingling or calf pain. Review of systems is negative for fever, chills, chest pain, shortness of breath or other Objective - Vital Signs Vital signs: Vital Signs Temp 98.2 F 06/01/23 07:30 Pulse 61 06/01/23 07:30 Resp 16 06/01/23 07:30 BP 133/52 06/01/23 07:30 Pulse Ox 100 06/01/23 07:30 FiO2 Intake & Output 05/31/23 06/01/23 06/01/23 18:59 06:59 18:59 Intake Total 851 450 Output Total 25 Balance 826 450 Intake: IV 201 Intake, IV Titration 650 50 Amount Lactated Ringers 1,000 ml 600 @ 100 mls/hr IV .Q10H ROLANDO Rx#:[id number] ceFAZolin 2 gm In Sodium 50 50 Chloride 0.9% 50 ml @ 100 mls/hr IVPB Q8H ROLANDO Rx#: [id number] Oral 400 Output: Estimated Blood Loss 25 Other: Voiding Method Diaper Diaper Diaper # Voids 0 - Exam Inspection reveals a benign surgical wound. There is no active bleeding or drainage. Neurovascular status is intact throughout the lower extremity with motor and sensation fully intact. Calf is soft and nontender. 2+ dorsalis pedis pulse and less than 2 second cap refill is present. - Constitutional General appearance: Present: no acute distress - Labs CBC & Chem 7: 05/31/23 06:11 05/31/23 06:11 Labs: Abnormal Lab Results - Last 24 Hours (Table) 05/31/23 05/31/23 06/01/23 Range/Units 17:26 19:59 07:39 POC Glucose (mg/dL) 123 H 281 H 134 H (70-110) mg/dL Assessment and Plan (1) Intertrochanteric fracture Narrative/Plan: She will continue with routine postop orthopedic protocol including pain management, wound care, PT, DVT prophylaxis and medical management. She is to be touchdown weightbearing. She may transfer to [facility] from orthopedic standpoint when okay with IM. We will sign off for now. Current Visit: Yes Status: Acute Priority: Medium Code(s): S72.143A - DISPLACED INTERTROCHANTERIC FRACTURE OF UNSP FEMUR, INIT SNOMED Code(s): 172464524 Time with Patient: Less than 30
--- NOTE | 2023-06-01 12:47 | P.DS ---
Providers Date of admission: 05/29/23 18:20 Expected date of discharge: 06/01/23 Attending physician: Dominique Delgado DO Consults: 05/29/23 18:17 Consult Physician Routine Consulting Provider: Bethany Ruano Consult Reason/Comments: L hand cyanosis Do you want consulting provider notified?: Already Contacted Consult Physician Routine Consulting Provider: Nicholas Stone Consult Reason/Comments: Right hip IT fracture Do you want consulting provider notified?: Already Contacted 05/29/23 18:20 Consult Physician Routine Consulting Provider: Brittney Dutton Consult Reason/Comments: Dialysis patient Do you want consulting provider notified?: Yes Primary care physician: [facility] Hospital Course: Discharge Diagnosis: Traumatic right hip fracture Left hand trauma, 3 weeks ago Left hand numbness Type 2 diabetes Lactic acidosis Hypertension ESRD on hemodialysis Dyslipidemia Hospital Course: 72-year-old female with a PMH of ESRD on hemodialysis MWF via right-sided hemodialysis catheter, history of CVA with residual left-sided weakness, type II DM, hypertension, hyperlipidemia, nonfunctioning left arm AV graft, who presented to the emergency room with complaints of left hand and forearm numbness. In the emergency room, a Right femur x-ray revealed findings suspicious for femoral neck fracture. Left hand x-ray revealed no abnormalities. Left upper extremity ultrasound revealed no flow in the dialysis with flow identified within the radial and ulnar arteries. Laboratory evaluation was remarkable for sodium 138, lactic acid 2.3, hemoglobin 11.4, WBC count 6.7, BUN 22, creatinine 4.28. Orthopedic surgery, vascular surgery, and nephrology consulted. Patient underwent ligation of left upper extremity AV graft on 05/30. She is also status post gamma nail from a right IT fracture on 05/31. Being discharged her rehab. Patient seen and examined at bedside. Vital signs reviewed and stable. General: nontoxic, no distress, appears at stated age Derm: warm, dry, surgical dressing clean, dry, intact, L hand dorsum and middle finger with purple discoloration noted Head: atraumatic, normocephalic, symmetric Eyes: EOMI, no lid lag, anicteric sclera Mouth: no lip lesion, mucus membranes moist Cardiovascular: S1S2 reg, no murmur Lungs: CTA bilateral, no rhonchi, no rales , no accessory muscle use Abdominal: soft, nontender to palpation, no guarding, no appreciable organomegaly Ext: no gross muscle atrophy, no edema, no contractures Neuro: CN II-XI grossly intact, no focal neuro deficits Psych: Alert, oriented, appropriate affect A total of 36 minutes of time were spent preparing this complex discharge summary. Patient was discharged on 06/01/23 at 12:38. Patient Condition at Discharge: Stable Plan - Discharge Summary Discharge Rx Participant: Yes New Discharge Prescriptions: New bisacodyL [Dulcolax] 10 mg RECTAL DAILY PRN suppositor PRN Reason: Constipation Famotidine [Pepcid] 20 mg PO DAILY tab Sennosides-Docusate Sodium [Senokot-S] 2 each PO HS tab Acetaminophen Tab [Tylenol] 650 mg PO Q6HR PRN tab PRN Reason: Pain Scale 1 To 5 Aspirin 81 mg PO BID tab Multivitamins, Thera [Multivitamin (formulary)] 1 each PO DAILY@1200 tab HYDROcodone/APAP 10-325MG [Iaeger 10-325] 1 each PO Q6H PRN #7 tab PRN Reason: Pain Scale 6 To 10 Continue allopurinoL [Zyloprim] 100 mg PO QAM Levothyroxine Sodium [Synthroid] 88 mcg PO QAM Sevelamer [Renvela] 800 - 1,600 mg PO DIRECTED MDD 5 tabs NIFEdipine [Procardia XL] 60 mg PO BID PRN PRN Reason: OVER 120/80 Vit B Complx C/Folic Acid/Zinc [Renaplex Tablet] 1 tab PO DAILY Atorvastatin [Lipitor] 10 mg PO HS sitaGLIPtin [Januvia] 25 mg PO QAM Discontinued Aspirin EC [Ecotrin Low Dose] 81 mg PO DAILY Discharge Medication List NIFEdipine [Procardia XL] 60 mg PO BID PRN 01/12/21 [History] allopurinoL [Zyloprim] 100 mg PO QAM 01/12/21 [History] Vit B Complx C/Folic Acid/Zinc [Renaplex Tablet] 1 tab PO DAILY 05/01/21 [History] Levothyroxine Sodium [Synthroid] 88 mcg PO QAM 09/09/21 [History] Atorvastatin [Lipitor] 10 mg PO HS 12/15/21 [History] Sevelamer [Renvela] 800 - 1,600 mg PO DIRECTED MDD 5 tabs 12/15/21 [History] sitaGLIPtin [Januvia] 25 mg PO QAM 12/18/22 [History] Acetaminophen Tab [Tylenol] 650 mg PO Q6HR PRN tab 06/01/23 [Rx] Aspirin 81 mg PO BID tab 06/01/23 [Rx] Famotidine [Pepcid] 20 mg PO DAILY tab 06/01/23 [Rx] HYDROcodone/APAP 10-325MG [Iaeger 10-325] 1 each PO Q6H PRN #7 tab 06/01/23 [Rx] Multivitamins, Thera [Multivitamin (formulary)] 1 each PO DAILY@1200 tab 06/01/23 [Rx] Sennosides-Docusate Sodium [Senokot-S] 2 each PO HS tab 06/01/23 [Rx] bisacodyL [Dulcolax] 10 mg RECTAL DAILY PRN suppositor 06/01/23 [Rx] Follow up Appointment(s)/Referral(s): [facility] [NON-STAFF] - As Needed (M-W-F AT 1115) Mehul Mayen MD [Primary Care Provider] - 1-2 days Nicholas Stone MD [STAFF PHYSICIAN] - 10 Days Patient Instructions/Handouts: Hip Fracture (GEN) Activity/Diet/Wound Care/Special Instructions: Touchdown weighbearing [place] out at POD#12 May shower after 3 days if no bleeding Keep wound clean and dry Take meds as directed F/U with Dr. Stone in office Discharge Disposition: TRANSFER TO SNF/ECF
[2023-06-01 14:03] LABS: Basophils # (A) 0.02 X 10*3/uL (0.00-0.10); Basophils % (A) 0.2 %; Eosinophils # (A) 0 X 10*3/uL (0.04-0.35); Eosinophils % (A) 0 %; HCT 26.5 % (37.2-46.3); HGB 8.3 d/dL (12.0-15.0); Lymphocytes # (A) 0.69 X 10*3/uL (0.90-5.00); Lymphocytes % (A) 8.1 %; MCH 30.5 pg (27.0-32.0); MCHC 31.3 d/dL (32.0-37.0); MCV 97.4 FL (80.0-97.0); Mean Platelet Volume 10.5 FL (9.5-12.2); Monocytes # (A) 0.57 X 10*3/uL (0.20-1.00); Monocytes % (A) 6.7 %; NRBC Per 100 WBC 0 X 10*3/uL (0.00-0.01); Neutrophils % (A) 84.5 %; Platelet Count 179 X 10*3/uL (140-440); RBC 2.72 X 10*6/uL (4.10-5.20); RDW 14.5 % (11.5-14.5); WBC 8.52 X 10*3/uL (4.50-10.00)
[2023-06-01 14:09] LABS: BUN/Creat Ratio 6.28 Ratio (12.00-20.00); Blood Urea Nitrogen 36.4 mg/dL (9.0-27.0); Chloride 98 mmol/L (96-109); Glucose 123 mg/dL (70-110); Potassium 4.9 mmol/L (3.5-5.5); Sodium 137 mmol/L (135-145)
[2023-06-01 14:10] LABS: Calcium 8.7 mg/dL (8.7-10.3); Carbon Dioxide 26.4 mmol/L (21.6-31.8)
[2023-06-01 15:24] VITALS: BP 142/74; PULSE 78; TEMP 98
== END 2023-06-01 16:25 | DRG 480 ==
LOC: EC 12:56 → 5NMEDONC 18:20
PROVIDERS: ADMIT Internal Medicine; ATTEND Internal Medicine
PROC: 03L Upper Arteries, Occlusion (ICD-10-PCS; 2023-05-30)
PROC: 5A1D70Z Performance of Urinary Filtration, Intermittent, Less than 6 Hours Per Day (ICD-10-PCS; 2023-05-30)
PROC: 0QS604Z Reposition Right Upper Femur with Internal Fixation Device, Open Approach (ICD-10-PCS; principal; 2023-05-31 09:30)
DX: S72.141A Displaced intertrochanteric fracture of right femur, initial encounter for closed fracture (principal); N18.6 End stage renal disease; E87.20 Acidosis, unspecified; I12.0 Hypertensive chronic kidney disease with stage 5 chronic kidney disease or end stage renal disease; T82.868A Thrombosis due to vascular prosthetic devices, implants and grafts, initial encounter; T82.41XA Breakdown (mechanical) of vascular dialysis catheter, initial encounter; I69.354 Hemiplegia and hemiparesis following cerebral infarction affecting left non-dominant side; E11.319 Type 2 diabetes mellitus with unspecified diabetic retinopathy without macular edema; E11.22 Type 2 diabetes mellitus with diabetic chronic kidney disease; E11.42 Type 2 diabetes mellitus with diabetic polyneuropathy; Z99.2 Dependence on renal dialysis; I73.89 Other specified peripheral vascular diseases; I69.398 Other sequelae of cerebral infarction; E78.5 Hyperlipidemia, unspecified; H91.90 Unspecified hearing loss, unspecified ear; M89.8X9 Other specified disorders of bone, unspecified site; W06.XXXA Fall from bed, initial encounter; W18.30XA Fall on same level, unspecified, initial encounter; Y71.1 Therapeutic (nonsurgical) and rehabilitative cardiovascular devices associated with adverse incidents; Y92.238 Other place in hospital as the place of occurrence of the external cause; Z87.891 Personal history of nicotine dependence; Z79.899 Other long term (current) drug therapy; Z79.890 Hormone replacement therapy; Z79.82 Long term (current) use of aspirin; Z79.84 Long term (current) use of oral hypoglycemic drugs
CPT/HCPCS: 36415; 73502; 80048; 80053; 83605; 85025; 85610; 85652; 85730; 86140; 90935; 93922; 93976; 96361; 96374; 96375; 99285